=== PATIENT | female | born 1935 | race Caucasian/White ===

== ENCOUNTER → 2020-06-26 11:23 | Outpatient (BNVA) | payer MEDICARE, SELFPAY | PROVIDERS: PCP Family Medicine; Referring Provider Family Medicine; Visit Provider Internal Medicine Cardiovascular Disease | DX: I48.0 Paroxysmal atrial fibrillation (principal); I10 Essential (primary) hypertension; Z79.01 Long term (current) use of anticoagulants; Z79.899 Other long term (current) drug therapy | CPT/HCPCS: 93005; Q3014 ==

== ENCOUNTER 2020-07-13 13:17 | Emergency (ER) | payer MEDICARE, SELFPAY ==
[2020-07-13 13:31] VITALS: BP 161/50; PULSE 56; RESP 16; TEMP 36.8; O2SAT 100; BMI 25.7
--- NOTE | 2020-07-13 13:47 | ECG_ITS ---
Test Reason : DIZZINESS Blood Pressure : / mmHG Vent. Rate : 055 BPM Atrial Rate : 055 BPM P-R Int : 154 ms QRS Dur : 090 ms QT Int : 414 ms P-R-T Axes : 070 043 044 degrees QTc Int : 396 ms Sinus bradycardia Otherwise normal ECG When compared with ECG of 27-FEB-2020 10:32, No significant change was found Referred By: Shavonne Wilkinson Electronically Signed By:DILCIA HENDERSON MD
--- NOTE | 2020-07-13 13:48 | CT_ITS ---
EXAMINATION: CT HEAD WITHOUT CONTRAST CLINICAL INFORMATION: Dizziness and headaches. COMPARISON: None TECHNIQUE: Contiguous axial imaging was performed from the skull base to vertex without intravenous administration of contrast. This CT examination was performed using dose optimization techniques as appropriate, variously including the following: *Automated exposure control *Adjustment of mA and/or kV according to patient size (this includes techniques or standardized protocols for targeted exams where dose is matched to indication/reason for exam; i.e. extremities or head) *Use of iterative reconstruction technique DLP: 642 mGy-cm FINDINGS: There is no evidence of acute intracranial hemorrhage or territorial infarction. No abnormal mass effect or midline shift is seen. Gomez to white matter differentiation is well preserved. No extra-axial fluid collections are identified. The lateral ventricles are symmetrical but enlarged. The cortical sulci are slightly prominent. The osseous structures and soft tissues are normal. The mastoid air cells and visualized portions of the paranasal sinuses are well aerated. CT/CT head/brain wo con IMPRESSION: No acute intracranial process seen Age-related cerebral volume loss.
[2020-07-13 14:00] VITALS: BP 141/61; PULSE 52; RESP 16; TEMP 36.6; O2SAT 97
--- NOTE | 2020-07-13 14:03 | ED_ITS ---
HPI - Dizziness General Chief Complaint: Dizziness <IGOR Enamorado - Last Filed: 07/13/20 17:19> Stated Complaint: DIZZINESS X3DAYS <IGOR Enamorado - Last Filed: 07/13/20 17:19> Time Seen by Provider: 07/13/20 13:28 <IGOR Enamorado - Last Filed: 07/13/20 17:19> Source: patient and EMS <IGOR Enamorado - Last Filed: 07/13/20 17:19> Mode of arrival: EMS <IGOR Enamorado - Last Filed: 07/13/20 17:19> History of Present Illness HPI Narrative: 85-year-old female with a past medical history of HTN, paroxysmal AFib on Xarelto, vertigo, BIBA for worsening acute on chronic dizziness and headache since Thursday. Admits symptoms started Thursday, improved yesterday, however worsened again last night at 6:00 p.m. Dizziness described as room spinning, and off balance. Admits to similar symptoms in the past, however this is worse than her typical vertigo, and headache is new. Took meclizine at home without relief. Denies head trauma/falls. Reports intermittent blurry vision. Denies nausea/vomiting, CP/SOB, recent illness <IGOR Enamorado - Last Filed: 07/13/20 17:19> MD elicited complaint: dizziness <IGOR Enamorado - Last Filed: 07/13/20 17:19> Related Data Home Medications: Home Medications Medication Instructions Recorded Confirmed amlodipine 5 mg tablet 5 mg PO DAILY tab 06/26/20 06/26/20 ascorbate calcium (vitamin C) 500 500 mg PO DAILY 06/26/20 06/26/20 mg tablet diazepam 2 mg tablet mg PO 06/26/20 06/26/20 diltiazem HCl 120 mg 120 mg PO PRN cap 06/26/20 06/26/20 capsule,extended release 24 hr multivitamin 1 tab PO DAILY 06/26/20 06/26/20 oxybutynin chloride 5 mg tablet 5 mg PO DAILY tab 06/26/20 06/26/20 rivaroxaban 20 mg tablet 20 mg PO DAILY tab 06/26/20 06/26/20 spironolactone 25 mg tablet 25 mg PO DAILY tab 06/26/20 06/26/20 Previous Rx's Medication Instructions Recorded metoprolol tartrate 50 mg tablet 50 mg PO BID 90 Days #180 tab 06/04/20 <IGOR Enamorado - Last Filed: 07/13/20 17:19> Allergies/Adverse Reactions: Allergies Allergy/AdvReac Type Severity Reaction Status Date / Time hydrochlorothiazide Allergy Mild ITCHING Unverified 04/26/20 14:53 [HYDROCHLOROTHIAZIDE] latex [LATEX] Allergy Mild ITCHING Unverified 04/26/20 14:53 levofloxacin [From LEVAQUIN] Allergy Unknown UNK Unverified 04/26/20 14:53 lisinopril [LISINOPRIL] Allergy Unknown UNKNOWN Unverified 04/26/20 14:53 lorazepam [LORAZEPAM] Allergy Unknown UNK Unverified 04/26/20 14:53 Pork/Porcine Containing Allergy Unknown UNKNOWN Unverified 04/26/20 14:53 Products [Pork/Porcine Product Derivatives] prednisone [PREDNISONE] Allergy Unknown UNCLEAR Unverified 04/26/20 14:53 propafenone [PROPAFENONE] Allergy Unknown UNK Unverified 04/26/20 14:53 spironolactone Allergy Unknown UNKNOWN Unverified 04/26/20 14:53 [SPIRONOLACTONE] Sulfa (Sulfonamide Allergy Unknown unknown Verified 06/26/20 11:22 Antibiotics) codeine Allergy Unknown unknown Uncoded 06/26/20 11:22 Crustaceans Allergy Unknown UNKNOWN Uncoded 04/26/20 14:53 augmentin AdvReac Unknown nausea & Uncoded 04/14/18 00:00 diarrhea <IGOR Enamorado - Last Filed: 07/13/20 17:19> Review of Systems Review of Systems: Constitutional: No Weight loss, No Fever, No Chills Eyes: + Vision Changes Cardiovascular: No Chest Pain, No SOB, No Dyspnea on Exertion, No Palpitations Respiratory: No Cough, No Sputuma Gastrointestinal: No Nausea, No Vomiting, No Diarrhea, No Constipation, No Abdominal pain Genitourinary:No Dysuria, No Hematuria Musculoskeletal: No joint pain, No Myalgias, No Joint Swelling Skin: No Skin Lesions, No rash Neuro: No Weakness, No Numbness, No Loss of Consciousness, + Dizziness, + Heada sneha <IGOR Enamorado - Last Filed: 07/13/20 17:19> Yes all other systems are reviewed and are negative <IGOR Enamorado - Last Filed: 07/13/20 17:19> Neurologic: Denies Sensory deficit (Neuro) <IGOR Enamorado - Last Filed: 07/13/20 17:19> [facility] Past Medical History Attestation statement: The following information was validated with the patient. <IGOR Enamorado - Last Filed: 07/13/20 17:19> Medical History: Medical History (Updated 07/14/20 @ 00:00 by Blake Diallo) HTN (hypertension) PAF (paroxysmal atrial fibrillation) <IGOR Enamorado - Last Filed: 07/13/20 17:19> Surgical History: Surgical History (Updated 06/26/20 @ 08:26 by DELON Pablo) Hx of colonoscopy Hx of excision of epidermal inclusion cyst Hx of hemorrhoidectomy Hx of hysterectomy <IGOR Enamorado - Last Filed: 07/13/20 17:19> Family History Family History: Family History (Updated 06/26/20 @ 08:27 by DELON Pablo) Father CVD (cardiovascular disease) Diabetes Mother CVD (cardiovascular disease) Diabetes Brother No problems noted. <IGOR Enamorado - Last Filed: 07/13/20 17:19> Social History Social History: Social History (Updated 06/26/20 @ 11:26 by DELON Pablo) Alcohol intake: never Smoking Status: Never smoker Use of substances other than those prescribed or required for medical reasons: No Advance Directives: No Advance Directives Information Provided: No <IGOR Enamorado - Last Filed: 07/13/20 17:19> Physical Exam Vital Signs: Vital Signs: Last Vital Signs Temp 98 F 07/13/20 20:00 Pulse 65 07/13/20 20:00 Resp 16 07/13/20 22:00 BP 137/66 07/13/20 20:00 Pulse Ox 99 07/13/20 20:00 Body Mass Index 25.7 <IGOR Enamorado - Last Filed: 07/13/20 17:19> Vital Signs: Last Vital Signs Temp 98 F 07/13/20 20:00 Pulse 65 07/13/20 20:00 Resp 16 07/13/20 22:00 BP 137/66 07/13/20 20:00 Pulse Ox 99 07/13/20 20:00 Body Mass Index 25.7 <Dominick Burnette MD - Last Filed: 08/03/20 10:00> Vital Signs: Last Vital Signs Temp 98 F 07/13/20 20:00 Pulse 65 07/13/20 20:00 Resp 16 07/13/20 22:00 BP 137/66 07/13/20 20:00 Pulse Ox 99 07/13/20 20:00 Body Mass Index 25.7 <Ally Ruano NP - Last Filed: 07/13/20 22:08> Const: General: cooperative <IGOR Enamorado - Last Filed: 07/13/20 17:19> Orientation/consciousness: patient oriented x3 <IGOR Enamorado - Last Filed: 07/13/20 17:19> Limitations: no limitations <IGOR Enamorado - Last Filed: 07/13/20 17:19> HENMT: Other: Eyes closed throughout evaluation <Shavonne Wilkinson PA - Last Filed: 07/13/20 17:19> Head: Yes normal to inspection <IGOR Enamorado - Last Filed: 07/13/20 17:19> Ears: hearing grossly normal bilaterally <Shavonne Wilkinson PA - Last Filed: 07/13/20 17:19> General nose exam: Normal external nose present <Shavonne Wilkinson PA - Last Filed: 07/13/20 17:19> Face and sinus: Yes normal facial exam <Shavonne Wilkinson PA - Last Filed: 07/13/20 17:19> Eyes: General: appearance normal, both eyes and all related structures <Shavonne Wilkinson PA - Last Filed: 07/13/20 17:19> Pupils: Equal, round and reactive pupils present <Shavonne Wilkinson PA - Last Filed: 07/13/20 17:19> EOM: EOMs intact bilaterally <Shavonne Wilkinson PA - Last Filed: 07/13/20 17:19> Neck: Neck: Yes normal visual inspection and Yes no meningeal signs <Shavonne Wilkinson PA - Last Filed: 07/13/20 17:19> Resp: Effort & Inspection: normal respiratory effort <Shavonne Engeloste, PA - Last Filed: 07/13/20 17:19> Auscultation: clear to auscultation bilaterally, no rales, no rhonchi and no wheezes <Shavonne Engeloste, PA - Last Filed: 07/13/20 17:19> Cardio: Rate: regular rate <Shavonne Jaja, PA - Last Filed: 07/13/20 17:19> Heart sounds: S1 normal heart sound present and S2 normal heart sound present <Shavonne [facility], PA - Last Filed: 07/13/20 17:19> GI: Inspection: Yes normal to inspection <Shavonne [facility], PA - Last Filed: 07/13/20 17:19> Palpation (GI): Soft to palpation, nontender, no guarding and not rigid <Shavonne Jaja, PA - Last Filed: 07/13/20 17:19> Skin: Rashes: no rashes <Shavonne [facility], PA - Last Filed: 07/13/20 17:19> Wounds: no wounds <Shavonne [facility], PA - Last Filed: 07/13/20 17:19> Neuro: Other: +L-sided nystagmus <Shavonne [facility], PA - Last Filed: 07/13/20 17:19> General: patient oriented x3, tone normal, moves all extremities, no meningeal signs, no focal motor deficits and CN's II-XI intact bilaterally <Shavonne Jaja, PA - Last Filed: 07/13/20 17:19> Cranial nerves: Yes Equal, round and reactive pupils present <Shavonne Jaja, PA - Last Filed: 07/13/20 17:19> Cognition (Neuro): normal cognition <Shavonne [facility], PA - Last Filed: 07/13/20 17:19> Gait exam (Neuro): Normal gait present <Shavonne [facility], PA - Last Filed: 07/13/20 17:19> Motor exam (neuro): 5/5 motor strength present throughout <Shavonne Jaaj, PA - Last Filed: 07/13/20 17:19> Sensory Exam: No Sensory deficit (Neuro) <Shavonne Jaja, PA - Last Filed: 07/13/20 17:19> Coordination: [id number] test normal <IGOR Enamorado - Last Filed: 07/13/20 17:19> Extrem: General: Yes normal to inspection <IGOR Enamorado - Last Filed: 07/13/20 17:19> Course Course Course Narrative: -initial troponin 5.3 > will obtain 3 hour repeat -UA neg -Head CT negative -1625-- patient initally refused meclizine, Benadryl, and Zofran > now agreeable to receive Benadryl as still feels dizzy (pt allergic to Ativan) -1700--ED care transfer to [facility] pending repeat troponin, Chem 7, and re- evaluation. If patient's symptoms not improving, plan for admission for MRI/intractable vertigo <IGOR Enamorado - Last Filed: 07/13/20 17:19> I have discussed the case and management with the SORAIDA <Dominick Burnette MD - Last Filed: 08/03/20 10:00> MDM - Dizziness MDM Narrative Medical decision making narrative: 85-year-old female with a past medical history of HTN, paroxysmal AFib on Xarelto, vertigo, BIBA for worsening acute on chronic dizziness and headache since Thursday. On exam VSS, NAD, no focal deficits, appears dizzy, nystagmus noted. Concern for acute on chronic vertigo vs ICH/mass vs cerebellar CVA vs ?SAH although lower on differential. Lower concern for CVT or ACS. Plan: EKG, labs, UA, head CT, meclizine/Zofran/Benadryl, reassess <IGOR Enamorado - Last Filed: 07/13/20 17:19> Lab Data Result diagrams: : 07/13/20 14:33 07/13/20 18:52 <IGOR Enamorado - Last Filed: 07/13/20 17:19> Labs: Lab Results 07/13/20 07/13/20 07/13/20 Range/Units 14:33 14:33 14:33 WBC 7.5 (4.8-10.8) X10*3/uL RBC 3.85 L (4.20-5.50) X10*6/uL Hgb 11.8 L (12.0-16.0) g/dl Hct 36.0 L (37-47) % MCV 93.5 (80-98) fL MCH 30.6 (27.0-33.0) pg MCHC 32.8 (31.0-35.0) g/dl RDW 12.3 (11.0-16.0) % Plt Count 241 (160-400) X10*3/uL MPV 10.1 (9.4-12.3) fL Immature Gran % (Auto) 0.4 (0.0-0.4) % Neut % (Auto) 59.3 (45-73) % Lymph % (Auto) 31.3 (20-40) % [place] % (Auto) 7.7 (2-11) % Eos % (Auto) 0.9 (0-4) % Baso % (Auto) 0.4 (0-2) % Lymph # (Auto) 2.3 (1.2-4.9) X10*3/uL [place] # (Auto) 0.6 (0.1-1.2) X10*3/uL Eos # (Auto) 0.1 (0.0-0.4) X10*3/uL Baso # (Auto) 0.0 (0.0-0.2) X10*3/uL Abs Immat Gran (auto) 0.03 (0.00-0.03) X10*3/uL Absolute Neuts (auto) 4.4 (2.0-8.3) X10*3/uL Absolute Nucleated RBC 0.000 (0.0-0.012) X10*3/uL Nucleated RBC % (auto) 0.0 (0.0-0.2) /100WBC PT Cancelled INR Cancelled APTT Cancelled Sodium Cancelled Potassium Cancelled Chloride Cancelled Carbon Dioxide Cancelled Anion Gap Cancelled BUN Cancelled Creatinine Cancelled Estim Creat Clear Calc Cancelled Estimated GFR Cancelled Random Glucose Cancelled Calcium Cancelled Magnesium Cancelled Total Bilirubin Cancelled Direct Bilirubin Cancelled AST Cancelled ALT Cancelled Alkaline Phosphatase Cancelled Troponin I High Sens (<3.5-17.0) ng/L Total Protein Cancelled Albumin Cancelled Urine Color Urine Appearance Urine pH (5.0-8.0) Ur Specific [place] (1.005-1.025) Urine Protein (NEG-TRACE) MG/DL Urine Glucose (UA) (NEG) MG/DL Urine Ketones (NEG) MG/DL Urine Blood (NEG) Urine Nitrite (NEG) Ur Leukocyte Esterase (NEG) 07/13/20 07/13/20 07/13/20 Range/Units 14:33 15:29 18:52 WBC (4.8-10.8) X10*3/uL RBC (4.20-5.50) X10*6/uL Hgb (12.0-16.0) g/dl Hct (37-47) % MCV (80-98) fL MCH (27.0-33.0) pg MCHC (31.0-35.0) g/dl RDW (11.0-16.0) % Plt Count (160-400) X10*3/uL MPV (9.4-12.3) fL Immature Gran % (Auto) (0.0-0.4) % Neut % (Auto) (45-73) % Lymph % (Auto) (20-40) % [place] % (Auto) (2-11) % Eos % (Auto) (0-4) % Baso % (Auto) (0-2) % Lymph # (Auto) (1.2-4.9) X10*3/uL [place] # (Auto) (0.1-1.2) X10*3/uL Eos # (Auto) (0.0-0.4) X10*3/uL Baso # (Auto) (0.0-0.2) X10*3/uL Abs Immat Gran (auto) (0.00-0.03) X10*3/uL Absolute Neuts (auto) (2.0-8.3) X10*3/uL Absolute Nucleated RBC (0.0-0.012) X10*3/uL Nucleated RBC % (auto) (0.0-0.2) /100WBC PT INR APTT Sodium 139 Potassium 3.9 Chloride 102 Carbon Dioxide 29 Anion Gap 12 BUN 18 H Creatinine 0.89 Estim Creat Clear Calc 44.5 Estimated GFR > 60 Random Glucose 98 Calcium 9.4 Magnesium 2.0 Total Bilirubin 0.7 Direct Bilirubin 0.3 AST 16 ALT 14 Alkaline Phosphatase 67 Troponin I High Sens 5.3 (<3.5-17.0) ng/L Total Protein 6.7 Albumin 3.9 Urine Color YELLOW Urine Appearance CLEAR Urine pH 6.0 (5.0-8.0) Ur Specific [place] <= 1.005 (1.005-1.025) Urine Protein NEG (NEG-TRACE) MG/DL Urine Glucose (UA) NEG (NEG) MG/DL Urine Ketones NEG (NEG) MG/DL Urine Blood NEG (NEG) Urine Nitrite NEG (NEG) Ur Leukocyte Esterase NEG (NEG) 07/13/20 07/13/20 Range/Units 18:52 18:52 WBC (4.8-10.8) X10*3/uL RBC (4.20-5.50) X10*6/uL Hgb (12.0-16.0) g/dl Hct (37-47) % MCV (80-98) fL MCH (27.0-33.0) pg MCHC (31.0-35.0) g/dl RDW (11.0-16.0) % Plt Count (160-400) X10*3/uL MPV (9.4-12.3) fL Immature Gran % (Auto) (0.0-0.4) % Neut % (Auto) (45-73) % Lymph % (Auto) (20-40) % [place] % (Auto) (2-11) % Eos % (Auto) (0-4) % Baso % (Auto) (0-2) % Lymph # (Auto) (1.2-4.9) X10*3/uL [place] # (Auto) (0.1-1.2) X10*3/uL Eos # (Auto) (0.0-0.4) X10*3/uL Baso # (Auto) (0.0-0.2) X10*3/uL Abs Immat Gran (auto) (0.00-0.03) X10*3/uL Absolute Neuts (auto) (2.0-8.3) X10*3/uL Absolute Nucleated RBC (0.0-0.012) X10*3/uL Nucleated RBC % (auto) (0.0-0.2) /100WBC PT 13.1 H INR 1.1 APTT 31.5 Sodium Potassium Chloride Carbon Dioxide Anion Gap BUN Creatinine Estim Creat Clear Calc Estimated GFR Random Glucose Calcium Magnesium Total Bilirubin Direct Bilirubin AST ALT Alkaline Phosphatase Troponin I High Sens 6.3 (<3.5-17.0) ng/L Total Protein Albumin Urine Color Urine Appearance Urine pH (5.0-8.0) Ur Specific [place] (1.005-1.025) Urine Protein (NEG-TRACE) MG/DL Urine Glucose (UA) (NEG) MG/DL Urine Ketones (NEG) MG/DL Urine Blood (NEG) Urine Nitrite (NEG) Ur Leukocyte Esterase (NEG) <IGOR Enamorado - Last Filed: 07/13/20 17:19> Lab Results 07/13/20 07/13/20 07/13/20 Range/Units 14:33 14:33 14:33 WBC 7.5 (4.8-10.8) X10*3/uL RBC 3.85 L (4.20-5.50) X10*6/uL Hgb 11.8 L (12.0-16.0) g/dl Hct 36.0 L (37-47) % MCV 93.5 (80-98) fL MCH 30.6 (27.0-33.0) pg MCHC 32.8 (31.0-35.0) g/dl RDW 12.3 (11.0-16.0) % Plt Count 241 (160-400) X10*3/uL MPV 10.1 (9.4-12.3) fL Immature Gran % (Auto) 0.4 (0.0-0.4) % Neut % (Auto) 59.3 (45-73) % Lymph % (Auto) 31.3 (20-40) % [place] % (Auto) 7.7 (2-11) % Eos % (Auto) 0.9 (0-4) % Baso % (Auto) 0.4 (0-2) % Lymph # (Auto) 2.3 (1.2-4.9) X10*3/uL [place] # (Auto) 0.6 (0.1-1.2) X10*3/uL Eos # (Auto) 0.1 (0.0-0.4) X10*3/uL Baso # (Auto) 0.0 (0.0-0.2) X10*3/uL Abs Immat Gran (auto) 0.03 (0.00-0.03) X10*3/uL Absolute Neuts (auto) 4.4 (2.0-8.3) X10*3/uL Absolute Nucleated RBC 0.000 (0.0-0.012) X10*3/uL Nucleated RBC % (auto) 0.0 (0.0-0.2) /100WBC PT Cancelled INR Cancelled APTT Cancelled Sodium Cancelled Potassium Cancelled Chloride Cancelled Carbon Dioxide Cancelled Anion Gap Cancelled BUN Cancelled Creatinine Cancelled Estim Creat Clear Calc Cancelled Estimated GFR Cancelled Random Glucose Cancelled Calcium Cancelled Magnesium Cancelled Total Bilirubin Cancelled Direct Bilirubin Cancelled AST Cancelled ALT Cancelled Alkaline Phosphatase Cancelled Troponin I High Sens (<3.5-17.0) ng/L Total Protein Cancelled Albumin Cancelled Urine Color Urine Appearance Urine pH (5.0-8.0) Ur Specific [place] (1.005-1.025) Urine Protein (NEG-TRACE) MG/DL Urine Glucose (UA) (NEG) MG/DL Urine Ketones (NEG) MG/DL Urine Blood (NEG) Urine Nitrite (NEG) Ur Leukocyte Esterase (NEG) 07/13/20 07/13/20 07/13/20 Range/Units 14:33 15:29 18:52 WBC (4.8-10.8) X10*3/uL RBC (4.20-5.50) X10*6/uL Hgb (12.0-16.0) g/dl Hct (37-47) % MCV (80-98) fL MCH (27.0-33.0) pg MCHC (31.0-35.0) g/dl RDW (11.0-16.0) % Plt Count (160-400) X10*3/uL MPV (9.4-12.3) fL Immature Gran % (Auto) (0.0-0.4) % Neut % (Auto) (45-73) % Lymph % (Auto) (20-40) % [place] % (Auto) (2-11) % Eos % (Auto) (0-4) % Baso % (Auto) (0-2) % Lymph # (Auto) (1.2-4.9) X10*3/uL [place] # (Auto) (0.1-1.2) X10*3/uL Eos # (Auto) (0.0-0.4) X10*3/uL Baso # (Auto) (0.0-0.2) X10*3/uL Abs Immat Gran (auto) (0.00-0.03) X10*3/uL Absolute Neuts (auto) (2.0-8.3) X10*3/uL Absolute Nucleated RBC (0.0-0.012) X10*3/uL Nucleated RBC % (auto) (0.0-0.2) /100WBC PT INR APTT Sodium 139 Potassium 3.9 Chloride 102 Carbon Dioxide 29 Anion Gap 12 BUN 18 H Creatinine 0.89 Estim Creat Clear Calc 44.5 Estimated GFR > 60 Random Glucose 98 Calcium 9.4 Magnesium 2.0 Total Bilirubin 0.7 Direct Bilirubin 0.3 AST 16 ALT 14 Alkaline Phosphatase 67 Troponin I High Sens 5.3 (<3.5-17.0) ng/L Total Protein 6.7 Albumin 3.9 Urine Color YELLOW Urine Appearance CLEAR Urine pH 6.0 (5.0-8.0) Ur Specific [place] <= 1.005 (1.005-1.025) Urine Protein NEG (NEG-TRACE) MG/DL Urine Glucose (UA) NEG (NEG) MG/DL Urine Ketones NEG (NEG) MG/DL Urine Blood NEG (NEG) Urine Nitrite NEG (NEG) Ur Leukocyte Esterase NEG (NEG) 07/13/20 07/13/20 Range/Units 18:52 18:52 WBC (4.8-10.8) X10*3/uL RBC (4.20-5.50) X10*6/uL Hgb (12.0-16.0) g/dl Hct (37-47) % MCV (80-98) fL MCH (27.0-33.0) pg MCHC (31.0-35.0) g/dl RDW (11.0-16.0) % Plt Count (160-400) X10*3/uL MPV (9.4-12.3) fL Immature Gran % (Auto) (0.0-0.4) % Neut % (Auto) (45-73) % Lymph % (Auto) (20-40) % [place] % (Auto) (2-11) % Eos % (Auto) (0-4) % Baso % (Auto) (0-2) % Lymph # (Auto) (1.2-4.9) X10*3/uL [place] # (Auto) (0.1-1.2) X10*3/uL Eos # (Auto) (0.0-0.4) X10*3/uL Baso # (Auto) (0.0-0.2) X10*3/uL Abs Immat Gran (auto) (0.00-0.03) X10*3/uL Absolute Neuts (auto) (2.0-8.3) X10*3/uL Absolute Nucleated RBC (0.0-0.012) X10*3/uL Nucleated RBC % (auto) (0.0-0.2) /100WBC PT 13.1 H INR 1.1 APTT 31.5 Sodium Potassium Chloride Carbon Dioxide Anion Gap BUN Creatinine Estim Creat Clear Calc Estimated GFR Random Glucose Calcium Magnesium Total Bilirubin Direct Bilirubin AST ALT Alkaline Phosphatase Troponin I High Sens 6.3 (<3.5-17.0) ng/L Total Protein Albumin Urine Color Urine Appearance Urine pH (5.0-8.0) Ur Specific [place] (1.005-1.025) Urine Protein (NEG-TRACE) MG/DL Urine Glucose (UA) (NEG) MG/DL Urine Ketones (NEG) MG/DL Urine Blood (NEG) Urine Nitrite (NEG) Ur Leukocyte Esterase (NEG) <Dominick Burnette MD - Last Filed: 08/03/20 10:00> Lab Results 07/13/20 07/13/20 07/13/20 Range/Units 14:33 14:33 14:33 WBC 7.5 (4.8-10.8) X10*3/uL RBC 3.85 L (4.20-5.50) X10*6/uL Hgb 11.8 L (12.0-16.0) g/dl Hct 36.0 L (37-47) % MCV 93.5 (80-98) fL MCH 30.6 (27.0-33.0) pg MCHC 32.8 (31.0-35.0) g/dl RDW 12.3 (11.0-16.0) % Plt Count 241 (160-400) X10*3/uL MPV 10.1 (9.4-12.3) fL Immature Gran % (Auto) 0.4 (0.0-0.4) % Neut % (Auto) 59.3 (45-73) % Lymph % (Auto) 31.3 (20-40) % [place] % (Auto) 7.7 (2-11) % Eos % (Auto) 0.9 (0-4) % Baso % (Auto) 0.4 (0-2) % Lymph # (Auto) 2.3 (1.2-4.9) X10*3/uL [place] # (Auto) 0.6 (0.1-1.2) X10*3/uL Eos # (Auto) 0.1 (0.0-0.4) X10*3/uL Baso # (Auto) 0.0 (0.0-0.2) X10*3/uL Abs Immat Gran (auto) 0.03 (0.00-0.03) X10*3/uL Absolute Neuts (auto) 4.4 (2.0-8.3) X10*3/uL Absolute Nucleated RBC 0.000 (0.0-0.012) X10*3/uL Nucleated RBC % (auto) 0.0 (0.0-0.2) /100WBC PT Cancelled INR Cancelled APTT Cancelled Sodium Cancelled Potassium Cancelled Chloride Cancelled Carbon Dioxide Cancelled Anion Gap Cancelled BUN Cancelled Creatinine Cancelled Estim Creat Clear Calc Cancelled Estimated GFR Cancelled Random Glucose Cancelled Calcium Cancelled Magnesium Cancelled Total Bilirubin Cancelled Direct Bilirubin Cancelled AST Cancelled ALT Cancelled Alkaline Phosphatase Cancelled Troponin I High Sens (<3.5-17.0) ng/L Total Protein Cancelled Albumin Cancelled Urine Color Urine Appearance Urine pH (5.0-8.0) Ur Specific [place] (1.005-1.025) Urine Protein (NEG-TRACE) MG/DL Urine Glucose (UA) (NEG) MG/DL Urine Ketones (NEG) MG/DL Urine Blood (NEG) Urine Nitrite (NEG) Ur Leukocyte Esterase (NEG) 12/04/20 12/04/20 12/04/20 Range/Units 14:33 15:29 18:52 WBC (4.8-10.8) X10*3/uL RBC (4.20-5.50) X10*6/uL Hgb (12.0-16.0) g/dl Hct (37-47) % MCV (80-98) fL MCH (27.0-33.0) pg MCHC (31.0-35.0) g/dl RDW (11.0-16.0) % Plt Count (160-400) X10*3/uL MPV (9.4-12.3) fL Immature Gran % (Auto) (0.0-0.4) % Neut % (Auto) (45-73) % Lymph % (Auto) (20-40) % [place] % (Auto) (2-11) % Eos % (Auto) (0-4) % Baso % (Auto) (0-2) % Lymph # (Auto) (1.2-4.9) X10*3/uL [place] # (Auto) (0.1-1.2) X10*3/uL Eos # (Auto) (0.0-0.4) X10*3/uL Baso # (Auto) (0.0-0.2) X10*3/uL Abs Immat Gran (auto) (0.00-0.03) X10*3/uL Absolute Neuts (auto) (2.0-8.3) X10*3/uL Absolute Nucleated RBC (0.0-0.012) X10*3/uL Nucleated RBC % (auto) (0.0-0.2) /100WBC PT INR APTT Sodium 139 Potassium 3.9 Chloride 102 Carbon Dioxide 29 Anion Gap 12 BUN 18 H Creatinine 0.89 Estim Creat Clear Calc 44.5 Estimated GFR > 60 Random Glucose 98 Calcium 9.4 Magnesium 2.0 Total Bilirubin 0.7 Direct Bilirubin 0.3 AST 16 ALT 14 Alkaline Phosphatase 67 Troponin I High Sens 5.3 (<3.5-17.0) ng/L Total Protein 6.7 Albumin 3.9 Urine Color YELLOW Urine Appearance CLEAR Urine pH 6.0 (5.0-8.0) Ur Specific [place] <= 1.005 (1.005-1.025) Urine Protein NEG (NEG-TRACE) MG/DL Urine Glucose (UA) NEG (NEG) MG/DL Urine Ketones NEG (NEG) MG/DL Urine Blood NEG (NEG) Urine Nitrite NEG (NEG) Ur Leukocyte Esterase NEG (NEG) 07/13/20 07/13/20 Range/Units 18:52 18:52 WBC (4.8-10.8) X10*3/uL RBC (4.20-5.50) X10*6/uL Hgb (12.0-16.0) g/dl Hct (37-47) % MCV (80-98) fL MCH (27.0-33.0) pg MCHC (31.0-35.0) g/dl RDW (11.0-16.0) % Plt Count (160-400) X10*3/uL MPV (9.4-12.3) fL Immature Gran % (Auto) (0.0-0.4) % Neut % (Auto) (45-73) % Lymph % (Auto) (20-40) % [place] % (Auto) (2-11) % Eos % (Auto) (0-4) % Baso % (Auto) (0-2) % Lymph # (Auto) (1.2-4.9) X10*3/uL [place] # (Auto) (0.1-1.2) X10*3/uL Eos # (Auto) (0.0-0.4) X10*3/uL Baso # (Auto) (0.0-0.2) X10*3/uL Abs Immat Gran (auto) (0.00-0.03) X10*3/uL Absolute Neuts (auto) (2.0-8.3) X10*3/uL Absolute Nucleated RBC (0.0-0.012) X10*3/uL Nucleated RBC % (auto) (0.0-0.2) /100WBC PT 13.1 H INR 1.1 APTT 31.5 Sodium Potassium Chloride Carbon Dioxide Anion Gap BUN Creatinine Estim Creat Clear Calc Estimated GFR Random Glucose Calcium Magnesium Total Bilirubin Direct Bilirubin AST ALT Alkaline Phosphatase Troponin I High Sens 6.3 (<3.5-17.0) ng/L Total Protein Albumin Urine Color Urine Appearance Urine pH (5.0-8.0) Ur Specific [place] (1.005-1.025) Urine Protein (NEG-TRACE) MG/DL Urine Glucose (UA) (NEG) MG/DL Urine Ketones (NEG) MG/DL Urine Blood (NEG) Urine Nitrite (NEG) Ur Leukocyte Esterase (NEG) <Ally Ruano NP - Last Filed: 07/13/20 22:08> Discharge Plan Discharge Clinical Impression: Dizziness <IGOR Enamorado - Last Filed: 07/13/20 17:19> Patient Disposition: Home, Self-Care <IGOR Enamorado - Last Filed: 07/13/20 17:19> Instructions: Dizziness (ED) <IGOR Enamorado - Last Filed: 07/13/20 17:19> Additional Instructions: you were evaluated for dizziness. Her lab values are within normal limits. <IGOR Enamorado - Last Filed: 07/13/20 17:19> Prescriptions: No Action metoprolol tartrate 50 mg tablet 50 mg PO BID 90 Days Qty: 180 RF: 1 diazepam 2 mg tablet PO RF: 0 ascorbate calcium (vitamin C) 500 mg tablet 500 mg PO DAILY RF: 0 multivitamin Tablet 1 tab PO DAILY RF: 0 diltiazem HCl 120 mg capsule,extended release 24hr 120 mg PO PRN (Reason: afib) RF: 0 spironolactone 25 mg tablet 25 mg PO DAILY RF: 0 rivaroxaban 20 mg tablet 20 mg PO DAILY RF: 0 oxybutynin chloride 5 mg tablet 5 mg PO DAILY RF: 0 amlodipine 5 mg tablet 5 mg PO DAILY RF: 0 <IGOR Enamorado - Last Filed: 07/13/20 17:19> Interventions: ED Discharge Assessment Last Done: 07/13/20 22:52 <IGOR Enamorado - Last Filed: 07/13/20 17:19> Discharge Date/Time: 07/13/20 22:53 <IGOR Enamorado - Last Filed: 07/13/20 17:19>
[2020-07-13] MEDS: diphenhydrAMINE HCL 50 MG/ML VIAL 25 MG IVPUSH ×2 (14:35→17:47)
[2020-07-13] MEDS: ondansetron HCL 4 MG/2 ML VIAL IVPUSH (14:35)
[2020-07-13] MEDS: Acetaminophen 325 MG TABLET 650 MG PO (14:35)
[2020-07-13 14:43] LABS: Basophils Percent Auto 0.4 % (0-2); Eosinophils Absolute Auto 0.1 X10*3/uL (0.0-0.4); Eosinophils Percent Auto 0.9 % (0-4); Hemoglobin 11.8 g/dl (12.0-16.0); Imm Gran Abs Auto 0.03 X10*3/uL (0.00-0.03); Imm Gran Pct Auto 0.4 % (0.0-0.4); Lymphocytes Absolute Auto 2.3 X10*3/uL (1.2-4.9); Lymphocytes Percent Auto 31.3 % (20-40); MANUAL DIFF FLAG NO; Mean Corpuscular HGB Conc 32.8 g/dl (31.0-35.0); Mean Corpuscular Hemoglobin 30.6 pg (27.0-33.0); Mean Corpuscular Volume 93.5 fL (80-98); Mean Platelet Volume 10.1 fL (9.4-12.3); Monocytes Absolute Auto 0.6 X10*3/uL (0.1-1.2); Monocytes Percent Auto 7.7 % (2-11); Neutrophils Absolute Auto 4.4 X10*3/uL (2.0-8.3); Neutrophils Percent Auto 59.3 % (45-73); Platelet Count 241 X10*3/uL (160-400); Red Blood Count 3.85 X10*6/uL (4.20-5.50); Red Cell Distribution Width 12.3 % (11.0-16.0); White Blood Count 7.5 X10*3/uL (4.8-10.8)
[2020-07-13 15:10] LABS: Troponin-I High Sensitivity 5.3 ng/L (<3.5-17.0)
[2020-07-13 15:36] LABS: Glucose Urine UA NEG (NEG); Leukocyte Esterase Urine NEG (NEG); Nitrite Urine NEG (NEG); Specific Gravity - Urine <= 1.005 (1.005-1.025); Urine Blood NEG (NEG); Urine Ketones NEG (NEG); Urine Protein NEG (NEG-TRACE)
[2020-07-13 15:38] LABS: Appearance Urine CLEAR; Color Urine YELLOW
[2020-07-13 16:00] VITALS: BP 150/75; PULSE 61; RESP 16; TEMP 36.5; O2SAT 99
[2020-07-13 18:00] VITALS: BP 137/50; PULSE 58; RESP 18; TEMP 36.9; O2SAT 96
[2020-07-13 19:10] LABS: INTERNATIONAL NORM RATIO 1.1 (0.9-1.1); Prothrombin Time 13.1 SEC (10.8-13.0)
[2020-07-13 19:13] LABS: Partial Thromboplastin Time 31.5 SEC (24.1-38.0)
[2020-07-13 19:25] LABS: Alanine Aminotransferase 14 U/L (0-31); Albumin Level 3.9 g/dL (3.5-5.0); Alkaline Phosphatase 67 U/L (39-117); Anion Gap 12 (12-20); Aspartate Amino Transferase 16 U/L (5-31); Bilirubin Direct 0.3 mg/dL (0.0-0.5); Bilirubin Total 0.7 mg/dL (0.0-1.0); Blood Urea Nitrogen 18 mg/dL (9-16); Calcium 9.4 mg/dL (8.4-10.2); Carbon Dioxide 29 mmol/L (22-29); Chloride 102 mmol/L (96-108); Creatinine Clr Calc Pharmacy 44.5; Estimated Glomerular Filt Rate > 60; Glucose Random 98 mg/dL (60-115); Potassium 3.9 mmol/l (3.3-5.1); Sodium 139 mmol/L (135-145); Total Protein 6.7 g/dL (6.5-8.0)
[2020-07-13 19:30] LABS: Troponin-I High Sensitivity 6.3 ng/L (<3.5-17.0)
[2020-07-13 20:00] VITALS: BP 137/66; PULSE 65; RESP 18; TEMP 36.6; O2SAT 99
--- NOTE | 2020-07-13 21:09 | PC.NURSE ---
PT AMBULATED AROUND ED USING WALKER WITH EVEN STEADY GAIT. PT AWARE/AGREEABLE TO PENDING D/C.
[2020-07-13 22:00] VITALS: RESP 16
--- NOTE | 2020-07-13 22:36 | PC.NURSE ---
PT REPEATEDLY LEAVING ROOM AND INDEPENDDENTLY AMBULATING AROUND ED WITH EVEN STEADY GAIT INQUIRING WITH ANY STAFF WHEN HER CHAIR VAN WILL ARRIVE TO TAKE HER HOME, PT REPEATEDLY REDIRECTED TO ROOM TO AWAIT TRANSPORTATION.
[2020-09-01 15:01] VITALS: BP 137/66; PULSE 65; O2SAT 99
== END 2020-07-13 22:53 | disposition home or self-care (01) ==
PROVIDERS: Nurse Practitioner Family; Physician Assistant; Emergency Provider Emergency Medicine; PCP Family Medicine
DX: R42 Dizziness and giddiness (principal); I10 Essential (primary) hypertension; I48.91 Unspecified atrial fibrillation; Z79.01 Long term (current) use of anticoagulants; Z79.899 Other long term (current) drug therapy
CPT/HCPCS: 36415; 70450; 80048; 80076; 81003; 83735; 84484; 85025; 85610; 85730; 93005; 96361; 96375; 96376; 99284; J1200; J2405

== ENCOUNTER 2020-08-27 09:46 | Outpatient (REF) | payer MEDICARE, SELFPAY ==
[2020-08-27 10:16] LABS: Hematocrit 35.3 % (37-47); Hemoglobin 11.5 g/dl (12.0-16.0); Mean Corpuscular HGB Conc 32.6 g/dl (31.0-35.0); Mean Corpuscular Hemoglobin 30.7 pg (27.0-33.0); Mean Corpuscular Volume 94.4 fL (80-98); Mean Platelet Volume 10.2 fL (9.4-12.3); Platelet Count 240 X10*3/uL (160-400); Red Blood Count 3.74 X10*6/uL (4.20-5.50); Red Cell Distribution Width 12.3 % (11.0-16.0); White Blood Count 6.9 X10*3/uL (4.8-10.8)
[2020-08-27 11:04] LABS: Anion Gap 11 (12-20); Blood Urea Nitrogen 16 mg/dL (9-16); Calcium 9.1 mg/dL (8.4-10.2); Carbon Dioxide 30 mmol/L (22-29); Chloride 100 mmol/L (96-108); Erythrocyte Sedimentation Rate 12 MM/HR (0-20); Estimated Glomerular Filt Rate 60; Glucose Random 92 mg/dL (60-115); Potassium 4.7 mmol/l (3.3-5.1); Sodium 136 mmol/L (135-145)
== END 2020-08-27 09:47 | disposition home or self-care (01) ==
LOC: HO.LAB 09:46
PROVIDERS: Absent Provider Psychiatry & Neurology Neurology; PCP Family Medicine; Visit Provider Internal Medicine Cardiovascular Disease
DX: M79.10 Myalgia, unspecified site (principal); I48.0 Paroxysmal atrial fibrillation
CPT/HCPCS: 36415; 80048; 85027; 85652

== ENCOUNTER 2020-08-31 16:08 | Observation (INO) | payer MEDICARE, SELFPAY ==
--- NOTE | 2020-08-31 16:50 | XR_ITS ---
EXAMINATION: XR CHEST CLINICAL INFORMATION: Dizziness COMPARISON: 08/04/2019 TECHNIQUE: Frontal view of the chest was obtained. FINDINGS: Mild bilateral basilar opacities may represent small areas of infiltrate or atelectasis. No failure. No effusion. The mediastinal contours are within normal limits. XR/XR chest 1V IMPRESSION: Mild bilateral basilar atelectasis
--- NOTE | 2020-08-31 16:50 | ECG_ITS ---
Test Reason : DIZZYNESS Blood Pressure : / mmHG Vent. Rate : 060 BPM Atrial Rate : 060 BPM P-R Int : 158 ms QRS Dur : 090 ms QT Int : 416 ms P-R-T Axes : 073 063 059 degrees QTc Int : 416 ms Normal sinus rhythm Normal ECG When compared with ECG of 13-JUL-2020 18:38, No significant change was found Referred By: Jann Corrales Electronically Signed By:JERMAIN HORAN
--- NOTE | 2020-08-31 16:56 | CT_ITS ---
EXAMINATION: CT HEAD WITHOUT CONTRAST CLINICAL INFORMATION: Dizziness and headache COMPARISON: 07/13/2020 TECHNIQUE: Contiguous axial imaging was performed from the skull base to vertex without intravenous contrast. This CT examination was performed using dose optimization techniques as appropriate, variously including the following: * Automated exposure control * Adjustment of mA and/or kV according to patient size (this includes techniques or standardized protocols for targeted exams where dose is matched to indication/reason for exam; i.e. extremities or head) Use of iterative reconstruction technique DLP: 638 mGy-cm. FINDINGS: There is no evidence of acute intracranial hemorrhage or territorial infarction. No abnormal mass effect or midline shift is seen. Gomez to white matter differentiation is well preserved. No extra-axial fluid collections are identified. No hydrocephalus. Proportional prominence of the ventricles and sulcal spaces is consistent with mild volume loss. Patchy periventricular and deep white matter hypoattenuation is consistent with mild small vessel ischemic changes. The osseous structures and soft tissues are normal. The mastoid air cells and visualized portions of the paranasal sinuses are well aerated. CT/CT head/brain wo con IMPRESSION: No acute intracranial pathology. Mild volume loss with small vessel ischemic changes.
[2020-08-31 16:57] VITALS: BP 160/70; BP 169/53; PULSE 56; PULSE 70; RESP 17; TEMP 36.5; O2SAT 100; BMI 24.4
--- NOTE | 2020-08-31 16:57 | ED.DIZZY ---
HPI - Dizziness General Chief Complaint: Nausea/Vomiting/Diarrhea Stated Complaint: vomiting Time Seen by Provider: 08/31/20 16:50 Source: patient and EMS Mode of arrival: EMS Limitations: no limitations History of Present Illness HPI Narrative: This is a 85-year-old female with past medical history significant for hypertension, paroxysmal AFib on Xarelto, vertigo. Patient brought in by ambulance for worsening of chronic dizziness for the past 3 days, patient describes the episode as an intermittent episodes, last for hours then improved, today symptoms is prolonged, patient also reported headache, nausea, and vomiting and nonbloody watery diarrhea (typical symptoms for the patient). is associated with her dizziness, patient describes dizziness as unsteadiness and feeling everything is moving around her, patient describes symptoms worsening by movement and changing position, and not relieved by sitting still and patient tried meclizine with no improvement. Related Data Home Medications Medication Instructions Recorded Confirmed ascorbate calcium (vitamin C) 500 500 mg PO DAILY 06/26/20 06/26/20 mg tablet diazepam 2 mg tablet mg PO 06/26/20 06/26/20 diltiazem HCl 120 mg 120 mg PO PRN cap 06/26/20 06/26/20 capsule,extended release 24 hr multivitamin 1 tab PO DAILY 06/26/20 06/26/20 oxybutynin chloride 5 mg tablet 5 mg PO DAILY tab 06/26/20 06/26/20 Previous Rx's Medication Instructions Recorded amlodipine 5 mg tablet 5 mg PO DAILY #90 tab 08/08/20 rivaroxaban 20 mg tablet 20 mg PO DAILY #90 tab 08/08/20 spironolactone 25 mg tablet 25 mg PO DAILY #90 tab 08/08/20 metoprolol tartrate 50 mg tablet 50 mg PO BID 90 Days #180 tab 08/21/20 oxybutynin chloride 5 mg tablet 5 mg PO DAILY 90 Days #90 tab 08/23/20 Allergies Allergy/AdvReac Type Severity Reaction Status Date / Time hydrochlorothiazide Allergy Mild ITCHING Unverified 04/26/20 14:53 [HYDROCHLOROTHIAZIDE] latex [LATEX] Allergy Mild ITCHING Unverified 04/26/20 14:53 levofloxacin [From LEVAQUIN] Allergy Unknown UNK Unverified 04/26/20 14:53 lisinopril [LISINOPRIL] Allergy Unknown UNKNOWN Unverified 04/26/20 14:53 lorazepam [LORAZEPAM] Allergy Unknown UNK Unverified 04/26/20 14:53 Pork/Porcine Containing Allergy Unknown UNKNOWN Unverified 04/26/20 14:53 Products [Pork/Porcine Product Derivatives] prednisone [PREDNISONE] Allergy Unknown UNCLEAR Unverified 04/26/20 14:53 propafenone [PROPAFENONE] Allergy Unknown UNK Unverified 04/26/20 14:53 spironolactone Allergy Unknown UNKNOWN Unverified 04/26/20 14:53 [SPIRONOLACTONE] Sulfa (Sulfonamide Allergy Unknown unknown Verified 06/26/20 11:22 Antibiotics) codeine Allergy Unknown unknown Uncoded 06/26/20 11:22 Crustaceans Allergy Unknown UNKNOWN Uncoded 04/26/20 14:53 augmentin AdvReac Unknown nausea & Uncoded 04/14/18 00:00 diarrhea Review of Systems Review of Systems: All other systems are reviewed and are negative Constitutional: Reports as per HPI and Reports no additional constitutional complaints Eyes: Reports as per HPI and Reports no additional eye complaints, mild dry mucous membrane. Reports system reviewed and no additional complaints, except as documented Cardiovascular: Reports as per HPI and Reports no additional cardiovascular complaints Respiratory: Reports as per HPI and Reports no additional respiratory complaints Gastrointestinal: Reports as per HPI and Reports no additional gastrointestinal complaints Genitourinary: Reports no additional female genitourinary complaints Musculoskeletal: Reports no additional musculoskeletal complaints Skin/Breast: Reports system reviewed and no additional complaints, except as docu Psychiatric: Reports no additional psychiatric complaints Endocrine: Reports no additional endocrine complaints Hematologic/Lymphatic: Reports no additional hematologic/lymphatic complaints Allergic/Immunologic: Reports no additional allergic/immunologic complaints Reports system reviewed and no additional complaints, except as documented and Reports Abnormal speech present [facility] Past Medical History Medical History HTN (hypertension) PAF (paroxysmal atrial fibrillation) Surgical History Hx of colonoscopy Hx of excision of epidermal inclusion cyst Hx of hemorrhoidectomy Hx of hysterectomy Family History Family History Father CVD (cardiovascular disease) Diabetes Mother CVD (cardiovascular disease) Diabetes Brother No problems noted. Social History Social History Alcohol intake: never Smoking Status: Never smoker Advance Directives: No Advance Directives Information Provided: Yes Physical Exam Vital Signs: Vital Signs: Last Vital Signs Temp 97.7 F 08/31/20 16:57 Pulse 56 08/31/20 16:57 Resp 17 08/31/20 16:57 BP 169/53 H 08/31/20 16:57 Pulse Ox 100 08/31/20 16:57 Body Mass Index 24.4 Vital signs have been reviewed as normal and appeared to be correct. Blood pressure normal. Heart rate normal. Respiration rate normal. Temperature normal. Oxygen saturation normal. Appearance: Alert. Oriented X3. No acute distress. Head: Normal external exam. Normocephalic. Atraumatic. No Dietz signs noted. No raccoon eyes noted Eyes: PERRLA. EOMI. Conjunctiva and sclera normal. Eyelids normal. ENT: EAC normal. TM's Normal. Pharynx normal. Uvula midline. Moist mucous membranes. No trismus noted. No drooling noted. No muffled voice noted. Neck: Normal inspection. Neck supple. FROM. No adenopathy. Thyroid Normal. No meningeal signs. No neck mass noted. CVS: Normal heart rate and rhythm. Heart sound normal. No murmurs noted. Pulses normal throughout. Respiratory: No respiratory distress. Painless inspiration. Breath sounds normal. No wheezes/rales/rhonchi noted. Chest nontender. No accessory muscle usage noted or decreased air movement noted. Abdomen: Soft and nontender. Bowel sounds normal in all 4 quadrants. No distention noted. No organomegaly noted. No visible injury noted. Back: No CVA tenderness. Full range of motion noted. Skin: Skin warm and dry. Normal skin color. Normal skin turgor. No rashes/lesions/lacerations noted. Extremities: No lower extremity edema. Extremities exhibit normal range of motion. Extremities nontender. Neuro: Oriented X 3. No motor deficit. No sensory deficit. Reflexes normal. Course Course Course Narrative: 13:00 patient received multiple doses of Ativan/meclizine/Zofran/IV fluid there is partial improvement when patient got out of bed to ambulate still feeling dizzy unstable gait, patient lives home alone with risk of falling. We will admit for anti vert medication and discharged when patient more stable and safe to be discharged. MDM - Dizziness MDM Narrative Medical decision making narrative: Assessment and plan. 85-year-old female with chronic vertigo presented with 3 days of intermittent vertigo, nausea and vomiting. Patient initially appeared mildly dehydrated, patient received IV fluids/meclizine/Zofran/Ativan patient felt better after, patient was hungry and asking for food able to tolerate p.o. intake without nausea and vomiting, patient was walking in the emergency department with steady gait. Lab Data Attestation: I reviewed the patient's lab results. Result diagrams: 08/31/20 17:36 08/31/20 17:36 Labs: Lab Results 08/31/20 08/31/20 08/31/20 Range/Units 17:36 17:36 17:36 WBC 8.0 (4.8-10.8) X10*3/uL RBC 3.97 L (4.20-5.50) X10*6/uL Hgb 12.3 (12.0-16.0) g/dl Hct 36.8 L (37-47) % MCV 92.7 (80-98) fL MCH 31.0 (27.0-33.0) pg MCHC 33.4 (31.0-35.0) g/dl RDW 12.1 (11.0-16.0) % Plt Count 236 (160-400) X10*3/uL MPV 9.9 (9.4-12.3) fL Immature Gran % (Auto) 0.3 (0.0-0.4) % Neut % (Auto) 63.4 (45-73) % Lymph % (Auto) 28.9 (20-40) % Morton % (Auto) 6.6 (2-11) % Eos % (Auto) 0.5 (0-4) % Baso % (Auto) 0.3 (0-2) % Lymph # (Auto) 2.3 (1.2-4.9) X10*3/uL Morton # (Auto) 0.5 (0.1-1.2) X10*3/uL Eos # (Auto) 0.0 (0.0-0.4) X10*3/uL Baso # (Auto) 0.0 (0.0-0.2) X10*3/uL Abs Immat Gran (auto) 0.02 (0.00-0.03) X10*3/uL Absolute Neuts (auto) 5.1 (2.0-8.3) X10*3/uL Absolute Nucleated RBC 0.000 (0.0-0.012) X10*3/uL Nucleated RBC % (auto) 0.0 (0.0-0.2) /100WBC Sodium 133 L (135-145) mmol/L Potassium 4.3 (3.3-5.1) mmol/l Chloride 97 (96-108) mmol/L Carbon Dioxide 28 (22-29) mmol/L Anion Gap 12 (12-20) BUN 19 H (9-16) mg/dL Creatinine 0.85 (0.5-1.4) mg/dL Estim Creat Clear Calc 44.3 Estimated GFR > 60 Random Glucose 96 (60-115) mg/dL Calcium 9.8 D (8.4-10.2) mg/dL Troponin I High Sens 6.4 (<3.5-17.0) ng/L Lipase 9 (8-78) U/L COVID-19 (YENNY) (Negative) COVID-19 Clin Com 08/31/20 Range/Units 17:36 WBC (4.8-10.8) X10*3/uL RBC (4.20-5.50) X10*6/uL Hgb (12.0-16.0) g/dl Hct (37-47) % MCV (80-98) fL MCH (27.0-33.0) pg MCHC (31.0-35.0) g/dl RDW (11.0-16.0) % Plt Count (160-400) X10*3/uL MPV (9.4-12.3) fL Immature Gran % (Auto) (0.0-0.4) % Neut % (Auto) (45-73) % Lymph % (Auto) (20-40) % Morton % (Auto) (2-11) % Eos % (Auto) (0-4) % Baso % (Auto) (0-2) % Lymph # (Auto) (1.2-4.9) X10*3/uL Morton # (Auto) (0.1-1.2) X10*3/uL Eos # (Auto) (0.0-0.4) X10*3/uL Baso # (Auto) (0.0-0.2) X10*3/uL Abs Immat Gran (auto) (0.00-0.03) X10*3/uL Absolute Neuts (auto) (2.0-8.3) X10*3/uL Absolute Nucleated RBC (0.0-0.012) X10*3/uL Nucleated RBC % (auto) (0.0-0.2) /100WBC Sodium (135-145) mmol/L Potassium (3.3-5.1) mmol/l Chloride (96-108) mmol/L Carbon Dioxide (22-29) mmol/L Anion Gap (12-20) BUN (9-16) mg/dL Creatinine (0.5-1.4) mg/dL Estim Creat Clear Calc Estimated GFR Random Glucose (60-115) mg/dL Calcium (8.4-10.2) mg/dL Troponin I High Sens (<3.5-17.0) ng/L Lipase (8-78) U/L COVID-19 (YENNY) Negative (Negative) COVID-19 Clin Com See Note Imaging Data Chest x-ray: Radiologist's impression: Bilateral basal atelectasis. CT scan - head: Radiologist's impression: No acute intracranial pathology. ECG Data Interpretation: Normal sinus rhythm at 60 beats per minute, normal axis deviation, normal intervals, no ST-T changes. Discharge Plan Discharge Clinical Impression: Vertigo Patient Disposition: Admitted As Inpatient
[2020-08-31] MEDS: LORazepam 2 MG/ML VIAL 0.5 MG IVPUSH (17:43)
[2020-08-31 17:44] LABS: MANUAL DIFF FLAG NO
[2020-08-31] MEDS: ondansetron HCL 4 MG/2 ML VIAL IVPUSH (17:44)
[2020-08-31] MEDS: 0.9 % Sodium Chloride 1,000 ML 999 ML IVCONT (17:45)
[2020-08-31 17:48] LABS: Basophils Percent Auto 0.3 % (0-2); Eosinophils Percent Auto 0.5 % (0-4); Hematocrit 36.8 % (37-47); Hemoglobin 12.3 g/dl (12.0-16.0); Imm Gran Abs Auto 0.02 X10*3/uL (0.00-0.03); Imm Gran Pct Auto 0.3 % (0.0-0.4); Lymphocytes Absolute Auto 2.3 X10*3/uL (1.2-4.9); Lymphocytes Percent Auto 28.9 % (20-40); Mean Corpuscular HGB Conc 33.4 g/dl (31.0-35.0); Mean Corpuscular Volume 92.7 fL (80-98); Mean Platelet Volume 9.9 fL (9.4-12.3); Monocytes Absolute Auto 0.5 X10*3/uL (0.1-1.2); Monocytes Percent Auto 6.6 % (2-11); Neutrophils Absolute Auto 5.1 X10*3/uL (2.0-8.3); Neutrophils Percent Auto 63.4 % (45-73); Platelet Count 236 X10*3/uL (160-400); Red Blood Count 3.97 X10*6/uL (4.20-5.50); Red Cell Distribution Width 12.1 % (11.0-16.0)
[2020-08-31 18:10] LABS: Anion Gap 12 (12-20); Blood Urea Nitrogen 19 mg/dL (9-16); Calcium 9.8 mg/dL (8.4-10.2); Carbon Dioxide 28 mmol/L (22-29); Chloride 97 mmol/L (96-108); Creatinine Clr Calc Pharmacy 44.3; Estimated Glomerular Filt Rate > 60; Glucose Random 96 mg/dL (60-115); Lipase 9 U/L (8-78); Potassium 4.3 mmol/l (3.3-5.1); Sodium 133 mmol/L (135-145)
[2020-08-31 18:13] LABS: COVID-19 Test Negative (Negative)
[2020-08-31 18:16] LABS: Troponin-I High Sensitivity 6.4 ng/L (<3.5-17.0)
[2020-08-31] MEDS: LORazepam 0.5 MG TABLET PO (21:00)
[2020-08-31] MEDS: Meclizine HCl 25 MG TABLET PO (21:01)
[2020-08-31] MEDS: 0.9 % Sodium Chloride 1,000 ML 500 ML IVCONT (21:02)
[2020-09-01] VITALS (7 sets, daily range): BP systolic 128–170; BP diastolic 53–80; PULSE 60–91; RESP 16–18; TEMP 35.7–36.5; O2SAT 97–100
[2020-09-01] MEDS: SUMAtriptan succinate 50 MG TABLET PO (01:38)
[2020-09-01] MEDS: 0.9 % Sodium Chloride Flush 3 ML SYRINGE IVFLUSH ×2 (01:39→10:00)
[2020-09-01 05:46] LABS: MANUAL DIFF FLAG NO
[2020-09-01 05:50] LABS: Basophils Percent Auto 0.5 % (0-2); Eosinophils Absolute Auto 0.1 X10*3/uL (0.0-0.4); Eosinophils Percent Auto 1.3 % (0-4); Hematocrit 35.3 % (37-47); Hemoglobin 11.5 g/dl (12.0-16.0); Imm Gran Abs Auto 0.02 X10*3/uL (0.00-0.03); Imm Gran Pct Auto 0.3 % (0.0-0.4); Lymphocytes Absolute Auto 2.7 X10*3/uL (1.2-4.9); Lymphocytes Percent Auto 42.2 % (20-40); Mean Corpuscular HGB Conc 32.6 g/dl (31.0-35.0); Mean Corpuscular Hemoglobin 30.4 pg (27.0-33.0); Mean Corpuscular Volume 93.4 fL (80-98); Mean Platelet Volume 10.5 fL (9.4-12.3); Monocytes Absolute Auto 0.6 X10*3/uL (0.1-1.2); Monocytes Percent Auto 9.5 % (2-11); Neutrophils Absolute Auto 2.9 X10*3/uL (2.0-8.3); Neutrophils Percent Auto 46.2 % (45-73); Platelet Count 219 X10*3/uL (160-400); Red Blood Count 3.78 X10*6/uL (4.20-5.50); Red Cell Distribution Width 12.2 % (11.0-16.0); White Blood Count 6.3 X10*3/uL (4.8-10.8)
--- NOTE | 2020-09-01 06:13 | P.HPHOSP_ITS ---
History of Present Illness Date of Service: 08/31/20 Chief Complaint: vertigo 85-year-old female with past medical history of hypertension, and paroxysmal AFib on Xarelto, neurogenic bladder, who presents the hospital with severe vertigo. 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 She went a year without any symptoms but about a year ago her symptoms returned with recurrent severe vertigo, associated with severe right-sided headache, nausea vomiting and diarrhea. Patient reports that these episodes are usually intermittent and gets them once every few months, but this week got 3 episodes back to back. She was seen by Neurology few days ago and has some test done although she does not know the tests. She reports that this morning she woke up around 11 30 with a headache followed by the vertigo nausea vomiting and diarrhea that has not resolved. She is very ataxic, and very unstable on her feet. Feels like if she gets up she will fall. She feels unsafe to go home. She reports that generally, most episodes resolve with her taking tylenol and metoprolol as prescribed by her doctors and last about few hours but today her symptoms are unrelenting and causing her severe ataxia She reports that these vertigo episodes are always associated with this headache right-sided. She is also sensitive to light when these headaches occur. She otherwise denies any other symptoms including no chest pain, no shortness of breath, no palpitations, urinary symptoms and no lower extremity edema. On arrival to the ED hemodynamically stable with no significant abnormal vitals Labs generally unremarkable Head CT shows mild volume loss with small-vessel ischemic changes with no acute findings. Past medical history: Hypertension, paroxysmal AFib on Xarelto, neurogenic b ladder, Past surgical history: Epidermal inclusion cyst removal, hemorrhoidectomy, hysterectomy Family history: CVD, diabetes Social history: Comes from home, lives alone, walks independently, denies any tobacco alcohol or illicit drugs Review of Systems Review of Systems: Yes all other systems are reviewed and are negative [facility] Medical History HTN (hypertension) PAF (paroxysmal atrial fibrillation) Family History Father CVD (cardiovascular disease) Diabetes Mother CVD (cardiovascular disease) Diabetes Brother No problems noted. Surgical History Hx of colonoscopy Hx of excision of epidermal inclusion cyst Hx of hemorrhoidectomy Hx of hysterectomy Social History Household Members: None Housing: Apartment Do you presently have visiting nurse or other home services: No Alcohol intake: never Smoking Status: Never smoker Second Hand Smoke Exposure: No Use of substances other than those prescribed or required for medical reasons: No Have you been hit, kicked, punched, or otherwise hurt by someone within the past year? If so, by whom?: No Do you feel safe in your current relationship?: No Current Relationship Is there a partner from a previous relationship who is making you feel unsafe now?: No Are you made to feel afraid or neglected: No Advance Directives: No Advance Directives Information Provided: Yes Do you have thoughts of harming others: None Do you have a plan to hurt others: No Plan Recently lost weight without trying: No Meds Allergies Allergy/AdvReac Type Severity Reaction Status Date / Time hydrochlorothiazide Allergy Mild ITCHING Unverified 04/26/20 14:53 [HYDROCHLOROTHIAZIDE] latex [LATEX] Allergy Mild ITCHING Unverified 04/26/20 14:53 levofloxacin [From LEVAQUIN] Allergy Unknown UNK Unverified 04/26/20 14:53 lisinopril [LISINOPRIL] Allergy Unknown UNKNOWN Unverified 04/26/20 14:53 lorazepam [LORAZEPAM] Allergy Unknown UNK Unverified 04/26/20 14:53 Pork/Porcine Containing Allergy Unknown UNKNOWN Unverified 04/26/20 14:53 Products [Pork/Porcine Product Derivatives] prednisone [PREDNISONE] Allergy Unknown UNCLEAR Unverified 04/26/20 14:53 propafenone [PROPAFENONE] Allergy Unknown UNK Unverified 04/26/20 14:53 spironolactone Allergy Unknown UNKNOWN Unverified 04/26/20 14:53 [SPIRONOLACTONE] Sulfa (Sulfonamide Allergy Unknown unknown Verified 06/26/20 11:22 Antibiotics) codeine Allergy Unknown unknown Uncoded 06/26/20 11:22 Crustaceans Allergy Unknown UNKNOWN Uncoded 04/26/20 14:53 augmentin AdvReac Unknown nausea & Uncoded 04/14/18 00:00 diarrhea Home Medications Medication Instructions Recorded Confirmed Type ascorbate calcium (vitamin C) 500 500 mg PO DAILY 06/26/20 06/26/20 History mg tablet diazepam 2 mg tablet mg PO 06/26/20 06/26/20 History diltiazem HCl 120 mg 120 mg PO PRN cap 06/26/20 06/26/20 History capsule,extended release 24 hr multivitamin 1 tab PO DAILY 06/26/20 06/26/20 History oxybutynin chloride 5 mg tablet 5 mg PO DAILY tab 06/26/20 06/26/20 History Physical Exam Vital Signs and Narrative: Vital Signs: Last Vital Signs Temp 96.5 F L 09/01/20 04:00 Pulse 60 09/01/20 04:00 Resp 16 09/01/20 04:00 BP 158/75 H 09/01/20 04:00 Pulse Ox 98 09/01/20 04:00 Body Mass Index 24.4 Const: General: cooperative and no acute distress Orientation/consciousness: patient oriented x3 Eyes: General: appearance normal, both eyes and all related structures Resp: Effort & Inspection: normal respiratory effort and able to speak in complete sentences Cardio: Rate: regular rate Rhythm: regular rhythm GI: Palpation (GI): Soft to palpation Auscultation: normal bowel sounds Skin: General skin exam: no rashes or lesions noted Neuro: General: patient oriented x3 Cognition (Neuro): normal cognition Extrem: General: Yes normal to inspection and Yes no pedal edema Results Labs CBC and Chem 7: 09/01/20 04:16 08/31/20 17:36 Labs: Laboratory Results - last 24 hr 08/31/20 08/31/20 08/31/20 17:36 17:36 17:36 MCV 92.7 MCH 31.0 MCHC 33.4 RDW 12.1 Plt Count 236 MPV 9.9 Immature Gran % (Auto) 0.3 Neut % (Auto) 63.4 Lymph % (Auto) 28.9 Howell % (Auto) 6.6 Eos % (Auto) 0.5 Baso % (Auto) 0.3 Lymph # (Auto) 2.3 Howell # (Auto) 0.5 Eos # (Auto) 0.0 Baso # (Auto) 0.0 Abs Immat Gran (auto) 0.02 Absolute Neuts (auto) 5.1 Absolute Nucleated RBC 0.000 Nucleated RBC % (auto) 0.0 Anion Gap 12 Estim Creat Clear Calc 44.3 Estimated GFR > 60 Random Glucose 96 Calcium 9.8 D Troponin I High Sens 6.4 Lipase 9 COVID-19 (YENNY) COVID-19 Clin Com 08/31/20 09/01/20 17:36 04:16 MCV 93.4 MCH 30.4 MCHC 32.6 RDW 12.2 Plt Count 219 MPV 10.5 Immature Gran % (Auto) 0.3 Neut % (Auto) 46.2 Lymph % (Auto) 42.2 H Howell % (Auto) 9.5 Eos % (Auto) 1.3 Baso % (Auto) 0.5 Lymph # (Auto) 2.7 Howell # (Auto) 0.6 Eos # (Auto) 0.1 Baso # (Auto) 0.0 Abs Immat Gran (auto) 0.02 Absolute Neuts (auto) 2.9 Absolute Nucleated RBC 0.000 Nucleated RBC % (auto) 0.0 Anion Gap Estim Creat Clear Calc Estimated GFR Random Glucose Calcium Troponin I High Sens Lipase COVID-19 (YENNY) Negative COVID-19 Clin Com See Note Imaging Radiologist's Impressions: Impressions Chest X-Ray 08/31/20 16:50 IMPRESSION: Mild bilateral basilar atelectasis Head CT 08/31/20 16:56 IMPRESSION: No acute intracranial pathology. Mild volume loss with small vessel ischemic changes. Assessment and Plan (1) Vertigo: Status: Acute (2) PAF (paroxysmal atrial fibrillation): Status: Acute (3) HTN (hypertension): Status: Acute This is a an 85-year-old female with history of chronic vertigo presents to the hospital with severe episode # vertigo - possibly secondary to migraine headaches - associated with severe headache, nausea vomiting, sensitivity to light - patient has been following with Neurology and reports that she has some test done 2 days ago although she is not sure with test - she has severe episode today and does not feel safe going home as her vertigo causes her ataxia Plan: - will admit under observation - consult physical therapy for Cory maneuver - will give her 1 dose of sumatriptan - will need follow-up with Neurology outpatient for further evaluation and treatment # paroxysmal AFib - continue Xarelto and diltiazem/metoprolol # hypertension - continue amlodipine as well as spironolactone # neurogenic bladder - continue oxybutynin DVT prophylaxis: Xarelto
[2020-09-01 06:21] LABS: Anion Gap 14 (12-20); Blood Urea Nitrogen 22 mg/dL (9-16); Calcium 8.7 mg/dL (8.4-10.2); Carbon Dioxide 25 mmol/L (22-29); Chloride 105 mmol/L (96-108); Creatinine Clr Calc Pharmacy 39.2; Estimated Glomerular Filt Rate 55; Glucose Random 85 mg/dL (60-115); Potassium 4.1 mmol/l (3.3-5.1); Sodium 140 mmol/L (135-145)
[2020-09-01 06:33] LABS: Glucose Urine UA NEG (NEG); Leukocyte Esterase Urine NEG (NEG); Nitrite Urine NEG (NEG); Specific Gravity - Urine 1.025 (1.005-1.025); Urine Blood NEG (NEG); Urine Ketones NEG (NEG); Urine Protein NEG (NEG-TRACE)
[2020-09-01 06:39] LABS: Appearance Urine CLEAR; Color Urine YELLOW; UACC Culture Trigger NO
[2020-09-01] MEDS: Metoprolol Tartrate 50 MG TABLET PO (11:26)
--- NOTE | 2020-09-01 12:37 | PM.DS ---
DS: Providers Provider Date of Service: 09/01/20 Date of admission: 08/31/20 23:41 Primary care physician: Unknown Physician DS: Diagnosis Discharge Diagnosis (1) Vertigo: Status: Acute (2) PAF (paroxysmal atrial fibrillation): Status: Acute (3) HTN (hypertension): Status: Acute DS: Medications Discharge Medications Home Medications: Home Medications Medication Instructions Recorded Confirmed ascorbate calcium (vitamin C) 500 500 mg PO DAILY 06/26/20 09/01/20 mg tablet diazepam 2 mg tablet mg PO 06/26/20 06/26/20 diltiazem HCl 120 mg 120 mg PO PRN cap 06/26/20 06/26/20 capsule,extended release 24 hr multivitamin 1 tab PO DAILY 06/26/20 06/26/20 oxybutynin chloride 5 mg tablet 5 mg PO DAILY tab 06/26/20 09/01/20 Previous Rx's Medication Instructions Recorded amlodipine 5 mg tablet 5 mg PO DAILY #90 tab 08/08/20 rivaroxaban 20 mg tablet 20 mg PO DAILY #90 tab 08/08/20 spironolactone 25 mg tablet 25 mg PO DAILY #90 tab 08/08/20 metoprolol tartrate 50 mg tablet 50 mg PO BID 90 Days #180 tab 08/21/20 oxybutynin chloride 5 mg tablet 5 mg PO DAILY 90 Days #90 tab 08/23/20 DS: Summary Hospital Course Hospital Course: 85-year-old female with past medical history of hypertension, and paroxysmal AFib on Xarelto, neurogenic bladder, who presents the hospital with severe vertigo. 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 She went a year without any symptoms but about a year ago her symptoms returned with recurrent severe vertigo, associated with severe right-sided headache, nausea vomiting and diarrhea. Patient reports that these episodes are usually intermittent and gets them once every few months, but this week got 3 episodes back to back. She was seen by Neurology few days ago and has some test done although she does not know the tests. She reports that this morning she woke up around 11 30 with a headache followed by the vertigo nausea vomiting and diarrhea that has not resolved. She is very ataxic, and very unstable on her feet. Feels like if she gets up she will fall. She feels unsafe to go home. She reports that generally, most episodes resolve with her taking tylenol and metoprolol as prescribed by her doctors and last about few hours but today her symptoms are unrelenting and causing her severe ataxia She reports that these vertigo episodes are always associated with this headache right-sided. She is also sensitive to light when these headaches occur. She otherwise denies any other symptoms including no chest pain, no shortness of breath, no palpitations, urinary symptoms and no lower extremity edema. On arrival to the ED hemodynamically stable with no significant abnormal vitals Labs generally unremarkable Head CT shows mild volume loss with small-vessel ischemic changes with no acute findings. Past medical history: Hypertension, paroxysmal AFib on Xarelto, neurogenic bladder, Past surgical history: Epidermal inclusion cyst removal, hemorrhoidectomy, hysterectomy Hospital course Vertigo Patient dizziness and headache resolved currently ambulating in room with walker feels she is at her baseline, noted to have positive orthostatics studies but patient asymptomatic at the present time therefore will continue home medication patient is being followed closely by Cardiology, neurology and primary care physician therefore recommend to follow her blood pressures closely as outpatient In regard to her chronic medical problems she has been recommended to continue home medications. Time Spent with Patient Time attestation: Total time spent providing and/or coordinating discharge services: Discharge coordination time: Greater than 30 minutes Physical Exam Vital Signs: Vital Signs: Last Vital Signs Temp 97.1 F 09/01/20 12:00 Pulse 74 09/01/20 12:00 Resp 16 09/01/20 12:00 BP 160/71 H 09/01/20 12:00 Pulse Ox 98 09/01/20 12:00 Body Mass Index 24.4 General no acute distress. Eye examination pupils equal round reactive to light and accommodation no nystagmus Neck is supple no JVD. CVS regular rate rhythm, Respiratory lungs clear to auscultation, no respiratory distress. Gastrointestinal abdomen soft, nontender, bowel sounds audible. Extremities no clubbing cyanosis or edema. Neuro nonfocal, speech clear. Skin no rash DS: Data Data Completed and Pending Labs on day of discharge: Laboratory Tests 08/31/20 08/31/20 08/31/20 17:36 17:36 17:36 WBC 8.0 RBC 3.97 L Hgb 12.3 Hct 36.8 L MCV 92.7 MCH 31.0 MCHC 33.4 RDW 12.1 Plt Count 236 MPV 9.9 Immature Gran % (Auto) 0.3 Neut % (Auto) 63.4 Lymph % (Auto) 28.9 [place] % (Auto) 6.6 Eos % (Auto) 0.5 Baso % (Auto) 0.3 Lymph # (Auto) 2.3 [place] # (Auto) 0.5 Eos # (Auto) 0.0 Baso # (Auto) 0.0 Abs Immat Gran (auto) 0.02 Absolute Neuts (auto) 5.1 Absolute Nucleated RBC 0.000 Nucleated RBC % (auto) 0.0 Sodium 133 L Potassium 4.3 Chloride 97 Carbon Dioxide 28 Anion Gap 12 BUN 19 H Creatinine 0.85 Estim Creat Clear Calc 44.3 Estimated GFR > 60 Random Glucose 96 Calcium 9.8 D Troponin I High Sens 6.4 Lipase 9 Urine Color Urine Appearance Urine pH Ur Specific [place] Urine Protein Urine Glucose (UA) Urine Ketones Urine Blood Urine Nitrite Ur Leukocyte Esterase COVID-19 ([facility]NY) COVID-19 Clin Com 08/31/20 09/01/20 09/01/20 17:36 04:16 04:16 WBC 6.3 RBC 3.78 L Hgb 11.5 L Hct 35.3 L MCV 93.4 MCH 30.4 MCHC 32.6 RDW 12.2 Plt Count 219 MPV 10.5 Immature Gran % (Auto) 0.3 Neut % (Auto) 46.2 Lymph % (Auto) 42.2 H [place] % (Auto) 9.5 Eos % (Auto) 1.3 Baso % (Auto) 0.5 Lymph # (Auto) 2.7 [place] # (Auto) 0.6 Eos # (Auto) 0.1 Baso # (Auto) 0.0 Abs Immat Gran (auto) 0.02 Absolute Neuts (auto) 2.9 Absolute Nucleated RBC 0.000 Nucleated RBC % (auto) 0.0 Sodium 140 Potassium 4.1 Chloride 105 Carbon Dioxide 25 Anion Gap 14 BUN 22 H Creatinine 0.96 Estim Creat Clear Calc 39.2 Estimated GFR 55 Random Glucose 85 Calcium 8.7 D Troponin I High Sens Lipase Urine Color Urine Appearance Urine pH Ur Specific [place] Urine Protein Urine Glucose (UA) Urine Ketones Urine Blood Urine Nitrite Ur Leukocyte Esterase COVID-19 (YENNY) Negative COVID-19 Clin Com See Note 09/01/20 06:21 WBC RBC Hgb Hct MCV MCH MCHC RDW Plt Count MPV Immature Gran % (Auto) Neut % (Auto) Lymph % (Auto) [place] % (Auto) Eos % (Auto) Baso % (Auto) Lymph # (Auto) [place] # (Auto) Eos # (Auto) Baso # (Auto) Abs Immat Gran (auto) Absolute Neuts (auto) Absolute Nucleated RBC Nucleated RBC % (auto) Sodium Potassium Chloride Carbon Dioxide Anion Gap BUN Creatinine Estim Creat Clear Calc Estimated GFR Random Glucose Calcium Troponin I High Sens Lipase Urine Color YELLOW Urine Appearance CLEAR Urine pH 6.0 Ur Specific [place] 1.025 Urine Protein NEG Urine Glucose (UA) NEG Urine Ketones NEG Urine Blood NEG Urine Nitrite NEG Ur Leukocyte Esterase NEG COVID-19 ([facility]ENNY) COVID-19 E[facility]TH[facility] Com Discharge Plan Discharge Patient Disposition: Home, Self-Care Referrals: Physician,Unknown [Primary Care Provider] - 2 days Discharge Medications: Continued amlodipine 5 mg tablet 5 mg PO DAILY Qty: 90 RF: 1 rivaroxaban 20 mg tablet 20 mg PO DAILY Qty: 90 RF: 1 spironolactone 25 mg tablet 25 mg PO DAILY Qty: 90 RF: 1 metoprolol tartrate 50 mg tablet 50 mg PO BID 90 Days Qty: 180 RF: 1 oxybutynin chloride 5 mg tablet 5 mg PO DAILY 90 Days Qty: 90 RF: 2 diazepam 2 mg tablet PO RF: 0 ascorbate calcium (vitamin C) 500 mg tablet 500 mg PO DAILY RF: 0 multivitamin Tablet 1 tab PO DAILY RF: 0 diltiazem HCl 120 mg capsule,extended release 24hr 120 mg PO PRN (Reason: afib) RF: 0 oxybutynin chloride 5 mg tablet 5 mg PO DAILY RF: 0 Discharge Orders: Discharge Order (Routine); Ordered 09/01/20 Ordered By: Barrera Bianchi Diet: advance to usual diet Activity on Discharge: Use cane or walker Patient Instructions: Benign Paroxysmal Positional Vertigo (ED) Stand Alone Forms: Patient Portal Discharge page Visit Report Forms: Patient Portal Discharge page Care Plan Goals: Continue all home medication Health Concerns: dizziness Plan of Treatment: Follow-up with PCP and Neurology
[2020-09-01] MEDS: Spironolactone 25 MG TABLET PO (12:44)
[2020-09-06 13:44] VITALS: BP 137/66; PULSE 65; O2SAT 99
== END 2020-09-01 14:09 | disposition home or self-care (01) ==
LOC: HO.ED 23:02 → HO.S3 09-01 07:26 → HO.EDOVER 09-01 13:12 → HO.S3 09-01 13:12
PROVIDERS: Admitting Provider Internal Medicine; Emergency Provider Emergency Medicine; Visit Provider Hospitalist
DX: R42 Dizziness and giddiness (principal); I48.0 Paroxysmal atrial fibrillation; I10 Essential (primary) hypertension; R51.9 Headache, unspecified; N31.9 Neuromuscular dysfunction of bladder, unspecified; R11.2 Nausea with vomiting, unspecified; R19.7 Diarrhea, unspecified; J98.11 Atelectasis; Z20.822 Contact with and (suspected) exposure to COVID-19; Z91.040 Latex allergy status; Z91.013 Allergy to seafood; Z88.2 Allergy status to sulfonamides; Z88.8 Allergy status to other drugs, medicaments and biological substances; Z91.018 Allergy to other foods; Z90.710 Acquired absence of both cervix and uterus; Z79.01 Long term (current) use of anticoagulants; Z79.899 Other long term (current) drug therapy
CPT/HCPCS: 36415; 70450; 71045; 80048; 81003; 83690; 84484; 85025; 87635; 93005; 96361; 96374; 96375; 96376; 97161; 97162; 99218; 99285; J2060; J2405

== ENCOUNTER → 2020-11-06 10:29 | Outpatient (BNVA) | payer MEDICARE, SELFPAY | PROVIDERS: PCP Family Medicine; Visit Provider Urology | DX: Z13.89 Encounter for screening for other disorder (principal) | CPT/HCPCS: Q3014 ==

== ENCOUNTER → 2021-01-31 13:03 | Outpatient (BNVA) | payer MEDICARE, SELFPAY | PROVIDERS: PCP Family Medicine; Referring Provider Family Medicine; Visit Provider Internal Medicine Cardiovascular Disease | DX: I48.0 Paroxysmal atrial fibrillation (principal); I10 Essential (primary) hypertension | CPT/HCPCS: 99212 ==

== ENCOUNTER 2021-06-12 11:52 | Outpatient (REF) | payer MEDICARE, SELFPAY ==
--- NOTE | ~2021-06-12 | MM_ITS ---
EXAMINATION: MM SCREENING DIGITAL BREAST TOMOSYNTHESIS, BILATERAL CLINICAL INFORMATION: Screening. Asymptomatic. The lifetime risk of breast cancer based on the Tyrer-Cuzick Model is 1%. COMPARISON: Mammography: 04/12/2020, 11/11/2018, 10/29/2017 TECHNIQUE: Digital breast tomosynthesis is performed in both the craniocaudal and mediolateral oblique views along with computer-aided detection (CAD). Synthesized 2D images are generated from the tomosynthesis. FINDINGS: There are scattered areas of fibroglandular density (ACR BI-RADS breast composition Category b). There are no significant masses, abnormal calcifications, or other abnormalities. Parenchymal pattern is similar to prior studies. The axilla and skin contours are unremarkable. No significant changes. MM/MM tomosynthesis screening BI IMPRESSION: No mammographic evidence of malignancy. ASSESSMENT: BI-RADS 1: Negative RECOMMENDATION: Routine annual mammography screening. This patient's information was entered into a reminder system with a target due date for their next mammogram.
== END 2021-06-12 11:53 | disposition home or self-care (01) ==
LOC: HO.MAMMO 11:52
PROVIDERS: Visit Provider Family Medicine
DX: Z12.31 Encounter for screening mammogram for malignant neoplasm of breast (principal)
CPT/HCPCS: 77063; 77067

== ENCOUNTER 2021-07-18 22:58 | Emergency (ER) | payer MEDICARE, SELFPAY ==
--- NOTE | ~2021-07-18 | XR_ITS ---
EXAMINATION: XR CHEST CLINICAL INFORMATION: Cough COMPARISON: 08/31/2020 TECHNIQUE: Frontal view of the chest was obtained. FINDINGS: Lung volumes are symmetric. No focal consolidation is seen. No evidence of pneumothorax, pleural effusion, or pulmonary edema. The cardiomediastinal contour is unremarkable. No acute osseous findings are seen. XR/XR chest 1V IMPRESSION: No acute cardiopulmonary findings.
--- NOTE | 2021-07-18 23:03 | ECG_ITS ---
Test Reason : PALPITATIONS Blood Pressure : / mmHG Vent. Rate : 116 BPM Atrial Rate : 000 BPM P-R Int : 000 ms QRS Dur : 088 ms QT Int : 276 ms P-R-T Axes : 000 029 029 degrees QTc Int : 383 ms Atrial fibrillation with rapid ventricular response Nonspecific ST abnormality Abnormal ECG When compared with ECG of 31-AUG-2020 17:13, Atrial fibrillation has replaced Sinus rhythm Vent. rate has increased BY 56 BPM Non-specific change in ST segment in Inferior leads Referred By: Lucy Elizalde Electronically Signed By:[place]
[2021-07-18 23:11] VITALS: BP 126/72; BP 133/88; PULSE 115; PULSE 118; RESP 20; TEMP 36.8; O2SAT 98; BMI 24.1
[2021-07-18 23:55] LABS: Basophils Percent Auto 0.4 % (0-2); Eosinophils Absolute Auto 0.1 X10*3/uL (0.0-0.4); Eosinophils Percent Auto 1.2 % (0-4); Hematocrit 37.6 % (37.0-47.0); Hemoglobin 12.3 g/dl (12.0-16.0); Imm Gran Abs Auto 0.02 X10*3/uL (0.00-0.03); Imm Gran Pct Auto 0.3 % (0.0-0.4); Lymphocytes Absolute Auto 2.2 X10*3/uL (1.2-4.9); Lymphocytes Percent Auto 31.5 % (20-40); MANUAL DIFF FLAG NO; Mean Corpuscular HGB Conc 32.7 g/dl (31.0-35.0); Mean Corpuscular Hemoglobin 30.4 pg (27.0-33.0); Mean Corpuscular Volume 93.1 fL (80.0-98.0); Mean Platelet Volume 9.5 fL (9.4-12.3); Monocytes Absolute Auto 0.7 X10*3/uL (0.1-1.2); Monocytes Percent Auto 10.7 % (2-11); Neutrophils Absolute Auto 3.8 x10*3/uL (2.0-8.3); Neutrophils Percent Auto 55.9 % (45-73); Platelet Count 238 X10*3/uL (160-400); Red Blood Count 4.04 X10*6/uL (4.20-5.50); Red Cell Distribution Width 12.3 % (11.0-16.0); White Blood Count 6.8 X10*3/uL (4.8-10.8)
[2021-07-19] VITALS (7 sets, daily range): BP systolic 92–123; BP diastolic 41–71; PULSE 46–115; RESP 12–20; O2SAT 96–99
[2021-07-19] LABS: Appearance Urine CLEAR; Color Urine STRAW; Glucose Urine UA NEG (NEG); Leukocyte Esterase Urine 1+ (NEG); Nitrite Urine NEG (NEG); PH 6.5 (5.0-8.0); Specific Gravity - Urine <= 1.005 (1.005-1.025); UACC Culture Trigger YES; Urine Blood TRACE (NEG); Urine Ketones NEG (NEG); Urine Protein NEG (NEG-TRACE)
[2021-07-19 00:02] LABS: INTERNATIONAL NORM RATIO 1.9 (0.9-1.1); Prothrombin Time 21.8 SEC (9.9-13.0)
--- NOTE | 2021-07-19 00:04 | ED_ITS ---
HPI - Arrhythmia/Palpitations General Chief Complaint: Arrhythmia/Palpitations Stated Complaint: afib Time Seen by Provider: 07/18/21 23:03 Source: patient Mode of arrival: EMS History of Present Illness HPI narrative: this is an 86-year-old female with history atrial fibrillation on anticoagulation ( Xarelto ) and states that approximately 7:00 p.m. this evening she noted that her heart began to race but denies any associated dizziness, diaphoresis, shortness of breath, chest pain. She states that she took 2 of her as needed pills but that there was no affect and she then decided to come in for further evaluation. Patient states that she takes her medications as prescribed. Related Data Home Medications Medication Instructions Recorded Confirmed ascorbate calcium (vitamin C) 500 500 mg PO DAILY 06/26/20 01/31/21 mg tablet diazepam 2 mg tablet mg PO 06/26/20 01/31/21 diltiazem HCl 120 mg 120 mg PO PRN cap 06/26/20 01/31/21 capsule,extended release 24 hr multivitamin 1 tab PO DAILY 06/26/20 01/31/21 ciclopirox 8 % topical solution TOPICAL 11/06/20 01/31/21 Previous Rx's Medication Instructions Recorded oxybutynin chloride 5 mg tablet 5 mg PO DAILY 90 Days #90 tab 11/06/20 metoprolol tartrate 50 mg tablet 50 mg PO BID #180 tab 01/25/21 doxycycline hyclate 100 mg tablet 100 mg PO BID #14 tab 04/25/21 cephalexin 500 mg capsule 250 mg PO TID 7 Days #21 cap 04/26/21 hydralazine 10 mg tablet 10 mg PO ONCE PRN 30 Days #30 tab 05/21/21 amlodipine 5 mg tablet 5 mg PO DAILY #90 tab 06/24/21 rivaroxaban 20 mg tablet 20 mg PO DAILY #90 tab 07/17/21 spironolactone 25 mg tablet 25 mg PO DAILY #90 tab 07/17/21 cefdinir 300 mg capsule 300 mg PO BID 3 Days #6 cap 07/19/21 Allergies Allergy/AdvReac Type Severity Reaction Status Date / Time hydrochlorothiazide Allergy Mild ITCHING Verified 04/25/21 15:55 [HYDROCHLOROTHIAZIDE] latex [LATEX] Allergy Mild ITCHING Verified 04/25/21 15:55 levofloxacin [From LEVAQUIN] Allergy Unknown UNK Verified 04/25/21 15:55 lisinopril [LISINOPRIL] Allergy Unknown UNKNOWN Verified 04/25/21 15:55 lorazepam [LORAZEPAM] Allergy Unknown UNK Verified 04/25/21 15:55 Pork/Porcine Containing Allergy Unknown UNKNOWN Verified 04/25/21 15:55 Products [Pork/Porcine Product Derivatives] prednisone [PREDNISONE] Allergy Unknown UNCLEAR Verified 04/25/21 15:55 propafenone [PROPAFENONE] Allergy Unknown UNK Verified 04/25/21 15:55 spironolactone Allergy Unknown UNKNOWN Verified 04/25/21 15:55 [SPIRONOLACTONE] Sulfa (Sulfonamide Allergy Unknown unknown Verified 04/25/21 15:55 Antibiotics) codeine Allergy Unknown unknown Uncoded 06/26/20 11:22 Crustaceans Allergy Unknown UNKNOWN Uncoded 04/26/20 14:53 augmentin AdvReac Unknown nausea & Uncoded 04/14/18 00:00 diarrhea Review of Systems Review of Systems: Pertinent positives and negatives as stated in HPI 10 point review of systems is otherwise negative. [facility] Past Medical History Source: nursing notes reviewed Medical History Atrial fibrillation H/O urinary frequency HTN (hypertension) Nocturia PAF (paroxysmal atrial fibrillation) Urinary urgency Surgical History Hx of colonoscopy Hx of excision of epidermal inclusion cyst Hx of hemorrhoidectomy Hx of hysterectomy Family History Family History Father CVD (cardiovascular disease) Diabetes Mother CVD (cardiovascular disease) Diabetes Brother No problems noted. Social History Social History Household Members: None Housing: Apartment Do you presently have visiting nurse or other home services: No Alcohol intake: never Second Hand Smoke Exposure: No Advance Directives: No Advance Directives Information Provided: Yes Physical Exam Vital Signs: Vital Signs: Last Vital Signs Temp 98.3 F 07/18/21 23:11 Pulse 83 07/19/21 01:23 Resp 15 07/19/21 01:23 BP 97/60 07/19/21 01:23 Pulse Ox 97 12/10/21 01:23 BMI result Body Mass Index 24.1 VITAL SIGNS: Reviewed. GENERAL: Well developed, well nourished, in no acute distress. HEAD: Normocephalic/atraumatic EYES: PERRLA, EOMI OROPHARYNX: no oral lesions noted, posterior pharynx clear LUNGS: Normal breath sounds. No adventitious sounds or accessory muscle use. SpO2<98> CARDIOVASCULAR: Irregular rate and rhythm without noted murmurs, no JVD or lower extremity edema. ABDOMEN: Soft, non-tender, non-distended with bowel sounds. MUSCULOSKELETAL: No tenderness, deformities, or effusions noted on gross inspection. EXTREMITIES: No cyanosis, clubbing or edema. SKIN: Inspection of the skin reveals no rashes NEUROLOGIC: Alert and oriented x 4. Strength and sensation to light touch were grossly intact x 4. Course Course Course Narrative: 86-year-old female with history and clinical presentation c onsistent with atrial fibrillation with RVR and suspect that this may have been associated with poor medication compliance but will evaluate for electrolyte/infectious etiologies. On review of all investigations there are no acute findings other than UTI for which patient received initial antibiotics here in the emergency room and then will be discharged with remaining course. All results and findings were discussed with her at bedside and heart rate responded well to 2.5 mg of Lopressor and although patient remains in atrial fibrillation she is rate controlled. MDM - Arrhythmia/Palpitations Lab Data Result diagrams: 07/18/21 23:45 07/18/21 23:45 Labs: Lab Results 07/18/21 07/18/21 07/18/21 Range/Units 23:45 23:45 23:45 WBC 6.8 (4.8-10.8) X10*3/uL RBC 4.04 L (4.20-5.50) X10*6/uL Hgb 12.3 (12.0-16.0) g/dl Hct 37.6 (37.0-47.0) % MCV 93.1 (80.0-98.0) fL MCH 30.4 (27.0-33.0) pg MCHC 32.7 (31.0-35.0) g/dl RDW 12.3 (11.0-16.0) % Plt Count 238 (160-400) X10*3/uL MPV 9.5 (9.4-12.3) fL Immature Gran % (Auto) 0.3 (0.0-0.4) % Neut % (Auto) 55.9 (45-73) % Lymph % (Auto) 31.5 (20-40) % [place] % (Auto) 10.7 (2-11) % Eos % (Auto) 1.2 (0-4) % Baso % (Auto) 0.4 (0-2) % Lymph # (Auto) 2.2 (1.2-4.9) X10*3/uL [place] # (Auto) 0.7 (0.1-1.2) X10*3/uL Eos # (Auto) 0.1 (0.0-0.4) X10*3/uL Baso # (Auto) 0.0 (0.0-0.2) X10*3/uL Abs Immat Gran (auto) 0.02 (0.00-0.03) X10*3/uL Absolute Neuts (auto) 3.8 (2.0-8.3) x10*3/uL Absolute Nucleated RBC 0.000 (0.0-0.012) X10*3/uL Nucleated RBC % (auto) 0.0 (0.0-0.2) /100WBC PT 21.8 H (9.9-13.0) SEC INR 1.9 H (0.9-1.1) Sodium 138 (135-145) mmol/L Potassium 4.9 (3.3-5.1) mmol/L Chloride 102 (96-108) mmol/L Carbon Dioxide 30 H (22-29) mmol/L Anion Gap 11 L (12-20) BUN 17 H (9-16) mg/dL Creatinine 0.96 (0.5-1.4) mg/dL Estim Creat Clear Calc 38.5 Estimated GFR 55 Random Glucose 94 (60-115) mg/dL Calcium 9.7 D (8.4-10.2) mg/dL Total Bilirubin < 0.2 (0.0-1.0) mg/dL AST 21 (5-31) U/L ALT 16 (0-31) U/L Alkaline Phosphatase 92 D (39-117) U/L Troponin I High Sens (<3.5-17.0) ng/L B-Natriuretic Peptide (<100) pg/mL Total Protein 7.1 (6.5-8.0) g/dL Albumin 3.9 (3.5-5.0) g/dL Urine Color Urine Appearance Urine pH (5.0-8.0) Ur Specific [place] (1.005-1.025) Urine Protein (NEG-TRACE) MG/DL Urine Glucose (UA) (NEG) MG/DL Urine Ketones (NEG) MG/DL Urine Blood (NEG) Urine Nitrite (NEG) Ur Leukocyte Esterase (NEG) Urine RBC (0) /HPF Urine WBC (0-4) /HPF Ur Squamous Epith Cells /LPF Urine Bacteria /LPF COVID-19 (YENNY) (Negative) COVID-19 Clin Com 07/18/21 07/18/21 07/18/21 Range/Units 23:45 23:45 23:49 WBC (4.8-10.8) X10*3/uL RBC (4.20-5.50) X10*6/uL Hgb (12.0-16.0) g/dl Hct (37.0-47.0) % MCV (80.0-98.0) fL MCH (27.0-33.0) pg MCHC (31.0-35.0) g/dl RDW (11.0-16.0) % Plt Count (160-400) X10*3/uL MPV (9.4-12.3) fL Immature Gran % (Auto) (0.0-0.4) % Neut % (Auto) (45-73) % Lymph % (Auto) (20-40) % [place] % (Auto) (2-11) % Eos % (Auto) (0-4) % Baso % (Auto) (0-2) % Lymph # (Auto) (1.2-4.9) X10*3/uL [place] # (Auto) (0.1-1.2) X10*3/uL Eos # (Auto) (0.0-0.4) X10*3/uL Baso # (Auto) (0.0-0.2) X10*3/uL Abs Immat Gran (auto) (0.00-0.03) X10*3/uL Absolute Neuts (auto) (2.0-8.3) x10*3/uL Absolute Nucleated RBC (0.0-0.012) X10*3/uL Nucleated RBC % (auto) (0.0-0.2) /100WBC PT (9.9-13.0) SEC INR (0.9-1.1) Sodium (135-145) mmol/L Potassium (3.3-5.1) mmol/L Chloride (96-108) mmol/L Carbon Dioxide (22-29) mmol/L Anion Gap (12-20) BUN (9-16) mg/dL Creatinine (0.5-1.4) mg/dL Estim Creat Clear Calc Estimated GFR Random Glucose (60-115) mg/dL Calcium (8.4-10.2) mg/dL Total Bilirubin (0.0-1.0) mg/dL AST (5-31) U/L ALT (0-31) U/L Alkaline Phosphatase (39-117) U/L Troponin I High Sens 4.0 (<3.5-17.0) ng/L B-Natriuretic Peptide 79 (<100) pg/mL Total Protein (6.5-8.0) g/dL Albumin (3.5-5.0) g/dL Urine Color STRAW Urine Appearance CLEAR Urine pH 6.5 (5.0-8.0) Ur Specific [place] <= 1.005 (1.005-1.025) Urine Protein NEG (NEG-TRACE) MG/DL Urine Glucose (UA) NEG (NEG) MG/DL Urine Ketones NEG (NEG) MG/DL Urine Blood TRACE (NEG) Urine Nitrite NEG (NEG) Ur Leukocyte Esterase 1+ H (NEG) Urine RBC 0 (0) /HPF Urine WBC 1-4 (0-4) /HPF Ur Squamous Epith Cells 1+ /LPF Urine Bacteria TRACE /LPF COVID-19 (YENNY) Negative (Negative) COVID-19 Clin Com See Note ECG Data Attestation: I personally reviewed and interpreted this ECG as follows: Prior ECG tracings: available for review ( 08/31/2020 patient is now in atrial fibrillation and was noted to be in sinus rhythm) Interpretation: atrial fibrillation with RVR, HR- 116, no STEMI, QRS/QTC are within normal limits. Discharge Plan Discharge Clinical Impression: Atrial fibrillation with RVR, Acute UTI Patient Disposition: Home, Self-Care Instructions: A-fib (Atrial Fibrillation) (ED), Urinary Tract Infection in Women (ED) Additional Instructions: 1. Resume all home medications as prescribed. 2. Complete the entire course of antibiotics. 3. Follow-up with your electrical prospecting observer as scheduled for Thursday. Return to the ER for any worsening symptoms. Prescriptions: New cefdinir 300 mg capsule 300 mg PO BID 3 Days Qty: 6 RF: 0 No Action metoprolol tartrate 50 mg tablet 50 mg PO BID Qty: 180 RF: 3 hydralazine 10 mg tablet 10 mg PO ONCE PRN (Reason: hypertension) 30 Days Qty: 30 RF: 0 amlodipine 5 mg tablet 5 mg PO DAILY Qty: 90 RF: 1 spironolactone 25 mg tablet 25 mg PO DAILY Qty: 90 RF: 1 rivaroxaban 20 mg tablet 20 mg PO DAILY Qty: 90 RF: 1 doxycycline hyclate 100 mg tablet 100 mg PO BID Qty: 14 RF: 0 cephalexin 500 mg capsule 250 mg PO TID 7 Days Qty: 21 RF: 0 ciclopirox 8 % solution topical RF: 0 oxybutynin chloride 5 mg tablet 5 mg PO DAILY 90 Days Qty: 90 RF: 3 diazepam 2 mg tablet PO RF: 0 ascorbate calcium (vitamin C) 500 mg tablet 500 mg PO DAILY RF: 0 multivitamin Tablet 1 tab PO DAILY RF: 0 diltiazem HCl 120 mg capsule,extended release 24hr 120 mg PO PRN (Reason: afib) RF: 0 Referrals: Phong Henry MD [Primary Care Provider] - 2 days
[2021-07-19 00:15] LABS: Bacteria Urine TRACE /LPF; RBC Urine 0 /HPF (0); Squamous Epithelial Cell Urine 1+ /LPF
[2021-07-19] MEDS: Metoprolol Tartrate 5 MG/5 ML VIAL 2.5 MG IVPUSH (00:15)
[2021-07-19 00:17] LABS: COVID-19 Test Negative (Negative); IDNOW Serial# 9DD0AD1C
[2021-07-19 00:19] LABS: Alanine Aminotransferase 16 U/L (0-31); Albumin Level 3.9 g/dL (3.5-5.0); Alkaline Phosphatase 92 U/L (39-117); Anion Gap 11 (12-20); Aspartate Amino Transferase 21 U/L (5-31); B Type Natriuretic Peptide 79 pg/mL (<100); Bilirubin Total < 0.2 mg/dL (0.0-1.0); Blood Urea Nitrogen 17 mg/dL (9-16); Calcium 9.7 mg/dL (8.4-10.2); Carbon Dioxide 30 mmol/L (22-29); Chloride 102 mmol/L (96-108); Creatinine Clr Calc Pharmacy 38.5; Estimated Glomerular Filt Rate 55; Glucose Random 94 mg/dL (60-115); Potassium 4.9 mmol/L (3.3-5.1); Sodium 138 mmol/L (135-145); Total Protein 7.1 g/dL (6.5-8.0)
--- NOTE | 2021-07-19 01:03 | PC.NURSE ---
Pt resting on strecher in NAD, breathing with ease on RA, VSS. Pt remains in afib on bedside monitoring engineer, HR 80s-110s but remaining <100. Pt stretcher in lowest locked position, rails raised, call clark within reach.
[2021-07-19] MEDS: cefTRIAXone sodium 1 GM in 0.9 % Sodium Chloride 50 ML IV (03:06)
--- NOTE | 2021-07-19 03:27 | PC.NURSE ---
Pt provided DC instructions and expresses understanding. Pt provided [facility] shuttle pass. Pt to remain in ED until AM for safe DC on shuttle. Pt remains on monitor tech, afib, rate controlled in 70s. Pt medicated per OCT with IV abx.
--- NOTE | 2021-07-19 05:44 | PC.NURSE ---
Addendum entered by Tracie Maurer 07/19/21 05:53: pt with discernable p waves, regular rhythm during this episode Original Note: Pt resting with eyes closed on stretcher in between nursing care, awaiting transport home. Pt monitor alarming, this RN to bedsides, notes pt HR as low as 37, though sustained for ~3 minutes in mid to high 40s, SB. Pt asx, remains aaox4, denies dizziness, weakness, CP, shortness of breath. Dr Elizalde made aware. Pt instructed to take home meds as prescribed in future should she experience need for PRN rate control meds, and to call 911 if ineffective rather than taking double dose of rate control meds at home. Pt verbalizes understanding. Pt remains on bedside equipment monitor phototypesetting, HR 51 SB at this time, VSS on RA.
--- NOTE | 2021-07-19 06:28 | PC.NURSE ---
this rn contacted shuttle service who is aware to pick pt up from ED WR at 0745 this AM for transport home. this RN confirmed that transportation home is free for pt. Pt notified, agreeable.
== END 2021-07-19 07:39 | disposition home or self-care (01) ==
PROVIDERS: Emergency Provider Student in an Organized Health Care Education/Training Program; PCP Family Medicine
DX: I48.20 Chronic atrial fibrillation, unspecified (principal); N39.0 Urinary tract infection, site not specified; I49.9 Cardiac arrhythmia, unspecified; R00.2 Palpitations; Z20.822 Contact with and (suspected) exposure to COVID-19; Z79.899 Other long term (current) drug therapy; Z79.01 Long term (current) use of anticoagulants
CPT/HCPCS: 36415; 71045; 80053; 81001; 81003; 83880; 84484; 85025; 85610; 87086; 87635; 93005; 96360; 96361; 96372; 99284; J0696

== ENCOUNTER → 2021-07-22 10:31 | Outpatient (REF) | payer MEDICARE, SELFPAY ==
--- NOTE | 2021-07-22 10:33 | CA_ITS ---
Transthoracic Echocardiogram Patient (Last, First, Middle): Tiny Balbuena, Gender: Female Date of : 1935 Age: 86 Procedure Date: 07/22/2021 Procedure Type: Transthoracic Echocardiogram Location: OP Height: 165.1 cm Weight: 66.23 kg BSA: 1.73 m2 Heart Rate: bpm BP: 118 / 60 mmHg Retail Coordinator: Referring MD: Ministerio Monroy MD Conference Services Manager: Ministerio Monroy MD Symptoms: I48.0 - Paroxysmal atrial fibrillation Study Quality: Good ECG Rhythm: Sinus Conclusions: - 1. Normal LV systolic function with LVEF of 60 65% with impaired relaxation filling pattern 2. Mildly dilated left atrium 3. Mild mitral regurgitation 4. Normal RV systolic pressure 5. No gross pericardial effusion Findings Left Ventricle Normal left ventricular size, thickness, and systolic function. The visually estimated ejection fraction is between 60-65%. Spectral Doppler is indicative of an impaired relaxation filling pattern. Elevated left ventricular end diastolic pressure. E/E prime ratio is between 8 and 15 consistent with indeterminate filling pressures. Right Ventricle Normal right ventricular cavity size and systolic function. Atria The left atrium is mildly dilated. There is lipomatous hypertrophy of the interatrial septum. There is no evidence of interatrial shunt. The right atrium is normal in size. Aortic Valve The aortic valve structure and function is likely normal. There is no aortic valve stenosis. There is trace (trivial) aortic valve regurgitation. Mitral Valve There is mild anterior mitral leaflet thickening. There is mild mitral valve regurgitation. There is no mitral valve stenosis. Pulmonic Valve The pulmonic valve was not well visualized. Tricuspid Valve Normal tricuspid valve structure. The right ventricular systolic pressure is 22 mmHg. Normal right atrial pressure. There is no evidence of pulmonary hypertension. Great Vessels All visible segments of the aorta are normal in size. The pulmonary artery was not well visualized. Venous The inferior vena cava is normal in size and collapses greater than 50% with inspiration. Pericardium/Pleural There is no evidence of pericardial effusion. Prior Study Comparison Changes noted compared to prior study dated: 01/07/2017. Mild mitral regurgitation is noted Measurements 2D Linear Measurements IVSd: 1.11 0.6-0.9/0.6-1.0 cm LVIDd: 3.82 3.9-5.3/4.2-5.9 cm LVIDd Index: 2.21 2.4-3.2/2.2-3.1 cm/m2 LVIDs: 2.51 2.0-3.6 cm LVPWd: 1.17 0.7-1.1 cm Ao Root: 3.00 2.1-3.5 cm LA Diam: 3.50 2.7-3.8/3.0-4.0 cm LAIDs Index: 2.02 1.5-2.3 cm/m2 LV Mass: 178.09 67-162/88-224 g LV Mass Index: 102.94 43-95/49-115 g/m2 LVOT Diam: 2.00 3.0+(-)1.3 cm 2D Systolic Function EF 4C: 60.40 >55% EF 2C: 52.30 >55% EF BiP: 57.60 >55% Mitral Valve MV Pk E: 0.78 MV PK A: 1.08 MV Decel Time: 204.00 E/A: 0.70 E'Lateral: 4.79 E'Medial: 5.77 E/E' Med: 13.50 E/E' Lat: 16.30 PHT: 60.00 MVA PHT: 3.67 Decel [place]: 3.82 Aortic Valve AoV Pk Michael: 1.30 AoV Mn Michael: 0.83 AoV VTI: 0.35 AoV Pk Grad: 7.00 Aov Mn Grad: 3.00 REJI Cont.VTI: 1.96 LVOT LVOT Pk Michael: 0.81 LVOT Mn Michael: 0.54 LVOT VTI: 0.22 LVOT Pk Grad: 3.00 LVOT Mn Grad: 1.00 LVOT Diam: 2.00 LVOT Area: 3.14 Diastolic Function MV Pk E: 0.78 MV Pk A: 1.08 E/A: 0.70 E'Medial: 5.77 E/E' Med: 13.50 E' Laterial: 4.79 E/E' Lat: 16.30 Tricuspid Valve TR Pk Michael: 2.20 TR Pk Grad: 19.00 RA Press: 3.00 RVSP: 22.00 Great Vessels Aorta Ao Root-2D: 3.00 2.0-3.7 cm Pulmonary Valve PV Pk Michael: 0.86 Peak PV Grad: 3.00 Updated in Other Vendor System with Status of Final Ministerio Monroy MD electronically signed on 07/22/2021 7:08:16 PM with status of Final
== END ==
LOC: HO.CARD 10:31
PROVIDERS: PCP Family Medicine; Visit Provider Internal Medicine Cardiovascular Disease
DX: I48.0 Paroxysmal atrial fibrillation (principal)
CPT/HCPCS: 93306

== ENCOUNTER 2021-08-07 08:27 | Emergency (ER) | payer MEDICARE, SELFPAY ==
[2021-08-07 09:14] VITALS: BP 153/48; PULSE 75; RESP 18; TEMP 36.4; O2SAT 98; BMI 24.6
--- NOTE | 2021-08-07 09:59 | ED.GENADULT ---
HPI - General Adult General Chief complaint: Skin/Abscess/Foreign Body Stated complaint: red itchy spots all over Time Seen by Provider: 08/07/21 09:42 History of Present Illness HPI narrative: Patient complains of red itchy blotchy rash all over her body which started 24 hours ago after starting doxycycline for cellulitis Her helper animal laboratory prescribed the doxycycline for cellulitis of the left big toe She had similar redness on the same toe about 3 weeks ago and took a course of Keflex which led to resolution, now it is just starting to get red again she has no fever no chills no other complaints Related Data Home Medications Medication Instructions Recorded Confirmed ascorbate calcium (vitamin C) 500 500 mg PO DAILY 06/26/20 01/31/21 mg tablet diazepam 2 mg tablet mg PO 06/26/20 01/31/21 diltiazem HCl 120 mg 120 mg PO PRN cap 06/26/20 01/31/21 capsule,extended release 24 hr multivitamin 1 tab PO DAILY 06/26/20 01/31/21 ciclopirox 8 % topical solution TOPICAL 11/06/20 01/31/21 Previous Rx's Medication Instructions Recorded oxybutynin chloride 5 mg tablet 5 mg PO DAILY 90 Days #90 tab 11/06/20 metoprolol tartrate 50 mg tablet 50 mg PO BID #180 tab 01/25/21 doxycycline hyclate 100 mg tablet 100 mg PO BID #14 tab 04/25/21 cephalexin 500 mg capsule 250 mg PO TID 7 Days #21 cap 04/26/21 hydralazine 10 mg tablet 10 mg PO ONCE PRN 30 Days #30 tab 05/21/21 amlodipine 5 mg tablet 5 mg PO DAILY #90 tab 06/24/21 rivaroxaban 20 mg tablet 20 mg PO DAILY #90 tab 07/17/21 spironolactone 25 mg tablet 25 mg PO DAILY #90 tab 07/17/21 cefdinir 300 mg capsule 300 mg PO BID 3 Days #6 cap 07/19/21 cephalexin 500 mg tablet 500 mg PO TID 7 Days #21 tab 08/07/21 loratadine 10 mg tablet (Claritin) 10 mg PO DAILY PRN #10 tab 08/07/21 Allergies Allergy/AdvReac Type Severity Reaction Status Date / Time hydrochlorothiazide Allergy Mild ITCHING Verified 04/25/21 15:55 [HYDROCHLOROTHIAZIDE] latex [LATEX] Allergy Mild ITCHING Verified 04/25/21 15:55 levofloxacin [From LEVAQUIN] Allergy Unknown UNK Verified 04/25/21 15:55 lisinopril [LISINOPRIL] Allergy Unknown UNKNOWN Verified 04/25/21 15:55 lorazepam [LORAZEPAM] Allergy Unknown UNK Verified 04/25/21 15:55 Pork/Porcine Containing Allergy Unknown UNKNOWN Verified 04/25/21 15:55 Products [Pork/Porcine Product Derivatives] prednisone [PREDNISONE] Allergy Unknown UNCLEAR Verified 04/25/21 15:55 propafenone [PROPAFENONE] Allergy Unknown UNK Verified 04/25/21 15:55 spironolactone Allergy Unknown UNKNOWN Verified 04/25/21 15:55 [SPIRONOLACTONE] Sulfa (Sulfonamide Allergy Unknown unknown Verified 04/25/21 15:55 Antibiotics) codeine Allergy Unknown unknown Uncoded 06/26/20 11:22 Crustaceans Allergy Unknown UNKNOWN Uncoded 04/26/20 14:53 augmentin AdvReac Unknown nausea & Uncoded 04/14/18 00:00 diarrhea Review of Systems Review of Systems: Positive for itchy rash Negatives are no fever no chills no weakness no stiff neck no chest pain no shortness of breath no abdominal pain no nausea or vomiting no unusual bleeding no numbness or weakness Yes all other systems are reviewed and are negative PMFSH Past Medical History Source: nursing notes reviewed Medical History Atrial fibrillation H/O urinary frequency HTN (hypertension) Nocturia PAF (paroxysmal atrial fibrillation) Urinary urgency Surgical History Hx of colonoscopy Hx of excision of epidermal inclusion cyst Hx of hemorrhoidectomy Hx of hysterectomy Family History Family History Father CVD (cardiovascular disease) Diabetes Mother CVD (cardiovascular disease) Diabetes Brother No problems noted. Social History Social History Household Members: None Housing: Apartment Do you presently have visiting nurse or other home services: No Alcohol intake: never Second Hand Smoke Exposure: No Advance Directives: Yes Advance Directives Information Provided: Yes Advance Directives on File: No Physical Exam Vital Signs: Vital Signs: Last Vital Signs Temp 97.5 F 08/07/21 09:14 Pulse 75 08/07/21 09:14 Resp 18 08/07/21 09:14 BP 153/48 H 08/07/21 09:14 Pulse Ox 98 08/07/21 09:14 BMI result Body Mass Index 24.6 General appearance no acute distress The head is normocephalic atraumatic The eyes are clear no redness or exudate The pharynx is clear no swelling no redness no exudate well hydrated Neck is supple Chest clear to auscultation bilateral Extremities full range of motion x4 Skin exam there is diffuse urticarial rash Left big toe is mildly red and tender there is no swelling no discharge no wound no break in the skin and there is full range of motion in the toe no necrosis Course Course Course Narrative: Well-appearing patient with of mild cellulitis of the left toe was started on doxycycline and developed hives I told her to stop the doxycycline she has had 6 Keflex before so we started Keflex and she is placed on Keflex and treatment for her itchy rash Discharge Plan Discharge Clinical Impression: Rash, Medication reaction Cellulitis Qualifiers: Site of cellulitis: extremity Site of cellulitis of extremity: toe Laterality: left Qualified Code(s): L03.032 - Cellulitis of left toe Patient Disposition: Home, Self-Care Additional Instructions: Do not take the doxycycline as it seems to have caused a itchy rash on her body As Keflex worked well last time we are using Keflex again Take odkq-[id number] probiotics vitamins with antibiotic to prevent diarrhea Follow with your doctor or helper animal laboratory for re-evaluation Return to ER any time for spreading redness, pain and swelling, fever, any sign of worsening infection or any concerns Prescriptions: New cephalexin 500 mg tablet 500 mg PO TID 7 Days Qty: 21 RF: 0 loratadine [Claritin] 10 mg tablet 10 mg PO DAILY PRN (Reason: Itch and rash) Qty: 10 RF: 0 No Action metoprolol tartrate 50 mg tablet 50 mg PO BID Qty: 180 RF: 3 hydralazine 10 mg tablet 10 mg PO ONCE PRN (Reason: hypertension) 30 Days Qty: 30 RF: 0 amlodipine 5 mg tablet 5 mg PO DAILY Qty: 90 RF: 1 spironolactone 25 mg tablet 25 mg PO DAILY Qty: 90 RF: 1 rivaroxaban 20 mg tablet 20 mg PO DAILY Qty: 90 RF: 1 cefdinir 300 mg capsule 300 mg PO BID 3 Days Qty: 6 RF: 0 doxycycline hyclate 100 mg tablet 100 mg PO BID Qty: 14 RF: 0 cephalexin 500 mg capsule 250 mg PO TID 7 Days Qty: 21 RF: 0 ciclopirox 8 % solution topical RF: 0 oxybutynin chloride 5 mg tablet 5 mg PO DAILY 90 Days Qty: 90 RF: 3 diazepam 2 mg tablet PO RF: 0 ascorbate calcium (vitamin C) 500 mg tablet 500 mg PO DAILY RF: 0 multivitamin Tablet 1 tab PO DAILY RF: 0 diltiazem HCl 120 mg capsule,extended release 24hr 120 mg PO PRN (Reason: afib) RF: 0 Interventions: ED Discharge Assessment Last Done: 08/07/21 10:28 Discharge Date/Time: 08/07/21 10:28
[2021-08-07] MEDS: Loratadine 10 MG TABLET PO (10:19)
== END 2021-08-07 10:28 | disposition home or self-care (01) ==
PROVIDERS: Emergency Provider Emergency Medicine; PCP Family Medicine
DX: R21 Rash and other nonspecific skin eruption (principal); T36.4X5A Adverse effect of tetracyclines, initial encounter; Y92.9 Unspecified place or not applicable; L03.032 Cellulitis of left toe; I48.0 Paroxysmal atrial fibrillation; I10 Essential (primary) hypertension
CPT/HCPCS: 99283

== ENCOUNTER → 2021-08-21 14:24 | Outpatient (BNVA) | payer MEDICARE, SELFPAY | PROVIDERS: PCP Family Medicine; Referring Provider Family Medicine; Visit Provider Internal Medicine Cardiovascular Disease | DX: I48.0 Paroxysmal atrial fibrillation (principal); I10 Essential (primary) hypertension; Z79.82 Long term (current) use of aspirin | CPT/HCPCS: 99212 ==

== ENCOUNTER 2021-08-21 15:12 | Outpatient (REF) | payer MEDICARE, SELFPAY ==
--- NOTE | ~2021-08-21 | US_ITS ---
EXAMINATION: ULTRASOUND ARTERIAL DUPLEX LOWER EXTREMITY RIGHT CLINICAL INFORMATION: Right groin pain and swelling. Post right leg angiogram 08/13/2021. Rule out pseudoaneurysm. COMPARISON: None TECHNIQUE: Grayscale color and Doppler evaluation of the right common femoral artery and right common femoral vein waveform spectral analysis FINDINGS: The right common femoral artery and right common femoral vein are patent and demonstrate normal waveforms. No evidence of pseudoaneurysm or AV fistula is seen. There is a small hypoechoic area in the right groin measuring 1.9 x 0.7 cm questionable for a hematoma. US/US arterial duplex LE RT IMPRESSION: No pseudoaneurysm or AV fistula seen. Question small right groin hematoma measuring 1.9 x 0.7 cm.
== END 2021-08-21 15:13 | disposition home or self-care (01) ==
LOC: HO.US 15:12
PROVIDERS: Visit Provider Internal Medicine Cardiovascular Disease
DX: R10.31 Right lower quadrant pain (principal); I48.0 Paroxysmal atrial fibrillation; I10 Essential (primary) hypertension; Z79.01 Long term (current) use of anticoagulants; Z79.02 Long term (current) use of antithrombotics/antiplatelets; Z79.899 Other long term (current) drug therapy
CPT/HCPCS: 93926; 99212

== ENCOUNTER → 2021-10-01 13:52 | Outpatient (BNVA) | payer MEDICARE, SELFPAY | PROVIDERS: PCP Family Medicine; Referring Provider Family Medicine; Visit Provider Internal Medicine Cardiovascular Disease | DX: I48.0 Paroxysmal atrial fibrillation (principal); I10 Essential (primary) hypertension | CPT/HCPCS: 99212 ==

== ENCOUNTER 2021-10-23 08:21 | Outpatient (REF) | payer MEDICARE, SELFPAY ==
--- NOTE | ~2021-10-23 | US_ITS ---
EXAMINATION: US RETROPERITONEAL LIMITED (RENAL ONLY) CLINICAL INFORMATION: Hypertension. Rule out renal artery stenosis. COMPARISON: None TECHNIQUE: Routine retroperitoneal imaging and Doppler imaging was performed. FINDINGS: RIGHT KIDNEY: 10.8 x 3.7 x 4.9 cm (SAG x AP x TRV). The kidney is normal in size, contour, and echogenicity. Renal cortical thickness is normal. No calculi or focal parenchymal lesions. No hydronephrosis. LEFT KIDNEY: 11.3 x 3.7 x 4.9 cm (SAG x AP x TRV). The kidney is normal in size, contour, and echogenicity. Renal cortical thickness is normal. No calculi or focal parenchymal lesions. No hydronephrosis. DOPPLER IMAGING: RIGHT KIDNEY: The proximal right renal artery velocity measures 1.13 cm/second, mid segment measures 2.25 cm/second and the distal segment measures 1.20 cm/second. Average resistive index is increased measuring 0.82. Renal/aortic ratio(RAR) measures 2.8. Findings are suspicious for mild renal artery stenosis. The renal vein is patent. LEFT KIDNEY: The proximal left renal artery velocity measures 1.89 cm/second, midsegment measures 1.39 cm/second and distal segment measures 16.4 cm/second. Average resistive index is 0.84. Renal/aortic ratio(RAR) is 2.4. Findings are suspicious for mild renal artery stenosis. Peak systolic velocity mid abdominal aorta is 1.11 cm/second and slightly above the normal to calculate renal/aortic ratio (RAR). US/US renal BI IMPRESSION: Unremarkable ultrasound of the kidneys. On Doppler imaging there is suspicion for bilateral renal artery stenosis.
--- NOTE | ~2021-10-23 | US_ITS ---
EXAMINATION: US RETROPERITONEAL LIMITED (RENAL ONLY) CLINICAL INFORMATION: Hypertension. Rule out renal artery stenosis. COMPARISON: None TECHNIQUE: Routine retroperitoneal imaging and Doppler imaging was performed. FINDINGS: RIGHT KIDNEY: 10.8 x 3.7 x 4.9 cm (SAG x AP x TRV). The kidney is normal in size, contour, and echogenicity. Renal cortical thickness is normal. No calculi or focal parenchymal lesions. No hydronephrosis. LEFT KIDNEY: 11.3 x 3.7 x 4.9 cm (SAG x AP x TRV). The kidney is normal in size, contour, and echogenicity. Renal cortical thickness is normal. No calculi or focal parenchymal lesions. No hydronephrosis. DOPPLER IMAGING: RIGHT KIDNEY: The proximal right renal artery velocity measures 1.13 cm/second, mid segment measures 2.25 cm/second and the distal segment measures 1.20 cm/second. Average resistive index is increased measuring 0.82. Renal/aortic ratio(RAR) measures 2.8. Findings are suspicious for mild renal artery stenosis. The renal vein is patent. LEFT KIDNEY: The proximal left renal artery velocity measures 1.89 cm/second, midsegment measures 1.39 cm/second and distal segment measures 16.4 cm/second. Average resistive index is 0.84. Renal/aortic ratio(RAR) is 2.4. Findings are suspicious for mild renal artery stenosis. Peak systolic velocity mid abdominal aorta is 1.11 cm/second and slightly above the normal to calculate renal/aortic ratio (RAR). US/US renal doppler IMPRESSION: Unremarkable ultrasound of the kidneys. On Doppler imaging there is suspicion for bilateral renal artery stenosis.
== END 2021-10-23 08:22 | disposition home or self-care (01) ==
LOC: HO.HMGCX 08:21
PROVIDERS: PCP Family Medicine; Visit Provider Internal Medicine Cardiovascular Disease
DX: I10 Essential (primary) hypertension (principal)
CPT/HCPCS: 76775; 93975

== ENCOUNTER 2021-10-30 10:11 | Outpatient (REF) | payer MEDICARE, SELFPAY ==
[2021-10-30 12:50] LABS: Anion Gap 11 (12-20); Blood Urea Nitrogen 18 mg/dL (9-16); Calcium 9.7 mg/dL (8.4-10.2); Carbon Dioxide 29 mmol/L (22-29); Chloride 101 mmol/L (96-108); Estimated Glomerular Filt Rate 57; Glucose Random 99 mg/dL (60-115); Potassium 4.9 mmol/L (3.3-5.1); Sodium 136 mmol/L (135-145)
== END 2021-10-30 10:12 | disposition home or self-care (01) ==
LOC: HO.LAB 10:11
PROVIDERS: PCP Family Medicine; Referring Provider Family Medicine; Visit Provider Internal Medicine Cardiovascular Disease
DX: I10 Essential (primary) hypertension (principal); I48.0 Paroxysmal atrial fibrillation; I73.9 Peripheral vascular disease, unspecified
CPT/HCPCS: 36415; 80048; 99212

== ENCOUNTER 2022-03-26 09:48 | Outpatient (REF) | payer MEDICARE, SELFPAY ==
[2022-03-26 11:03] LABS: Hematocrit 37.3 % (37.0-47.0); Mean Corpuscular HGB Conc 32.2 g/dl (31.0-35.0); Mean Corpuscular Hemoglobin 29.7 pg (27.0-33.0); Mean Corpuscular Volume 92.3 fL (80.0-98.0); Mean Platelet Volume 10.2 fL (9.4-12.3); Platelet Count 237 X10*3/uL (160-400); Red Blood Count 4.04 X10*6/uL (4.20-5.50); White Blood Count 6.1 X10*3/uL (4.8-10.8)
[2022-03-26 11:31] LABS: Anion Gap 14 (12-20); Blood Urea Nitrogen 27 mg/dL (9-16); Carbon Dioxide 28 mmol/L (22-29); Chloride 102 mmol/L (96-108); Estimated Glomerular Filt Rate 51; Glucose Random 121 mg/dL (60-115); Potassium 4.6 mmol/L (3.3-5.1); Sodium 139 mmol/L (135-145)
[2022-03-27 16:41] LABS: NT-proBNP 558 pg/mL
== END 2022-03-26 09:49 | disposition home or self-care (01) ==
LOC: HO.LAB 09:48
PROVIDERS: PCP Family Medicine; Visit Provider Internal Medicine Cardiovascular Disease
DX: D64.9 Anemia, unspecified (principal); I48.0 Paroxysmal atrial fibrillation; I10 Essential (primary) hypertension
CPT/HCPCS: 36415; 80048; 83880; 85027

== ENCOUNTER → 2022-04-09 14:54 | Outpatient (BNVA) | payer MEDICARE, SELFPAY | PROVIDERS: PCP Family Medicine; Visit Provider Urology | DX: R35.1 Nocturia (principal) | CPT/HCPCS: 51798; 99212 ==

== ENCOUNTER 2022-04-10 15:23 | Outpatient (REF) | payer MEDICARE, SELFPAY ==
[2022-04-15 12:56] LABS: NT-proBNP 444 pg/mL
== END 2022-04-10 15:24 | disposition home or self-care (01) ==
LOC: HO.LAB 15:23
PROVIDERS: PCP Family Medicine; Visit Provider Internal Medicine Cardiovascular Disease
DX: I48.0 Paroxysmal atrial fibrillation (principal)
CPT/HCPCS: 36415; 83880

== ENCOUNTER → 2022-04-15 14:35 | Outpatient (BNVA) | payer MEDICARE, SELFPAY | PROVIDERS: PCP Family Medicine; Referring Provider Family Medicine; Visit Provider Internal Medicine Cardiovascular Disease | DX: I48.0 Paroxysmal atrial fibrillation (principal); I10 Essential (primary) hypertension; R79.89 Other specified abnormal findings of blood chemistry; Z79.01 Long term (current) use of anticoagulants; Z79.899 Other long term (current) drug therapy | CPT/HCPCS: 99212 ==

== ENCOUNTER 2022-06-13 13:03 | Outpatient (AMB) | payer MEDICARE, SELFPAY ==
--- NOTE | 2022-06-13 13:04 | MHC.OFFVIS ---
Intake Intake Visit Reasons: Nocturia- 2m follow up Intake Note: fu on medication [employer] Worker Required: No Allergies hydrochlorothiazide [HYDROCHLOROTHIAZIDE] Allergy (Mild, Verified 07/29/23 13:14) ITCHING latex [LATEX] Allergy (Mild, Verified 07/29/23 13:14) ITCHING levofloxacin [From LEVAQUIN] Allergy (Unknown, Verified 07/29/23 13:14) UNK lisinopril [LISINOPRIL] Allergy (Unknown, Verified 07/29/23 13:14) UNKNOWN lorazepam [LORAZEPAM] Allergy (Unknown, Verified 07/29/23 13:14) UNK Pork/Porcine Containing Products [Pork/Porcine Product Derivatives] Allergy (Unknown, Verified 07/29/23 13:14) UNKNOWN prednisone [PREDNISONE] Allergy (Unknown, Verified 07/29/23 13:14) UNCLEAR propafenone [PROPAFENONE] Allergy (Unknown, Verified 07/29/23 13:14) UNK spironolactone [SPIRONOLACTONE] Allergy (Unknown, Verified 07/29/23 13:14) UNKNOWN Sulfa (Sulfonamide Antibiotics) Allergy (Unknown, Verified 07/29/23 13:14) unknown cephalexin Allergy (Verified 07/29/23 13:14) Itching doxycycline Allergy (Verified 07/29/23 13:14) Itching linezolid Allergy (Verified 07/29/23 13:14) Itching codeine Allergy (Unknown, Uncoded 07/29/23 13:14) unknown Crustaceans Allergy (Unknown, Uncoded 07/29/23 13:14) UNKNOWN augmentin Adverse Reaction (Unknown, Uncoded 07/29/23 13:14) nausea & diarrhea HPI HPI Comments History of Present Illness Details Tiny HOLDER is a very pleasant [place] female. They are a patient of Dr Henry. She is seen for the following urologic conditions - overactive bladder Medication had been working Recent admission to [facility] for right peripheral vascular disease Subsequently Has noticed getting up at night at 03:00 o'clock Has been on diuretic with increased urinary volume but controlled frequency during the day Baseline has been using immediate release oxybutynin at night We had previously discussed impact oxybutynin on memory Has been unable to try other medications Will try imipramine 25 mg q.h.s. Urinary Urge/Frequency: Symptoms have been present since several years since 2009. Current therapy includes - oxybuytinin - have discussed issues with memory related to this medication. Also discussed offer Botox. At this point in time she has symptoms well controlled with dose of 5 mg and she will continue with this.. Prior treatment(s) included Myrbetriq - swollen legs Toviaz - dry mouth. Current symptoms include frequency Yes nocturia Yes urgency Yes urine loss none dysuria No chills No hematuria No constipation No extremity weakness No The frequency of the symptom(s) occur several times a day. Severity of the symptoms that is moderate Recent labs included a urinalysis, with no evidence of an infection. Associated medical conditions Alzheimer's disease No CVA No cystocele No dementia No diabetes No interstital cystitis No recurrent UTI's No spinal cord injury No Therapeutic plan - trial imipramine [facility] Medical History Bleeding hemorrhoids Uncontrolled hypertension PVD (peripheral vascular disease) Atrial fibrillation H/O urinary frequency Nocturia Urinary urgency HTN (hypertension) PAF (paroxysmal atrial fibrillation) Surgical History Hx of hysterectomy Hx of colonoscopy Hx of excision of epidermal inclusion cyst Hx of hemorrhoidectomy Family History Father CVD (cardiovascular disease) Diabetes Mother CVD (cardiovascular disease) Diabetes Brother No problems noted. Social History Household Members: None Housing: Apartment Do you presently have visiting nurse or other home services: No Alcohol intake: never Patient Tobacco Use Status: Never used Tobacco Second Hand Smoke Exposure: No Review of Systems Const Denies chills and Denies fever(s) Card Reports no additional complaints and Denies syncope Resp Denies cough GI Denies abdominal pain and Denies heartburn Reports as per HPI and Denies change in libido Neuro Denies syncope Psych Denies change in libido Endo Denies change in libido Physical Exam Const General: cooperative, healthy appearing, comfortable and no acute distress Orientation/consciousness: patient oriented x3 HEENT Face and sinus: Yes normal facial exam Mouth: moist mucous membranes Neck Neck: Yes normal visual inspection, Yes full ROM and Yes trachea midline Chest Chest palpation & inspection: normal inspection of the chest Resp Effort & Inspection: normal respiratory effort, able to speak in complete sentences and no respiratory distress GI Inspection: Yes normal to inspection Back/Spine/Pelvis Cervical Spine: normal cervical lordosis Thoracic/Lumbar Spine: thoracic and lumbar spine normal to inspection Skin General skin exam: no rashes or lesions noted Neuro General: patient oriented x3, gait normal, tone normal and moves all extremities Extrem General: Yes normal to inspection and Yes capillary refill normal Assessment & Plan Assessment & Plan (1) Nocturia more than twice per night: Code(s): R35.1 - Nocturia (2) PVD (peripheral vascular disease): Code(s): I73.9 - Peripheral vascular disease, unspecified (3) Overactive bladder: Code(s): N32.81 - Overactive bladder (4) Urinary urgency: Code(s): R39.15 - Urgency of urination Plan Six-month follow-up Medications: Refilled imipramine HCl 25 mg PO BEDTIME 90 tabs 1RF 90 days R35.1 - Nocturia Patient Instructions: Imaging studies, laboratory and physical exam results were discussed and reviewed in detail. No major barriers to patient understanding were identified. An opportunity to ask questions regarding the treatment plan was provided. All questions were answered. The patient expressed understanding and agreement with the above treatment plan. The patient is aware they should contact our office by phone for worsening of their current condition or the appearance of new urologic symptoms. Compliance is encouraged with any medications and followup testing that is ordered. It is a privilege to participate in the urologic care of your patient. If you have any questions or concerns regarding treatment for the above conditions, or other urologic issues, please do not hesitate to contact me. The office telephone contact is [phone]. This note is constructed using voice recognition software. While every effort has been made to ensure accuracy instructional technology facilitator errors may have been included. Yours sincerely, Dr Chong Up MD, [facility] - Urology Providers of Expert, Compassionate Care for the Genitourinary System Telehealth Telehealth Location of provider rendering services: practice address Location of patient: address on file Patient Identification confirmed using: Name, : Yes Telehealth method: voice only Patient verbally consented to treatment: Yes Patient verbally consented to billing insurance company: Yes Patient informed of any privacy concerns related to visit: Yes Coding Level of Care Code Est Pt Level 3 (18930) Diagnoses Nocturia more than twice per night R35.1 PVD (peripheral vascular disease) I73.9 Overactive bladder N32.81 Urinary urgency R39.15
== END 2022-06-13 15:09 | disposition home or self-care (01) ==
PROVIDERS: PCP Family Medicine; Visit Provider Urology
DX: R35.1 Nocturia (principal); I73.9 Peripheral vascular disease, unspecified; N32.81 Overactive bladder; R39.15 Urgency of urination
CPT/HCPCS: 99213; 99499

== ENCOUNTER → 2022-06-13 13:03 | Outpatient (BNVA) | payer MEDICARE, SELFPAY | PROVIDERS: PCP Family Medicine; Visit Provider Urology | DX: R35.1 Nocturia (principal); I73.9 Peripheral vascular disease, unspecified; N32.81 Overactive bladder; R39.15 Urgency of urination | CPT/HCPCS: 99212 ==

== ENCOUNTER 2022-06-19 12:54 | Outpatient (REF) | payer MEDICARE, SELFPAY ==
--- NOTE | ~2022-06-19 | MM_ITS ---
EXAMINATION: MM SCREENING DIGITAL BREAST TOMOSYNTHESIS, BILATERAL CLINICAL INFORMATION: Screening. Asymptomatic. COMPARISON: Mammography: June 12, 2021 and studies dating back to August 23, 2015 TECHNIQUE: Digital breast tomosynthesis is performed in both the craniocaudal and mediolateral oblique views along with computer-aided detection (CAD). Synthesized 2D images are generated from the tomosynthesis. FINDINGS: There are scattered areas of fibroglandular density (ACR BI-RADS breast composition Category b). There are no significant masses, abnormal calcifications, or other abnormalities. MM/MM tomosynthesis screening BI IMPRESSION: No significant changes from prior exam. ASSESSMENT: BI-RADS 1: Negative RECOMMENDATION: Routine annual mammography screening. This patient's information was entered into a reminder system with a target due date for their next mammogram.
== END 2022-06-19 12:55 | disposition home or self-care (01) ==
LOC: HO.MAMMO 12:54
PROVIDERS: PCP Family Medicine; Visit Provider Family Medicine
DX: Z12.31 Encounter for screening mammogram for malignant neoplasm of breast (principal)
CPT/HCPCS: 77063; 77067

== ENCOUNTER → 2022-07-21 09:36 | Outpatient (BNVA) | payer MEDICARE, SELFPAY | PROVIDERS: PCP Family Medicine; Referring Provider Family Medicine; Visit Provider Internal Medicine Cardiovascular Disease | DX: I48.0 Paroxysmal atrial fibrillation (principal); R79.89 Other specified abnormal findings of blood chemistry | CPT/HCPCS: 99212 ==

== ENCOUNTER 2022-10-08 08:11 | Emergency (ER) | payer MEDICARE, SELFPAY ==
[2022-10-08 08:18] VITALS: BP 154/57; PULSE 70; RESP 16; TEMP 36.4; O2SAT 99; BMI 26.4
[2022-10-08 09:08] LABS: Influenza A PCR NEGATIVE (Negative); Influenza B PCR NEGATIVE (Negative); Resp Syncy Virus RNA Qual PCR NEGATIVE (Negative); SARS COV2 PCR INHOUSE NEGATIVE (Negative)
--- NOTE | 2022-10-08 09:48 | ED_ITS ---
HPI - General Adult General Chief complaint: General Medical Stated complaint: Sore throat Time Seen by Provider: 10/08/22 09:04 Source: patient Mode of arrival: ambulatory Limitations: no limitations History of Present Illness HPI narrative: This is an 87-year-old female with a history of hypertension who presents to the emergency room with complaints of sore throat and left ear pain for the last 3 days with no known injury or trauma. Patient reports the sore throat was left- sided. Ear hurts when she swallows. She reports some pressure in the left ear. No fever, cough, nasal congestion, rhinorrhea, neck pain or neck stiffness. No weight loss or night sweats. No difficulty swallowing or breathing. Patient denies any smoking history. Related Data Home Medications Medication Instructions Recorded Confirmed ascorbate calcium (vitamin C) 500 500 mg PO DAILY 06/26/20 07/21/22 mg tablet multivitamin 1 tab PO DAILY 06/26/20 07/21/22 ciclopirox 8 % topical solution topical 11/06/20 07/21/22 gabapentin 100 mg capsule 100 mg PO TID 04/09/22 07/21/22 clopidogrel 75 mg tablet 75 mg PO DAILY 07/21/22 07/21/22 furosemide 20 mg tablet 20 mg PO DAILY 07/21/22 07/21/22 Previous Rx's Medication Instructions Recorded hydralazine 10 mg tablet 10 mg PO ONCE PRN hypertension 30 10/01/21 days #20 tabs diltiazem HCl 120 mg 120 mg PO .prn afib #14 caps 12/02/21 capsule,extended release 24 hr rivaroxaban 20 mg tablet 20 mg PO DAILY #90 tabs 01/13/22 metoprolol tartrate 50 mg tablet 50 mg PO BID #180 tabs 01/20/22 imipramine HCl 25 mg tablet 25 mg PO BEDTIME 90 days #90 tabs 06/13/22 amlodipine 5 mg tablet 5 mg PO BID 90 days #180 tabs 08/20/22 Allergies Allergy/AdvReac Type Severity Reaction Status Date / Time hydrochlorothiazide Allergy Mild ITCHING Verified 10/08/22 08:22 [HYDROCHLOROTHIAZIDE] latex [LATEX] Allergy Mild ITCHING Verified 10/08/22 08:22 levofloxacin [From LEVAQUIN] Allergy Unknown UNK Verified 10/08/22 08:22 lisinopril [LISINOPRIL] Allergy Unknown UNKNOWN Verified 10/08/22 08:22 lorazepam [LORAZEPAM] Allergy Unknown UNK Verified 10/08/22 08:22 Pork/Porcine Containing Allergy Unknown UNKNOWN Verified 10/08/22 08:22 Products [Pork/Porcine Product Derivatives] prednisone [PREDNISONE] Allergy Unknown UNCLEAR Verified 10/08/22 08:22 propafenone [PROPAFENONE] Allergy Unknown UNK Verified 10/08/22 08:22 spironolactone Allergy Unknown UNKNOWN Verified 10/08/22 08:22 [SPIRONOLACTONE] Sulfa (Sulfonamide Allergy Unknown unknown Verified 10/08/22 08:22 Antibiotics) cephalexin Allergy Itching Verified 10/08/22 08:24 doxycycline Allergy Itching Verified 10/08/22 08:24 linezolid Allergy Itching Verified 10/08/22 08:24 codeine Allergy Unknown unknown Uncoded 10/08/22 08:22 Crustaceans Allergy Unknown UNKNOWN Uncoded 10/08/22 08:22 augmentin AdvReac Unknown nausea & Uncoded 10/08/22 08:22 diarrhea Review of Systems Review of Systems: Yes all other systems are reviewed and are negative Constitutional: Constitutional: Reports no additional constitutional complaints, Denies body ache(s), Denies chills, Denies fever(s), Denies headache(s) and Denies weakness Eyes: Eyes: Reports no additional eye complaints and Denies change in vision ENT: Reports system reviewed and no additional complaints, except as documented, Denies dizziness, Reports otalgia, Denies headache(s), Denies nasal congestion, Denies nasal discharge, Denies neck pain and Reports sore throat Cardiovascular: Cardiovascular: Reports no additional cardiovascular complaints, Denies chest pain, Denies leg edema and Denies dyspnea Respiratory: Respiratory: Reports no additional respiratory complaints, Denies cough and Denies dyspnea Gastrointestinal: Gastrointestinal: Reports no additional gastrointestinal complaints, Denies abdominal pain, Denies diarrhea, Denies nausea and Denies vomiting Genitourinary: Genitourinary: Reports no additional female genitourinary complaints and Denies urinary incontinence Musculoskeletal: Musculoskeletal: Reports no additional musculoskeletal complaints, Denies back pain, Denies arthralgias, Denies joint swelling, Denies neck pain, Denies numbness and Denies tingling Integumentary/Breasts: Skin/Breast: Reports system reviewed and no additional complaints, except as docu and Denies rash Neurologic: Reports system reviewed and no additional complaints, except as documented, Denies dizziness, Denies headache(s), Denies numbness, Denies tingling and Denies weakness PMFSH Past Medical History Attestation statement: The following information was validated with the patient. Source: old records reviewed and nursing notes reviewed Medical History Atrial fibrillation H/O urinary frequency HTN (hypertension) Nocturia PAF (paroxysmal atrial fibrillation) PVD (peripheral vascular disease) Urinary urgency Surgical History Hx of colonoscopy Hx of excision of epidermal inclusion cyst Hx of hemorrhoidectomy Hx of hysterectomy Family History Family History Father CVD (cardiovascular disease) Diabetes Mother CVD (cardiovascular disease) Diabetes Brother No problems noted. Social History Social History Household Members: None Housing: Apartment Do you presently have visiting nurse or other home services: No Alcohol intake: never Second Hand Smoke Exposure: No Advance Directives: No Advance Directives Information Provided: Yes Physical Exam ED Vital Signs: Vital Signs - 24 hr 10/08/22 08:18 Temperature 97.5 F Pulse Rate 70 Respiratory Rate 16 Blood Pressure 154/57 H Pulse Oximetry 99 BMI result Body Mass Index 26.4 Const General: cooperative, healthy appearing, comfortable and no acute distress Orientation/consciousness: oriented to person and patient oriented x3 Limitations: no limitations HENMT Head: Yes normal to inspection and No Temporal artery tenderness present Ears: hearing grossly normal bilaterally, TM normal on the right and TM abnormal (Left TM with effusion but no erythema or bulging) General nose exam: Normal external nose present Face and sinus: Yes normal facial exam Mouth: Normal oral and palatal mucosa present Throat: Yes uvula midline, No peritonsillar mass and Yes other (To the left tonsil there is mild erythema with no exudate. Right tonsil no) Eyes General: appearance normal, both eyes and all related structures Pupils: Equal, round and reactive pupils present Neck Neck: Yes normal visual inspection, Yes full ROM and Yes no lymphadenopathy Chest Chest palpation & inspection: normal inspection of the chest Resp Effort & Inspection: normal respiratory effort Auscultation: clear to auscultation bilaterally Cardio Rate: regular rate Rhythm: regular rhythm Peripheral pulses: Peripheral pulses 2+ throughout GI Inspection: Yes normal to inspection Palpation (GI): Soft to palpation and nontender General: Yes no CVA tenderness Back/Spine/Pelvis Back: no CVA tenderness Thoracic/Lumbar Spine: thoracic and lumbar spine normal to inspection Skin General skin exam: no rashes or lesions noted Neuro General: oriented to person, patient oriented x3 and moves all extremities Cranial nerves: Yes Equal, round and reactive pupils present Cognition (Neuro): normal cognition Gait exam (Neuro): Normal gait present Extrem General: Yes normal to inspection, Yes no pedal edema and Yes no calf tenderness Course Course Course Narrative: Testing for flu, COVID, RSV and strep are negative. Likely viral syndrome. Reviewed worrisome signs and symptoms with the patient when to return to the emergency room. Comfortable plan for discharge home. Medical Decision Making Medical Decision Making [facility] Narrative: 87-year-old female here with sore throat left-sided and left-sided ear pain for the last 3 days with no systemic symptoms of fever or cough or weight loss or night sweats. On exam patient has an effusion to the left TM with no signs of AOM. Her left tonsil has mild erythema with no exudate. She is tolerating secretions normally. No evidence of peritonsillar abscess or Clark's angina. No signs or symptoms of trigeminal neuralgia. Exam not consistent with strep pharyngitis. Left TM with mild effusion which is likely secondary to viral infection and not from bacterial infection. Will send testing for flu, COVID, RSV, strep Differential Diagnosis Differential Diagnoses: The differential diagnosis associated with the presentation includes No evidence of peritonsillar abscess, Clark's angina, parotitis, temporal arteritis, strep pharyngitis, otitis media, malignancy Likely viral syndrome Lab Data [facility] Lab Attestation statement: I reviewed the patient's lab results. Labs: Lab Results 10/08/22 10/08/22 Range/Units 08:27 09:54 Influenza Type A (PCR) NEGATIVE (Negative) Influenza Type B (PCR) NEGATIVE (Negative) RSV RNA Qual (PCR) NEGATIVE (Negative) SARS-CoV-2 RNA (RT-PCR) NEGATIVE (Negative) S. pyogenes GrpA WENDY Negative (Negative) Prescription Management I considered prescription management with: Antibiotic center score 1-antibiotics not indicated Discharge Plan Discharge Clinical Impression: Acute pharyngitis Patient Disposition: Home, Self-Care Instructions: Pharyngitis (ED) Additional Instructions: Testing for flu, covid, rsv Testing for strep is negative You do have some fluid in your inner ear which will go away on its own. Your throat is a little bit irritated appearing this is likely through virus. Please follow-up with primary care doctor for any worsening symptoms. Prescriptions: No Action diltiazem HCl 120 mg capsule,extended release 24hr 120 mg PO .prn Qty: 14 1RF rivaroxaban 20 mg tablet 20 mg PO DAILY Qty: 90 2RF metoprolol tartrate 50 mg tablet 50 mg PO BID Qty: 180 3RF amlodipine 5 mg tablet 5 mg PO BID 90 Days Qty: 180 2RF ciclopirox 8 % solution topical ascorbate calcium (vitamin C) 500 mg tablet 500 mg PO DAILY multivitamin Tablet 1 tab PO DAILY gabapentin 100 mg capsule 100 mg PO TID furosemide 20 mg tablet 20 mg PO DAILY clopidogrel 75 mg tablet 75 mg PO DAILY hydralazine 10 mg tablet 10 mg PO ONCE PRN (Reason: hypertension) 30 Days Qty: 20 3RF Rx Instructions: Take one tablet as needed for a systolic blood pressure over 180 imipramine HCl 25 mg tablet 25 mg PO BEDTIME 90 Days Qty: 90 1RF Referrals: Phong Henry MD [Primary Care Provider] - 1 week Interventions: ED Discharge Assessment Last Done: 10/08/22 10:27 Discharge Date/Time: 10/08/22 10:27
[2022-10-08 10:11] LABS: IDNOW Serial# 6674DD1D; Strep A Nucleic Acid Negative (Negative)
== END 2022-10-08 10:27 | disposition home or self-care (01) ==
PROVIDERS: Nurse Practitioner Family; Emergency Provider Emergency Medicine; PCP Family Medicine
DX: J02.9 Acute pharyngitis, unspecified (principal); H92.02 Otalgia, left ear; Z20.822 Contact with and (suspected) exposure to COVID-19; Z20.828 Contact with and (suspected) exposure to other viral communicable diseases; I10 Essential (primary) hypertension; I48.0 Paroxysmal atrial fibrillation; Z79.899 Other long term (current) drug therapy
CPT/HCPCS: 0241U; 36415; 87651; 99282; 99283

== ENCOUNTER → 2022-10-29 10:17 | Outpatient (BNVA) | payer MEDICARE, SELFPAY | PROVIDERS: PCP Family Medicine; Referring Provider Family Medicine; Visit Provider Surgery | DX: K64.9 Unspecified hemorrhoids (principal) | CPT/HCPCS: 46600; 99202 ==

== ENCOUNTER → 2022-12-17 15:13 | Outpatient (BNVA) | payer MEDICARE, SELFPAY | PROVIDERS: PCP Family Medicine; Visit Provider Surgery | DX: K64.9 Unspecified hemorrhoids (principal) | CPT/HCPCS: 46600; 99212 ==

== ENCOUNTER → 2022-12-24 11:05 | Outpatient (BNVA) | payer MEDICARE, SELFPAY | PROVIDERS: PCP Family Medicine; Visit Provider Urology | DX: N32.81 Overactive bladder (principal); R35.1 Nocturia | CPT/HCPCS: Q3014 ==

== ENCOUNTER → 2023-01-14 08:51 | Outpatient (REF) | payer MEDICARE, SELFPAY ==
--- NOTE | 2023-01-14 08:54 | CA_ITS ---
Transthoracic Echocardiogram Patient (Last, First, Middle): Tiny Balbuena, Gender: Female Date of : 1935 Age: 87 Procedure Date: 01/14/2023 Procedure Type: Transthoracic Echocardiogram Location: OP Height: 165.1 cm Weight: 68.95 kg BSA: 1.76 m2 Heart Rate: bpm BP: 118 / 68 mmHg Equipment Application Specialist: Referring MD: Ministerio Monroy MD Food Processor: Ministerio Monroy MD Symptoms: R79.89 - Other specified abnormal findings of blood chemistry Study Quality: Good ECG Rhythm: Sinus Conclusions: - 1. Normal systolic function with measured LVEF of 60 65% with impaired relaxation filling pattern 2. Mild aortic and mitral regurgitation 3. Normal RV systolic pressure 4. No pericardial effusion Findings Left Ventricle Normal left ventricular size, thickness, and systolic function. The visually estimated ejection fraction is between 60-65%. Spectral Doppler is indicative of an impaired relaxation filling pattern. E/E prime ratio is between 8 and 15 consistent with indeterminate filling pressures. Peak GLS is -17.2%, which is borderline low. Right Ventricle Normal right ventricular cavity size and systolic function. Atria The left atrium is likely dilated. There is no evidence of interatrial shunt. The right atrium is normal in size. Aortic Valve Normal aortic valve structure and function. There is no aortic valve stenosis. There is mild aortic valve regurgitation. Mitral Valve There is mild anterior and posterior mitral leaflet thickening. There is mild mitral valve regurgitation. There is no mitral valve stenosis. Pulmonic Valve The pulmonic valve is likely normal. Tricuspid Valve Normal tricuspid valve structure. There is trace tricuspid valve regurgitation. The right ventricular systolic pressure is normal. The right ventricular systolic pressure is 24 mmHg. Normal right atrial pressure. There is no evidence of pulmonary hypertension. Great Vessels All visible segments of the aorta are normal in size. The pulmonary artery was not well visualized. Venous The inferior vena cava is normal in size and collapses greater than 50% with inspiration. Pericardium/Pleural There is no evidence of pericardial effusion. Measurements 2D Linear Measurements IVSd: 1.25 0.6-0.9/0.6-1.0 cm LVIDd: 3.91 3.9-5.3/4.2-5.9 cm LVIDd Index: 2.22 2.4-3.2/2.2-3.1 cm/m2 LVIDs: 2.34 2.0-3.6 cm LVPWd: 1.21 0.7-1.1 cm Ao Root: 2.90 2.1-3.5 cm LA Diam: 3.60 2.7-3.8/3.0-4.0 cm LAIDs Index: 2.05 1.5-2.3 cm/m2 LV Mass: 206.65 67-162/88-224 g LV Mass Index: 117.41 43-95/49-115 g/m2 LVOT Diam: 2.00 3.0+(-)1.3 cm Mitral Valve MV Pk E: 0.74 MV PK A: 1.10 MV Decel Time: 199.00 E/A: 0.70 E'Lateral: 5.22 E'Medial: 5.77 E/E' Med: 12.80 E/E' Lat: 14.20 PHT: 58.00 MVA PHT: 3.79 Decel Uinta: 3.72 Aortic Valve AoV Pk Michael: 1.57 AoV Mn Michael: 1.04 AoV VTI: 0.40 AoV Pk Grad: 10.00 Aov Mn Grad: 5.00 REJI Cont.VTI: 1.82 LVOT LVOT Pk Michael: 0.92 LVOT Mn Michael: 0.57 LVOT VTI: 0.23 LVOT Pk Grad: 3.00 LVOT Mn Grad: 2.00 LVOT Diam: 2.00 LVOT Area: 3.14 Diastolic Function MV Pk E: 0.74 MV Pk A: 1.10 E/A: 0.70 E'Medial: 5.77 E/E' Med: 12.80 E' Laterial: 5.22 E/E' Lat: 14.20 Right Ventricle TAPSE (mm): 26.00 TVS' Michael: 9.00 Tricuspid Valve TR Pk Michael: 2.29 TR Pk Grad: 21.00 RA Press: 3.00 RVSP: 24.00 Great Vessels Aorta Ao Root-2D: 2.90 2.0-3.7 cm Ao Asc: 3.10 2.1-3.4 cm Pulmonary Valve PV Pk Michael: 1.03 Peak PV Grad: 4.00 Updated in Other Vendor System with Status of Final Ministerio Monroy MD electronically signed on 01/14/2023 2:18:29 PM with status of Final
== END ==
LOC: HO.CARD 08:51
PROVIDERS: PCP Family Medicine; Visit Provider Internal Medicine Cardiovascular Disease
DX: R07.89 Other chest pain (principal)
CPT/HCPCS: 93306; 93356

== ENCOUNTER → 2023-01-26 10:57 | Outpatient (BNVA) | payer MEDICARE, SELFPAY | PROVIDERS: PCP Family Medicine; Referring Provider Family Medicine; Visit Provider Internal Medicine Cardiovascular Disease | DX: I48.0 Paroxysmal atrial fibrillation (principal); I10 Essential (primary) hypertension; I73.9 Peripheral vascular disease, unspecified; R79.89 Other specified abnormal findings of blood chemistry | CPT/HCPCS: 93005; 99212 ==

== ENCOUNTER 2023-05-07 09:11 | Emergency (ER) | payer MEDICARE, SELFPAY ==
--- NOTE | ~2023-05-07 | CT_ITS ---
EXAMINATION: CT ABDOMEN AND PELVIS WITHOUT CONTRAST CLINICAL INFORMATION: Right-sided low back and flank pain COMPARISON: Renal ultrasound 10/23/2021, CT abdomen pelvis 07/15/2018 TECHNIQUE: Multidetector volumetric imaging was performed from the superior aspect of the liver through the pubic symphysis. Sagittal and coronal reformatted images were obtained on the technologist's workstation. This CT examination was performed using dose optimization techniques as appropriate, variously including the following: *Automated exposure control *Adjustment of mA and/or kV according to patient size (this includes techniques or standardized protocols for targeted exams where dose is matched to indication/reason for exam; i.e. extremities or head) *Use of iterative reconstruction technique DLP: 563 mGy-cm FINDINGS: LUNG BASES: Atelectasis and tree-in-bud densities with some mucoid bronchial impaction present in both the right middle lobe and lingula, similar to prior. LIVER, GALLBLADDER, AND BILIARY TREE: The liver is mildly enlarged at 17.3 cm in greatest cephalocaudad dimension. Normal attenuation. No focal hepatic lesion or biliary ductal dilatation is present. The gallbladder is unremarkable with no evidence of radiopaque gallstones, gallbladder wall thickening, or obvious pericholecystic inflammatory changes. PANCREAS: Unremarkable. SPLEEN: Unremarkable. ADRENAL GLANDS: Unremarkable. KIDNEYS AND URETERS: The kidneys are normal in size, shape, and attenuation. No hydronephrosis, hydroureter, or calculi seen. No perinephric stranding. BLADDER: Suboptimally distended but unremarkable. Some details obscured by left hip prosthesis. GASTROINTESTINAL TRACT: The small and large bowel are unremarkable. The appendix is unremarkable. ABDOMINAL WALL: No significant hernia is appreciated. Surgical clips are present in the right inguinal region. LYMPH NODES: No retroperitoneal lymphadenopathy VASCULAR: Calcific atherosclerotic change seen in the aorta and iliofemoral vessels PELVIC VISCERA: Uterus is not seen. An abnormal adnexal mass is not present. No free intraperitoneal fluid. OSSEOUS STRUCTURES: A left hip prosthesis is present. Marked degenerative changes are present in the right hip. Degenerative changes at L4-S1 with grade 1 anterolisthesis L4 upon L5. No bony destructive lesions. CT/CT abdomen pelvis wo IV con IMPRESSION: 1. A cause for the patient's right-sided low back and flank pain has not been found. 2. Incidental findings as described above. Fleischner guidelines were followed.
[2023-05-07 09:18] VITALS: BP 140/62; BP 179/48; PULSE 63; PULSE 64; RESP 18; O2SAT 98; O2SAT 99; BMI 25.5
[2023-05-07 09:30] VITALS: TEMP 36.7
--- NOTE | 2023-05-07 09:32 | PC.NURSE ---
pt a&ox3. respirations even and unlabored. pt reports waking up thursday with lower back pain. pt reports this morning the back pain resides in the lower right back and radiates down the right leg. pt denies any issues with bowel movements and urinating. pt has full range of motion, CSM in tact. 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 pt right leg has small lump pt reports is from a previous surgery at [facility]. Dr. Aldana at bedside discussing pt care.
--- NOTE | 2023-05-07 09:33 | ED_ITS ---
HPI - Back Pain/Injury General Chief Complaint: Back Pain/Injury Stated Complaint: LOW BACK PAIN RAD TO LEG X3 DAYS PER EMS Time Seen by Provider: 05/07/23 09:13 Source: patient and old records reviewed Mode of arrival: EMS Limitations: no limitations History of Present Illness HPI Narrative: 87 yo female with PMH of PAF on xarelto, HTN, prior back pain and hip pain here with c/o atraumatic low back pain starting Thursday that has now moved to the right low back and radiates down the R leg and buttocks. No b/b incontinence no saddle anesthesia. Possibly started after chair yoga. She notes it now hurts to move and walk. She states she cannot take it now and she cannot get comfortable at night. She denies any urinary symptoms or falls. MD elicited complaint: back pain Pertinent past history: prior back pain Onset (ago): day(s) (Thursday - 4 days ago) Timing: progressively worsening Severity: severe Similar Symptoms Previously: Yes Quality: sharp and throbbing Location: lumbar spine Radiation: buttocks and right upper leg Exacerbating factors: movement Relieving factors: immobilization Context: unknown Associated symptoms: denies other symptoms Treatments prior to arrival: acetaminophen Work related injury: No Related Data Home Medications Medication Instructions Recorded Confirmed ascorbate calcium (vitamin C) 500 500 mg PO DAILY 06/26/20 01/26/23 mg tablet multivitamin 1 tab PO DAILY 06/26/20 01/26/23 ciclopirox 8 % topical solution topical 11/06/20 01/26/23 gabapentin 100 mg capsule 100 mg PO TID 04/09/22 01/26/23 furosemide 20 mg tablet 20 mg PO DAILY 07/21/22 01/26/23 Previous Rx's Medication Instructions Recorded amlodipine 5 mg tablet 5 mg PO BID 90 days #180 tabs 08/20/22 rivaroxaban 20 mg tablet 20 mg PO DAILY #90 tabs 01/07/23 metoprolol tartrate 50 mg tablet 50 mg PO BID #180 tabs 01/15/23 diltiazem HCl 120 mg 120 mg PO .prn afib #14 caps 02/20/23 capsule,extended release 24 hr hydralazine 10 mg tablet 10 mg PO ONCE PRN hypertension 30 02/20/23 days #20 tabs imipramine HCl 25 mg tablet 25 mg PO BEDTIME 90 days #90 tabs 04/30/23 hydromorphone 2 mg tablet 2 mg PO Q6H PRN pain #12 tabs 05/07/23 (Dilaudid) Allergies Allergy/AdvReac Type Severity Reaction Status Date / Time hydrochlorothiazide Allergy Mild ITCHING Verified 05/07/23 09:26 [HYDROCHLOROTHIAZIDE] latex [LATEX] Allergy Mild ITCHING Verified 05/07/23 09:26 levofloxacin [From LEVAQUIN] Allergy Unknown UNK Verified 05/07/23 09:26 lisinopril [LISINOPRIL] Allergy Unknown UNKNOWN Verified 05/07/23 09:26 lorazepam [LORAZEPAM] Allergy Unknown UNK Verified 05/07/23 09:26 Pork/Porcine Containing Allergy Unknown UNKNOWN Verified 05/07/23 09:26 Products [Pork/Porcine Product Derivatives] prednisone [PREDNISONE] Allergy Unknown UNCLEAR Verified 05/07/23 09:26 propafenone [PROPAFENONE] Allergy Unknown UNK Verified 05/07/23 09:26 spironolactone Allergy Unknown UNKNOWN Verified 05/07/23 09:26 [SPIRONOLACTONE] Sulfa (Sulfonamide Allergy Unknown unknown Verified 05/07/23 09:26 Antibiotics) cephalexin Allergy Itching Verified 05/07/23 09:26 doxycycline Allergy Itching Verified 05/07/23 09:26 linezolid Allergy Itching Verified 05/07/23 09:26 codeine Allergy Unknown unknown Uncoded 01/26/23 11:19 Crustaceans Allergy Unknown UNKNOWN Uncoded 01/26/23 11:19 augmentin AdvReac Unknown nausea & Uncoded 01/26/23 11:19 diarrhea Review of Systems 2 Review of Systems: Constitutional : No Weight loss, No Fever, No Chills, ENT/Mouth : No Hearing loss, No Ear Pain, No Nasal Congestion, No Sinus Pain, No Hoarseness, No sore throat, No Rhinorrhea, No Swallowing Difficulty Cardiovascular : No Chest Pain, No SOB Respiratory : No Cough, No Dyspnea Gastrointestinal : No Nausea, No Vomiting, No Diarrhea, No abdominal Pain, No Hematochezia, No Melena Genitourinary : No Dysuria, No Urinary Frequency, No Hematuria, No Urinary Incontinence, Musculoskeletal : positive back pain Skin : No Skin Lesions, No rash Neuro : No Weakness, No Numbness, No Paresthesias, no loss of bowel or bladder incontinence, no saddle anesthesia All other systems reviewed and are negative [facility] Past Medical History Attestation statement: The following information was validated with the patient. Medical History Bleeding hemorrhoids Uncontrolled hypertension PVD (peripheral vascular disease) Atrial fibrillation H/O urinary frequency Nocturia Urinary urgency HTN (hypertension) PAF (paroxysmal atrial fibrillation) Surgical History Hx of hysterectomy Hx of colonoscopy Hx of excision of epidermal inclusion cyst Hx of hemorrhoidectomy Family History Family History Father CVD (cardiovascular disease) Diabetes Mother CVD (cardiovascular disease) Diabetes Brother No problems noted. Social History Social History Household Members: None Housing: Apartment Do you presently have visiting nurse or other home services: No Alcohol intake: never Patient Tobacco Use Status: Never used Tobacco Smoked in Last 30 Days: No Second Hand Smoke Exposure: No Use of substances other than those prescribed or required for medical reasons: No Advance Directives: Yes Advance Directives Information Provided: Yes Advance Directives on File: No Physical Exam 2 Vital Signs: Vital Signs: Last Vital Signs Temp 98.1 F 05/07/23 09:30 Pulse 61 05/07/23 10:10 Resp 18 05/07/23 10:10 BP 169/53 H 05/07/23 10:10 Pulse Ox 100 05/07/23 10:10 O2 Del Method Room Air 05/07/23 10:10 BMI result Body Mass Index 25.5 Appearance: Alert. Oriented X3. No acute distress. Eyes: Pupils equal, round and reactive to light. ENT: Pharynx normal. Neck: Normal inspection. Neck supple. CVS: Normal heart rate and rhythm. Pulses normal. Respiratory: No respiratory distress. Breath sounds normal. Abdomen: Soft and nontender. Back: ttp along R low back reproduces pain no mass felt has small red resolved pimple but no abscess or cellulitis Skin: Skin warm and dry. Normal skin color. Normal skin turgor. Extremities: No lower extremity edema. R leg has varicose veins Neuro: Oriented X 3. No motor deficit. No sensory deficit. SILT inner thigh, able to fully bring R leg up on her own L5 5/5 bilaterally Course Course Course Narrative: able to get up and walk to and from bathroom without issue Medications Administered Discontinued Medications Generic Name Dose Route Start Last Admin Trade Name Kaitlynn PRN Reason Stop Dose Admin Hydromorphone HCl 2 mg 05/07/23 09:33 05/07/23 09:40 Hydromorphone Hcl 2 Mg Tablet PO 05/07/23 09:34 2 mg ONCE ONE Administration Medical Decision Making Medical Decision Making [facility] Narrative: 87 yo female with PMH of PAF on xarelto, HTN, prior back pain and hip pain here with c/o atraumatic low back pain starting Thursday but no b/b incontinence or saddle anesthesia she has no signs of infection at this time will need basic labs, UA, CT scan to rule out retroperitonal hematoma. At this time I am suspecting sciatica and MSK pain in nature. Differential Diagnosis Differential Diagnoses: The differential diagnosis associated with the presentation includes lumbar strain, retroperitoneal hematoma, sciatica Admission/Observation Consideration of admission/observation: Escalation of care including admission/observation considered able to walk and ambulate without issue does not require IV pain medications Lab Data [facility] Lab Attestation statement: I reviewed the patient's lab results. 05/07/23 09:39 05/07/23 09:39 Labs: Lab Results 05/07/23 05/07/23 Range/Units 09:39 10:25 WBC 5.4 (4.8-10.8) X10*3/uL RBC 3.43 L (4.20-5.50) X10*6/uL Hgb 10.6 L (12.0-16.0) g/dl Hct 32.1 L (37.0-47.0) % MCV 93.6 (80.0-98.0) fL MCH 30.9 (27.0-33.0) pg MCHC 33.0 (31.0-35.0) g/dl RDW 12.9 (11.0-16.0) % Plt Count 223 (160-400) X10*3/uL MPV 9.3 L (9.4-12.3) fL Immature Gran % (Auto) 0.2 (0.0-0.4) % Neut % (Auto) 58.6 (45-73) % Lymph % (Auto) 27.4 (20-40) % [place] % (Auto) 11.9 H (2-11) % Eos % (Auto) 1.3 (0-4) % Baso % (Auto) 0.6 (0-2) % Lymph # (Auto) 1.5 (1.2-4.9) X10*3/uL [place] # (Auto) 0.6 (0.1-1.2) X10*3/uL Eos # (Auto) 0.1 (0.0-0.4) X10*3/uL Baso # (Auto) 0.0 (0.0-0.2) X10*3/uL Abs Immat Gran (auto) 0.01 (0.00-0.03) X10*3/uL Absolute Neuts (auto) 3.2 (2.0-8.3) x10*3/uL Absolute Nucleated RBC 0.000 (0.0-0.012) X10*3/uL Nucleated RBC % (auto) 0.0 (0.0-0.2) /100WBC Sodium 140 (135-145) mmol/L Potassium 4.0 (3.3-5.1) mmol/L Chloride 107 (96-108) mmol/L Carbon Dioxide 29 (22-29) mmol/L Anion Gap 8 L (12-20) BUN 20 H (9-16) mg/dL Creatinine 0.83 (0.5-1.4) mg/dL Estim Creat Clear Calc 47.6 Estimated GFR > 60 Random Glucose 105 (60-115) mg/dL Calcium 9.1 (8.4-10.2) mg/dL Magnesium 2.1 (1.6-2.6) mg/dL Urine Color Yellow Urine Appearance Clear Urine pH 7.0 (5.0-9.0) Ur Specific [place] 1.010 (1.005-1.025) Urine Protein 30 (1+) H (Neg-Trace) mg/dL Urine Glucose (UA) Negative (Negative) mg/dL Urine Ketones Negative (Negative) mg/dL Urine Blood Negative (Negative) Urine Nitrite Negative (Negative) Ur Leukocyte Esterase Negative (Negative) Urine RBC 0-2 (0-2) /HPF Urine WBC 0-5 (0-5) /HPF Ur Squamous Epith Cells 0-2 (0-2) /HPF Urine Bacteria None Seen (None Seen) Hyaline Casts 0-2 (0-2) /LPF Independent Interpretation I performed an independent interpretation of an: CT Scan (no hematoma or fracture) Radiology Impression Discussion of test interpretation with radiology: I have reviewed the radiologist's reading. Independent Historian Clinical information obtained from an independent historian. History obtained from or confirmed by: EMS External Record Review External record reviewed: Inpatient record Prescription Management I considered prescription management with: Pain Medication and Other Discharge Plan Discharge Clinical Impression: Lumbar radiculopathy Sciatica Qualifiers: Laterality: right Qualified Code(s): M54.31 - Sciatica, right side Patient Disposition: Home, Self-Care Instructions: Lumbar Radiculopathy (ED), Back Pain (ED), Lower Back Exercises (ED) Additional Instructions: return for worsening pain, numbness, weakness, loss of control of bowel or bladder or any other concerns. call your doctor about physical therapy referral gentle movements and stretching may take a couple of weeks to get better. Prescriptions: New hydromorphone [Dilaudid] 2 mg tablet 2 mg PO Q6H PRN (Reason: pain) Qty: 12 0RF Rx Instructions: Partial Fill upon patient request. No Action amlodipine 5 mg tablet 5 mg PO BID 90 Days Qty: 180 2RF rivaroxaban 20 mg tablet 20 mg PO DAILY Qty: 90 3RF metoprolol tartrate 50 mg tablet 50 mg PO BID Qty: 180 3RF diltiazem HCl 120 mg capsule,extended release 24hr 120 mg PO .prn Qty: 14 1RF hydralazine 10 mg tablet 10 mg PO ONCE PRN (Reason: hypertension) 30 Days Qty: 20 3RF Rx Instructions: Take one tablet as needed for a systolic blood pressure over 180 imipramine HCl 25 mg tablet 25 mg PO BEDTIME 90 Days Qty: 90 1RF ciclopirox 8 % solution topical ascorbate calcium (vitamin C) 500 mg tablet 500 mg PO DAILY multivitamin Tablet 1 tab PO DAILY gabapentin 100 mg capsule 100 mg PO TID furosemide 20 mg tablet 20 mg PO DAILY
[2023-05-07] MEDS: HYDROmorphone HCl 2 MG TABLET PO (09:40)
[2023-05-07 09:47] LABS: MANUAL DIFF FLAG NO
[2023-05-07 09:50] LABS: Basophils Percent Auto 0.6 % (0-2); Eosinophils Absolute Auto 0.1 X10*3/uL (0.0-0.4); Eosinophils Percent Auto 1.3 % (0-4); Hematocrit 32.1 % (37.0-47.0); Hemoglobin 10.6 g/dl (12.0-16.0); Imm Gran Abs Auto 0.01 X10*3/uL (0.00-0.03); Imm Gran Pct Auto 0.2 % (0.0-0.4); Lymphocytes Absolute Auto 1.5 X10*3/uL (1.2-4.9); Lymphocytes Percent Auto 27.4 % (20-40); Mean Corpuscular Hemoglobin 30.9 pg (27.0-33.0); Mean Corpuscular Volume 93.6 fL (80.0-98.0); Mean Platelet Volume 9.3 fL (9.4-12.3); Monocytes Absolute Auto 0.6 X10*3/uL (0.1-1.2); Monocytes Percent Auto 11.9 % (2-11); Neutrophils Absolute Auto 3.2 x10*3/uL (2.0-8.3); Neutrophils Percent Auto 58.6 % (45-73); Platelet Count 223 X10*3/uL (160-400); Red Blood Count 3.43 X10*6/uL (4.20-5.50); Red Cell Distribution Width 12.9 % (11.0-16.0); White Blood Count 5.4 X10*3/uL (4.8-10.8)
[2023-05-07 10:09] LABS: Anion Gap 8 (12-20); Blood Urea Nitrogen 20 mg/dL (9-16); Calcium 9.1 mg/dL (8.4-10.2); Carbon Dioxide 29 mmol/L (22-29); Chloride 107 mmol/L (96-108); Creatinine Clr Calc Pharmacy 47.6; Estimated Glomerular Filt Rate > 60; Glucose Random 105 mg/dL (60-115); Magnesium 2.1 mg/dL (1.6-2.6); Sodium 140 mmol/L (135-145)
[2023-05-07 10:10] VITALS: BP 169/53; PULSE 61; RESP 18; O2SAT 100
--- NOTE | 2023-05-07 10:30 | MHC.EDTECH ---
Ambulated pt to the bathroom with a walker. Okay per RN. Urine collected and sent to lab
[2023-05-07 10:32] LABS: Appearance Urine Clear; Color Urine Yellow; Glucose Urine UA Negative (Negative); Leukocyte Esterase Urine Negative (Negative); Nitrite Urine Negative (Negative); UMIC TRIGGER UACC YES; Urine Blood Negative (Negative); Urine Ketones Negative (Negative); Urine Protein 30 (1+) mg/dL (Neg-Trace)
[2023-05-07 10:34] LABS: Bacteria Urine None Seen (None Seen); Hyaline Casts Urine 0-2 /LPF (0-2); RBC Urine 0-2 /HPF (0-2); Squamous Epithelial Cell Urine 0-2 /HPF (0-2); WBC Urine 0-5 /HPF (0-5)
== END 2023-05-07 11:35 | disposition home or self-care (01) ==
PROVIDERS: Emergency Provider Emergency Medicine; PCP Family Medicine
DX: M54.16 Radiculopathy, lumbar region (principal); M54.41 Lumbago with sciatica, right side; I10 Essential (primary) hypertension; I48.0 Paroxysmal atrial fibrillation; Z79.01 Long term (current) use of anticoagulants; Z79.899 Other long term (current) drug therapy
CPT/HCPCS: 36415; 74176; 80048; 81001; 83735; 85025; 99284

== ENCOUNTER 2023-06-25 11:46 | Outpatient (REF) | payer MEDICARE, SELFPAY | END 2023-06-25 11:47 | disposition home or self-care (01) | LOC: HO.MAMMO 11:46 | PROVIDERS: Visit Provider Family Medicine | DX: Z12.31 Encounter for screening mammogram for malignant neoplasm of breast (principal) | CPT/HCPCS: 77063; 77067 ==

== ENCOUNTER → 2023-06-25 12:00 | Outpatient (BNV) | payer MEDICARE, SELFPAY | PROVIDERS: Visit Provider Radiology Diagnostic Radiology | DX: Z12.31 Encounter for screening mammogram for malignant neoplasm of breast (principal) | CPT/HCPCS: 77063; 77067 ==

== ENCOUNTER 2023-07-20 13:04 | Outpatient (AMB) | payer MEDICARE, SELFPAY ==
[2023-07-20 13:10] VITALS: BP 128/64; PULSE 60; BMI 25.3
--- NOTE | 2023-07-20 13:10 | MHC.OFFVIS ---
Intake Vital Signs 07/20/23 13:10 Height 5 ft 5 in Weight 152 lb BMI 25.3 BP 128/64 Blood Pressure Location Lt brachial Position Sitting Pulse 60 Intake Visit Reasons: 6 month follow up Intake Note: 6 month follow-up hearts doing good Facility Planner Required: No Allergies hydrochlorothiazide [HYDROCHLOROTHIAZIDE] Allergy (Mild, Verified 05/07/23 09:26) ITCHING latex [LATEX] Allergy (Mild, Verified 05/07/23 09:26) ITCHING levofloxacin [From LEVAQUIN] Allergy (Unknown, Verified 05/07/23 09:26) UNK lisinopril [LISINOPRIL] Allergy (Unknown, Verified 05/07/23 09:26) UNKNOWN lorazepam [LORAZEPAM] Allergy (Unknown, Verified 05/07/23 09:26) UNK Pork/Porcine Containing Products [Pork/Porcine Product Derivatives] Allergy (Unknown, Verified 05/07/23 09:26) UNKNOWN prednisone [PREDNISONE] Allergy (Unknown, Verified 05/07/23 09:26) UNCLEAR propafenone [PROPAFENONE] Allergy (Unknown, Verified 05/07/23 09:26) UNK spironolactone [SPIRONOLACTONE] Allergy (Unknown, Verified 05/07/23 09:26) UNKNOWN Sulfa (Sulfonamide Antibiotics) Allergy (Unknown, Verified 05/07/23 09:26) unknown cephalexin Allergy (Verified 05/07/23 09:26) Itching doxycycline Allergy (Verified 05/07/23 09:26) Itching linezolid Allergy (Verified 05/07/23 09:26) Itching codeine Allergy (Unknown, Uncoded 01/26/23 11:19) unknown Crustaceans Allergy (Unknown, Uncoded 01/26/23 11:19) UNKNOWN augmentin Adverse Reaction (Unknown, Uncoded 01/26/23 11:19) nausea & diarrhea Medication List - Last Reconciled 07/20/23 by Ministerio Monroy MD amlodipine 5 mg PO BID ascorbate calcium (vitamin C) 500 mg PO DAILY ciclopirox 8% topical diltiazem HCl 120 mg PO .prn furosemide 20 mg PO DAILY hydralazine 10 mg PO ONCE PRN 30 days imipramine HCl 25 mg PO BEDTIME 90 days metoprolol tartrate 50 mg PO BID multivitamin 1 tab PO DAILY nortriptyline 10 mg PO BEDTIME rivaroxaban 20 mg PO DAILY HPI HPI Comments History of Present Illness Details Tiny comes for follow-up. She has not had any major cardiac symptoms. She denies any worsening symptoms of shortness of breath, orthopnea, PND. Denies any recurrent episodes of atrial fibrillation. Blood pressure is better controlled. Takes all her medications. No bleeding issues or neurologic events PFSH Medical History Bleeding hemorrhoids Uncontrolled hypertension PVD (peripheral vascular disease) Atrial fibrillation H/O urinary frequency Nocturia Urinary urgency HTN (hypertension) PAF (paroxysmal atrial fibrillation) Surgical History Hx of hysterectomy Hx of colonoscopy Hx of excision of epidermal inclusion cyst Hx of hemorrhoidectomy Family History Father CVD (cardiovascular disease) Diabetes Mother CVD (cardiovascular disease) Diabetes Brother No problems noted. Social History Household Members: None Housing: Apartment Do you presently have visiting nurse or other home services: No Alcohol intake: never Patient Tobacco Use Status: Never used Tobacco Second Hand Smoke Exposure: No Review of Systems Const Denies chills, Denies fatigue, Denies fever(s), Denies frequent falls, Denies weakness, Denies weight gain and Denies weight loss ENT Denies dizziness Card Denies chest pain, Denies leg edema, Denies lightheadedness, Denies palpitations, Denies dyspnea, Denies dyspnea on exertion, Denies orthopnea and Denies other (loss of consciousness) Resp Denies cough, Denies dyspnea and Denies dyspnea on exertion GI Denies hematochezia and Denies change in stool character Musc Denies abnormal gait, Denies muscle weakness, Denies numbness, Denies radiating pain into limb and Denies tingling Neuro Denies abnormal gait, Denies dizziness, Denies frequent falls, Denies numbness, Denies tingling and Denies weakness Endo Denies fatigue and Denies palpitations Physical Exam Vital Signs: Last Vital Signs Pulse 60 07/20/23 13:10 BP 128/64 07/20/23 13:10 BMI result Body Mass Index 25.3 Const General: cooperative, healthy appearing, comfortable and no acute distress Orientation/consciousness: patient oriented x3 HEENT Face and sinus: Yes normal facial exam Mouth: moist mucous membranes Neck Neck: Yes normal visual inspection, Yes full ROM and Yes trachea midline Chest Chest palpation & inspection: normal inspection of the chest Resp Effort & Inspection: normal respiratory effort, able to speak in complete sentences and no respiratory distress GI Inspection: Yes normal to inspection Back/Spine/Pelvis Cervical Spine: normal cervical lordosis Thoracic/Lumbar Spine: thoracic and lumbar spine normal to inspection Skin General skin exam: no rashes or lesions noted Neuro General: patient oriented x3, gait normal, tone normal and moves all extremities Extrem General: No clubbing, No cyanosis and Yes edema ( right lower extremity edema, currently in compression dressing) Assessment & Plan Assessment & Plan (1) PAF (paroxysmal atrial fibrillation): Code(s): I48.0 - Paroxysmal atrial fibrillation Plan: Highly symptomatic paroxysmal atrial fibrillation which is currently suppressed on current therapy. She base benefits from p.r.n. Cardizem therapy. Continue pill in the pocket approach. Continue metoprolol therapy. Continue full oral anticoagulation, currently on Xarelto 20 mg daily. Quarterly renal function test should be pursued. (2) Elevated brain natriuretic peptide (BNP) level: Code(s): R79.89 - Other specified abnormal findings of blood chemistry Plan: Prior history of elevated BNP without any overt signs of heart failure. Signs and symptoms of heart failure were discussed continue aggressive risk factor modification aggressive control blood pressure as well as management of rhythm with rhythm control approach which she is currently on Lasix 20 mg daily. Continue the same. Daily weight monitoring avoidance of salt loading was discussed. (3) HTN (hypertension): Code(s): I10 - Essential (primary) hypertension Plan: Hypertension which is very labile related to most likely diffuse atherosclerotic disease. Blood pressure is currently well optimized. Importance of good blood pressure control was discussed. P.r.n. hydralazine for significant elevated blood pressure. Will follow up in the clinic in 6 months time, sooner p.r.n.. Thank you for allowing me to partake in her care Coding Level of Care Code Est Pt Level 4 (61263) Diagnoses PAF (paroxysmal atrial fibrillation) I48.0 Elevated brain natriuretic peptide (BNP) level R79.89 HTN (hypertension) I10
== END 2023-07-20 13:44 | disposition home or self-care (01) ==
PROVIDERS: PCP Family Medicine; Visit Provider Internal Medicine Cardiovascular Disease
DX: I48.0 Paroxysmal atrial fibrillation (principal); R79.89 Other specified abnormal findings of blood chemistry; I10 Essential (primary) hypertension
CPT/HCPCS: 99214

== ENCOUNTER → 2023-07-20 13:04 | Outpatient (BNVA) | payer MEDICARE, SELFPAY | PROVIDERS: PCP Family Medicine; Visit Provider Internal Medicine Cardiovascular Disease | DX: I48.0 Paroxysmal atrial fibrillation (principal); I10 Essential (primary) hypertension; R79.89 Other specified abnormal findings of blood chemistry | CPT/HCPCS: 99212 ==

== ENCOUNTER 2023-07-29 13:01 | Outpatient (AMB) | payer MEDICARE, SELFPAY ==
--- NOTE | 2023-07-29 13:13 | MHC.OFFVIS ---
Intake Intake Visit Reasons: 6M PVR Intake Note: Patient is Present for Follow Up Urology Medication: None Antibiotic Allergies:Doxycycline, Cephalexcin, Sulfa, Levofloxacin Blood Thinners: None PVR: 0 Allergies hydrochlorothiazide [HYDROCHLOROTHIAZIDE] Allergy (Mild, Verified 07/29/23 13:14) ITCHING latex [LATEX] Allergy (Mild, Verified 07/29/23 13:14) ITCHING levofloxacin [From LEVAQUIN] Allergy (Unknown, Verified 07/29/23 13:14) UNK lisinopril [LISINOPRIL] Allergy (Unknown, Verified 07/29/23 13:14) UNKNOWN lorazepam [LORAZEPAM] Allergy (Unknown, Verified 07/29/23 13:14) UNK Pork/Porcine Containing Products [Pork/Porcine Product Derivatives] Allergy (Unknown, Verified 07/29/23 13:14) UNKNOWN prednisone [PREDNISONE] Allergy (Unknown, Verified 07/29/23 13:14) UNCLEAR propafenone [PROPAFENONE] Allergy (Unknown, Verified 07/29/23 13:14) UNK spironolactone [SPIRONOLACTONE] Allergy (Unknown, Verified 07/29/23 13:14) UNKNOWN Sulfa (Sulfonamide Antibiotics) Allergy (Unknown, Verified 07/29/23 13:14) unknown cephalexin Allergy (Verified 07/29/23 13:14) Itching doxycycline Allergy (Verified 07/29/23 13:14) Itching linezolid Allergy (Verified 07/29/23 13:14) Itching codeine Allergy (Unknown, Uncoded 07/29/23 13:14) unknown Crustaceans Allergy (Unknown, Uncoded 07/29/23 13:14) UNKNOWN augmentin Adverse Reaction (Unknown, Uncoded 07/29/23 13:14) nausea & diarrhea HPI HPI Comments History of Present Illness Details Tiny HOLDER is a very pleasant [place] female. She is a patient of Dr Henry. She is seen for the following urologic conditions - overactive bladder PVR 0 cc Very happy with current nocturia control Does feel incomplete emptying during the day and double voiding Discussed potential trial of trazodone 1 mg At this point will hold off Continue 6 month follow-up Urinary Urge/Frequency: Symptoms have been present since several years since 2009 Current therapy includes - oxybuytinin - have discussed issues with memory related to this medication. Also discussed offer Botox. At this point in time she has symptoms well controlled with dose of 5 mg and she will continue with this Prior treatment(s) included Myrbetriq - swollen legs Toviaz - dry mouth Current symptoms include frequency Yes nocturia Yes urgency Yes The frequency of the symptom(s) occur several times a day. Severity of the symptoms that is moderate Recent labs included a urinalysis, with no evidence of an infection. Associated medical conditions Alzheimer's disease No CVA No cystocele No dementia No Therapeutic plan - low-dose imipramine PFSH Medical History Bleeding hemorrhoids Uncontrolled hypertension PVD (peripheral vascular disease) Atrial fibrillation H/O urinary frequency Nocturia Urinary urgency HTN (hypertension) PAF (paroxysmal atrial fibrillation) Surgical History Hx of hysterectomy Hx of colonoscopy Hx of excision of epidermal inclusion cyst Hx of hemorrhoidectomy Family History Father CVD (cardiovascular disease) Diabetes Mother CVD (cardiovascular disease) Diabetes Brother No problems noted. Social History Household Members: None Housing: Apartment Do you presently have visiting nurse or other home services: No Alcohol intake: never Patient Tobacco Use Status: Never used Tobacco Second Hand Smoke Exposure: No Review of Systems Const Denies chills and Denies fever(s) Card Reports no additional complaints and Denies syncope Resp Denies cough GI Denies abdominal pain and Denies heartburn Reports as per HPI and Denies change in libido Neuro Denies syncope Psych Denies change in libido Endo Denies change in libido Physical Exam Const General: cooperative, healthy appearing, comfortable and no acute distress Orientation/consciousness: patient oriented x3 HEENT Face and sinus: Yes normal facial exam Mouth: moist mucous membranes Neck Neck: Yes normal visual inspection, Yes full ROM and Yes trachea midline Chest Chest palpation & inspection: normal inspection of the chest Resp Effort & Inspection: normal respiratory effort, able to speak in complete sentences and no respiratory distress GI Inspection: Yes normal to inspection Back/Spine/Pelvis Cervical Spine: normal cervical lordosis Thoracic/Lumbar Spine: thoracic and lumbar spine normal to inspection Skin General skin exam: no rashes or lesions noted Neuro General: patient oriented x3, gait normal, tone normal and moves all extremities Extrem General: Yes normal to inspection and Yes capillary refill normal Office Procedures Post Void Residual Post Residual Void Post Void Residual (PVR): 0 29712-Oalm Void Residual by ultrasound Assessment & Plan Assessment & Plan (1) Nocturia more than twice per night: Code(s): R35.1 - Nocturia (2) Overactive bladder: Code(s): N32.81 - Overactive bladder Plan Six month follow-up Orders: Orders AMB Post Void Residual by ultrasound Today N32.81 - Overactive bladder Medications: Refilled imipramine HCl 25 mg PO BEDTIME 90 days 90 tabs 1RF R35.1 - Nocturia Patient Instructions: Imaging studies, laboratory and physical exam results were discussed and reviewed in detail. No major barriers to patient understanding were identified. An opportunity to ask questions regarding the treatment plan was provided. All questions were answered. The patient expressed understanding and agreement with the above treatment plan. The patient is aware they should contact our office by phone for worsening of their current condition or the appearance of new urologic symptoms. Compliance is encouraged with any medications and followup testing that is ordered. It is a privilege to participate in the urologic care of your patient. If you have any questions or concerns regarding treatment for the above conditions, or other urologic issues, please do not hesitate to contact me. The office telephone contact is [phone]. This note is constructed using voice recognition software. While every effort has been made to ensure accuracy air purifier servicer errors may have been included. Yours sincerely, Dr Chong Up MD, [facility] - Urology Providers of Expert, Compassionate Care for the Genitourinary System Coding Level of Care Code Est Pt Level 3 (62895) Diagnoses Nocturia more than twice per night R35.1 Overactive bladder N32.81 CPT Codes Post Residual Void - PVR CPT Code: 09743-Dauu Void Residual by ultrasound ([id number])
== END 2023-07-29 13:38 | disposition home or self-care (01) ==
PROVIDERS: Visit Provider Urology
DX: R35.1 Nocturia (principal); N32.81 Overactive bladder
CPT/HCPCS: 99213

== ENCOUNTER → 2023-07-29 13:01 | Outpatient (BNVA) | payer MEDICARE, SELFPAY | PROVIDERS: Visit Provider Urology | DX: R35.1 Nocturia (principal); N32.81 Overactive bladder | CPT/HCPCS: 51798; 99212 ==

== ENCOUNTER 2023-08-24 03:48 | Emergency (ER) | payer MEDICARE, SELFPAY ==
[2023-08-24 03:58] VITALS: BP 191/63; BP 232/72; PULSE 75; PULSE 81; RESP 16; TEMP 36.4; O2SAT 100; O2SAT 98; BMI 25.6
--- NOTE | 2023-08-24 04:12 | ECG_ITS ---
Test Reason : HTN Blood Pressure : / mmHG Vent. Rate : 072 BPM Atrial Rate : 072 BPM P-R Int : 164 ms QRS Dur : 100 ms QT Int : 370 ms P-R-T Axes : 065 026 039 degrees QTc Int : 405 ms Artifact in tracing Normal sinus rhythm Likely normal EKG When compared to the previous EKG of 18 jul 2021, rhythm change Referred By: Toñito Maynard Electronically Signed By:JERMAIN HORAN
--- NOTE | 2023-08-24 04:25 | ED.RECABL ---
HPI - Recheck/Abnormal Lab/Rx General Chief Complaint: General Medical Stated Complaint: high blood pressure Time Seen by Provider: 08/24/23 04:02 Source: patient Mode of arrival: EMS Limitations: no limitations History of Present Illness HPI narrative: 88-year-old female with a history of paroxysmal atrial fibrillation, hypertension, peripheral vascular disease who presents emergency department for evaluation of elevated blood pressures. Patient states that her blood pressure is managed by our suppository molding machine operator, Dr. Monroy. She states that she checks her blood pressure frequency and her systolic blood pressure can range from 100-220. She states that her blood pressure was elevated at 232/72 at around 23:00 hours and she contacted her suppository molding machine operator who advised to take her p.r.n. hydralazine. She took this medication in 1 hour later she continued to have an elevated blood pressure and took a 2nd dose of hydralazine. She was advised to go to the emergency department but she did not want to go to the emergency department at midnight. She states she got up this morning to go to the bathroom and she looked in the mirror and noted that her face was very flushed. She took her blood pressure and again it was elevated therefore she called an ambulance and came to the emergency department for evaluation. The patient states that she often checks her blood pressure frequently. She states that over the past week her blood pressure has been significantly higher than usual. The patient is a 3rd generation is [employer] and she states that she has been watching a lot of News on several different channels including [employer] sites. She states the situation in [employer] has caused her to have significant stress and anxiety. The patient states she has been compliant with her medications. She also states she has been anxious since she got her COVID-19 vaccinate 1 week prior and got her RSV vaccination 3 days prior pain. The patient denied fever, chills, rhinorrhea, sore throat, cough. She denied chest pain, shortness of breath or dyspnea on exertion. She denied nausea, vomiting, diarrhea or change in her bowel movements. She denied frequency, urgency or dysuria. Related Data Home Medications Medication Instructions Recorded Confirmed ascorbate calcium (vitamin C) 500 500 mg PO DAILY 06/26/20 07/20/23 mg tablet multivitamin 1 tab PO DAILY 06/26/20 07/20/23 ciclopirox 8 % topical solution topical 11/06/20 07/20/23 furosemide 20 mg tablet 20 mg PO DAILY 07/21/22 07/20/23 nortriptyline 10 mg capsule 10 mg PO BEDTIME 07/20/23 07/20/23 Previous Rx's Medication Instructions Recorded rivaroxaban 20 mg tablet 20 mg PO DAILY #90 tabs 01/07/23 metoprolol tartrate 50 mg tablet 50 mg PO BID #180 tabs 01/15/23 diltiazem HCl 120 mg 120 mg PO .prn afib #14 caps 02/20/23 capsule,extended release 24 hr amlodipine 5 mg tablet 5 mg PO BID #180 tabs 05/19/23 hydralazine 10 mg tablet 10 mg PO ONCE PRN hypertension 30 06/19/23 days #20 tabs imipramine HCl 25 mg tablet 25 mg PO BEDTIME 90 days #90 tabs 07/29/23 Allergies Allergy/AdvReac Type Severity Reaction Status Date / Time hydrochlorothiazide Allergy Mild ITCHING Verified 07/29/23 13:14 [HYDROCHLOROTHIAZIDE] latex [LATEX] Allergy Mild ITCHING Verified 07/29/23 13:14 levofloxacin [From LEVAQUIN] Allergy Unknown UNK Verified 07/29/23 13:14 lisinopril [LISINOPRIL] Allergy Unknown UNKNOWN Verified 07/29/23 13:14 lorazepam [LORAZEPAM] Allergy Unknown UNK Verified 07/29/23 13:14 Pork/Porcine Containing Allergy Unknown UNKNOWN Verified 07/29/23 13:14 Products [Pork/Porcine Product Derivatives] prednisone [PREDNISONE] Allergy Unknown UNCLEAR Verified 07/29/23 13:14 propafenone [PROPAFENONE] Allergy Unknown UNK Verified 07/29/23 13:14 spironolactone Allergy Unknown UNKNOWN Verified 07/29/23 13:14 [SPIRONOLACTONE] Sulfa (Sulfonamide Allergy Unknown unknown Verified 07/29/23 13:14 Antibiotics) cephalexin Allergy Itching Verified 07/29/23 13:14 doxycycline Allergy Itching Verified 07/29/23 13:14 linezolid Allergy Itching Verified 07/29/23 13:14 codeine Allergy Unknown unknown Uncoded 07/29/23 13:14 Crustaceans Allergy Unknown UNKNOWN Uncoded 07/29/23 13:14 augmentin AdvReac Unknown nausea & Uncoded 07/29/23 13:14 diarrhea Review of Systems Review of Systems: Yes all other systems are reviewed and are negative [facility] Past Medical History Onset Date is defined in the Problem List Problems that require an onset date and time if occurred within 24 hrs of arrival to the ED Aortic Dissection and Rupture; Neurologic impairment; Cardiopulmonary Arrest; Endotracheal Intubation; Insertion or Replacement of Mechanical Circulatory Assist Device Medical History Bleeding hemorrhoids Uncontrolled hypertension PVD (peripheral vascular disease) Atrial fibrillation H/O urinary frequency Nocturia Urinary urgency HTN (hypertension) PAF (paroxysmal atrial fibrillation) Surgical History Hx of hysterectomy Hx of colonoscopy Hx of excision of epidermal inclusion cyst Hx of hemorrhoidectomy Family History Family History Father CVD (cardiovascular disease) Diabetes Mother CVD (cardiovascular disease) Diabetes Brother No problems noted. Social History Social History Household Members: None Housing: Apartment Do you presently have visiting nurse or other home services: No Alcohol intake: never Patient Tobacco Use Status: Never used Tobacco Second Hand Smoke Exposure: No Advance Directives: No Advance Directives Information Provided: No Physical Exam Vital Signs: Vital Signs: Last Vital Signs Temp 97.6 F 08/24/23 03:58 Pulse 75 08/24/23 03:58 Resp 16 08/24/23 03:58 BP 191/63 H 08/24/23 03:58 Pulse Ox 100 08/24/23 03:58 O2 Del Method Room Air 08/24/23 03:58 BMI result Body Mass Index 25.6 Vital signs did reveal an elevated blood pressure of 191/60 Exam: General: Awake, alert in no distress Head: Normocephalic, atraumatic EENT: PERRL, Lids normal, sclera normal, conjunctiva normal, nose normal , ears normal, throat without erythema or exudates Neck: Supple, no adenopathy, no trachea midline or C-spine tenderness Lung: breath sounds symmetric, no wheezing, rales or rhonchi Chest: symmetric movement, nontender Heart: regular rate and rhythm, normal S1, S2 no murmurs or rubs Abdomen: soft, non-tender, nondistended, normal bowel sounds Back: no vertebral tenderness, no CVAT Extremities: no deformities, moves all extremities symmetrically Neuro: Awake, alert, oriented, normal speech, cranial nerves intact, moves all extremities symmetrically Psych: Pleasant, cooperative Medical Decision Making Medical Decision Making MDM Narrative: 88-year-old female with a history of paroxysmal atrial fibrillation, hypertension, peripheral vascular disease who presents emergency department for evaluation of elevated blood pressures with no other concerning symptoms. Patient states that her blood pressures been elevated over the past week and the patient has been having significant anxiety and stress secondary to [place] conflict. She has been compliant with her medications. Patient's vital signs did reveal an elevated blood pressure 191/63. Exam was otherwise unremarkable. I ordered the following evaluation: CBC, CMP, troponin, urinalysis, EKG 06:24 My interpretation patient's laboratory evaluation is as follows: Normocytic anemia with an H&H of 10.9 and 32.5-chronic. BUN elevated 19-chronic, normal creatinine 0.85. LFTs were normal. Patient has 1+ protein in her urine. Twelve EKG was unremarkable. Differential Diagnosis Differential Diagnoses: The differential diagnosis associated with the presentation includes Differential diagnosis includes was not limited to myocardial ischemia, myocardial infarction, stroke, renal failure, liver failure, essential hypertension Admission/Observation Consideration of admission/observation: Escalation of care including admission/observation considered Lab Data [facility] Lab Attestation statement: I reviewed the patient's lab results. 08/24/23 04:50 08/24/23 04:50 Labs: Lab Results 08/24/23 08/24/23 Range/Units 04:50 05:13 WBC 6.0 (4.8-10.8) X10*3/uL RBC 3.46 L (4.20-5.50) X10*6/uL Hgb 10.9 L (12.0-16.0) g/dl Hct 32.5 L (37.0-47.0) % MCV 93.9 (80.0-98.0) fL MCH 31.5 (27.0-33.0) pg MCHC 33.5 (31.0-35.0) g/dl RDW 13.1 (11.0-16.0) % Plt Count 206 (160-400) X10*3/uL MPV 9.3 L (9.4-12.3) fL Immature Gran % (Auto) 0.3 (0.0-0.4) % Neut % (Auto) 55.5 (45-73) % Lymph % (Auto) 29.2 (20-40) % [place] % (Auto) 13.5 H (2-11) % Eos % (Auto) 1.2 (0-4) % Baso % (Auto) 0.3 (0-2) % Lymph # (Auto) 1.8 (1.2-4.9) X10*3/uL [place] # (Auto) 0.8 (0.1-1.2) X10*3/uL Eos # (Auto) 0.1 (0.0-0.4) X10*3/uL Baso # (Auto) 0.0 (0.0-0.2) X10*3/uL Abs Immat Gran (auto) 0.02 (0.00-0.03) X10*3/uL Absolute Neuts (auto) 3.3 (2.0-8.3) x10*3/uL Absolute Nucleated RBC 0.000 (0.0-0.012) X10*3/uL Nucleated RBC % (auto) 0.0 (0.0-0.2) /100WBC Sodium 138 (135-145) mmol/L Potassium 3.9 (3.3-5.1) mmol/L Chloride 103 (96-108) mmol/L Carbon Dioxide 28 (22-29) mmol/L Anion Gap 11 L (12-20) BUN 19 H (9-16) mg/dL Creatinine 0.84 (0.5-1.4) mg/dL Estim Creat Clear Calc 46.2 Estimated GFR > 60 Random Glucose 103 (60-115) mg/dL Calcium 9.1 (8.4-10.2) mg/dL Total Bilirubin 0.2 (0.0-1.0) mg/dL AST 18 (5-31) U/L ALT 13 (0-31) U/L Alkaline Phosphatase 78 (39-117) U/L Troponin I High Sens 4.8 (<3.5-17.0) ng/L Total Protein 6.9 (6.5-8.0) g/dL Albumin 3.5 (3.5-5.0) g/dL Urine Color Yellow Urine Appearance Clear Urine pH 6.5 (5.0-9.0) Ur Specific [place] 1.010 (1.005-1.025) Urine Protein 30 (1+) H (Neg-Trace) mg/dL Urine Glucose (UA) Negative (Negative) mg/dL Urine Ketones Negative (Negative) mg/dL Urine Blood Negative (Negative) Urine Nitrite Negative (Negative) Ur Leukocyte Esterase Moderate (2+) H (Negative) Urine RBC 0-2 (0-2) /HPF Urine WBC 6-10 H (0-5) /HPF Ur Squamous Epith Cells 0-2 (0-2) /HPF Urine Bacteria None Seen (None Seen) Hyaline Casts 0-2 (0-2) /LPF Independent Interpretation I performed an independent interpretation of an: EKG Interpretation: My interpretation patient's 12 EKG done at 04:30 hours is as follows: Normal sinus rhythm rate of 72, normal CA interval, QRS duration QTC interval, no ST segment elevation, no ST segment depression, no PACs, no PVCs, wandering baseline-this is a normal EKG. External Record Review External record reviewed: Office record (Cardiology office note) Chronic Conditions Patient?s care impacted by: Hypertension Discharge Plan Discharge Clinical Impression: Hypertension Patient Disposition: Home, Self-Care Additional Instructions: Your blood work was normal pain Your EKG was normal. High blood pressure instructions: The reason to check your blood pressure at home is to give your doctor an idea of what your blood pressure does when you are not in the doctor's office. Take your blood pressure in the mornings, Mondays , Wednesdays and Fridays and then write down. Discuss these blood pressure readings with your doctor at your next visit. If your doctor thinks that your blood pressures are too high then they will either increase your high blood pressure medication or add another high blood pressure medication. If your doctor changes your blood pressure medications it will take anywhere from 2-6 week before these medications work to reduce your blood pressure. Follow-up with your doctor to discuss your blood pressure readings in 2 weeks Please return to the emergency department if your symptoms get worse or if you develop any new symptoms that are concerning to you. Prescriptions: No Action rivaroxaban 20 mg tablet 20 mg PO DAILY Qty: 90 3RF metoprolol tartrate 50 mg tablet 50 mg PO BID Qty: 180 3RF diltiazem HCl 120 mg capsule,extended release 24hr 120 mg PO .prn Qty: 14 1RF amlodipine 5 mg tablet 5 mg PO BID Qty: 180 3RF hydralazine 10 mg tablet 10 mg PO ONCE PRN (Reason: hypertension) 30 Days Qty: 20 3RF Rx Instructions: Take one tablet as needed for a systolic blood pressure over 180 ciclopirox 8 % solution topical ascorbate calcium (vitamin C) 500 mg tablet 500 mg PO DAILY multivitamin Tablet 1 tab PO DAILY furosemide 20 mg tablet 20 mg PO DAILY imipramine HCl 25 mg tablet 25 mg PO BEDTIME 90 Days Qty: 90 1RF nortriptyline 10 mg capsule 10 mg PO BEDTIME
[2023-08-24 04:54] LABS: Basophils Percent Auto 0.3 % (0-2); Eosinophils Absolute Auto 0.1 X10*3/uL (0.0-0.4); Eosinophils Percent Auto 1.2 % (0-4); Hematocrit 32.5 % (37.0-47.0); Hemoglobin 10.9 g/dl (12.0-16.0); Imm Gran Abs Auto 0.02 X10*3/uL (0.00-0.03); Imm Gran Pct Auto 0.3 % (0.0-0.4); Lymphocytes Absolute Auto 1.8 X10*3/uL (1.2-4.9); Lymphocytes Percent Auto 29.2 % (20-40); MANUAL DIFF FLAG NO; Mean Corpuscular HGB Conc 33.5 g/dl (31.0-35.0); Mean Corpuscular Hemoglobin 31.5 pg (27.0-33.0); Mean Corpuscular Volume 93.9 fL (80.0-98.0); Mean Platelet Volume 9.3 fL (9.4-12.3); Monocytes Absolute Auto 0.8 X10*3/uL (0.1-1.2); Monocytes Percent Auto 13.5 % (2-11); Neutrophils Absolute Auto 3.3 x10*3/uL (2.0-8.3); Neutrophils Percent Auto 55.5 % (45-73); Platelet Count 206 X10*3/uL (160-400); Red Blood Count 3.46 X10*6/uL (4.20-5.50); Red Cell Distribution Width 13.1 % (11.0-16.0)
[2023-08-24 05:00] VITALS: BP 189/64
[2023-08-24 05:08] LABS: Alanine Aminotransferase 13 U/L (0-31); Albumin Level 3.5 g/dL (3.5-5.0); Alkaline Phosphatase 78 U/L (39-117); Anion Gap 11 (12-20); Aspartate Amino Transferase 18 U/L (5-31); Bilirubin Total 0.2 mg/dL (0.0-1.0); Blood Urea Nitrogen 19 mg/dL (9-16); Calcium 9.1 mg/dL (8.4-10.2); Carbon Dioxide 28 mmol/L (22-29); Chloride 103 mmol/L (96-108); Creatinine Clr Calc Pharmacy 46.2; Estimated Glomerular Filt Rate > 60; Glucose Random 103 mg/dL (60-115); Potassium 3.9 mmol/L (3.3-5.1); Sodium 138 mmol/L (135-145); Total Protein 6.9 g/dL (6.5-8.0)
[2023-08-24 05:14] LABS: Troponin-I High Sensitivity 4.8 ng/L (<3.5-17.0)
[2023-08-24 05:23] LABS: Appearance Urine Clear; Color Urine Yellow; Glucose Urine UA Negative (Negative); Leukocyte Esterase Urine Moderate (2+) (Negative); Nitrite Urine Negative (Negative); PH 6.5 (5.0-9.0); UMIC TRIGGER UACC YES; Urine Blood Negative (Negative); Urine Ketones Negative (Negative); Urine Protein 30 (1+) mg/dL (Neg-Trace)
[2023-08-24 05:28] LABS: Bacteria Urine None Seen (None Seen); Hyaline Casts Urine 0-2 /LPF (0-2); RBC Urine 0-2 /HPF (0-2); Squamous Epithelial Cell Urine 0-2 /HPF (0-2); UACC Culture Trigger YES
[2023-08-24 07:27] VITALS: BP 179/58; PULSE 75; RESP 18; O2SAT 97
--- NOTE | 2023-08-24 07:41 | PC.NURSE ---
PT PROVIDED WITH DISCHARGE PACKET PT VERBALIZED UNDERSTANDING OF DISCHARGE PLAN. VOUCHER FROM [employer] [facility] PROVIDED FOR RIDE HOME
== END 2023-08-24 07:50 | disposition home or self-care (01) ==
PROVIDERS: Emergency Provider Emergency Medicine Emergency Medical Services; PCP Family Medicine
DX: R79.89 Other specified abnormal findings of blood chemistry (principal); I48.0 Paroxysmal atrial fibrillation; R94.31 Abnormal electrocardiogram [ECG] [EKG]; F43.9 Reaction to severe stress, unspecified; I10 Essential (primary) hypertension; F41.9 Anxiety disorder, unspecified; Z79.899 Other long term (current) drug therapy
CPT/HCPCS: 36415; 80053; 81001; 84484; 85025; 87086; 93005; 99284

== ENCOUNTER → 2023-08-24 04:12 | Outpatient (BNV) | payer MEDICARE, SELFPAY | PROVIDERS: Emergency Provider Emergency Medicine Emergency Medical Services; PCP Family Medicine; Visit Provider Internal Medicine | DX: I10 Essential (primary) hypertension (principal) | CPT/HCPCS: 93010 ==

== ENCOUNTER 2023-10-19 14:00 | Outpatient (RCR) | payer MEDICARE, SELFPAY ==
[2023-07-31 08:52] VITALS: BP 179/84; PULSE 76
== END 2023-11-06 14:03 | disposition home or self-care (01) ==
LOC: HO.PT 14:00
PROVIDERS: PCP Family Medicine; Visit Provider Family Medicine
DX: M54.40 Lumbago with sciatica, unspecified side (principal)
CPT/HCPCS: 97110; 97161; 97530

== ENCOUNTER 2024-01-21 12:32 | Outpatient (REF) | payer MEDICARE, SELFPAY ==
[2024-01-21 14:27] LABS: Anion Gap 9 (12-20); Blood Urea Nitrogen 20 mg/dL (9-16); Calcium 9.5 mg/dL (8.4-10.2); Carbon Dioxide 32 mmol/L (22-29); Chloride 101 mmol/L (96-108); Estimated Glomerular Filt Rate > 60; Glucose Random 92 mg/dL (60-115); Potassium 3.7 mmol/L (3.3-5.1); Sodium 138 mmol/L (135-145)
[2024-01-21 14:36] LABS: B Type Natriuretic Peptide 108 pg/mL (<100)
== END 2024-01-21 12:33 | disposition home or self-care (01) ==
LOC: HO.LAB 12:32
PROVIDERS: PCP Family Medicine; Visit Provider Internal Medicine Cardiovascular Disease
DX: I48.0 Paroxysmal atrial fibrillation (principal)
CPT/HCPCS: 36415; 80048; 83735; 83880; 99212

== ENCOUNTER 2024-01-21 12:32 | Outpatient (AMB) | payer MEDICARE, SELFPAY ==
--- NOTE | 2024-01-21 12:39 | MHC.OFFVIS ---
Vital Signs 01/21/24 12:40 Height 5 ft 5 in Weight 155 lb BMI 25.8 BP 120/78 Blood Pressure Location Lt brachial Position Sitting Pulse 61 Intake Visit Reasons: 6 mth f/up Intake Note: 6 month follow-up hearts doing good Automobile Seat Cover Installer Required: No Allergies hydrochlorothiazide [HYDROCHLOROTHIAZIDE] Allergy (Mild, Verified 07/29/23 13:14) ITCHING latex [LATEX] Allergy (Mild, Verified 07/29/23 13:14) ITCHING levofloxacin [From LEVAQUIN] Allergy (Unknown, Verified 07/29/23 13:14) UNK lisinopril [LISINOPRIL] Allergy (Unknown, Verified 07/29/23 13:14) UNKNOWN lorazepam [LORAZEPAM] Allergy (Unknown, Verified 07/29/23 13:14) UNK Pork/Porcine Containing Products [Pork/Porcine Product Derivatives] Allergy (Unknown, Verified 07/29/23 13:14) UNKNOWN prednisone [PREDNISONE] Allergy (Unknown, Verified 07/29/23 13:14) UNCLEAR propafenone [PROPAFENONE] Allergy (Unknown, Verified 07/29/23 13:14) UNK spironolactone [SPIRONOLACTONE] Allergy (Unknown, Verified 07/29/23 13:14) UNKNOWN Sulfa (Sulfonamide Antibiotics) Allergy (Unknown, Verified 07/29/23 13:14) unknown cephalexin Allergy (Verified 07/29/23 13:14) Itching doxycycline Allergy (Verified 07/29/23 13:14) Itching linezolid Allergy (Verified 07/29/23 13:14) Itching codeine Allergy (Unknown, Uncoded 07/29/23 13:14) unknown Crustaceans Allergy (Unknown, Uncoded 07/29/23 13:14) UNKNOWN augmentin Adverse Reaction (Unknown, Uncoded 07/29/23 13:14) nausea & diarrhea Medication List - Last Reconciled 01/21/24 by Ministerio Monroy MD amlodipine 5 mg PO BID ascorbate calcium (vitamin C) 500 mg PO DAILY ciclopirox 8% topical diltiazem HCl CD 120 mg PO .prn furosemide 20 mg PO DAILY hydralazine 10 mg PO ONCE PRN 30 days imipramine HCl 25 mg PO BEDTIME 90 days metoprolol tartrate 50 mg PO BID multivitamin 1 tab PO DAILY nortriptyline 10 mg PO BEDTIME rivaroxaban 20 mg PO DAILY HPI Comments Details: Tiny comes for follow-up. She says she has been doing very well from cardiac perspective. She denies any episodes of atrial fibrillation. No prolonged palpitation irregular heartbeat. Blood pressures been well controlled. Denies any significant bleeding issues or neurologic events. Complains of discomfort in her right lower extremity, seeing vascular surgery in the near future. Also complains of ecchymosis. Also leg edema at the end of the day. No orthopnea, PND, chest pressure. No lightheadedness, syncope. [facility], [facility] Medical History Bleeding hemorrhoids Uncontrolled hypertension PVD (peripheral vascular disease) Atrial fibrillation H/O urinary frequency Nocturia Urinary urgency HTN (hypertension) PAF (paroxysmal atrial fibrillation) Surgical History Hx of hysterectomy Hx of colonoscopy Hx of excision of epidermal inclusion cyst Hx of hemorrhoidectomy Family History Father CVD (cardiovascular disease) Diabetes Mother CVD (cardiovascular disease) Diabetes Brother No problems noted. Social History Household Members: None Housing: Apartment Do you presently have visiting nurse or other home services: No Alcohol intake: never Patient Tobacco Use Status: Never used Tobacco Second Hand Smoke Exposure: No Review of Systems Const Denies chills, Denies fatigue, Denies fever(s), Denies frequent falls, Denies weakness, Denies weight gain and Denies weight loss ENT Denies dizziness Card Denies chest pain, Denies leg edema, Denies lightheadedness, Denies palpitations, Denies dyspnea, Denies dyspnea on exertion, Denies orthopnea and Denies other (loss of consciousness) Resp Denies cough, Denies dyspnea and Denies dyspnea on exertion GI Denies hematochezia and Denies change in stool character Musc Denies abnormal gait, Denies muscle weakness, Denies numbness, Denies radiating pain into limb and Denies tingling Neuro Denies abnormal gait, Denies dizziness, Denies frequent falls, Denies numbness, Denies tingling and Denies weakness Endo Denies fatigue and Denies palpitations Physical Exam Vital Signs: Last Vital Signs Pulse 61 01/21/24 12:40 BP 120/78 01/21/24 12:40 BMI result Body Mass Index 25.8 Const General: cooperative, healthy appearing, comfortable and no acute distress Orientation/consciousness: patient oriented x3 HEENT Face and sinus: Yes normal facial exam Mouth: moist mucous membranes Neck Neck: Yes normal visual inspection, Yes full ROM and Yes trachea midline Chest Chest palpation & inspection: normal inspection of the chest Resp Effort & Inspection: normal respiratory effort, able to speak in complete sentences and no respiratory distress GI Inspection: Yes normal to inspection Back/Spine/Pelvis Cervical Spine: normal cervical lordosis Thoracic/Lumbar Spine: thoracic and lumbar spine normal to inspection Skin General skin exam: no rashes or lesions noted Neuro General: patient oriented x3, gait normal, tone normal and moves all extremities Extrem General: No clubbing, No cyanosis and Yes edema ( right lower extremity edema, currently in compression dressing) Assessment & Plan Assessment & Plan (1) PAF (paroxysmal atrial fibrillation): Code(s): I48.0 - Paroxysmal atrial fibrillation Category: Medical Plan: Highly symptomatic paroxysmal atrial fibrillation which has remained suppressed. Has not tolerated many antiarrhythmic drug therapy and past but has done well with current therapy with metoprolol and p.r.n. Cardizem as required. Continue full oral anticoagulation, currently on Xarelto 20 mg daily. Quarterly renal function test should be pursued. CHADSVASC score of 6. (2) Elevated brain natriuretic peptide (BNP) level: Code(s): R79.89 - Other specified abnormal findings of blood chemistry Category: Medical Plan: Patient with elevated BNP level. Follow-up BNP level today on low-dose Lasix therapy. No overt signs of congestive heart failure at this point time. Leg edema at the end of the day most likely due to venous insufficiency. Advise compression venous stocking. Signs and symptoms of heart failure were discussed in details. She understands agrees. Continue aggressive blood pressure control. (3) HTN (hypertension): Code(s): I10 - Essential (primary) hypertension Category: Medical Plan: Difficult control blood pressure which is currently well optimized on current therapy. Continue amlodipine as well as metoprolol therapy as well as hydralazine as needed for systolic blood pressure greater than 160. Continue low-salt diet. Advised to monitor blood pressure at home maintain a log. Importance of good blood pressure control was discussed. Will follow up in the clinic in 6 months time, sooner p.r.n.. Thank you for allowing me to partake in her care Orders: Orders B Type Natriuretic Peptide Today I48.0 - Paroxysmal atrial fibrillation Basic Metabolic Panel Today I48.0 - Paroxysmal atrial fibrillation Magnesium Today I48.0 - Paroxysmal atrial fibrillation Coding Level of Care Code Est Pt Level 4 (81658) Diagnoses PAF (paroxysmal atrial fibrillation) I48.0 Elevated brain natriuretic peptide (BNP) level R79.89 HTN (hypertension) I10
[2024-01-21 12:40] VITALS: BP 120/78; PULSE 61; BMI 25.8
== END 2024-01-21 13:06 | disposition home or self-care (01) ==
PROVIDERS: PCP Family Medicine; Visit Provider Internal Medicine Cardiovascular Disease
DX: I48.0 Paroxysmal atrial fibrillation (principal); R79.89 Other specified abnormal findings of blood chemistry; I10 Essential (primary) hypertension
CPT/HCPCS: 99214

== ENCOUNTER 2024-02-03 15:38 | Outpatient (AMB) | payer MEDICARE, SELFPAY ==
--- NOTE | 2024-02-03 15:39 | MHC.OFFVIS ---
Intake Visit Reasons: PVR/6m follow up Intake Note: Patient presents to the office today for a PVR/ 6 month follow up. Urology Medication: None Antibiotic Allergies:Doxycycline, Cephalexcin, Sulfa, Levofloxacin Blood Thinners: None PVR: 67ml Allergies hydrochlorothiazide [HYDROCHLOROTHIAZIDE] Allergy (Mild, Verified 02/03/24 15:40) ITCHING latex [LATEX] Allergy (Mild, Verified 02/03/24 15:40) ITCHING levofloxacin [From LEVAQUIN] Allergy (Unknown, Verified 02/03/24 15:40) UNK lisinopril [LISINOPRIL] Allergy (Unknown, Verified 02/03/24 15:40) UNKNOWN lorazepam [LORAZEPAM] Allergy (Unknown, Verified 02/03/24 15:40) UNK Pork/Porcine Containing Products [Pork/Porcine Product Derivatives] Allergy (Unknown, Verified 02/03/24 15:40) UNKNOWN prednisone [PREDNISONE] Allergy (Unknown, Verified 02/03/24 15:40) UNCLEAR propafenone [PROPAFENONE] Allergy (Unknown, Verified 02/03/24 15:40) UNK spironolactone [SPIRONOLACTONE] Allergy (Unknown, Verified 02/03/24 15:40) UNKNOWN Sulfa (Sulfonamide Antibiotics) Allergy (Unknown, Verified 02/03/24 15:40) unknown cephalexin Allergy (Verified 02/03/24 15:40) Itching doxycycline Allergy (Verified 02/03/24 15:40) Itching linezolid Allergy (Verified 02/03/24 15:40) Itching codeine Allergy (Unknown, Uncoded 02/03/24 15:40) unknown Crustaceans Allergy (Unknown, Uncoded 02/03/24 15:40) UNKNOWN augmentin Adverse Reaction (Unknown, Uncoded 02/03/24 15:40) nausea & diarrhea Medication List - Last Reconciled 02/03/24 by Chong Up MD amlodipine 5 mg PO BID ascorbate calcium (vitamin C) 500 mg PO DAILY ciclopirox 8% topical diltiazem HCl CD 120 mg PO .prn furosemide 20 mg PO DAILY hydralazine 10 mg PO ONCE PRN 30 days imipramine HCl 25 mg PO BEDTIME 90 days metoprolol tartrate 50 mg PO BID multivitamin 1 tab PO DAILY nortriptyline 10 mg PO BEDTIME rivaroxaban 20 mg PO DAILY terazosin 1 mg PO BEDTIME 30 days HPI Comments Details: Tiny HOLDER is a very pleasant [place] female. She is a patient of Dr Henry. She is seen for the following urologic conditions - overactive bladder PVR 0 cc Nocturia stable with imipramine Notices weakness of stream Would like to try terazosin Thirty day prescription provided Urinary Urge/Frequency: Symptoms have been present since several years since 2009 Current therapy includes - oxybuytinin - have discussed issues with memory related to this medication. Also discussed offer Botox. At this point in time she has symptoms well controlled with dose of 5 mg and she will continue with this Prior treatment(s) included Myrbetriq - swollen legs Toviaz - dry mouth Current symptoms include frequency Yes nocturia Yes urgency Yes The frequency of the symptom(s) occur several times a day. Severity of the symptoms that is moderate Recent labs included a urinalysis, with no evidence of an infection. Associated medical conditions Alzheimer's disease No CVA No cystocele No dementia No Therapeutic plan - low-dose imipramine PFSH Medical History Bleeding hemorrhoids Uncontrolled hypertension PVD (peripheral vascular disease) Atrial fibrillation H/O urinary frequency Nocturia Urinary urgency HTN (hypertension) PAF (paroxysmal atrial fibrillation) Surgical History Hx of hysterectomy Hx of colonoscopy Hx of excision of epidermal inclusion cyst Hx of hemorrhoidectomy Family History Father CVD (cardiovascular disease) Diabetes Mother CVD (cardiovascular disease) Diabetes Brother No problems noted. Social History Household Members: None Housing: Apartment Do you presently have visiting nurse or other home services: No Alcohol intake: never Patient Tobacco Use Status: Never used Tobacco Second Hand Smoke Exposure: No Review of Systems Const Denies chills and Denies fever(s) Card Reports no additional complaints and Denies syncope Resp Denies cough GI Denies abdominal pain and Denies heartburn Reports as per HPI and Denies change in libido Neuro Denies syncope Psych Denies change in libido Endo Denies change in libido Physical Exam Const General: cooperative, healthy appearing, comfortable and no acute distress Orientation/consciousness: patient oriented x3 HEENT Face and sinus: Yes normal facial exam Mouth: moist mucous membranes Neck Neck: Yes normal visual inspection, Yes full ROM and Yes trachea midline Chest Chest palpation & inspection: normal inspection of the chest Resp Effort & Inspection: normal respiratory effort, able to speak in complete sentences and no respiratory distress GI Inspection: Yes normal to inspection Back/Spine/Pelvis Cervical Spine: normal cervical lordosis Thoracic/Lumbar Spine: thoracic and lumbar spine normal to inspection Skin General skin exam: no rashes or lesions noted Neuro General: patient oriented x3, gait normal, tone normal and moves all extremities Extrem General: Yes normal to inspection and Yes capillary refill normal Office Procedures Post Void Residual Post Residual Void Post Void Residual (PVR): 67 [id number] Void Residual by ultrasound Assessment & Plan Assessment & Plan (1) Overactive bladder: Code(s): N32.81 - Overactive bladder Category: Medical (2) Nocturia more than twice per night: Code(s): R35.1 - Nocturia Category: Medical Plan Trial terazosin Orders: Orders AMB Post Void Residual by ultrasound Today N32.81 - Overactive bladder Medications: New terazosin 1 mg PO BEDTIME 30 caps 0RF 30 days R35.1 - Nocturia, R39.12 - Poor urinary stream Refilled imipramine HCl 25 mg PO BEDTIME 90 tabs 1RF 90 days R35.1 - Nocturia Patient Instructions: Imaging studies, laboratory and physical exam results were discussed and reviewed in detail. No major barriers to patient understanding were identified. An opportunity to ask questions regarding the treatment plan was provided. All questions were answered. The patient expressed understanding and agreement with the above treatment plan. The patient is aware they should contact our office by phone for worsening of their current condition or the appearance of new urologic symptoms. Compliance is encouraged with any medications and followup testing that is ordered. It is a privilege to participate in the urologic care of your patient. If you have any questions or concerns regarding treatment for the above conditions, or other urologic issues, please do not hesitate to contact me. The office telephone contact is [phone]. This note is constructed using voice recognition software. While every effort has been made to ensure accuracy carpenter helper errors may have been included. Yours sincerely, Dr Chong Up MD, [facility] - Urology Providers of Expert, Compassionate Care for the Genitourinary System Coding Level of Care Code Est Pt Level 4 (06333) Diagnoses Overactive bladder N32.81 Nocturia more than twice per night R35.1 CPT Codes Post Residual Void - PVR CPT Code: [id number] Void Residual by ultrasound ([id number])
== END 2024-02-03 16:14 | disposition home or self-care (01) ==
PROVIDERS: PCP Family Medicine; Visit Provider Urology
DX: N32.81 Overactive bladder (principal); R35.1 Nocturia
CPT/HCPCS: 99214

== ENCOUNTER → 2024-02-03 15:38 | Outpatient (BNVA) | payer MEDICARE, SELFPAY | PROVIDERS: PCP Family Medicine; Visit Provider Urology | DX: N32.81 Overactive bladder (principal); R35.1 Nocturia; R39.12 Poor urinary stream; Z79.2 Long term (current) use of antibiotics; Z79.899 Other long term (current) drug therapy | CPT/HCPCS: 51798; 99212 ==

== ENCOUNTER 2024-03-02 11:26 | Outpatient (AMB) | payer MEDICARE, SELFPAY ==
--- NOTE | 2024-03-02 11:22 | A.OFFVIS_ITS ---
Intake Visit Reasons: 4W FOLLOW UP Intake Note: Patient presents to the office today for a 4 month follow up. Urology Medication: None Antibiotic Allergies:Doxycycline, Cephalexcin, Sulfa, Levofloxacin Blood Thinners: None Labor Relations Manager Required: No Allergies hydrochlorothiazide [HYDROCHLOROTHIAZIDE] Allergy (Mild, Verified 03/02/24 11:23) ITCHING latex [LATEX] Allergy (Mild, Verified 03/02/24 11:23) ITCHING levofloxacin [From LEVAQUIN] Allergy (Unknown, Verified 03/02/24 11:23) UNK lisinopril [LISINOPRIL] Allergy (Unknown, Verified 03/02/24 11:23) UNKNOWN lorazepam [LORAZEPAM] Allergy (Unknown, Verified 03/02/24 11:23) UNK Pork/Porcine Containing Products [Pork/Porcine Product Derivatives] Allergy (Unknown, Verified 03/02/24 11:23) UNKNOWN prednisone [PREDNISONE] Allergy (Unknown, Verified 03/02/24 11:23) UNCLEAR propafenone [PROPAFENONE] Allergy (Unknown, Verified 03/02/24 11:23) UNK spironolactone [SPIRONOLACTONE] Allergy (Unknown, Verified 03/02/24 11:23) UNKNOWN Sulfa (Sulfonamide Antibiotics) Allergy (Unknown, Verified 03/02/24 11:23) unknown cephalexin Allergy (Verified 03/02/24 11:23) Itching doxycycline Allergy (Verified 03/02/24 11:23) Itching linezolid Allergy (Verified 03/02/24 11:23) Itching codeine Allergy (Unknown, Uncoded 03/02/24 11:23) unknown Crustaceans Allergy (Unknown, Uncoded 03/02/24 11:23) UNKNOWN augmentin Adverse Reaction (Unknown, Uncoded 03/02/24 11:23) nausea & diarrhea Medication List - Last Reconciled 03/02/24 by Chong Up MD amlodipine 5 mg PO BID ascorbate calcium (vitamin C) 500 mg PO DAILY ciclopirox 8% topical diltiazem HCl CD 120 mg PO .prn furosemide 20 mg PO DAILY hydralazine 10 mg PO ONCE PRN 30 days imipramine HCl 25 mg PO BEDTIME 90 days metoprolol tartrate 50 mg PO BID multivitamin 1 tab PO DAILY nortriptyline 10 mg PO BEDTIME rivaroxaban 20 mg PO DAILY terazosin 1 mg PO BEDTIME 30 days HPI Comments Details: Tiny HOLDER is a very pleasant [place] female. She is a patient of Dr Henry. She is seen for the following urologic conditions - overactive bladder Telemedicine Evaluation 15 min Consultation DoximInvolvio Adrian Video PVR 0 cc Nocturia stable with imipramine Follow-up from 30 day trial terazosin 1 mg She had hesitancy using terazosin due to side effects Will continue just with imipramine Urinary Urge/Frequency: Symptoms have been present since several years since 2009 Current therapy includes - oxybuytinin - have discussed issues with memory related to this medication. Also discussed offer Botox. At this point in time she has symptoms well controlled with dose of 5 mg and she will continue with this Prior treatment(s) included Myrbetriq - swollen legs Toviaz - dry mouth Current symptoms include frequency Yes nocturia Yes urgency Yes The frequency of the symptom(s) occur several times a day. Severity of the symptoms that is moderate Recent labs included a urinalysis, with no evidence of an infection. Associated medical conditions Alzheimer's disease No CVA No cystocele No dementia No Therapeutic plan - low-dose imipramine PFSH Medical History Bleeding hemorrhoids Uncontrolled hypertension PVD (peripheral vascular disease) Atrial fibrillation H/O urinary frequency Nocturia Urinary urgency HTN (hypertension) PAF (paroxysmal atrial fibrillation) Surgical History Hx of hysterectomy Hx of colonoscopy Hx of excision of epidermal inclusion cyst Hx of hemorrhoidectomy Family History Father CVD (cardiovascular disease) Diabetes Mother CVD (cardiovascular disease) Diabetes Brother No problems noted. Social History Household Members: None Housing: Apartment Do you presently have visiting nurse or other home services: No Alcohol intake: never Patient Tobacco Use Status: Never used Tobacco Second Hand Smoke Exposure: No Review of Systems Const All systems reviewed & are unremarkable except as noted in HPI and below Reports no additional complaints Resp Reports no additional complaints GI Reports no additional complaints Reports as per HPI Musc Reports no additional complaints Physical Exam Telemedicine evaluation Appropriate responses Regular breathing rate and rhythm HEENT Head: Yes normal to inspection Ears: hearing grossly normal bilaterally Eyes General: appearance normal, both eyes and all related structures Neck Neck: Yes normal visual inspection Chest Chest palpation & inspection: normal inspection of the chest Resp Effort & Inspection: normal respiratory effort and able to speak in complete sentences Telehealth Telehealth Telehealth Platform: [employer] Location of provider rendering services: practice address Location of patient: address on file Patient Identification confirmed using: Name, : Yes Telehealth method: video Patient verbally consented to treatment: Yes Patient verbally consented to billing insurance company: Yes Patient informed of any privacy concerns related to visit: Yes Minutes spent on Phone/Video with Pt.: 15 Assessment & Plan Assessment & Plan (1) Nocturia more than twice per night: Code(s): R35.1 - Nocturia Category: Medical (2) Overactive bladder: Code(s): N32.81 - Overactive bladder Category: Medical (3) Urinary urgency: Code(s): R39.15 - Urgency of urination Category: Medical Plan Six-month follow-up Patient Instructions: Imaging studies, laboratory and physical exam results were discussed and reviewed in detail. No major barriers to patient understanding were identified. An opportunity to ask questions regarding the treatment plan was provided. All questions were answered. The patient expressed understanding and agreement with the above treatment plan. The patient is aware they should contact our office by phone for worsening of their current condition or the appearance of new urologic symptoms. Compliance is encouraged with any medications and followup testing that is ordered. It is a privilege to participate in the urologic care of your patient. If you have any questions or concerns regarding treatment for the above conditions, or other urologic issues, please do not hesitate to contact me. The office telephone contact is [phone]. This note is constructed using voice recognition software. While every effort has been made to ensure accuracy wrapping checker errors may have been included. Yours sincerely, Dr Chong Up MD, [facility] - Urology Providers of Expert, Compassionate Care for the Genitourinary System Coding Level of Care Code Tele Est Pt Level 3 (24611) Diagnoses Nocturia more than twice per night R35.1 Overactive bladder N32.81 Urinary urgency R39.15
== END 2024-03-02 12:06 | disposition home or self-care (01) ==
LOC: HO.HUSH 11:26
PROVIDERS: PCP Family Medicine; Visit Provider Urology
DX: R35.1 Nocturia (principal); N32.81 Overactive bladder; R39.15 Urgency of urination
CPT/HCPCS: 99213

== ENCOUNTER → 2024-03-02 11:26 | Outpatient (BNVA) | payer MEDICARE, SELFPAY | PROVIDERS: PCP Family Medicine; Visit Provider Urology ==

== ENCOUNTER 2024-07-19 12:21 | Outpatient (AMB) | payer MEDICARE, SELFPAY ==
[2024-07-19 12:34] VITALS: BP 120/74; PULSE 61; BMI 25.7
--- NOTE | 2024-07-19 12:34 | MHC.OFFVIS ---
Vital Signs 07/19/24 12:34 Height 5 ft 5 in Weight 154 lb 5.177 oz BMI 25.7 BP 120/74 Blood Pressure Location Lt brachial Position Sitting Pulse 61 Intake Visit Reasons: 6m follow up Intake Note: 6 month follow-up with ekg feelng good Bacteriology Research Assistant Required: No Allergies hydrochlorothiazide [HYDROCHLOROTHIAZIDE] Allergy (Mild, Verified 03/02/24 11:23) ITCHING latex [LATEX] Allergy (Mild, Verified 03/02/24 11:23) ITCHING levofloxacin [From LEVAQUIN] Allergy (Unknown, Verified 03/02/24 11:23) UNK lisinopril [LISINOPRIL] Allergy (Unknown, Verified 03/02/24 11:23) UNKNOWN lorazepam [LORAZEPAM] Allergy (Unknown, Verified 03/02/24 11:23) UNK Pork/Porcine Containing Products [Pork/Porcine Product Derivatives] Allergy (Unknown, Verified 03/02/24 11:23) UNKNOWN prednisone [PREDNISONE] Allergy (Unknown, Verified 03/02/24 11:23) UNCLEAR propafenone [PROPAFENONE] Allergy (Unknown, Verified 03/02/24 11:23) UNK spironolactone [SPIRONOLACTONE] Allergy (Unknown, Verified 03/02/24 11:23) UNKNOWN Sulfa (Sulfonamide Antibiotics) Allergy (Unknown, Verified 03/02/24 11:23) unknown cephalexin Allergy (Verified 03/02/24 11:23) Itching doxycycline Allergy (Verified 03/02/24 11:23) Itching linezolid Allergy (Verified 03/02/24 11:23) Itching codeine Allergy (Unknown, Uncoded 03/02/24 11:23) unknown Crustaceans Allergy (Unknown, Uncoded 03/02/24 11:23) UNKNOWN augmentin Adverse Reaction (Unknown, Uncoded 03/02/24 11:23) nausea & diarrhea Medication List - Last Reconciled 07/19/24 by Ministerio Monroy MD ascorbate calcium (vitamin C) 500 mg PO DAILY ciclopirox 8% topical diltiazem HCl CD 120 mg PO .prn furosemide 20 mg PO DAILY hydralazine 10 mg PO ONCE PRN 30 days imipramine HCl 25 mg PO BEDTIME 90 days metoprolol tartrate 50 mg PO BID multivitamin 1 tab PO DAILY nortriptyline 10 mg PO BEDTIME rivaroxaban 20 mg PO DAILY terazosin 1 mg PO BEDTIME 30 days HPI Comments Details: Tiny comes for follow-up. She had a recent peripheral vascular procedure which did not lead to any improvement in his symptoms as per her. She said she had a very significant side effect to anesthesia and had lot of nausea and did not feel well in the blood pressure is quite elevated. Since then her blood pressure is not better controlled. She denies any symptoms of heart failure. Leg edema has remained stable. Denies any orthopnea, PND, lightheadedness, syncope. Blood pressure is not better controlled. She has not had any recurrent episodes of atrial fibrillation or prolonged palpitations. No chest pain. No bleeding issues or neurologic events PFSH Medical History Bleeding hemorrhoids Uncontrolled hypertension PVD (peripheral vascular disease) Atrial fibrillation H/O urinary frequency Nocturia Urinary urgency HTN (hypertension) PAF (paroxysmal atrial fibrillation) Surgical History Hx of hysterectomy Hx of colonoscopy Hx of excision of epidermal inclusion cyst Hx of hemorrhoidectomy Family History Father CVD (cardiovascular disease) Diabetes Mother CVD (cardiovascular disease) Diabetes Brother No problems noted. Social History Household Members: None Housing: Apartment Do you presently have visiting nurse or other home services: No Alcohol intake: never Patient Tobacco Use Status: Never used Tobacco Second Hand Smoke Exposure: No Review of Systems Const Denies chills, Denies fatigue, Denies fever(s), Denies frequent falls, Denies weakness, Denies weight gain and Denies weight loss ENT Denies dizziness Card Denies chest pain, Denies leg edema, Denies lightheadedness, Denies palpitations, Denies dyspnea, Denies dyspnea on exertion, Denies orthopnea and Denies other (loss of consciousness) Resp Denies cough, Denies dyspnea and Denies dyspnea on exertion GI Denies hematochezia and Denies change in stool character Musc Denies abnormal gait, Denies muscle weakness, Denies numbness, Denies radiating pain into limb and Denies tingling Neuro Denies abnormal gait, Denies dizziness, Denies frequent falls, Denies numbness, Denies tingling and Denies weakness Endo Denies fatigue and Denies palpitations Physical Exam Vital Signs: Last Vital Signs Pulse 61 07/19/24 12:34 BP 120/74 07/19/24 12:34 BMI result Body Mass Index 25.7 Const General: cooperative, healthy appearing, comfortable and no acute distress Orientation/consciousness: patient oriented x3 HEENT Face and sinus: Yes normal facial exam Mouth: moist mucous membranes Neck Neck: Yes normal visual inspection, Yes full ROM and Yes trachea midline Chest Chest palpation & inspection: normal inspection of the chest Resp Effort & Inspection: normal respiratory effort, able to speak in complete sentences and no respiratory distress GI Inspection: Yes normal to inspection Back/Spine/Pelvis Cervical Spine: normal cervical lordosis Thoracic/Lumbar Spine: thoracic and lumbar spine normal to inspection Skin General skin exam: no rashes or lesions noted Neuro General: patient oriented x3, gait normal, tone normal and moves all extremities Extrem General: No clubbing, No cyanosis and Yes edema ( right lower extremity edema, currently in compression dressing) Office Procedures EKG Details: EKG shows normal sinus rhythm with normal EKG 50852-[id number], Complete Assessment & Plan Assessment & Plan (1) Elevated brain natriuretic peptide (BNP) level: Code(s): R79.89 - Other specified abnormal findings of blood chemistry Category: Medical Plan: Patient was elevated BNP but now no signs of overt fluid overload on low-dose diuretic therapy. Patient does not have official diagnose of heart failure preserved ejection fraction but probably early stages. Clinically he is doing well continue aggressive blood pressure control. Avoidance of salt loading was discussed. Advised to call me with worsening symptoms of shortness of breath or leg edema or fluid overload. Continue rhythm control approach. (2) PAF (paroxysmal atrial fibrillation): Code(s): I48.0 - Paroxysmal atrial fibrillation Category: Medical Plan: Paroxysmal atrial fibrillation has remained suppressed without antiarrhythmic drug therapy. Has done very well with rhythm control approach in his highly symptomatic with atrial fibrillation. Continue p.r.n. diltiazem use. Continue current metoprolol therapy. Continue full oral anticoagulation, currently on Xarelto 20 mg daily. Semi annual renal function test should be pursued. (3) HTN (hypertension): Code(s): I10 - Essential (primary) hypertension Category: Medical Plan: Hypertension which is very much related to stress. Have advised stress mitigation strategies. Continue current therapy. Importance of good blood pressure control was discussed. Low-salt diet was discussed. Continue to use hydralazine as need be. Will follow up in the clinic in 6 months time, sooner p.r.n.. Thank you for allowing me to partake in his care Coding Level of Care Code Est Pt Level 4 (63329) Complex EM visit Add On G2211 Diagnoses Elevated brain natriuretic peptide (BNP) level R79.89 PAF (paroxysmal atrial fibrillation) I48.0 HTN (hypertension) I10 CPT Codes EKG - CPT: 94389-[id number], Complete ([id number])
--- OUTSIDE RECORDS SUMMARY | 2024-07-20 21:07 | XMS_ITS ---
Author Organization [facility] Address [address] [place] [address] Care Team Providers Care Refrigeration Mechanic Helper Name Role Phone Phong Henry Primary Care Provider Jori Cummings Unavailable [phone] ALLERGIES Allergen (clinical drug ingredient) Drug/Non Drug Allergy documented on EMR Reaction Allergy Type Onset Date Status doxycycline Doxycycline Unknown Drug Allergy Act chuy linezolid Linezolid Unknown Drug Allergy Active cephalexin Cephalexin Unknown Drug Allergy Activ e REASON FOR VISIT Patient presents today for rectal bleeding MEDICATIONS Medication SIG (Take, Route, Frequency, Duration) Notes Start Date End Date Status Bentyl 10 MG 1-2 capsules Orally Four times a day prn abdominal discomfort/gas/bloatin g for 30 day(s) 10/10/2015 Not-Taking Dicyclomine HCl 10 MG 1-2 capsules Orall y Four times a day prn abdominal discomfort/bloating/cr amps for 30 day(s) 08/01/2014 Not-Taking dilTIAZem HCl ER Coated Beads 120 MG Oral for 14 Active Benicar 20 MG Orally Not-Ta avila Nortriptyline HCl 10 MG Oral for 90 Active hydrALAZINE HCl 10 MG Oral for 20 Active Aspir-81 81 MG 1 tablet Orally Once a day Not-Taking Furosemide 20 MG Oral for 90 A ctive Imipramine HCl 25 MG Oral for 90 Active Multi Vitamin/Minerals Orally Active Xarelto 20 MG Oral for 90 Acti ve Calcium + D 600 mg 1 tablet Orally Twic e a day Active Metoprolol Tartrate 50 MG as directed Or ally Twice a day Active Vitamin C-Vitamin D-Zinc Active amLODIPine Besylate 10 MG 1 tablet Orall y twice a day Active PROBLEMS Problem Type ICD Code Onset Dates Problem Status W/U Status Risk SNOMED Code Notes Problem Rectal bleeding (K62.5) Active confirmed 25635808 VITAL SIGNS BMI 25.52 kg/m2 07/16/2023 Blood pressure systolic 00 mm Hg 07/16/20 23 Blood pressure diastolic 00 mm Hg 023 Height 64.5 in 07/16/2023 Temperature 97.3 degrees Fahrenheit 07/16/20 23 Weight 151 lbs 07/16/2023 Encounters Encounter Location Date Provider Diagnosis [facility] [address] [place] [address] 07/16/2023 Jori Lange Rectal bleeding K62.5 ASSESSMENTS Encounter Date Diagnosis Assessment Notes Treatment Notes Treatment Clinical Notes 07/16/2023 Rectal bleeding (ICD-10 - K62.5) Adjust your stool softeners and fiber powder so you don't go to the bathroom too often. Keep eating the dates and healthy diet so you don't get constipated. PLAN OF TREATMENT Treatment Notes Assessment Notes Rectal bleeding Adjust your stool so fteners and fiber powder so you don't go to the bathroom too often. Keep eating the dates and healthy diet so you don't get constipated. Next Appt Details Follow Up: prn, Reason: Progress Notes * Examination Category Sub-Category Detail Notes General Examination GENERAL APPEARANCE: pleasant , well nourished, well developed, in no acute distress HEAD: EYES: sclera non-icteric EARS: NOSE: THROAT: NECK/THYROID: no cervical lymphade nopathy, neck supple HEART: S1, S2 normal CHEST: LUNGS: clear to auscultatio n bilaterally ABDOMEN: normal bowel sounds, no guarding or rigidity, no guarding or rigidity, no masses palpable, soft, nontender, nondistended NEUROLOGIC: alert and oriented SKIN: nonjaundiced, no spi liberty angiomata EXTREMITIES: no edema PERIPHERAL PULSES: BACK: BREASTS: MUSCULOSKELETAL: MALE GENITOURINARY: LYMPH NODES: RECTAL EXAM: FEMALE GENITOURINARY: ORAL CAVITY: mucosa moist
--- OUTSIDE RECORDS SUMMARY | 2024-07-20 21:07 | XMS_ITS | Patient Health Record ---
Author Organization [facility] Address [address] [place] [address] Care Team Providers Care Enterprise Resource Planner Name Role Phone Phong Henry Primary Care Provider Jori Cummings Unavailable [phone] ALLERGIES Allergen (clinical drug ingredient) Drug/Non Drug Allergy documented on EMR Reaction Allergy Type Onset Date Status doxycycline Doxycycline Unknown Drug Allergy Act chuy linezolid Linezolid Unknown Drug Allergy Active cephalexin Cephalexin Unknown Drug Allergy Activ e REASON FOR REFERRAL No Information MEDICATIONS Medication SIG (Take, Route, Frequency, Duration) Notes Start Date End Date Status Metoprolol Tartrate 50 MG as directed Or ally Twice a day Active dilTIAZem HCl ER Coated Beads 120 MG Oral for 14 Active Vitamin C-Vitamin D-Zinc Active Benicar 20 MG Orally Not-Ta avila Nortriptyline HCl 10 MG Oral for 90 Active hydrALAZINE HCl 10 MG Oral for 20 Active Furosemide 20 MG Oral for 90 A ctive Imipramine HCl 25 MG Oral for 90 Active Multi Vitamin/Minerals Orally Active Xarelto 20 MG Oral for 90 Acti ve amLODIPine Besylate 10 MG 1 tablet Orall y twice a day Active Bentyl 10 MG 1-2 capsules Orally Four times a day prn abdominal discomfort/gas/bloatin g for 30 day(s) 10/10/2015 Not-Taking Calcium + D 600 mg 1 tablet Orally Twic e a day Active Dicyclomine HCl 10 MG 1-2 capsules Orall y Four times a day prn abdominal discomfort/bloating/cr amps for 30 day(s) 08/01/2014 Not-Taking Aspir-81 81 MG 1 tablet Orally Once a day Not-Taking IMMUNIZATIONS Vaccine Route Administration Date Status Comme nts Influenza Unknown 04/10/2015 Administered SOCIAL HISTORY Sex Assigned At : Social History Observation Description Sex Assigned At Unknown PROBLEMS Problem Type ICD Code Onset Dates Problem Status W/U Status Risk SNOMED Code Notes Problem Rectal bleeding (K62.5) Active confirmed 44733064 Problem Irritable bowel syndrome with diarrhea (K58.0) Active confirmed 725690503 Problem Irritable bowel syndrome without diarrhea (K58.9) Active confirmed 08787023 Problem Generalized abdominal pain (R10.84) Active confirmed 192512992 Problem Gas (R14.3) Active confirmed 746008831 Problem Abdominal pain, left lower quadrant (R10.32) Active confirmed 985085401 PLAN OF TREATMENT Pending Test Test Name Order Date CBC w DIFF 07/10/2014 CT ABD & PELVIS WITH CONTRAST 04/26/2013 Future Test Test Name Order Date COLONOSCOPY 08/22/2014 Insurance Providers Payer Name Payer Address Payer Phone Subscriber Number Group Number Insured Name Patient Relationship to Insured Coverage Start Date Coverage End Date MEDICARE OF [place] [address] [facility] [place] [address] [phone] [id number] YONY HOLDER Self - patient is the insured [employer] CLAIMS [address] [place] [address] [id number] YONY HOLDER Self - patient is the insured MEDICAL (GENERAL) HISTORY Medical History History ICD Code GERD-upper endoscopy in 2010 was negative for any significant esophagitis nor Serrano's esophagus Colon polyps--Colonoscopy in 2010-- a small tubular adenoma was removed --she has had numerous previous colonoscopies by myself, Dr. Durán, Dr. Locke, and by physicians down at [place], some of which have been normal and others of which have had polyps removed--she describes the surgical removal of a colon polyp at approximately age 31, but does not know what type of polyp that was. Atrial fibrillation Diverticulitis-s/p surgery w ith Dr. Shine in 1996 with a sigmoid resection as below Denies [place],DM,CVA,Lung disease,renal dise ase HTN Temporal arterititis Colonoscopy 12/2014--negative except for minimal internal hemorrhoids and minimal diverticulosis Negative labs for celiac disease in 2016 Needed transfusions after the below vasc ular surgery in 01/2022 Surgical History Surgery Date(Month/Year) Surgery with Dr Shine in 199 7 for diverticulitis with a sigmoid resection. LEX Surgical resection of a colo n polyp in 1968 at [facility] Left hip replacement 2020 Cataract Laser eye surgery Vascular bypass right leg kumar lena Marshall 12/2021 with transfusions needed in 01/2022
--- OUTSIDE RECORDS SUMMARY | 2024-07-20 21:07 | XMS_ITS ---
Author Organization [facility] Address [address] [place] [address] Care Team Providers Care Photoengraving Supervisor Name Role Phone Phong Henry Primary Care Provider Unavaila Jori Yen Unavailable [phone] REASON FOR VISIT lots of blood on tissue Encounters Encounter Location Date Provider Diagnosis [facility] [address] [place] [address] 02/12/2023 Jori Lange PLAN OF TREATMENT No Information
--- OUTSIDE RECORDS SUMMARY | 2024-07-20 21:07 | XMS_ITS | Patient Health Record ---
[facility] Address [address] [place] [address] Care Team Providers Care Arts Therapist Name Role Phone Phong Henry MD Primary Care Provider Ivon Mora Unavailable [phone] Allergies Allergen (clinical drug ingredient) Drug/Non Drug Allergy documented on EMR Reaction Allergy Type Onset Date Status doxycycline Doxycycline Hyclate hives Drug Allergy Active linezolid Linezolid Unknown Drug Allergy Active Reason For Referral No Information Medications Medication SIG (Take, Route, Frequency, Duration) Notes Start Date End Date Status Nortriptyline HCl 10 MG 1 capsule Orally Once a day Active Spironolactone 25 MG 1 tablet Orally for 30 day(s) Active iron Active Doxycycline Hyclate 100 MG 1 capsule Ora lly Twice a day for 5 days 08/06/2021 Not-Taking Meclizine HCl 25 MG 1 tablet as needed Orally Once a day for 30 day(s) Active Doxycycline Hyclate 100 MG 1 capsule Ora lly Once a day for 10 day(s) Not-Taking Metoprolol Tartrate 50 MG 1 tablet with food Orally Twice a day Active Amoxicillin Not-Taki ng Multivitamin Women A ctive Furosemide Active prednisoLONE Acetate 1 % 1 drop into aff ected eye Ophthalmic Twice a day Not-Taking Gabapentin Active Rosuvastatin Calcium 10 MG 1 tablet Oral ly Once a day for 30 day(s) Not-Taking hydrALAZINE HCl 10 MG 1 tablet with food Orally Four times a day for 30 day(s) PRN Active Cephalexin 250 MG 1 capsule Orally lynne ry 6 hrs for 5 day(s) Not-Taking Imipramine HCl Activ e Cephalexin 500 MG 1 capsule Orally lynne ry 12 hrs for 5 day(s) Not-Taking Nitrofurantoin Not-T aking oxyBUTYnin Chloride 5 MG 1 tablet Orally Twice a day for 30 day(s) Not-Taking Mupirocin 2 % 1 application Externally Twice a day for 14 days 08/06/2021 Not-Taking Clorazepate Dipotassium 3.75 MG 1 tablet Orally Twice a day Not-Taking Clopidogrel Bisulfate 75 MG 1 tablet Orally Once a day for 30 day(s) Not-Taking Fluticasone Propionate 50 MCG/ACT 1 spray in each nostril Nasally Once a day for 30 day(s) Not-Taking Meclizine HCl 12.5 MG 2 tablets as neede d Orally Once a day for 30 day(s) Not-Taking Zinc + Vitamin C Act chuy Cartia XT 120 MG 1 capsule Orally Onc e a day for 30 day(s) Not-Taking Nystatin-Triamcinolone 061777-5.1 UNIT/GM 1 application Externally Twice a day Not-Takin g Ciclopirox 8 % 1 application Externally Once a day Not-Taking amLODIPine Besylate 5 MG 1 tablet Orally Twice a day Active Calcium 600 + D Acti ve dilTIAZem HCl PRN Active Xarelto 20 MG 1 tablet with food Orally Once a day Active Immunizations Vaccine Route Administration Date Status Comme nts COVID-19 Pfizer BioNTech Vaccine Unknown 07/05/2021 Administered 1st Dose: 09/17/2020 2nd Dose: 10/08/2020 Influenza Unknown 05/27/2021 Administered Social History Tobacco Use: Social History Observation Description Date Details (start date - stop date) Former Smoker NA - NA Tobacco Use/Smoking Question Answer Notes Are you a: former smoker Additional Findings: Tobacco Non-User Ex-cigaret te smoker Alcohol Screen Question Answer Notes Did you have a drink containing alcohol in the p ast year? No Points 0 Interpretation Negative Tobacco use other than smoking: Question Answer Notes Are you an other tobacco user? 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) Active confirmed Problem 748650558540988 Osteoarthritis o f right ankle and foot (M19.071) Active confirmed Problem 53274999450858996 Atherosclerosi s of artery of both lower extremities (I70.203) Active confirmed Plan Of Treatment Pending Test Test Name Order Date X ray : Foot, right 3V 07/24/2021 X ray : Foot, right 3V 05/16/2022 Insurance Providers Payer Name Payer Address Payer Phone Subscriber Number Group Number Insured Name Patient Relationship to Insured Coverage Start Date Coverage End Date Medicare National Govt [employer] [address] [place] [address] [id number] Tiny Balbuena Self - patient is the insured [employer] [address] [place] [address] [phone] [id number] EshaHeribertoza Self - patient is the insured Medical (General) History Medical History History ICD Code Hypertension Depression Arthritis hip pain Cataracts Heart disease Surgical History Surgery Date(Month/Year) left hip replacement 12/14/2020 cataract surgery 03/30/2017 laser eye surgery, right 06/03/2021 Mammogram Screening 04/12/2020 laser eye surgery, left 07/01/2021 colonoscopy 12/21/2014 temporal ariteritis 1999 atrial fib 08/06/2020 Angiogram 4x sx 2020,2021 vascular bypass 2x 2021 endoscopy 01/27/22 Hospitalization History Reason Date(Month/Year) Angiogram, Dr. Andrés Erazo (Dr. Marshall) 03/15/2021
--- OUTSIDE RECORDS SUMMARY | 2024-07-20 21:07 | XMS_ITS | Continuity of Care Document ---
Author Organization [facility] Address [address] [place] [address]- Care Team Providers Care Piping Drafter Name Role Phone Phong Henry MD Primary Care Physician Encounter [facility] Date(s): 06/21/24 - 06/28/24 [facility] [address] [place] [address]- Encounter Diagnosis PVD (peripheral vascular disease)(Discharge Diagnosis) - 06/21/24 Attending Physician: Rolando LEE, Alexander Arreguin Admitting Physician: Alexander Marshall MD Referring Physician: Phong Henry MD Encounter Type: Office Visit Allergies, Adverse Reactions, Alerts Substance Criticality Severity Reaction Reaction Severity Status codeine unknown Active doxycycline unknown Active cephalexin Active propafenone unknown Active Zestril cough Active Biaxin unknown Active Augmentin nausea, vomiting Act chuy Lipitor Active Levaquin unknown Active Bactrim unknown Active Zyvox Active Latex unknown Active Lactose unknown Active Immunizations Given and Recorded Vaccine Date Status Refusal Reason influenza virus vaccine, inactivated 05/06/24 Bi rded influenza virus vaccine, inactivated 1 05/11/23 Gi brent influenza virus vaccine, inactivated 05/02/22 Bi rded influenza virus vaccine, inactivated 05/27/21 Bi rded influenza virus vaccine, inactivated 05/14/20 Bi rded influenza virus vaccine, inactivated 06/04/19 Bi rded influenza virus vaccine, inactivated 2 04/18/18 Re corded influenza virus vaccine, inactivated 05/14/17 Bi rded SARS-CoV-2(COVID-19)mRNA-LNP vac([id number]) 04/20/24 Recorded RSV vaccine, preF A-preF B, recombinant 08/21/23 R ecorded SARS-CoV-2(COVID-19)mRNA-LNP vac([id number]) 08/14/23 Recorded [id number] 12y+ bivalent booster vax 05/21/22 Recorded SARS-CoV-2 mRNA (upmfzak-zynx-gkgbz) vax 12/11/21 Recorded SARS-CoV-2 mRNA (jjjmcoj-xzqc-grwnd) vax 12/10/21 Recorded SARS-CoV-2 (COVID-19) mRNA BNT-162b2 vac 07/05/21 Recorded SARS-CoV-2 (COVID-19) mRNA BNT-162b2 vac 10/08/20 Given Influenza Virus Vaccine (oldterm) 06/03/19 Recorde d zoster vaccine, inactivated 3 09/21/17 Recorded tetanus/diphtheria/pertussis, acel(Tdap) 4 03/03/17 Recorded tetanus/diphtheria/pertussis, acel(Tdap) 5 10/03/14 Recorded tetanus-diphtheria toxoids (Td) 6 11/18/16 Recorde d Hepatitis A Adult Vaccine 7 02/27/16 Recorded hepatitis B adult vaccine 8 02/27/16 Recorded Meningococcal Conjugate Vaccine 9 11/08/15 Recorde d pneumococcal 13-valent vaccine 10 06/14/15 Recorde d pneumococcal 23-valent vaccine 11 12/01/14 Recorde d 1Result Comment: [id number] 2[facility] 3[facility] History[facility] 4[facility] History[facility] 5Location History: [facility] 6Location History: [facility] 7Location History: [facility] 8Location History: [facility] 9Location History: [facility] 10Location History: [facility] 11Location History: [facility] Medications amLODIPine 5 mg oral tablet 5 mg, 1, tablet, By Mouth, 2 times a day, # 60 tablet, Refills 0, Tot. Refills 0, Maintenance, 10/03/21 6:29:00 AM EST, Do Not Route, Partial fill upon patient request if the prescription is for a schedule II opioid drug. Start Date: 10/03/21 Status: Ordered Quantity: 60.0 Unit: tablet Repeat number: 1 benzonatate 100 mg oral capsule 1 capsule = 100 mg, By Mouth, 3 times a day, for 10 days, # 30 capsule, 1 Refills, Acute 07/18/24 2:54:00 PM EST, 06/28/24 2:54:00 PM EST, Capsule, [facility], Partial fill upon patient request if the prescription is for a schedule II opioid drug., 165.1, cm, 06/28/24 14:24:00 EST,Height, 69.9, kg, 06/09/24 8:02:00 EDT, Dry Weight Start Date: 06/28/24 Stop Date: 07/18/24 Status: Ordered Quantity: 30.0 Unit: capsule Repeat number: 2 Calcium 600 +D oral tablet 1 tablet, By Mouth, Daily, 0 Refills, Maintenance, 12/14/20 8:24:00 AM EDT, Partial fill upon patientrequest if the prescription is for a schedule II opioid drug. Start Date: 12/14/20 Status: Ordered Repeat number: 1 dilTIAZem 120 mg/24 hours oral tablet, extended release 1 tablet = 120 mg, By Mouth, Daily, PRN AFib, # 30 tablet, 0 Refills, Maintenance, 05/17/24 3:57:00 PM EDT, ER Tablet, Partial fill upon patient request if the prescription is for a schedule II opioiddrug. Start Date: 05/17/24 Status: Ordered Quantity: 30.0 Unit: tablet Repeat number: 1 furosemide 20 mg oral tablet 1, tablet, By Mouth, Daily, DISCONTINUE SPIRONOLACTONE., # 90 tablet, Refills 3, Maintenance, 05/19/23 12:59:00 PM EDT, Route to [facility] Electronically, [facility], 165.1, cm, 05/11/23 15:28:00 EDT, Height, 70, kg, 07/07/22 18:58:00 EST, Dry Weight Start Date: 05/19/23 Status: Ordered Quantity: 90.0 Unit: tablet Repeat number: 1 furosemide 20 mg oral tablet 20 mg, 1, tablet, By Mouth, Daily, # 90 tablet, Refills 3, Tot. Refills 3, Maintenance, 05/19/24 9:55:00 AM EDT, Route to Pharmacy Electronically, [facility], Partial fill upon patient request if the prescription is for a schedule II opioid drug., 165.1, cm, 05/17/24 16:00:00 EDT, Height, 70, kg, 07/07/22 18:58:00 EST, Dry Weight Start Date: 05/19/24 Status: Ordered Quantity: 90.0 Unit: tablet Repeat number: 4 hydrALAZINE 10 mg oral tablet TAKE ONE TABLET BY MOUTH ONCE A DAY NEEDED FOR FOR A SYSTOLIC BLOOD PRESSURE OVER 180 Start Date: 10/23/23 Status: Ordered Repeat number: 1 imipramine 25 mg oral tablet 1 tablet = 25 mg, By Mouth, Daily at bedtime, # 30 tablet, 0 Refills, Maintenance, 10/13/22 1:36:00 PM EST, Tablet, Partial fill upon patient request if the prescription is for a schedule II opioid drug. Start Date: 10/13/22 Status: Ordered Quantity: 30.0 Unit: tablet Repeat number: 1 metoprolol 50 mg oral tablet 50 mg, 1, tablet, By Mouth, 2 times a day, # 60 tablet, Refills 0, Tot. Refills 0, Maintenance, 02/11/18 6:00:51 AM EDT, Do Not Route Start Date: 02/11/18 Status: Ordered Quantity: 60.0 Unit: tablet Repeat number: 1 Walker See Instructions, # 1 each, Maintenance, Use as directed., 06/28/24 2:55:00 PM EST, Supply Start Date: 06/28/24 Status: Ordered Quantity: 1.0 Unit: each Repeat number: 1 Xarelto 20 mg oral tablet 1 tablet = 20 mg, By Mouth, Daily in PM, # 30 tablet, 0 Refills, Maintenance, 10/16/16 1:42:29 PM EST, Tablet Start Date: 10/16/16 Status: Ordered Quantity: 30.0 Unit: tablet Repeat number: 1 Problem List Condition Confirmation Course Effective Dates Status H ealth Status Informant Hip arthritis Confirmed Active Atrial fibrillation Confirmed Active Diverticulitis Confirmed Active Dyslipidemia Confirmed Active Essential hypertension Confirmed Active Osteoarthritis Confirmed Active Overactive bladder Confirmed Active Right leg pain Confirmed Active Right leg pain Confirmed Active PVD (peripheral vascular disease) Confirmed Active Temporal arteritis Confirmed Active Vertigo Confirmed Active Diagnosis Diagnosis Type Effective Dates Health Status [facility] Informant PVD (peripheral vascular disease) Discharge Diagnosis 06/21/24 Vital Signs Most recent to oldest [Reference Range]: 1 Height 165.10 cm (11/12/24 11:09 AM) Weight 69.5 kg (06/21/24 11:09 AM) Oxygen Saturation [94-100 %] 97 % (06/21/24 11:09 AM) Pulse Rate [55-90 bpm] 71 bpm (06/21/24 11:09 AM) Body Mass Index [18.5-24.99 kg/m2] 25.5 kg/m2 *H* (06/21/24 11:09 AM) Blood Pressure [90-138/55-84 mm Hg] 140/ 64mm Hg *H* (06/21/24 11:09 AM) Blood pressure sites Arm, left (06/21/24 11:09 AM) Weight Obtained Via Patient/family state d (06/21/24 11:09 AM) Social History Social History Type Response Smoking Status Never smoker entered on: 12/13/14 Sex Sex Representation Female (finding) Patient Care team information Care Team Personnel Name: Monica Faust RN Position: [facility] RN Member Role: Primary Care Nurse Name: Lourdes Edwards RN Position: [facility] RN Member Role: Primary Care Nurse Name: Jaquelin Rizvi RN Position: [facility] RN Member Role: Primary Care Nurse Name: David Goel RN Position: [facility] RN Member Role: Primary Care Nurse Name: Phong Henry MD Position: [facility] Physician - Primary Care Member Role: PCP Address: [address] [place] [id number] Telecom: Name: Fauzia Price RN Position: [facility] RN Member Role: Primary Care Nurse Name: Judi Canales RN Position: [facility] ED RN W/OE and Tasks Member Role: Primary Care Nurse Name: Ivon Ricarod RN Position: [facility] RN Member Role: Primary Care Nurse Name: Martha Rai RN Position: [facility] RN Member Role: Primary Care Nurse Name: Leann Thomas RN Position: [facility] RN Member Role: Primary Care Nurse Care Team Related Persons Name: ARSENIO HOLDER Insurance Providers Guarantor name: YONY HOLDER Health Plan Information #: 1 Payer: MEDICARE PART B OUTPT Member Number: [id number] Policy Number: NA Group Number: NA Health Plan Information #: 2 Payer: MEDEX Member Number: [id number] Policy Number: NA Group Number: NA
--- OUTSIDE RECORDS SUMMARY | 2024-07-20 21:07 | XMS_ITS | Continuity of Care Document ---
Author Organization [facility] Address [address] [place] [address]- Care Team Providers Care Certified Hearing Instrument Dispenser Name Role Phone Elaine LEE, Phong Arroyo Primary Care Physician [place] [facility] [place] 06/01[place]24 - 07/01/24 [facility] [address] [place] [address]- Encounter Type: Triage Allergies, Adverse Reactions, Alerts Substance Criticality Severity Reaction Reaction Severity Status codeine unknown Active doxycycline unknown Active Levaquin unknown Active cephalexin Active propafenone unknown Active Zestril cough Active Biaxin unknown Active Augmentin nausea, vomiting Act chuy Lipitor Active Bactrim unknown Active Zyvox Active Latex unknown Active Lactose unknown Active Immunizations Given and Recorded Vaccine Date Status Refusal Reason influenza virus vaccine, inactivated 05/06/24 Bi rded influenza virus vaccine, inactivated 1 05/11/23 Gi brent influenza virus vaccine, inactivated 05/02/22 Bi rded influenza virus vaccine, inactivated 05/27/21 Ib rded influenza virus vaccine, inactivated 05/14/20 Bi rded influenza virus vaccine, inactivated 06/04/19 Bi rded influenza virus vaccine, inactivated 2 04/18/18 Re corded influenza virus vaccine, inactivated 05/14/17 Bi rded SARS-CoV-2(COVID-19)mRNA-LNP vac([id number]) 04/20/24 Recorded RSV vaccine, preF A-preF B, recombinant 08/21/23 R ecorded SARS-CoV-2(COVID-19)mRNA-LNP vac([id number]) 08/14/23 Recorded [id number] 12y+ bivalent booster vax 05/21/22 Recorded SARS-CoV-2 mRNA (klnzbvv-ofmv-qkove) vax 12/11/21 Recorded SARS-CoV-2 mRNA (qkzresj-nlqc-ckimh) vax 12/10/21 Recorded SARS-CoV-2 (COVID-19) mRNA BNT-162b2 [...] vaccine 11 12/01/14 Recorde d 1Result Comment: [id number] 2[facility] 3[facility] 5Location History[facility] 6Location History[facility] 7Location History[facility] 8Location History[facility] 9Location History[facility] 10Location History[facility] 11Location History[facility] Medications amLODIPine 5 mg oral [...] PM EDT, Route to [facility]acy Electronically, [facility], 165.1, cm, 05/11/23 15:28:00 EDT, Height, 70, kg, 07/07/22 18:58:00 EST, Dry Weight Start Date: 05/19/23 Status: Ordered Quantity: 90.0 Unit: tablet Repeat number: 1 furosemide 20 mg oral tablet 20 mg, 1, tablet, By Mouth, Daily, # 90 tablet, Refills 3, Tot. Refills 3, Maintenance, 05/19/24 9:55:00 AM EDT, Route to Pharmacy Electronically, [facility], Partial fill upon patient request [...] Temporal arteritis Confirmed Active Vertigo Confirmed Active Social History Social History Type Response Smoking Status Never smoker entered on: 12/13/14 Sex Sex Representation Female (finding) Patient Care team information Care Team Personnel Name: Monica Faust RN Position: [facility] RN Member Role: Primary Care Nurse Name: Lourdes Edwards RN Position: S RN Member Role: Primary Care Nurse Name: Jaquelin Rizvi RN Position: [facility] RN Member Role: Primary Care Nurse Name: David Goel RN Position: [facility] RN Member Role: Primary Care Nurse Name: Phong Henry MD Position: [facility] Physician - Primary Care Member Role: PCP Address: [address] [place] [phone]- Telecom: Name: Fauzia Price RN Position: [facility] RN Member Role: Primary Care Nurse Name: Judi Canales RN Position: [facility] ED RN W/OE and Tasks Member Role: Primary Care Nurse Name: Ivon Ricardo RN Position: [facility] RN Member Role: Primary Care Nurse Name: Martha Rai RN Position: [facility] RN Member Role: Primary Care Nurse Name: Leann Thomas RN Position: [facility] RN Member Role: Primary Care Nurse Care Team Related Persons Name: GALLOARSENIO ANDERSON Insurance Providers Guarantor name: YONY HOLDER Health Plan Information #: 1 Payer: MEDICARE PART B OUTPT Member Number: NA Policy Number: NA Group Number: NA Health Plan Information #: 2 Payer: MEDEX Member Number: NA Policy Number: NA Group Number: NA
--- OUTSIDE RECORDS SUMMARY | 2024-07-20 21:07 | XMS_ITS | Continuity of Care Document ---
Author Organization [facility] Address [address] [place] [address]- Care Team Providers Care Pilot Fuel Engineer Name Role Phone Elaine LEE, Phong Arroyo Primary Care Physician Encounter [facility] Date(s): 06/10/24 - 07/10/24 [facility] [address] [place] [address]- Encounter Type: Triage Allergies, Adverse Reactions, Alerts Substance Criticality Severity Reaction Reaction Severity Status codeine unknown Active Latex unknown Active doxycycline unknown Active Levaquin unknown Active cephalexin Active propafenone unknown Active Zestril cough Active Biaxin unknown Active Augmentin nausea, vomiting Act chuy Lipitor Active Bactrim unknown Active Zyvox Active Lactose unknown Active Immunizations Given and [...] virus vaccine, inactivated 05/14/17 Bi rded SARS-CoV-2(COVID-19)mRNA-LNP vac([id number]) 04/20/24 Recorded RSV vaccine, preF A-preF B, recombinant 08/21/23 R ecorded SARS-CoV-2(COVID-19)mRNA-LNP vac([id number]) 08/14/23 Recorded [id number] 12y+ bivalent booster vax 05/21/22 Recorded SARS-CoV-2 mRNA (gscckqg-stef-totuy) vax 12/11/21 Recorded SARS-CoV-2 mRNA (wbqcyqk-lkak-vkedb) vax 12/10/21 Recorded SARS-CoV-2 (COVID-19) mRNA BNT-162b2 [...] vaccine 11 12/01/14 Recorde d 1Result Comment: [id number] 2Location History[facility] 3Location History: [...] PM EDT, Route to Pharmacy Electronically, [facility], 165.1, cm, 05/11/23 15:28:00 EDT, Height, 70, kg, 07/07/22 18:58:00 EST, Dry Weight Start Date: 05/19/23 Status: Ordered Quantity: 90.0 Unit: tablet Repeat number: 1 furosemide 20 mg oral tablet 20 mg, 1, tablet, By Mouth, Daily, # 90 tablet, Refills 3, Tot. Refills 3, Maintenance, 05/19/24 9:55:00 AM EDT, Route to Pharmacy Electronically, [facility], Partial fill upon patient request [...] Team Personnel Name: Monica Faust RN Position: [facility] RN Member Role: Primary Care Nurse Name: Lourdes Edwards RN Position: S RN Member Role: Primary Care Nurse Name: Jaquelin Rizvi RN Position: [facility] RN Member Role: Primary Care Nurse Name: David Goel RN Position: [facility] RN Member Role: Primary Care Nurse Name: Phong Henry MD Position: [facility] Physician - Primary Care Member Role: PCP Address: [address] [place] [address]- Telecom: Name: Fauzia Price RN Position: [facility] RN Member Role: Primary Care Nurse Name: Judi Canales RN Position: [facility] ED RN W/OE and Tasks Member Role: Primary Care Nurse Name: Ivon Ricardo RN Position: [facility] RN Member Role: Primary Care Nurse Name: Martha Rai RN Position: [facility] RN Member Role: Primary Care Nurse Name: Leann Thomas RN Position: [facility] RN Member Role: Primary Care Nurse Care Team Related Persons Name: GALLOARSENIO ANDERSON Insurance Providers Guarantor name: YONY HOLDER Health Plan Information #: 1 Payer: MEDICARE PART B OUTPT Member Number: NA Policy Number: NA Group Number: NA Health Plan Information #: 2 Payer: MEDEX Member Number: NA Policy Number: NA Group Number: NA
--- OUTSIDE RECORDS SUMMARY | 2024-07-20 21:07 | XMS_ITS | Continuity of Care Document ---
Author Organization [facility] Address [address] [place] [address]- Care Team Providers Care Grinding And Spraying Supervisor Name Role Phone Elaine LEE, Phong Arroyo Primary Care Physician Encounter [facility] [place] Date(s): 06/10/24 - 07/10/24 [facility] [address] [place] [address]- Encounter Type: Triage Allergies, Adverse Reactions, Alerts [...] virus vaccine, inactivated 05/14/17 Bi rded SARS-CoV-2(COVID-19)mRNA-LNP vac([id number]) 04/20/24 Recorded RSV vaccine, preF A-preF B, recombinant 08/21/23 R ecorded SARS-CoV-2(COVID-19)mRNA-LNP vac([id number]) 08/14/23 Recorded [id number] 12y+ bivalent booster vax 05/21/22 Recorded SARS-CoV-2 mRNA (xdzzxvl-nnoj-cdjgv) vax 12/11/21 Recorded SARS-CoV-2 mRNA (odtuter-fhae-ddrbn) vax 12/10/21 Recorded SARS-CoV-2 (COVID-19) mRNA BNT-162b2 [...] vaccine 11 12/01/14 Recorde d 1Result Comment: [id number] 2[facility] 3Location History: [...] PM EDT, Route to Pharmacy Electronically, [facility], 165.1, cm, 05/11/23 15:28:00 EDT, Height, 70, kg, 07/07/22 18:58:00 EST, Dry Weight Start Date: 05/19/23 Status: Ordered Quantity: 90.0 Unit: tablet Repeat number: 1 furosemide 20 mg oral tablet 20 mg, 1, tablet, By Mouth, Daily, # 90 tablet, Refills 3, Tot. Refills 3, Maintenance, 05/19/24 9:55:00 AM EDT, Route to Pharmacy Electronically, [facility], Partial fill upon patient request [...] Team Personnel Name: Monica Faust RN Position: [facility] RN Member Role: Primary Care Nurse Name: Lourdes Edwards RN Position: S RN Member Role: Primary Care Nurse Name: Jaquelin Rizvi RN Position: [facility] RN Member Role: Primary Care Nurse Name: David Goel RN Position: [facility] RN Member Role: Primary Care Nurse Name: Phong Henry MD Position: [facility] Physician - Primary Care Member Role: PCP Address: [address] [place] [phone]- Telecom: Name: Fauzia Price RN Position: [facility] RN Member Role: Primary Care Nurse Name: Judi Canales RN Position: [facility] ED RN W/OE and Tasks Member Role: Primary Care Nurse Name: Ivon Ricardo RN Position: [facility] RN Member Role: Primary Care Nurse Name: Martha Rai RN Position: [facility] RN Member Role: Primary Care Nurse Name: Leann Thomas RN Position: [facility] RN Member Role: Primary Care Nurse Care Team Related Persons Name: GALLOARSENIO ANDERSON Insurance Providers Guarantor name: YONY HOLDER Health Plan Information #: 1 Payer: MEDICARE PART B OUTPT Member Number: NA Policy Number: NA Group Number: NA Health Plan Information #: 2 Payer: MEDEX Member Number: NA Policy Number: NA Group Number: NA
--- OUTSIDE RECORDS SUMMARY | 2024-07-20 21:07 | XMS_ITS | Continuity of Care Document ---
Author Organization [facility] Address [address] [facility] [facility] [place] [address]- Care Team Providers Care Entry Level Administrative Assistant Name Role Phone Elaine LEE, Phong Arroyo Primary Care Physician Encounter 07/11/24 - 07/18/24 [facility] [address] [facility] [address] [facility], [address] [place] [address]- Attending Physician: Phong Henry MD Admitting Physician: Phong Henry MD Referring Physician: Phong Henry MD Encounter Type: OutPatient One Time Allergies, Adverse Reactions, Alerts Substance Criticality Severity [...] virus vaccine, inactivated 05/14/17 Bi rded SARS-CoV-2(COVID-19)mRNA-LNP vac([id number]) 04/20/24 Recorded RSV vaccine, preF A-preF B, recombinant 08/21/23 R ecorded SARS-CoV-2(COVID-19)mRNA-LNP vac([id number]) 08/14/23 Recorded [id number] 12y+ bivalent booster vax 05/21/22 Recorded SARS-CoV-2 mRNA (bkwbxbv-qjtu-olwtj) vax 12/11/21 Recorded SARS-CoV-2 mRNA (fpqvzbf-riob-pojeg) vax 12/10/21 Recorded SARS-CoV-2 (COVID-19) mRNA BNT-162b2 [...] vaccine 11 12/01/14 Recorde d 1Result Comment: [id number] [facility] 5[facility] History[facility] 6[facility] History[facility] 7[facility] History[facility] 8[facility] History[facility] 9[facility] History[facility] 10[facility] History[facility] 11Location History[facility] Medications amLODIPine 5 mg oral tablet 5 mg, 1, tablet, By Mouth, 2 times a day, # 60 tablet, Refills 0, Tot. Refills 0, Maintenance, 10/03/21 6:29:00 AM EST, Do Not Route, Partial fill upon patient request if the prescription is for a schedule II opioid drug. Start Date: 10/03/21 Status: Ordered Quantity: 60.0 Unit: tablet Repeat number: 1 Calcium 600 +D oral tablet 1 tablet, [...] PM EDT, Route to Pharmacy Electronically, [facility], 165.1, cm, 05/11/23 15:28:00 EDT, Height, 70, kg, 07/07/22 18:58:00 EST, Dry Weight Start Date: 05/19/23 Status: Ordered Quantity: 90.0 Unit: tablet Repeat number: 1 furosemide 20 mg oral tablet 20 mg, 1, tablet, By Mouth, Daily, # 90 tablet, Refills 3, Tot. Refills 3, Maintenance, 05/19/24 9:55:00 AM EDT, Route to Pharmacy Electronically, [facility], Partial fill upon patient request [...] Temporal arteritis Confirmed Active Vertigo Confirmed Active Results Radiology Reports * Exam Date Time Procedure Performing Provider Status 07/11/24 11:44 AM Chest 2 Views Frontal and Lat Kareen Becerra; Auth (Verified) Notes: (Chest 2 Views Frontal and Lat) Reason For Exam: Cough RESULT: Chest 2 Views Frontal and Lat PA and lateral chest dated July 11, 2024. Comparison films are from October 13, 2022. HISTORY: Cough. FINDINGS: The cardiac silhouette is within normal limits for size. Hilar and mediastinal structuresare unremarkable. Some apical pleural thickening right greater than left is once again noted. No airspace infiltrate or pleural effusion is seen. Minimal degenerative changes are noted in the spine. IMPRESSION: No evidence of acute pulmonary disease. Examination 65057. Thank you for allowing me to participate in the care of this patient. WSN: [id number] Ordering Physician: Phong Henry Dictated By: Dominick Humphries MD Dictated Date/Time: 07/11/24 5:11 pm Reviewed By: Dominick Humphries MD Signed By: Dominick Humphries MD Signed Date/Time: 07/11/24 5:11 pm Transcribed By: MARQUIS Transcribed Date/Time: 07/11/24 5:11 pm Social History Social History Type Response Smoking Status Never smoker entered on: 12/13/14 Sex Sex Representation Female (finding) Patient Care team information Care Team Personnel Name: Monica Faust RN Position: [facility] RN Member Role: Primary Care Nurse Name: Lourdes Edwards RN Position: S RN Member Role: Primary Care Nurse Name: Jaquelin Rizvi RN Position: S RN Member Role: Primary Care Nurse Name: David Goel RN Position: [facility] RN Member Role: Primary Care Nurse Name: Phong Henry MD Position: [facility] Physician - Primary Care Member Role: PCP Address: [address] [place] [id number] Telecom: Name: Fauzia Price RN Position: [facility] RN Member Role: Primary Care Nurse Name: Judi Canales RN Position: [facility] ED RN W/OE and Tasks Member Role: Primary Care Nurse Name: Ivon Ricardo RN Position: [facility] RN Member Role: Primary Care Nurse Name: Martha Rai RN Position: [facility] RN Member Role: Primary Care Nurse Name: Leann Thomas RN Position: [facility] RN Member Role: Primary Care Nurse Care Team Related Persons Name: GALLO ARSENIO Insurance Providers Guarantor name: YONY HOLDER Health Plan Information #: 2 Payer: MEDEX Member Number: [id number] Policy Number: NA Group Number: NA Health Plan Information #: 1 Payer: MEDICARE PART B OUTPT Member Number: [id number] Policy Number: NA Group Number: NA
--- OUTSIDE RECORDS SUMMARY | 2024-07-20 21:07 | XMS_ITS | Continuity of Care Document ---
Author Organization [facility] Zackary Dwayne lt Address [address] [place] [address]- Care Team Providers Care Information Coder Name Role Phone Phong Henry MD Primary Care Physician Encounter [facility] Date(s): 06/28/24 - 07/05/24 [facility] Joseph Raymundo Adult [address] [place] [address]- Encounter Diagnosis Essential hypertension(Discharge Diagnosis) - 06/28/24 Cough(Discharge Diagnosis) - 06/28/24 Atrial fibrillation(Discharge Diagnosis) - 06/28/24 PVD (peripheral vascular disease)(Discharge Diagnosis) - 06/28/24 Attending Physician: Phong Henry MD Encounter Type: Office [...] virus vaccine, inactivated 05/14/17 Bi rded SARS-CoV-2(COVID-19)mRNA-LNP vac([id number]) 04/20/24 Recorded RSV vaccine, preF A-preF B, recombinant 08/21/23 R ecorded SARS-CoV-2(COVID-19)mRNA-LNP vac([id number]) 08/14/23 Recorded [id number] 12y+ bivalent booster vax 05/21/22 Recorded SARS-CoV-2 mRNA (wwqmsgr-qnff-hqkhp) vax 12/11/21 Recorded SARS-CoV-2 mRNA (jghetxl-edfs-amgxb) vax 12/10/21 Recorded SARS-CoV-2 (COVID-19) mRNA BNT-162b2 [...] vaccine 11 12/01/14 Recorde d 1Result Comment: [id number] [facility] 5Location History: [email or web address] 7[email or web address] 8[email or web address] 9[email or web address] 10[facility] History[facility] 11[email or web address] Medications amLODIPine 5 mg oral tablet [...] PM EDT, Route to Pharmacy Electronically, [facility], 165.1, cm, 05/11/23 15:28:00 EDT, [...] Diagnosis Diagnosis Type Effective Dates Health Status Clinical Service Informant Essential hypertension Discharge Diagnosis 06/28/24 Cough Discharge Diagnosis 06/28/24 Atrial fibrillation Discharge Diagnosis 06/28/24 PVD (peripheral vascular disease) Discharge Diagnosis 06/28/24 Vital Signs Most recent to oldest [Reference Range]: 1 2 Height 165.10 cm (06/28/24 2:24 PM) 165.10 cm (06/28/24 2:16 PM) Weight 69.5 kg (06/28/24 2:16 PM) Oxygen Saturation [94-100 %] 100 % (06/28/24 2:16 PM) Pulse Rate [55-90 bpm] 68 bpm (06/28/24 2:16 PM) Body Mass Index [18.5-24.99 kg/m2] 25.5 kg/m2 *H* (06/28/24 2:16 PM) Blood Pressure [90-138/55-84 mm Hg] 137/ 61mm Hg (06/28/24 2:24 PM) 146/71mm Hg *H* (06/28/24 2:16 PM) Mode of Delivery (Oxygen) Room air (06/28/24 2:16 PM) Blood pressure sites Arm, right (06/28/24 2:24 PM) Arm, right (06/28/24 2:16 PM) Weight Obtained Via Patient/family state d (06/28/24 2:16 PM) Social History Social History Type Response Smoking Status Never smoker entered on: 12/13/14 Sex Sex Representation Female (finding) Note * Bruce Davis: PERFORM Event Display: Patient Education/Instruction Authored Date: [id number] Ambulatory Adult Visit Summary [facility] [address] [place] [id number] Name: YONY HOLDER : 1935?? Visit: 06/28/2024 14:04?? Ambulatory Visit Instructions ?? Your Care Team Primary Care Provider Phong Henry MD? This Visit Provider Phong Henry MD Your Diagnosis Essential hypertension Cough Atrial fibrillation PVD (peripheral vascular disease) Vitals Signs Pulse Rate: 68 bpm Height: 165.1 cm Systolic Blood Pressure: 137 mm Hg Weight: 69.5 kg Diastolic Blood Pressure: 61 mm Hg Body Mass Index:??25.5 kg/m2??High Oxygen Saturation: 100 % Body surface area: 1.79 What to do next Scheduled Follow-Up Appointments 2023 12:50 PM EST ?? With: Phong Henry MD Where: [facility] Charis Raymundo [address] [place] [address]- Status: Pending Follow-Up Appointments Follow Up with??Phong Henry MD Why: 2 months must squeeze in Where: [address] [place] [address] [place] [address]- Future Orders XR Chest 2 Views Frontal and Lat, Routine, Reason for Exam: Cough, Once, *Est. 06/28/24, Order for Today CBC w/ Differential - Routine, Once, 06/28/24 15:03:00 EST, Order for Today, [facility], Blood?? Basic Metabolic Panel - Routine, Once, 06/28/24 15:03:00 EST, Order for Today, [facility], Blood?? Medications The list below reflects the information in our records and provided by you today along with any changes made during this visit. Please continue your medications until treatment is completed or stopped by your provider. If this is different from the information you have or there are other questions,please contact the prescribing provider. What How Much When Instructions New Benzonatate (benzonatate 100 mg oral capsule) 1 capsule Oral 3 times a day Duration: 10 Days Refills: 1 Pickup at [facility] New Durable Medical Equipment (Walker) See instructions Use as directed. ?? Printed Prescription Unchanged Amlodipine (amLODIPine 5 mg oral tablet) 1 tab(s) Oral Twice a day Unchanged Calcium And Vitamin D Combination (Calcium 600 +D oral tablet) 1 tab(s) Oral Daily Unchanged Diltiazem (dilTIAZem 120 mg/ 24 hours oral tablet, extended release) 1 tab(s) Oral Daily as needed for AFib Unchanged Furosemide (furosemide 20 mg oral tablet) 1 tab(s) Oral Daily Unchanged Furosemide (furosemide 20 mg oral tablet) 1 tab(s) Oral Daily DISCONTINUE SPIRONOLACTONE. ?? Unchanged hydrALAZINE (hydrALAZINE 10 mg oral tablet) TAKE ONE TABLET BY MOUTH ONCE A DAY NEEDED FOR FOR A SYSTOLIC BLOOD PRESSURE OVER 180 ?? Unchanged Imipramine (imipramine 25 mg oral tablet) 1 tab(s) Oral Daily at Bedtime Unchanged Metoprolol (metoprolol 50 mg oral tablet) 1 tab(s) Oral Twice a day Unchanged rivaroxaban (Xarelto 20 mg oral tablet) 1 tab(s) Oral Daily in PM Pharmacy Information [facility]: [address] [place], [place] [id number] [phone] Test Performed Below is a partial list of the tests performed during your Visit. You may have had other tests and procedures not included in this list. Please discuss all test results with your provider. Basic Metabolic Panel?-- Results Pending -- CBC w/ Differential?-- Results Pending -- Medications and Immunizations Administered Medications Given During Visit No medications given during this visit.?? Allergies (NKA means No Known Allergies) Augmentin??(nausea, vomiting) Bactrim??(unknown) Biaxin??(unknown) Lactose??(unknown) Latex??(unknown) Levaquin??(unknown) Lipitor Zestril??(cough) Zyvox cephalexin codeine??(unknown) doxycycline??(unknown) propafenone??(unknown) Common Emergency Awareness Tips IS IT A STROKE? Act FAST and Check for these signs: FACE Does the face look uneven? ARM Does one arm drift down? SPEECH Does their speech sound strange? TIME Call at any sign of stroke ?? Heart Attack Signs Chest discomfort: Most heart attacks involve discomfort in the center of the chest and lasts more than a few minutes, or goes away and comes back. It can feel like uncomfortable pressure, squeezing, fullness or pain. Discomfort in upper body: Symptoms can include pain or discomfort in one or both arms, back, neck, jaw or stomach. Shortness of breath: With or without discomfort. Other signs: Breaking out in a cold sweat, nausea, or lightheaded. Remember, MINUTES DO MATTER. If you experience any of these heart attack warning signs, call to get immediate medical attention! ?? Smoking can increase your chances of developing chronic health problems and can cause harmful effects to other family members in your house. If you smoke, you are strongly encouraged to quit. Please call [facility] at [phone] or [phone] ([phone]) or log in to [email or web address] for referrals to smoking cessation programs. ?? The National Suicide Prevention Hotline is available 02/03 if you or someone you know needs to find a reason to keep living. By calling 2-196-457-[employer] (8146) you'll be connected to a skilled, trained counselor at a crisis center in your area. [facility] [employer] You can view and manage your care through the patient portal or by using a health care elida of your choosing. [employer] is a website that allows you to securely view your medical information including your hospital discharge summary, office visit summaries, medications and follow-up visits. You can also request appointments, renew medications, and request access to your medical information using a health care elida of your choosing, or just ask a question. You can enroll at [email or web address] or register during your next office visit. [facility], in keeping with [facility] guidance, no longer requires face masks for staff, patientsor visitors in most situations. Similiar to time spent indoors at other locations, there is the chance that you were exposed to repiratory viruses during your time with us (such as flu or COVID-19). If you develop symptoms concerning for a viral respiratory infection, please seek testing (and treatment if indicated) from your medical provider or home test kit. ?? Disclaimer: The information provided is of a general nature and is intended to be used in conjunction with the recommendations and advice of your health care practitioner. Every effort has been made to ensure that the information provided is accurate and complete at the time it is provided to you however, as your needs change, or, as new information becomes available, different or additional instructions may be required. ?? If you have questions, please consult with your primary care provider or pharmacist, as appropriate. This information is not intended to serve as substitution for assessment and evaluation by a qualified health care provider. If you do not have a primary care provider, you may find a [facility] provider by calling [employer] at [phone]. Patient Care team information Care Team Personnel Name: Monica Faust RN Position: [facility] RN Member Role: Primary Care Nurse Name: Lourdes Edwards RN Position: [facility] RN Member Role: Primary Care Nurse Name: Jaquelin Rizvi RN Position: [facility] RN Member Role: Primary Care Nurse Name: David Goel RN Position: [facility] RN Member Role: Primary Care Nurse Name: Phong Henry MD Position: [facility] Physician - Primary Care Member Role: PCP Address: [address] [place] [address]- Telecom: Name: Fauzia Price RN Position: [facility] RN Member Role: Primary Care Nurse Name: Judi Canales RN Position: [facility] ED RN W/OE and Tasks Member Role: Primary Care Nurse Name: Ivon Ricardo RN Position: [facility] RN Member Role: Primary Care Nurse Name: Matrha Rai RN Position: [facility] RN Member Role: Primary Care Nurse Name: Leann Thomas RN Position: [facility] RN Member Role: Primary Care Nurse Care Team Related Persons Name: ARSENIO HOLDER Insurance Providers Guarantor name: YONY DODDVER Health Plan Information #: 2 Payer: MEDEX Member Number: [id number] Policy Number: NA Group Number: NA Health Plan Information #: 1 Payer: MEDICARE PART B OUTPT Member Number: [id number] Policy Number: NA Group Number: NA
--- OUTSIDE RECORDS SUMMARY | 2024-07-20 21:08 | XMS_ITS | Data Portability ---
Author Organization [place] [facility], [facility] Address [address] [place] [address] Care Team Providers Care Supplier Diversity Director Name Role Phone NATE SANTOS Primary Care Provider Assessment Encounter Date Assessment Date Assessment LastModified by Organization Details LastModified Time 05/05/2021 05/05/2021 DDX: posterior circulation occlusion, posterior circulation stroke, medication reaction. Pt having concerning signs for stroke. At this time these overriding concerns for possible stroke even with last known well at time of bedtime. Pt is still a candidate for neuroendovascular intervention so pt agreeable for transfer to ED for further evaluation for possible CVA. Report given to [facility] staff - Cynthia Villa and report called to [facility]. Not available 05/05/2021 17:11:49 07/22/2021 07/22/2021 Overview/History : Pt states she began haivng swelling reness and tenderness to the right great toe 3 days ago. She denies any recent injury to the toe. Denies any swelling or pain to the right foot. Exam: established pt with but new to this provider. Non-toxic afebrile 86yof in NAD. Resp unlabored. Lungs clear. CV:RRR. pt has swelling redness, and tenderness to the riht great toe on the medial aspect of the distal phalanx. No subungual hematoma, discharge, bleeding, or evidence of paronychia. This appears to be caused by an ingrown toenail. DDx considered, but not limited to: Cellulitis Paronychia toe fracture gout ingrown toenail Work up/Results: HPI and PE suggest an early cellulitis secondary to an ingrown toenail to the right great toe. Plan/Discussion: Warm epsom salt soaks, Cephalexin x 5 days and referral to podiatry to remove the ingrown toenail In order to obtain further information and compare any laboratory results/values, I have accessed old patient records. This information was pertinent in my medical decision making today. [email or web address] Not available 07/22/2021 21:09:22 Plan of Treatment Reminders Order Date Submit Date Provider Last Modified By Organization Details Last Modified Time Details Appointments None recorded. Lab None recorded. Referral hands and dial inspector referral - pt has an ingrown right great toenail and cellulitis of the right great toe without paronychia . Pt will be placed on cephalexin 500mg TID x 5 days 2020 [facility] [employer] Ivon Young DPM, [address] [place], [address], 21:30:16 Procedures None recorded. Surgeries None recorded. Imaging None recorded. Medication Orders cephalexin 500 mg capsule 2020 [id number], [address] [place], [address], 20:45:10 Patient TargetsNo targets recorded. Patient Instructions Encounter Date Encounter Id Patient Instructions Last Modified By Organization Details Last Modified Time 07/22/2021 [id number] ingrown toenail: care instructions [email or web address] Not available 07/22/2021 21:10:14 You should be contacted in a couple days for the referral to a hands and dial inspector. Take the antibiotics and soak your foot in the epsom salts to help with swelling and discomfort. Ingrown Toenail: Care Instructions Your Care Instructions An ingrown toenail often occurs because a nail is not trimmed correctly or because shoes are too tight. An ingrown nail can cause an infection. If your toe is infected, your doctor may prescribe antibiotics. Most ingrown toenails can be treated at home. You should trim toenails straight across, so the ends of the nail grow over the skin and not into it. Good nail care can prevent ingrown toenails. Follow-up care is a merchant part of your treatment and safety. Be sure to make and go to all appointments, and call your doctor if you are having problems. It's also a good idea to know your test results and keep a list of the medicines you take. How can you care for yourself at home? Trim the nails straight across. Leave the corners a little longer so they do not cut into the skin. To do this when you have an ingrown nail: Soak your foot in warm water for about 15 minutes to soften the nail. Wedge a small piece of wet cotton under the corner of the nail to cushion the nail and lift it slightly. This keeps it from cutting the skin. Repeat daily until the nail has grown out and can be trimmed. Do not use manicure scissors to dig under the ingrown nail. You might stab your toe, which could get infected. Do not trim your toenails too short. Check with your doctor before trimming your own toenails if you have been diagnosed with diabetes or peripheral arterial disease. These conditions increase the risk of an infection, because you may have decreased sensation in your toes and cut yourself without knowing it. Wear roomy, comfortable shoes. If your doctor prescribed antibiotics, take them as directed. Do not stop taking them just because you feel better. You need to take the full course of antibiotics. When should you call for help? Call your doctor now or seek immediate medical care if: You have signs of infection, such as: Increased pain, swelling, warmth, or redness. Red streaks leading from the toe. Pus draining from the toe. A fever. Watch closely for changes in your health, and be sure to contact your doctor if: You do not get better as expected. Care instructions adapted under license by [facility]. This care instruction is for use with your licensed healthcare professional. If you have questions about a medical condition or this instruction, always ask your healthcare professional. [employer] disclaims any warranty or liability for your use of this information. 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 Pt will be placed on cephalexin 500mg TID x 5 days Referring Physician: Agustin Proctor, Emergency Medicine, Encounter Date: 07/22/2021 Medical Equipment None Reported. Allergies No known drug allergies Medications Name Sig Start Date Stop Date Status Note LastModified by Organization Details LastModified Time amoxicillin 500 mg capsule TAKE 4 CAPSULES ONE HOUR PRIOR TO PROCEDURE 07/22 completed Not Available Not Available Not Available hydralazine 10 mg tablet active Not Available Not Available Not Available doxycycline hyclate 100 mg capsule TAKE ONE CAPSULE BY MOUTH TWICE A DAY FOR 5 DAYS active Not Available Not Available No t Available clorazepate dipotassium 3.75 mg tablet active Not Available Not Available Not Available cephalexin 250 mg capsule 07/22 completed Not Available Not Available Not Available meclizine 12.5 mg tablet TAKE 1 TABLET BY MOUTH THREE TIMES A DAY NEEDED FOR DIZZINESS active Not Available Not Available No t Available clopidogrel 75 mg tablet active Not Available Not Available Not Available amlodipine 5 mg tablet active Not Available Not Available Not Available spironolact one 25 mg tablet active Not Available Not Available Not Available nystatin-tr iamcinolone 100,000 unit/gram-0 .1 % topical ointment APPLY TO AFFECTED AREA(S) THREE TIMES A DAY FOR 5 DAYS active Not Available Not Available No t Available ciclopirox 8 % topical solution active Not Available Not Available Not Available prednisolon e acetate 1 % eye drops,suspe nsion active Not Available Not Available Not Available meclizine 25 mg tablet active Not Available Not Available Not Available cephalexin 500 mg capsule TAKE ONE TABLET BY MOUTH THREE TIMES A DAY FOR 7 DAYS active Not Available Not Available No t Available nortriptyli ne 10 mg capsule active Not Available Not Available Not Available metoprolol tartrate 50 mg tablet active Not Available Not Available No t Available betamethaso ne dipropionat e 0.05 % topical cream APPLY TOPICALLY TWICE DAILY active Not Available Not Available No t Available mupirocin 2 % topical ointment APPLY TO AFFECTED AREA(S) TWO TIMES A DAY FOR 14 DAYS active Not Available Not Available No t Available oxybutynin chloride 5 mg tablet active Not Available Not Available No t Available cefdinir 300 mg capsule TAKE ONE CAPSULE BY MOUTH TWICE A DAY FOR 3 DAYS 07/22 completed Not Available Not Available Not Available fluticasone propionate 50 mcg/actuati on nasal spray,suspe nsion active Not Available Not Available Not Available doxycycline hyclate 100 mg tablet active Not Available Not Available No t Available loratadine 10 mg tablet TAKE ONE TABLET BY MOUTH EVERY DAY NEEDED ITCHING AND RASH active Not Available Not Available No t Available rosuvastati n 10 mg tablet TAKE 1 TABLET BY MOUTH EVERY DAY AT BEDTIME active Not Available Not Available No t Available nitrofurant oin monohydrate /macrocryst als 100 mg capsule TAKE 1 CAPSULE BY MOUTH TWO TIMES A DAY FOR 5 DAYS active Not Available Not Available No t Available Xarelto 20 mg tablet active Not Available Not Available No t Available Vitals Date Recorded Heart rate Respiratory rate Body temperature Oxygen saturation Oxygen saturation in Arterial blood by Pulse oximetry Systolic blood pressure Diastolic blood pressure Provider Name and Address Organization Details Last Updated DateTime 1 65 /min 18 /min 97.8 [degF] 99 % 99 % 122 mm[Hg] 60 mm[Hg] Not Available [facility] 14:25:48 Date Recorded Oxygen saturation Oxygen saturation in Arterial blood by Pulse oximetry Body temperature Heart rate Respiratory rate Systolic blood pressure Diastolic blood pressure Provider Name and Address Organization Details Last Updated DateTime 1 98 % 98 % 97.5 [degF] 67 /min 18 /min 142 mm[Hg] 50 mm[Hg] Not Available [facility] 20:02:33 Social History None recorded. Functional Status None recorded. Mental Status None recorded. Family History Nothing Reported. Medical History Condition Response Diabetes N Coronary Artery Disease N Cancer N Stroke N Asthma N COPD N Depression Y High Cholesterol N Pulmonary Embolism N Hypertension Y Kidney Disease N Gynecological HistoryNo gynecological history recorded. Obstetrics History GPAL:G 0 P 0 0 0 0 Past Encounters Encounter ID Performer Location Encounter Start Date Encounter Closed Date Diagnosis/Indication Diagnosis SNOMED-CT Code Diagnosis ICD10 Code [id number] CHARISSA SANCHEZ NP [facility] [address] [place] [address] 05/05/2021 14:20:02 05/10/2021 17:38:08 Dizziness 931929428 R42 Nystagmus 157809 H55.00 [id number] Agustin Proctor NP [facility] [address] [place] [address] 07/22/2021 19:56:29 07/26/2021 11:06:42 Cellulitis of toe of right foot [id number] 4550202 L03.031 Ingrowing nail of toe of right foot [id number] 1632873 L60.0 Health Concerns Section Related Observation LastModified by Organization Detai ls LastModified Time None Recorded Concern Status LastModified by Organization Details LastModified Time None Recorded Advance Directives Directive None Recorded Payers Encounter Date Sequence Insurance Name Policy Number Policy Torres Covered Member ID Torres Member ID Guarantor Name 05/05/2021 1 [place] [facility] Tiny Balbuena [id number] Tiny Balbuena 07/22/2021 1 [place] [facility] Tiny Balbuena [id number] [employer] Notes Date Note Type Note Provider Name and Address Organization Details Recorded Time 05/05/2021 text/html 85 year-old female with history of vertigo, afib on xarelto, HTN, cellulitis of right lower leg, who calls to her home for evaluation of dizziness. PPt had injury to right lower leg that became infected about 2 weeks ago. She began antibiotics and felt dizzy with taking the antibiotics. She stopped them and started another antibiotic but she continued to having some dizziness. She noticed that the redness to the right lower leg was more red and not responding to the antibiotics. She went to [facility] on 04/29. She was given IV antibiotics and sent home on keflex. She has been home for 5 days. The keflex is the same medication that made her sick and dizzy and she feels the same thing.Since waking up this morning has been having dizziness all day. She has to walk usin the sethi and when she lies down the room spins. She denies any nausea, vomiting. She has a headache all over and to the back of her neck. She reports that she does not usually have headaches.She describes difficulty in walking where she feels she is being pulled to left and the right while she is walking. She denies any nausea or vomiting. There have been no trauma, CHARISSA SANCHEZ, [address], [place], [address], [place] [facility] 05/05/2021 17:12:04 07/22/2021 text/html Pt states she began haivng swelling reness and tenderness to the right great toe 3 days ago. She denies any recent injury to the toe. Denies any swelling or pain to the right foot. States she has put some triple antibiotic ointment on it and taken ibuprofen but it keeps getting worse. Agustin Proctor, D[address], [place], [address], [place] [facility] 07/22/2021 21:10:24 OBGyn Episode No OBEpisode recorded.
== END 2024-07-19 12:58 | disposition home or self-care (01) ==
PROVIDERS: PCP Family Medicine; Visit Provider Internal Medicine Cardiovascular Disease
DX: R79.89 Other specified abnormal findings of blood chemistry (principal); I48.0 Paroxysmal atrial fibrillation; I10 Essential (primary) hypertension
CPT/HCPCS: 93010; 99214; G2211

== ENCOUNTER → 2024-07-19 12:21 | Outpatient (BNVA) | payer MEDICARE, SELFPAY | PROVIDERS: PCP Family Medicine; Visit Provider Internal Medicine Cardiovascular Disease | DX: I48.0 Paroxysmal atrial fibrillation (principal); I10 Essential (primary) hypertension; R79.89 Other specified abnormal findings of blood chemistry | CPT/HCPCS: 93005; 99212 ==

== ENCOUNTER 2024-08-05 12:04 | Outpatient (REF) | payer MEDICARE, SELFPAY | END 2024-08-05 12:05 | disposition home or self-care (01) | LOC: HO.MAMMO 12:04 | PROVIDERS: PCP Family Medicine; Visit Provider Family Medicine | DX: Z12.31 Encounter for screening mammogram for malignant neoplasm of breast (principal) | CPT/HCPCS: 77063; 77067 ==

== ENCOUNTER → 2024-08-05 12:15 | Outpatient (BNV) | payer MEDICARE, SELFPAY | PROVIDERS: PCP Family Medicine; Visit Provider Internal Medicine | DX: Z12.31 Encounter for screening mammogram for malignant neoplasm of breast (principal) | CPT/HCPCS: 77063; 77067 ==

== ENCOUNTER 2025-01-01 08:32 | Emergency (ER) | payer MEDICARE, SELFPAY ==
--- NOTE | ~2025-01-01 | CT_ITS ---
CLINICAL HISTORY: Healing ecchymosis to left orthodoxy. HTN CT head without contrast Comparison: None Findings: No acute intracranial hemorrhage or midline shift. The marin-white matter differentiation is maintained. Bilateral carotid siphon calcifications. Moderate ventricular prominence which is slightly out of proportion to the degree of cortical sulcal prominence. This may be related to generalized cerebral involutional change or normal pressure hydrocephalus. Mild burden chronic small-vessel white matter ischemic change. The paranasal sinuses and mastoid air cells are clear. Operative change of the globes. The calvarium is intact. IMPRESSION: No acute intracranial findings. This document has been electronically signed by: Gerardo Young DO on 01/01/2025 10:50:00
[2025-01-01 08:42] VITALS: BP 182/48; PULSE 72; RESP 12; O2SAT 100; BMI 25.4
--- NOTE | 2025-01-01 09:08 | ED.GENADULT ---
HPI - General Adult General Chief complaint: Recheck/Abnormal Lab/Rx Stated complaint: HIGH BP Time Seen by Provider: 01/01/25 08:46 Source: patient, EMS, RN notes reviewed and old records reviewed Mode of arrival: EMS History of Present Illness ED Provider: Shavonne Krause PA-C HPI narrative: 89-year-old female with a past medical history proximal AFib on Xarelto, HTN, PVD, presenting to the ED complaining of elevated BP at home with systolic 190-200's noted yesterday. Admits to taking 3 extra doses of PRN Hydralazine yesterday, and 1 dose of PRN Hydralazine today in addition to her normal prescribed daily antihypertensive/home medications which include metoprolol and amlodipine. Reports ecchymotic area noted to left religion without reported head injury, trauma or falls. Denies any symptoms at present including headache, lightheadedness/dizziness, vision change or loss, nausea/vomiting, CP/SOB, pedal edema Related Data Home Medications ?Medication ?Instructions ?Recorded ?Confirmed ascorbate calcium (vitamin C) 500 500 mg PO DAILY 06/26/20 07/19/24 mg tablet multivitamin 1 tab PO DAILY 06/26/20 07/19/24 ciclopirox 8 % topical solution topical 11/06/20 07/19/24 nortriptyline 10 mg capsule 10 mg PO BEDTIME 07/20/23 07/19/24 Previous Rx's ?Medication ?Instructions ?Recorded hydralazine 10 mg tablet 10 mg PO ONCE PRN hypertension 30 06/19/23 days #20 tabs imipramine HCl 25 mg tablet 25 mg PO BEDTIME 90 days #90 tabs 02/03/24 terazosin 1 mg capsule 1 mg PO BEDTIME 30 days #30 caps 02/03/24 diltiazem HCl 120 mg 120 mg PO .prn afib #14 caps 02/17/24 capsule,extended release 24 hr amlodipine 5 mg tablet 5 mg PO BID #90 tabs 08/18/24 furosemide 20 mg tablet 20 mg PO DAILY #90 tabs 08/18/24 metoprolol tartrate 50 mg tablet 50 mg PO BID #180 tabs 08/18/24 rivaroxaban 20 mg tablet 20 mg PO DAILY #90 tabs 08/18/24 Allergies Allergy/AdvReac Type Severity Reaction Status Date / Time hydrochlorothiazide Allergy Mild ITCHING Verified 01/01/25 08:48 [HYDROCHLOROTHIAZIDE] latex [LATEX] Allergy Mild ITCHING Verified 01/01/25 08:48 levofloxacin [From LEVAQUIN] Allergy Unknown UNK Verified 01/01/25 08:48 lisinopril [LISINOPRIL] Allergy Unknown UNKNOWN Verified 01/01/25 08:48 lorazepam [LORAZEPAM] Allergy Unknown UNK Verified 01/01/25 08:48 Pork/Porcine Containing Allergy Unknown UNKNOWN Verified 01/01/25 08:48 Products [Pork/Porcine Product Derivatives] prednisone [PREDNISONE] Allergy Unknown UNCLEAR Verified 01/01/25 08:48 propafenone [PROPAFENONE] Allergy Unknown UNK Verified 01/01/25 08:48 spironolactone Allergy Unknown UNKNOWN Verified 01/01/25 08:48 [SPIRONOLACTONE] Sulfa (Sulfonamide Allergy Unknown unknown Verified 01/01/25 08:48 Antibiotics) cephalexin Allergy Itching Verified 01/01/25 08:48 doxycycline Allergy Itching Verified 01/01/25 08:48 linezolid Allergy Itching Verified 01/01/25 08:48 codeine Allergy Unknown unknown Uncoded 01/01/25 08:48 Crustaceans Allergy Unknown UNKNOWN Uncoded 01/01/25 08:48 augmentin AdvReac Unknown nausea & Uncoded 01/01/25 08:48 diarrhea Review of Systems Review of Systems: Yes all other systems are reviewed and are negative Constitutional: Constitutional: Reports as per HPI Neurologic: Denies Abnormal speech present [facility] Past Medical History Attestation statement: The following information was validated with the patient. Source: old records reviewed Medical History Bleeding hemorrhoids Uncontrolled hypertension PVD (peripheral vascular disease) Atrial fibrillation H/O urinary frequency Nocturia Urinary urgency HTN (hypertension) PAF (paroxysmal atrial fibrillation) Surgical History Hx of hysterectomy Hx of colonoscopy Hx of excision of epidermal inclusion cyst Hx of hemorrhoidectomy Family History Family History Father CVD (cardiovascular disease) Diabetes Mother CVD (cardiovascular disease) Diabetes Brother No problems noted. Social History Social History Household Members: None Housing: Apartment Do you presently have visiting nurse or other home services: No Alcohol intake: never Patient Tobacco Use Status: Never used Tobacco Smoked in Last 30 Days: No Second Hand Smoke Exposure: No Advance Directives: No Advance Directives Information Provided: Yes Physical Exam ED Vital Signs: Vital Signs - 24 hr 01/01/25 08:42 01/01/25 09:24 01/01/25 10:00 Temperature 97.9 F 97.9 F Pulse Rate 72 70 78 Respiratory Rate 12 13 13 Blood Pressure 182/48 H 178/40 H 178/80 H Pulse Oximetry 100 99 99 Oxygen Delivery Method Room Air Room Air Room Air 01/01/25 12:00 Temperature 97.1 F Pulse Rate 70 Respiratory Rate 15 Blood Pressure 172/46 H Pulse Oximetry 99 Oxygen Delivery Method Room Air BMI result Body Mass Index 25.4 Const General: cooperative, healthy appearing and no acute distress Orientation/consciousness: patient oriented x3 Limitations: no limitations HENMT Other: Healing ecchymosis noted to left religion without reproducible tenderness Head: Yes normal to inspection Ears: hearing grossly normal bilaterally General nose exam: Normal external nose present Face and sinus: Yes normal facial exam Mouth: Normal oral and palatal mucosa present and no drooling Throat: Yes posterior oropharynx normal and Yes uvula midline Eyes General: appearance normal, both eyes and all related structures Pupils: Equal, round and reactive pupils present EOM: EOMs intact bilaterally Neck Neck: Yes normal visual inspection and Yes no meningeal signs Resp Effort & Inspection: normal respiratory effort and no respiratory distress Auscultation: clear to auscultation bilaterally, no crackles and no wheezes Cardio Rate: regular rate Heart sounds: S1 normal heart sound present and S2 normal heart sound present GI Inspection: Yes normal to inspection Palpation (GI): Soft to palpation, nontender, no guarding and not rigid General: Yes no CVA tenderness Back/Spine/Pelvis Back: no CVA tenderness Skin Rashes: no rashes Wounds: no wounds Neuro General: patient oriented x3, tone normal, moves all extremities, no meningeal signs, no focal motor deficits and CN's II-XI intact bilaterally Cranial nerves: Yes CN's II-XII intact bilaterally, Yes Equal, round and reactive pupils present and Yes Bilaterally intact EOM present Cognition (Neuro): normal cognition Speech: No Abnormal speech present Gait exam (Neuro): Normal gait present Motor exam (neuro): 5/5 motor strength present throughout and no tremor noted Extrem General: Yes normal to inspection and Yes no pedal edema Course Course Course Narrative: -no leukocytosis. H&H at patient's baseline. -troponin x2 without significant rise, [place] unlikely -COVID-19 positive > patient is asymptomatic in this regard. No hypoxia or tachypnea. CT head/brain wo IV con IMPRESSION: No acute intracranial findings. > BP has remained stable since ED arrival without any additional medications given. Discussed with patient importance of continued close monitoring of blood pressure and close follow-up with PCP/cardiology Results discussed with patient including worrisome signs and symptoms and strict return precautions, and when to return to the emergency department. They verbalized understanding and feel safe for discharge at this time. Medical Decision Making Medical Decision Making [facility] Narrative: 89-year-old female with a past medical history proximal AFib on Xarelto, HTN, PVD, presenting to the ED complaining of elevated BP at home with systolic 190-200's noted yesterday. On exam hypertensive 182/48, NAD, nontoxic appearing, no focal neuro deficits, asymptomatic at present. Concern for who presents with urgency. Rule out hypertensive emergency/organ dysfunction. Lower suspicion for ICH or ACS/PE/dissection at this time. Patient took multiple antihypertensives prior to EMS arrival, will observe and re-evaluate blood pressure Plan: EKG, labs, head CT, viral testing Please refer to course for remaining clinical decision making, interpretation of labs/imaging results, and discussions with consultants and/or family members. Differential Diagnosis Differential Diagnoses: The differential diagnosis associated with the presentation includes As above Admission/Observation Consideration of admission/observation: Escalation of care including admission/observation considered Lab Data [facility] Lab Attestation statement: I reviewed the patient's lab results. 01/01/25 09:12 01/01/25 09:12 Labs: Lab Results 01/01/25 01/01/25 01/01/25 Range/Units 09:12 09:35 09:42 WBC 4.9 (4.8-10.8) X10*3/uL RBC 3.46 L (4.20-5.50) X10*6/uL Hgb 10.9 L (12.0-16.0) g/dl Hct 32.3 L (37.0-47.0) % MCV 93.4 (80.0-98.0) fL MCH 31.5 (27.0-33.0) pg MCHC 33.7 (31.0-35.0) g/dl RDW 13.1 (11.0-16.0) % Plt Count 214 (160-400) X10*3/uL MPV 10.0 (9.4-12.3) fL Immature Gran % (Auto) 0.2 (0.0-0.4) % Neut % (Auto) 54.7 (45-73) % Lymph % (Auto) 32.9 (20-40) % [place] % (Auto) 10.4 (2-11) % Eos % (Auto) 1.4 (0-4) % Baso % (Auto) 0.4 (0-2) % Lymph # (Auto) 1.6 (1.2-4.9) X10*3/uL [place] # (Auto) 0.5 (0.1-1.2) X10*3/uL Eos # (Auto) 0.1 (0.0-0.4) X10*3/uL Baso # (Auto) 0.0 (0.0-0.2) X10*3/uL Abs Immat Gran (auto) 0.01 (0.00-0.03) X10*3/uL Absolute Neuts (auto) 2.7 (2.0-8.3) x10*3/uL Absolute Nucleated RBC 0.000 (0.0-0.012) X10*3/uL Nucleated RBC % (auto) 0.0 (0.0-0.2) /100WBC PT 12.8 H (10.9-12.4) SEC INR 1.1 (0.9-1.1) Sodium 138 (135-145) mmol/L Potassium 4.0 (3.3-5.1) mmol/L Chloride 103 (96-108) mmol/L Carbon Dioxide 26 (22-29) mmol/L Anion Gap 13 (12-20) BUN 24 H (9-16) mg/dL Creatinine 0.79 (0.5-1.4) mg/dL Estim Creat Clear Calc 48.1 Estimated GFR > 60 Random Glucose 112 (60-115) mg/dL Calcium 8.8 D (8.4-10.2) mg/dL Magnesium 2.0 (1.6-2.6) mg/dL Total Bilirubin 0.2 (0.0-1.0) mg/dL Direct Bilirubin < 0.2 (0.0-0.5) mg/dL AST 26 (5-31) U/L ALT 16 (0-31) U/L Alkaline Phosphatase 82 (39-117) U/L Troponin I High Sens < 2.7 (<3.5-17.0) ng/L B-Natriuretic Peptide 75 (<100) pg/mL Total Protein 7.2 (6.5-8.0) g/dL Albumin 3.8 (3.5-5.0) g/dL Influenza Type A (PCR) NEGATIVE (Negative) Influenza Type B (PCR) NEGATIVE (Negative) RSV RNA Qual (PCR) NEGATIVE (Negative) SARS-CoV-2 RNA (RT-PCR) POSITIVE A (Negative) 01/01/25 Range/Units 11:23 WBC (4.8-10.8) X10*3/uL RBC (4.20-5.50) X10*6/uL Hgb (12.0-16.0) g/dl Hct (37.0-47.0) % MCV (80.0-98.0) fL MCH (27.0-33.0) pg MCHC (31.0-35.0) g/dl RDW (11.0-16.0) % Plt Count (160-400) X10*3/uL MPV (9.4-12.3) fL Immature Gran % (Auto) (0.0-0.4) % Neut % (Auto) (45-73) % Lymph % (Auto) (20-40) % [place] % (Auto) (2-11) % Eos % (Auto) (0-4) % Baso % (Auto) (0-2) % Lymph # (Auto) (1.2-4.9) X10*3/uL [place] # (Auto) (0.1-1.2) X10*3/uL Eos # (Auto) (0.0-0.4) X10*3/uL Baso # (Auto) (0.0-0.2) X10*3/uL Abs Immat Gran (auto) (0.00-0.03) X10*3/uL Absolute Neuts (auto) (2.0-8.3) x10*3/uL Absolute Nucleated RBC (0.0-0.012) X10*3/uL Nucleated RBC % (auto) (0.0-0.2) /100WBC PT (10.9-12.4) SEC INR (0.9-1.1) Sodium (135-145) mmol/L Potassium (3.3-5.1) mmol/L Chloride (96-108) mmol/L Carbon Dioxide (22-29) mmol/L Anion Gap (12-20) BUN (9-16) mg/dL Creatinine (0.5-1.4) mg/dL Estim Creat Clear Calc Estimated GFR Random Glucose (60-115) mg/dL Calcium (8.4-10.2) mg/dL Magnesium (1.6-2.6) mg/dL Total Bilirubin (0.0-1.0) mg/dL Direct Bilirubin (0.0-0.5) mg/dL AST (5-31) U/L ALT (0-31) U/L Alkaline Phosphatase (39-117) U/L Troponin I High Sens 3.3 (<3.5-17.0) ng/L B-Natriuretic Peptide (<100) pg/mL Total Protein (6.5-8.0) g/dL Albumin (3.5-5.0) g/dL Influenza Type A (PCR) (Negative) Influenza Type B (PCR) (Negative) RSV RNA Qual (PCR) (Negative) SARS-CoV-2 RNA (RT-PCR) (Negative) Independent Interpretation I performed an independent interpretation of an: EKG and CT Scan Radiology Impression Discussion of test interpretation with radiology: I have reviewed the radiologist's reading. Independent Historian Clinical information obtained from an independent historian. History obtained from or confirmed by: EMS External Record Review External record reviewed: Inpatient record, Office record, Outpatient record, Prior outpatient labs, Prior outpatient radiology, Primary care record and Outside ED record Tests considered The following testing was considered but not selected: As above Prescription Management I considered prescription management with: Other Chronic Conditions Patient?s care impacted by: Hypertension and Other Social Determinants Patient?s care significantly limited by Social Determinants of Health including: Problems related to primary support group and Other Social Determinant of Health Discharge Plan Discharge Clinical Impression: HTN (hypertension), COVID-19 Patient Disposition: Home, Self-Care Instructions: Hypertension (ED), COVID-19 (Coronavirus Disease 2019) (ED) Additional Instructions: YOU HAVE COVID-19 Your blood pressure has been elevated, continue to take your home prescribed medications and monitor closely If her blood pressure remains elevated greater than 180 systolic or 100 diastolic return to the ED Please call Cardiology and your primary care doctor for very close follow-up If you have/develop headache, fevers, shortness of breath, chest pain or weakness return to the ED immediately At this time you will be okay for discharge. Please self isolate for 5 days. Do not expose yourself to others. You may not go to work or school. Please continue to follow cold instructions and wash your hands frequently. You may take Tylenol / Motrin as directed on the bottle for pain or fever. If you have constant or persistent shortness of breath, fever unresolved with medications, chest pain, or your unable to eat or drink please return to the ED CDC Guidelines for home isolation: - Stay away from others - WEAR A MASK if you are sick AND STAY HOME - Cover your mouth and nose with a tissue when you cough or sneeze. Dispose of tissues in a lined trash can and wash your hands immediately with soap and water for at least 20 seconds. If soap and water are not available, clean hands with alcohol-based hand writer editor that contains at least 60% alcohol. - Clean your hands often with soap and water for at least 20 seconds - Avoid touching your eyes, nose and mouth with unwashed hands - Do not share dishes, drinking glasses, cups, eating utensils, towels, or bedding with other people in your home. After using these items, wash them thoroughly with soap and water or put in the chinchilla machine operator. - Clean high-touch surfaces in your isolation area ( sick room and bathroom) every day; let a caregiver clean and disinfect high-touch surfaces in other areas of the home. Clean the area or item with soap and water or another detergent if it is dirty. Then, use a household disinfectant. - Limit contact with pets and animals: If you must care for a pet, wash your hands before and after interacting with them) Prescriptions: No Action hydralazine 10 mg tablet 10 mg PO ONCE PRN (Reason: hypertension) 30 Days Qty: 20 3RF Rx Instructions: Take one tablet as needed for a systolic blood pressure over 180 diltiazem HCl 120 mg capsule,extended release 24hr 120 mg PO .prn Qty: 14 1RF furosemide 20 mg tablet 20 mg PO DAILY Qty: 90 3RF rivaroxaban 20 mg tablet 20 mg PO DAILY Qty: 90 3RF metoprolol tartrate 50 mg tablet 50 mg PO BID Qty: 180 3RF amlodipine 5 mg tablet 5 mg PO BID Qty: 90 3RF ciclopirox 8 % solution topical ascorbate calcium (vitamin C) 500 mg tablet 500 mg PO DAILY multivitamin Tablet 1 tab PO DAILY nortriptyline 10 mg capsule 10 mg PO BEDTIME imipramine HCl 25 mg tablet 25 mg PO BEDTIME 90 Days Qty: 90 1RF terazosin 1 mg capsule 1 mg PO BEDTIME 30 Days Qty: 30 0RF Referrals: [facility] [Provider Group] - 5 days Phong Henry MD [Primary Care Provider] - 3 days Interventions: ED Discharge Assessment Last Done: 01/01/25 12:45 Discharge Date/Time: 01/01/25 13:22 Print Language: Italian
--- NOTE | 2025-01-01 09:08 | ECG_ITS ---
Test Reason : HTN Blood Pressure : */* mmHG Vent. Rate : 70 BPM Atrial Rate : 70 BPM P-R Int : 146 ms QRS Dur : 86 ms QT Int : 398 ms P-R-T Axes : 47 13 33 degrees QTcB Int : 429 ms Normal sinus rhythm Normal ECG When compared with ECG of 24-Aug-2023 04:30, ST no longer depressed in Anterior leads Referred By: Shavonne Krause Electronically Signed By: [place]
[2025-01-01 09:19] LABS: MANUAL DIFF FLAG NO
[2025-01-01 09:21] LABS: Basophils Percent Auto 0.4 % (0-2); Eosinophils Absolute Auto 0.1 X10*3/uL (0.0-0.4); Eosinophils Percent Auto 1.4 % (0-4); Hematocrit 32.3 % (37.0-47.0); Hemoglobin 10.9 g/dl (12.0-16.0); Imm Gran Abs Auto 0.01 X10*3/uL (0.00-0.03); Imm Gran Pct Auto 0.2 % (0.0-0.4); Lymphocytes Absolute Auto 1.6 X10*3/uL (1.2-4.9); Lymphocytes Percent Auto 32.9 % (20-40); Mean Corpuscular HGB Conc 33.7 g/dl (31.0-35.0); Mean Corpuscular Hemoglobin 31.5 pg (27.0-33.0); Mean Corpuscular Volume 93.4 fL (80.0-98.0); Monocytes Absolute Auto 0.5 X10*3/uL (0.1-1.2); Monocytes Percent Auto 10.4 % (2-11); Neutrophils Absolute Auto 2.7 x10*3/uL (2.0-8.3); Neutrophils Percent Auto 54.7 % (45-73); Platelet Count 214 X10*3/uL (160-400); Red Blood Count 3.46 X10*6/uL (4.20-5.50); Red Cell Distribution Width 13.1 % (11.0-16.0); White Blood Count 4.9 X10*3/uL (4.8-10.8)
[2025-01-01 09:24] VITALS: BP 178/40; PULSE 70; RESP 13; TEMP 36.6; O2SAT 99
[2025-01-01 09:35] LABS: Alanine Aminotransferase 16 U/L (0-31); Albumin Level 3.8 g/dL (3.5-5.0); Alkaline Phosphatase 82 U/L (39-117); Anion Gap 13 (12-20); Aspartate Amino Transferase 26 U/L (5-31); Bilirubin Direct < 0.2 mg/dL (0.0-0.5); Bilirubin Total 0.2 mg/dL (0.0-1.0); Blood Urea Nitrogen 24 mg/dL (9-16); Calcium 8.8 mg/dL (8.4-10.2); Carbon Dioxide 26 mmol/L (22-29); Chloride 103 mmol/L (96-108); Creatinine Clr Calc Pharmacy 48.1; Estimated Glomerular Filt Rate > 60; Glucose Random 112 mg/dL (60-115); Sodium 138 mmol/L (135-145); Total Protein 7.2 g/dL (6.5-8.0)
[2025-01-01 09:39] LABS: INTERNATIONAL NORM RATIO 1.1 (0.9-1.1); Prothrombin Time 12.8 SEC (10.9-12.4)
[2025-01-01 09:46] LABS: Troponin-I High Sensitivity < 2.7 ng/L (<3.5-17.0)
[2025-01-01 10:00] VITALS: BP 178/80; PULSE 78; RESP 13; TEMP 36.6; O2SAT 99
[2025-01-01 10:08] LABS: B Type Natriuretic Peptide 75 pg/mL (<100)
[2025-01-01 10:47] LABS: Influenza A PCR NEGATIVE (Negative); Influenza B PCR NEGATIVE (Negative); Resp Syncy Virus RNA Qual PCR NEGATIVE (Negative); SARS COV2 PCR INHOUSE POSITIVE (Negative)
[2025-01-01 11:54] LABS: Troponin-I High Sensitivity 3.3 ng/L (<3.5-17.0)
[2025-01-01 12:00] VITALS: BP 172/46; PULSE 70; RESP 15; TEMP 36.2; O2SAT 99
[2025-01-01 12:37] VITALS: BP 165/53; PULSE 72; RESP 18; O2SAT 100
[2025-01-01 12:45] VITALS: BP 165/53; PULSE 72; RESP 18; TEMP 36.7; O2SAT 100
== END 2025-01-01 13:22 | disposition home or self-care (01) ==
PROVIDERS: Physician Assistant; Emergency Provider Emergency Medicine; PCP Family Medicine
DX: U07.1 COVID-19 (principal); I10 Essential (primary) hypertension; R79.89 Other specified abnormal findings of blood chemistry; I48.91 Unspecified atrial fibrillation; R06.02 Shortness of breath; R51.9 Headache, unspecified; Z79.01 Long term (current) use of anticoagulants; Z79.899 Other long term (current) drug therapy
CPT/HCPCS: 0241U; 36415; 70450; 80048; 80076; 83735; 83880; 84484; 85025; 85610; 93005; 99284

== ENCOUNTER → 2025-01-01 09:08 | Outpatient (BNV) | payer MEDICARE, SELFPAY | PROVIDERS: Emergency Provider Emergency Medicine; PCP Family Medicine; Visit Provider Radiology Diagnostic Radiology | DX: I10 Essential (primary) hypertension (principal) | CPT/HCPCS: 70450 ==

== ENCOUNTER → 2025-01-01 09:08 | Outpatient (BNV) | payer MEDICARE, SELFPAY | PROVIDERS: Emergency Provider Emergency Medicine; PCP Family Medicine; Visit Provider Internal Medicine Cardiovascular Disease | DX: I10 Essential (primary) hypertension (principal) | CPT/HCPCS: 93010 ==

== ENCOUNTER 2025-01-19 13:48 | Outpatient (AMB) | payer MEDICARE, SELFPAY ==
[2025-01-19 14:22] VITALS: BP 144/62; PULSE 57; BMI 25.5
--- NOTE | 2025-01-19 14:22 | MHC.OFFVIS ---
Vital Signs 01/19/25 14:22 Height 5 ft 5 in Weight 153 lb BMI 25.5 BP 144/62 H Blood Pressure Location Lt brachial Position Sitting Pulse 57 Intake Visit Reasons: 6 mth f/up Intake Note: 6 month follow-up c/o high bp was in the ED a few weeks ago Multimedia Educational Specialist Required: No Allergies hydrochlorothiazide [HYDROCHLOROTHIAZIDE] Allergy (Mild, Verified 01/01/25 08:48) ITCHING latex [LATEX] Allergy (Mild, Verified 01/01/25 08:48) ITCHING levofloxacin [From LEVAQUIN] Allergy (Unknown, Verified 01/01/25 08:48) UNK lisinopril [LISINOPRIL] Allergy (Unknown, Verified 01/01/25 08:48) UNKNOWN lorazepam [LORAZEPAM] Allergy (Unknown, Verified 01/01/25 08:48) UNK Pork/Porcine Containing Products [Pork/Porcine Product Derivatives] Allergy (Unknown, Verified 01/01/25 08:48) UNKNOWN prednisone [PREDNISONE] Allergy (Unknown, Verified 01/01/25 08:48) UNCLEAR propafenone [PROPAFENONE] Allergy (Unknown, Verified 01/01/25 08:48) UNK spironolactone [SPIRONOLACTONE] Allergy (Unknown, Verified 01/01/25 08:48) UNKNOWN Sulfa (Sulfonamide Antibiotics) Allergy (Unknown, Verified 01/01/25 08:48) unknown cephalexin Allergy (Verified 01/01/25 08:48) Itching doxycycline Allergy (Verified 01/01/25 08:48) Itching linezolid Allergy (Verified 01/01/25 08:48) Itching codeine Allergy (Unknown, Uncoded 01/01/25 08:48) unknown Crustaceans Allergy (Unknown, Uncoded 01/01/25 08:48) UNKNOWN augmentin Adverse Reaction (Unknown, Uncoded 01/01/25 08:48) nausea & diarrhea Medication List - Last Reconciled 01/19/25 by Ministerio Monroy MD amlodipine 5 mg PO BID ascorbate calcium (vitamin C) 500 mg PO DAILY ciclopirox 8% topical diltiazem HCl CD 120 mg PO .prn furosemide 20 mg PO DAILY hydralazine 10 mg PO ONCE PRN 30 days imipramine HCl 25 mg PO BEDTIME 90 days metoprolol tartrate 50 mg PO BID multivitamin 1 tab PO DAILY nortriptyline 10 mg PO BEDTIME rivaroxaban 20 mg PO DAILY HPI Comments Details: Tiny comes for urgent follow-up as recently her blood pressures been significantly elevated. She recently went to the emergency room on because of systolic blood pressure went up to 220. She does not said there was any change in her general health. She denies any significant salt intake. Denies any increased stress. She has been taking her usual medications. She is very upset that she was not given any additional therapy in the emergency room and was discharged. She was told that she had COVID. She has not had any heart failure symptoms. She has not had any recurrent atrial fibrillation episodes. No bleeding issues or neurologic events. [facility] Medical History (Updated 01/19/25 @ 14:49 by Ministerio Monroy MD) Uncontrolled hypertension Bleeding hemorrhoids PVD (peripheral vascular disease) Atrial fibrillation H/O urinary frequency Nocturia Urinary urgency HTN (hypertension) PAF (paroxysmal atrial fibrillation) Surgical History Hx of hysterectomy Hx of colonoscopy Hx of excision of epidermal inclusion cyst Hx of hemorrhoidectomy Family History Father CVD (cardiovascular disease) Diabetes Mother CVD (cardiovascular disease) Diabetes Brother No problems noted. Social History Household Members: None Housing: Apartment Do you presently have visiting nurse or other home services: No Alcohol intake: never Patient Tobacco Use Status: Never used Tobacco Second Hand Smoke Exposure: No Review of Systems Const Denies chills, Denies fatigue, Denies fever(s), Denies frequent falls, Denies weakness, Denies weight gain and Denies weight loss ENT Denies dizziness Card Denies chest pain, Denies leg edema, Denies lightheadedness, Denies palpitations, Denies dyspnea, Denies dyspnea on exertion, Denies orthopnea and Denies other (loss of consciousness) Resp Denies cough, Denies dyspnea and Denies dyspnea on exertion GI Denies hematochezia and Denies change in stool character Musc Denies abnormal gait, Denies muscle weakness, Denies numbness, Denies radiating pain into limb and Denies tingling Neuro Denies abnormal gait, Denies dizziness, Denies frequent falls, Denies numbness, Denies tingling and Denies weakness Endo Denies fatigue and Denies palpitations Physical Exam Vital Signs: Last Vital Signs Pulse 57 01/19/25 14:22 BP 144/62 H 01/19/25 14:22 BMI result Body Mass Index 25.5 Const General: cooperative, healthy appearing, comfortable and no acute distress Orientation/consciousness: patient oriented x3 HEENT Face and sinus: Yes normal facial exam Mouth: moist mucous membranes Neck Neck: Yes normal visual inspection, Yes full ROM and Yes trachea midline Chest Chest palpation & inspection: normal inspection of the chest Resp Effort & Inspection: normal respiratory effort, able to speak in complete sentences and no respiratory distress GI Inspection: Yes normal to inspection Back/Spine/Pelvis Cervical Spine: normal cervical lordosis Thoracic/Lumbar Spine: thoracic and lumbar spine normal to inspection Skin General skin exam: no rashes or lesions noted Neuro General: patient oriented x3, gait normal, tone normal and moves all extremities Extrem General: No clubbing, No cyanosis and Yes edema ( right lower extremity edema, currently in compression dressing) Assessment & Plan Assessment & Plan (1) Uncontrolled hypertension: Code(s): I10 - Essential (primary) hypertension Category: Medical Plan: Uncontrolled hypertension in this elderly woman with prior history of peripheral vascular disease. Recent onset increased blood pressure. Need to rule out renovascular hypertension. Would suggest a renal duplex to assess for the same. Meanwhile I have advised her to continue her usual medication add hydralazine 10 mg b.i.d. to her regimen. Stress mitigation strategies strongly advised. Advised to maintain adequate hydration. Low-salt diet was discussed. I have advised to monitor blood pressure at home and call me if he remains persistently elevated and will require further uptitration of hydralazine therapy. Also take p.r.n. hydralazine for systolic blood pressure about 180. She has been given enough tablets to help fully cover that. Will follow up in 2 weeks' time for blood pressure check. (2) PAF (paroxysmal atrial fibrillation): Code(s): I48.0 - Paroxysmal atrial fibrillation Category: Medical Plan: Paroxysmal atrial fibrillation has remained suppressed on current metoprolol therapy. She has not had to take additional diltiazem therapy. No indication for antiarrhythmic drug therapy. At this point time continue full oral anticoagulation, currently on Xarelto 20 mg daily. Quarterly renal function test should be pursued. Will follow up in the clinic in 3 months time, sooner p.r.n.. Thank you for allowing me to partake in her care Medications: Changed From hydralazine Take one tablet as needed for a systolic blood pressure over 180 10 mg PO ONCE 30 days PRN 20 tabs 3RF hypertension To hydralazine T take additional 1 tablet if blood pressure is about systolic 180 10 mg PO BID 30 days 90 tabs 3RF hypertension Refilled diltiazem HCl CD 120 mg PO .prn 14 caps 1RF afib Coding Level of Care Code Est Pt Level 4 (63667) Complex EM visit Add On G2211 Diagnoses Uncontrolled hypertension I10 PAF (paroxysmal atrial fibrillation) I48.0
--- OUTSIDE RECORDS SUMMARY | 2025-01-19 16:14 | XMS_ITS | Data Portability ---
Author Organization [place] - [facility], Allergy Address [address] [facility] [address] [place] [id number] Assessment Encounter Date Assessment Date Assessment LastModified by Organization Details LastModified Time 05/30/2024 05/30/2024 88-year-old female with bilateral SNHL with left amplification presents for evaluation of the ears. Cerumen impaction removed from left ear, which patient tolerated well. Otologic exam demonstrated EACs without erythema, discharge, or obvious dermatitis. TMs are intact with well-aerated middle ear spaces. Recommend continued amplification and following up with [facility] for hearing aid adjustment. Recommend vinegar 3-5 drops weekly as needed and Q-tip avoidance for occasional right ear pruritus. She will return in 6-months for cerumen removal, sooner with issues. [email or web address] Not available 05/30/2024 14:02:45 Plan of Treatment Reminders Order Date Submit Date Provider Last Modified By Organization Details Last Modified Time Details Appointments None record ed. Lab None record ed. Referral None record ed. Procedures None record ed. Surgeries None record ed. Imaging None record ed. Medication Orders None record ed. Patient TargetsNo targets recorded. Patient InstructionsNo instructions recorded. Reason for Referral None Reported. Problems Name Problem SNOMED Code Status Onset Date Resolution Date Notes Provider Name and Address Organization Details Recorded Time Impacted cerumen in right ear [id number] 17145 Active 2017 Impacted cerumen, right ear; Note: Date Diagnose d: 07/19/20 18 1:25 PM (H61.21) Not Available [facility] 4 02:40:49 M? ? ?ni? ? ?re's disease 89022613 Active 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, right ear; Note: Date Diagnose d: 0 5:03 PM (H81.01) Not Available [facility] 4 02:40:47 Bleeding from nose 844063495 Active 2019 Epistaxi s; Note: Date Diagnose d: 0 5:55 PM (R04.0) Not Available [facility] 4 02:40:54 Impacted cerumen in left ear [id number] 13885 Active 2017 Impacted cerumen, left ear; Note: Date Diagnose d: 03/15/2018 11:11 AM (H61.22) Not Available [facility] 4 02:40:56 Sensorin eural hearing loss of bilatera l ears 029865227 Active 2017 Sensorin eural hearing loss, bilatera l; Note: Date Diagnose d: 03/15/2018 11:39 AM (H90.3) Not Available [facility] 4 02:40:49 Migraine 92605062 Active 2019 Other migraine , not intracta ble, without status migraino zuleyma; Note: Date Diagnose d: 0 11:40 AM (G43.809 ) Not Available [facility] 4 02:40:49 Allergic disposit ion 159334686 Active 2022 Other allergy, initial encounte r; Note: Date Diagnose d: 3 12:43 PM (T78.49X A) Not Available [facility] 4 02:40:51 Vertigo of central origin 36192849 Active 2019 Vertigo of central origin; Note: Date Diagnose d: 0 12:54 PM (H81.4) Not Available [facility] 4 02:40:53 Dizzines s and giddines s 022976873 Active 2017 Dizzines s and giddines s; Note: Date Diagnose d: 03/15/2018 11:09 AM (R42) Not Available [facility] 4 02:40:53 Posterio r rhinorrh ea 17151876 Active 2020 Postnasa l drip; Note: Date Diagnose d: 04/10/2021 1:37 PM (R09.82) Not Available [facility] 4 02:40:50 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 654102318 Active 2019 Coagulat ion defects: Other hemorrha gic disorder due to intrinsi c circulat ing anticoag ulants, antibodi es, or inhibito rs; Note: Date Diagnose d: 5 8:41 AM () Not Available [facility] 4 02:40:54 Abnormal auditory percepti on 66580449 Active 2018 Other abnormal auditory percepti ons, right ear; Note: Date Diagnose d: 9 9:00 AM (H93.291 ) Not Available [facility] 4 02:40:49 Benign paroxysm al position al vertigo 374661722 Completed 201703/11/2024 Benign paroxysm al vertigo, left ear; Note: Date Diagnose d: 03/15/2018 11:14 AM (H81.12) Not [facility] 4 02:40:50 Long-ter m current use of anticoag ulant 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; Note: Date Diagnose d: 5 8:40 AM (Z79.01) Not Available [facility] 4 02:40:54 Impacted cerumen of bilatera l ears 95050557920 39321 Active 2022 Impacted cerumen, bilatera l; Note: Date Diagnose d: 12/08/2022 12:35 PM (H61.23) [facility] 4 02:40:45 Epistaxi s Active 2019 Epistaxi s; Note: Date Diagnose d: 5 8:41 AM () [facility] 4 02:40:56 Otalgia of right ear 2616954682 Active 2023 Otalgia, right ear; Note: Date Diagnose d: 4 4:38 PM (H92.01) Not Available [facility] 4 02:40:45 Seborrhe ic dermatit is 78668267 Active 2023 Seborrhe ic dermatit is, unspecif ied; Note: Date Diagnose d: 4 4:37 PM (L21.9) Not Available [facility] 4 02:40:46 Itching of skin 536995907 Active 2023 Other pruritus ; Note: Date Diagnose d: 4 4:38 PM (L29.8) Not Available [facility] 4 02:40:52 Itching of ear 329335287 Active 2023 JACINDA BERMEO PA-C [address] [place] [address],[place] [address], [place], [address] , [facility] 13:47:18 Problem Notes None recorded. Procedures Surgical History Date Name Laterality Status Provider Name and Address Organization Details Recorded Time 4 Cerumen removal without microscope left completed JACINDA BERMEO PA-C [address] [place] [address],[place] [address], [place], [address], [facility] 05/30/2024 13:46:48 Imaging Results None recorded. Procedure Notes None recorded. Medical Equipment None Reported. Allergies Allergen ID Allergen Name Allergen Category Reaction Reaction Severity Criticality Documentation Date Start Date Code Code System Note Provider Name and Address Organization Details Recorded Time 816745 latex environme nt,medica tion Not available Not available Not available 05/30/2024 35875 91 RxNorm Tamara villalobos [facility] 13:05:10 56562 hydrochlo rothiazid e medicatio n other Not available Not available 12/22/2023 5487 RxNorm React ion: unkno wn, unspe cifie d;; Not Available [facility] 4 00:59:06 01509 lorazepam medicatio n other Not available Not available 12/22/2023 6470 RxNorm React ion: unkno wn, unspe cifie d;; Not Available [facility] 4 00:59:07 30983 spironola ctone medicatio n other Not available Not available 12/22/2023 9997 RxNorm React ion: unkno wn, unspe cifie d;; Not Available [facility] 4 00:59:11 08129 lisinopri l medicatio n other Not available Not available 12/22/2023 22816 RxNorm React ion: unkno wn, unspe cifie d;; Not Available [facility] 4 00:59:12 86367 propaceta mol Not available other Not available Not available 12/22/2023 55056 UNK React ion: unkno wn, unspe cifie d;; Not Available [facility] 4 00:59:13 38089 levofloxa umair medicatio n other Not available Not available 12/22/2023 60791 RxNorm React ion: unkno wn, unspe cifie d;; Not Available [facility] 4 00:59:15 Medications Name Sig Start Date Stop Date Status Note LastModified by Organization Details LastModified Time Prescript ion - New 05/30 completed Rx^Rx_20 [id number] Not Available Not Available Not Available Prescript ion - Prior Authoriza tion Request active Script Copy/Kristin or Auth^Scr ipt Copy/Kristin or Auth_ Not Available Not Available Not Available amoxicill in 500 mg capsule TAKE 4 CAPSULES BY MOUTH 1 HOUR BEFORE DENTAL APPOINTM ENT active Not Available Not Available No t Available hydralazi ne 10 mg tablet TAKE ONE TABLET BY MOUTH ONCE A DAY NEEDED FOR SYSTOLIC BLOOD PRESSURE OVER 180 active Not Available Not Available No t Available prednison e 10 mg tablet 05/30 completed Medicati on ID: [id number] D uration Value: 14 Brand Name: predniso ne Send Method: E-Prescr ibed Sub s Allowed: subs OK Medic ationGen ericName : predniso ne Not Available Not Available Not Available doxycycli ne hyclate 100 mg capsule 02/04 completed Medicati on ID: [id number] D uration Value: 30 Reason: () Brand Name: doxycycl ine hyclate Send Method: E-Prescr ibed Sub s Allowed: subs OK Medic ationGen ericName : doxycycl ine hyclate Not Available Not Available Not Available ketoconaz ole 2 % shampoo APPLY TO DAMP HAIR LEAVE IN FOR 5 MINUTES THEN RINSE OUT. USE WHEN SHAMPOOI NG DAILY OR EVERY OTHER DAY active Not Available Not Available No t Available clorazepa te dipotassi um 3.75 mg tablet 02/04 completed Medicati on ID: [id number] D uration Value: 30 Reason: () Brand Name: clorazep ate dipotass ium Send Method: E-Prescr ibed Sub s Allowed: subs OK Medic ationGen ericName : clorazep ate dipotass ium Not Available Not Available Not Available Nystop 100,000 unit/gram topical powder APPLY TO AFFECTED AREA S) TWO TIMES A DAY active Not Available Not Available No t Available ondansetr on HCl 4 mg tablet TAKE ONE TABLET BY MOUTH EVERY 8 HOURS NEEDED FOR NAUSEA AND VOMITING active Not Available Not Available No t Available prednison e 20 mg tablet TAKE 3 TABLETS BY MOUTH ONCE A DAY X 3 DAYS, 2 TABLETS ONCE A DAY X 2 DAYS, THEN 1 TABLET ONCE A DAY FOR 2 DAYS. 05/30 completed Not Available Not Available Not Available simvastat in 10 mg tablet 2017 active Medicati on ID: [id number] D uration Value: 90 Brand Name: simvasta tin Send Method: E-Prescr ibed Sub s Allowed: subs OK Medic ationGen ericName : simvasta tin Not Available Not Available Not Available meclizine 12.5 mg tablet 1 tablet by mouth 03/14 completed Medicati on ID: [id number] D uration Value: 30 Prescri bed By Name: Saida lizama MD Brand Name: meclizin e Send Method: E-Prescr ibed Sub s Allowed: subs OK Medic ationGen ericName : meclizin e Not Available Not Available Not Available terazosin 1 mg capsule TAKE 1 CAPSULE BY MOUTH AT BEDTIME active Not Available Not Available No t Available amlodipin e 5 mg tablet TAKE 1 TABLET TWICE A DAY active Not Available Not Available No t Available triamcino lone acetonide 0.1 % topical cream 2018 active Medicati on ID: [id number] D uration Value: 10 Brand Name: triamcin olone acetonid e Send Method: E-Prescr ibed Sub s Allowed: subs OK Medic ationGen ericName : triamcin olone acetonid e Not Available Not Available Not Available spironola ctone 25 mg tablet 2018 active Medicati on ID: [id number] D uration Value: 30 Brand Name: spironol actone S end Method: E-Prescr ibed Sub s Allowed: subs OK Medic ationGen ericName : spironol actone Not Available Not Available Not Available amoxicill in 500 mg tablet TAKE 4 TABLETS BY MOUTH 1 HOUR PRIOR TO PROCEDUR E 05/30 completed Not Available Not Available Not Available nortripty line 25 mg capsule 2 capsule by mouth 05/30 completed Medicati on ID: [id number] D uration Value: 30 Prescri bed By Name: Steven James nd Name: nortript yline Se nd Method: E-Prescr ibed Sub s Allowed: subs OK Medic ationGen ericName : nortript yline Not Available Not Available Not Available prednisol one acetate 1 % eye drops,zuleyma pension INSTILL ONE DROP TO THE RIGHT EYE FOUR TIMES A DAY FOR 7 DAYS active Not Available Not Available No t Available lorazepam 0.5 mg tablet 02/04 completed Medicati on ID: [id number] D uration Value: 10 Reason: () Brand Name: lorazepa m Send Method: E-Prescr ibed Sub s Allowed: subs OK Medic ationGen ericName : lorazepa m Not Available Not Available Not Available Valium 2 mg tablet 1 tablet by mouth 2019 active Medicati on ID: [id number] D uration Value: 1 Prescri bed By Name: JOHANA Cutler nd Name: Valium S end Method: E-Prescr ibed Sub s Allowed: subs OK Medic ationGen ericName : Valium Not Available Not Available Not Available meclizine 25 mg tablet TAKE ONE TABLET BY MOUTH THREE TIMES A DAY NEEDED FOR DIZZINES S active Not Available Not Available No t Available amlodipin e 10 mg tablet 05/30 completed Medicati on ID: [id number] D uration Value: 30 Brand Name: xuan ne Send Method: E-Prescr ibed Sub s Allowed: subs OK Medic ationGen ericName : amlcarlie ne Not Available Not Available Not Available benzonata te 100 mg capsule TAKE 1 CAPSULE BY MOUTH 3 TIMES A DAY FOR 10 DAYS active Not Available Not Available No t Available nortripty line 10 mg capsule Take one tab qhs active Not Available Not Available No t Available clotrimaz ole-betam ethasone 1 %-0.05 % topical cream Apply 1 a small amount twice a day 05/30 completed Not Available Not Available Not Available metoprolo l tartrate 50 mg tablet TAKE 1 TABLET TWICE A DAY active Not Available Not Available No t Available nystatin- triamcino lone 100,000 unit/g-0. 1 % topical cream 02/04 completed Medicati on ID: [id number] D uration Value: 20 Reason: () Brand Name: nystatin -triamci nolone S end Method: E-Prescr ibed Sub s Allowed: subs OK Medic ationGen ericName : nystatin -triamci nolone Not Available Not Available Not Available betametha sone dipropion ate 0.05 % topical cream 05/30 completed Medicati on ID: [id number] D uration Value: 10 Brand Name: betameth asone dipropio adina Sen d Method: E-Prescr ibed Sub s Allowed: subs OK Medic ationGen ericName : betameth asone dipropio adina Not Available Not Available Not Available diltiazem CD 120 mg capsule,e xtended release 24 hr TAKE ONE CAPSULE BY MOUTH ONCE A DAY NEEDED FOR AFIB active Not Available Not Available No t Available hydrochlo rothiazid e 25 mg tablet 02/04 completed Medicati on ID: [id number] D uration Value: 90 Reason: () Brand Name: hydrochl orothiaz tai Send Method: E-Prescr ibed Sub s Allowed: subs OK Medic ationGen ericName : hydrochl orothiaz tai Not Available Not Available Not Available furosemid e 20 mg tablet TAKE 1 TABLET DAILY active Not Available Not Available No t Available fluocinon tai 0.05 % topical solution APPLY A THIN LAYER TO SCALP TWO TIMES A DAY NEEDED FOR ITCH active Not Available Not Available No t Available oxybutyni n chloride 5 mg tablet 2018 active Medicati on ID: [id number] D uration Value: 30 Brand Name: oxybutyn in chloride Send Method: E-Prescr ibed Sub s Allowed: subs OK Medic ationGen ericName : oxybutyn in chloride Not Available Not Available Not Available clobetaso l 0.05 % scalp solution MASSAGE IN 5 TO 10 DROPS ONTO SCALP ITCH ONE OR TWO TIMES A DAY NEEDED active Not Available Not Available No t Available imipramin e 25 mg tablet TAKE 1 TABLET AT BEDTIME *PAR/STR IDES MFR active Not Available Not Available No t Available tobramyci n 0.3 %-dexamet hasone 0.1 % eye drops,zuleyma pension 02/04 completed Medicati on ID: [id number] D uration Value: 25 Reason: () Brand Name: tobramyc in-dexam ethasone Send Method: E-Prescr ibed Sub s Allowed: subs OK Medic ationGen ericName : tobramyc in-dexam ethasone Not Available Not Available Not Available hydroxyzi ne pamoate 25 mg capsule TAKE ONE CAPSULE BY MOUTH EVERY DAY NEEDED FOR ITCHING 05/30 completed Not Available Not Available Not Available moxifloxa umair 0.5 % eye drops 02/04 completed Medicati on ID: [id number] D uration Value: 15 Reason: () Brand Name: moxiflox acin Sen d Method: E-Prescr ibed Sub s Allowed: subs OK [facility]in Not Available Not Available Not Available DILT-XR 120 mg capsule, extended release 25 capsule by mouth 05/30 completed Medicati on ID: [id number] D uration Value: 30 Brand Name: DILT-XR Send Method: E-Prescr ibed Sub s Allowed: subs OK Speci al Instruct ion: take if you experien ce severe vertigo Medicati onGeneri cName: DILT-XR Not Available Not Available Not Available levocetir izine 5 mg tablet TAKE ONE TABLET BY MOUTH EVERY DAY active Not Available Not Available No t Available Xarelto 20 mg tablet active Not Available Not Available Not Available Eliquis 5 mg tablet 02/04 completed Medicati on ID: [id number] D uration Value: 90 Reason: () Brand Name: Eliquis Send Method: E-Prescr ibed Sub s Allowed: subs OK Medic ationGen ericName : Eliquis Not Available Not Available Not Available Flonase Allergy Relief 50 mcg/actua tion nasal spray,zuleyma pension 2 puff 2020 active Medicati on ID: [id number] D uration Value: 30 Brand Name: Flonase Allergy Relief S end Method: E-Prescr ibed Sub s Allowed: subs OK Medic ationGen ericName : Flonase Allergy Relief Not Available Not Available Not Available Vitals None Recorded Social History None recorded. Functional Status None recorded. Mental Status None recorded. Family History Nothing Reported. Medical History Condition Response Hypertension Y High Cholesterol Y Gynecological HistoryNo gynecological history recorded. Obstetrics History GPAL:G 0 P 0 0 0 0 Past Encounters Encounter ID Performer Location Encounter Start Date Encounter Closed Date Diagnosis/Indication Diagnosis SNOMED-CT Code Diagnosis ICD10 Code Diagnosis Note [id number] JACINDA BERMEO PA-C [facility] [address] [address] 05/30/2024 12:59:06 05/30/2024 13:38:36 Impacted cerumen in left ear [id number] 035904 H61.22 Itching of ear 431299894 L29.89 right ear Health Concerns Section Related Observation LastModified by Organization Detai ls LastModified Time None Recorded Concern Status LastModified by Organization Details LastModified Time None Recorded Advance Directives Directive None Recorded Payers Insurance Date Sequence Insurance Name Policy Number Policy Torres Covered Member ID Torres Member ID Guarantor Name 01/17/2025 2 [employer] ([place]) [id number] Tiny Balbuena [id number] Tiny Balbuena 01/17/2025 1 MEDICARE B-HI: [facility] [employer] Tiny Balbuena [id number] Tiny Balbuena Notes Date Note Type Note Provider Name and Address Organization Details Recorded Time 05/30/2024 text/html 88-year-old fema le with bilateral SNHL presents for evaluation of the ears. She wears left amplification from [employer] that is about 4 years old. She reports she is due for a hearing aid adjustment. She endorses occasional right ear pruritus. She was prescribed Lotrisone 6 months ago for this, but only used it a couple times. Denies hearing changes, otalgia, otorrhea, or change in tinnitus. Occasional Qtip use. SAIDA EUBANKS MD [address] [place] [address], [phone], [facility] - [facility] 05/30/2024 17:00:05 OBGyn Episode No OBEpisode recorded.
== END 2025-01-19 14:49 | disposition home or self-care (01) ==
LOC: HO.HCS 13:49
PROVIDERS: PCP Family Medicine; Visit Provider Internal Medicine Cardiovascular Disease
DX: I10 Essential (primary) hypertension (principal); I48.0 Paroxysmal atrial fibrillation
CPT/HCPCS: 99214; G2211

== ENCOUNTER → 2025-01-19 13:48 | Outpatient (BNVA) | payer MEDICARE, SELFPAY | PROVIDERS: PCP Family Medicine; Visit Provider Internal Medicine Cardiovascular Disease | DX: I10 Essential (primary) hypertension (principal); I48.0 Paroxysmal atrial fibrillation | CPT/HCPCS: 99212 ==

== ENCOUNTER → 2025-02-01 13:31 | Outpatient (BNVA) | payer MEDICARE, SELFPAY | PROVIDERS: PCP Family Medicine; Visit Provider Internal Medicine Cardiovascular Disease | DX: Z13.89 Encounter for screening for other disorder (principal) ==

== ENCOUNTER 2025-04-25 14:45 | Outpatient (AMB) | payer MEDICARE, SELFPAY ==
--- NOTE | 2025-04-25 14:58 | A.OFFVIS_ITS ---
Vital Signs 04/25/25 15:01 Height 5 ft 5 in BMI Reason not done Patient refused/unable BP 120/70 Blood Pressure Location Lt brachial Position Sitting Pulse 66 Intake Visit Reasons: 3m follow up Intake Note: 3 month follow-up dx HTN Combination Machine Tender Required: No Allergies hydrochlorothiazide (HYDROCHLOROTHIAZIDE) Allergy (Mild, Verified 01/01/25 08:48) ITCHING latex (LATEX) Allergy (Mild, Verified 01/01/25 08:48) ITCHING levofloxacin (From LEVAQUIN) Allergy (Unknown, Verified 01/01/25 08:48) UNK lisinopril (LISINOPRIL) Allergy (Unknown, Verified 01/01/25 08:48) UNKNOWN lorazepam (LORAZEPAM) Allergy (Unknown, Verified 01/01/25 08:48) UNK Pork/Porcine Containing Products (Pork/Porcine Product Derivatives) Allergy (Unknown, Verified 01/01/25 08:48) UNKNOWN prednisone (PREDNISONE) Allergy (Unknown, Verified 01/01/25 08:48) UNCLEAR propafenone (PROPAFENONE) Allergy (Unknown, Verified 01/01/25 08:48) UNK spironolactone (SPIRONOLACTONE) Allergy (Unknown, Verified 01/01/25 08:48) UNKNOWN Sulfa (Sulfonamide Antibiotics) Allergy (Unknown, Verified 01/01/25 08:48) unknown cephalexin Allergy (Verified 01/01/25 08:48) Itching doxycycline Allergy (Verified 01/01/25 08:48) Itching linezolid Allergy (Verified 01/01/25 08:48) Itching codeine Allergy (Unknown, Uncoded 01/01/25 08:48) unknown Crustaceans Allergy (Unknown, Uncoded 01/01/25 08:48) UNKNOWN augmentin Adverse Reaction (Unknown, Uncoded 01/01/25 08:48) nausea & diarrhea Medication List - Last Reconciled 04/25/25 by Ministerio Monroy MD amlodipine 10 mg PO ONCE ascorbate calcium (vitamin C) 500 mg PO DAILY ciclopirox 8% topical diltiazem HCl CD 120 mg PO .prn furosemide 20 mg PO DAILY hydralazine 10 mg PO BID 30 days imipramine HCl 25 mg PO BEDTIME 90 days metoprolol tartrate 50 mg PO BID multivitamin 1 tab PO DAILY nortriptyline 10 mg PO BEDTIME rivaroxaban 20 mg PO DAILY HPI Comments Details: Tiny comes for cardiology follow-up. She is very upset about a lot of noncardiac issues. She complains of bilateral hand numbness. She just underwent a right hip surgery from which she is recuperating about 2 months ago. She is still using a walker device to help her with walking undergoing physical therapy. She has not got her stride back as yet. She said during and after surgery and for few weeks a blood pressure remained very labile and that adjusted her medications differently than she is used to taking at home which might have cost issue. Over the last 2 days her blood pressures been more controlled on current drug regimen. She has not had any episodes of atrial fibrillation. She denies any heart failure symptoms. Denies any lightheadedness, syncope. No prolonged palpitation irregular heartbeat. Denies any exertional chest pain. [facility] Medical History Uncontrolled hypertension Bleeding hemorrhoids PVD (peripheral vascular disease) Atrial fibrillation H/O urinary frequency Nocturia Urinary urgency HTN (hypertension) PAF (paroxysmal atrial fibrillation) Surgical History Hx of hysterectomy Hx of colonoscopy Hx of excision of epidermal inclusion cyst Hx of hemorrhoidectomy Family History Father CVD (cardiovascular disease) Diabetes Mother CVD (cardiovascular disease) Diabetes Brother No problems noted. Social History Household Members: None Housing: Apartment Do you presently have visiting nurse or other home services: No Alcohol intake: never Patient Tobacco Use Status: Never used Tobacco Second Hand Smoke Exposure: No Review of Systems Const Denies chills, Denies fatigue, Denies fever(s), Denies frequent falls, Denies weakness, Denies weight gain and Denies weight loss ENT Denies dizziness Card Denies chest pain, Denies leg edema, Denies lightheadedness, Denies palpitations, Denies dyspnea, Denies dyspnea on exertion, Denies orthopnea and Denies other (loss of consciousness) Resp Denies cough, Denies dyspnea and Denies dyspnea on exertion GI Denies hematochezia and Denies change in stool character Musc Denies abnormal gait, Denies muscle weakness, Denies numbness, Denies radiating pain into limb and Denies tingling Neuro Denies abnormal gait, Denies dizziness, Denies frequent falls, Denies numbness, Denies tingling and Denies weakness Endo Denies fatigue and Denies palpitations Physical Exam Vital Signs: Last Vital Signs Pulse 66 04/25/25 15:01 BP 120/70 04/25/25 15:01 Const General: cooperative, healthy appearing, comfortable and no acute distress Orientation/consciousness: patient oriented x3 HEENT Face and sinus: Yes normal facial exam Mouth: moist mucous membranes Neck Neck: Yes normal visual inspection, Yes full ROM and Yes trachea midline Chest Chest palpation & inspection: normal inspection of the chest Resp Effort & Inspection: normal respiratory effort, able to speak in complete sentences and no respiratory distress GI Inspection: Yes normal to inspection Back/Spine/Pelvis Cervical Spine: normal cervical lordosis Thoracic/Lumbar Spine: thoracic and lumbar spine normal to inspection Skin General skin exam: no rashes or lesions noted Neuro General: patient oriented x3, gait normal, tone normal and moves all extremities Extrem General: No clubbing, No cyanosis and Yes edema ( right lower extremity edema, currently in compression dressing) Assessment & Plan Assessment & Plan (1) Uncontrolled hypertension: Code(s): I10 - Essential (primary) hypertension Category: Medical Plan: Labile blood pressure which has remained now controlled on current regimen with stagger medication dosing. She is doing well with it. We discussed about management of blood pressure. Adequate hydration was discussed. Stress mitigation strategies were discussed. Avoidance of salt loading was discussed. Orthostatic precautions were discussed. Continue current therapy. Advised renal duplex to rule out any significant renal artery stenosis given her risk factors. (2) PAF (paroxysmal atrial fibrillation): Code(s): I48.0 - Paroxysmal atrial fibrillation Category: Medical Plan: Paroxysmal atrial fibrillation doing well with rhythm control approach. Continue rhythm control approach. In the past has failed multiple different antiarrhythmic drug therapy or has had side effects. At this point time using PRN Cardizem when she is in atrial fibrillation which has worked very well for her. She has not had any hospitalization related to it in the last few years. Continue full oral anticoagulation, currently on Xarelto 20 mg daily. Quarterly renal function test should be pursued. (3) Elevated brain natriuretic peptide (BNP) level: Code(s): R79.89 - Other specified abnormal findings of blood chemistry Category: Medical Plan: Elevated BNP in the past without overt heart failure syndrome. Most likely related to diastolic dysfunction. Signs and symptoms of heart failure were discussed. Continue aggressive blood pressure control. Avoidance of salt loading was discussed. Will follow up in the clinic in 6 months time, sooner PRN. Thank you for allowing me to partake in her care Orders: Orders CA echo transthoracic complete 04/25/25 Ministerio Monroy MD I48.0 - Paroxysmal atrial fibrillation US renal doppler 04/25/25 Ministerio Monroy MD I10 - Essential (primary) hypertension Medications: Changed From amlodipine 5 mg PO BID 90 tabs 3RF To amlodipine 10 mg PO ONCE Tom Johnson NP Coding Level of Care Code Est Pt Level 4 (75120) Complex EM visit Add On G2211 Diagnoses Uncontrolled hypertension I10 PAF (paroxysmal atrial fibrillation) I48.0 Elevated brain natriuretic peptide (BNP) level R79.89
[2025-04-25 15:01] VITALS: BP 120/70; PULSE 66
--- OUTSIDE RECORDS SUMMARY | 2025-04-25 18:24 | XMS_ITS | Clinical Summary ---
Author Organization [facility] Address [address] [place] [id number] Phone Care Team Providers Care Pit Shoveler Name Role Phone Phong Henry MD Primary Care Provider + Social History Tobacco Use Types Packs/Day Years Used Date Smoking Tobacco: Never Assessed Education Answer Date Recorded Are you interested in more education? Not on vimal e 12/06/2022 Are you concerned about learning? Not on file 12/06/2022 No 12/06/2022 No 12/06/2022 Digital Access Answer Date Recorded No 01/06/2023 No 01/06/2023 Reliable internet access at home? Not on file 01/06/2023 Device with a working camera? Not on file Comments Unknown Sex and Gender Information Value Date Recorded Sex Assigned at Not on file Legal Sex Female 2:19 PM EDT Gender Identity Not on file Sexual Orientation Not on file Plan of Treatment Health Maintenance Due Date Last Done Comments DEPRESSION SCREENING 1948 PNEUMOCOCCAL VACCINES (50+ years) (1 of 1 - PCV) 1986 ZOSTER VACCINES (1 of 2) 1986 OSTEOPOROSIS SCREENING INITIAL (ONE-TIME) 2001 RSV VACCINE (1 - 1-dose 75+ series) 2011 INFLUENZA VACCINE (#1) 2025 , 06/04/2019, 04/18/2018, Additional history exists COVID-19 VACCINE (2 - 2024- season) 2025 10/08/2020 Adult Td,Tdap Booster 03/03/2027 03/03/2017 HEPATITIS A VACCINES Aged Out No long er eligible based on patient's age to complete this topic HIB VACCINES Aged Out No longer eligi ble based on patient's age to complete this topic MENINGOCOCCAL VACCINES (ACWY) Aged Out No longer eligible based on patient's age to complete this topic MENINGOCOCCAL VACCINES (B) Aged Out N o longer eligible based on patient's age to complete this topic Medical Devices Not on file Insurance MEDICARE PART A & B Member Subscriber Plan / Payer (Ef fective 2001-Present) Name:Tiny Balbuena Member ID:[id number] Relation to Subscriber:Self Name:Tiny Balbuena Subscriber ID:[id number] Payer ID:[id number] Group ID:Not on file Type:Medicare Address: [facility] [employer] [facility]. [address] [place] [id number] [facility] MEDEX SUPPLEMENT MEDICARE PART A & B Click Quote Save MEDEX SUPPLEMENT MEDICARE PART A & B Click Quote Save MEDEX SUPPLEMENT MEDICARE PART A & B Click Quote Save MEDEX SUPPLEMENT MEDICARE PART A & B Click Quote Save MEDEX SUPPLEMENT MEDICARE PART A & B Click Quote Save MEDEX SUPPLEMENT MEDICARE PART A & B Click Quote Save MEDEX SUPPLEMENT MEDICARE PART A & B Click Quote Save MEDEX SUPPLEMENT MEDICARE PART A & B Click Quote Save MEDEX SUPPLEMENT Care Teams Pit Shoveler Relationship Specialty Start Date End Date Phong Henry MD [address] [place] [phone] PCP - General Family Medicine 03/27/21 Additional Source Comments The information contained in this document represents components of the legal health record. It is not the complete legal health record.[facility]
--- OUTSIDE RECORDS SUMMARY | 2025-04-25 18:24 | XMS_ITS | Patient Health Record ---
Author Organization [facility] Address [address] [place] [address] Care Team Providers Care Balance Wheel Facer Name Role Phone Phong Henry Primary Care Provider Jori Cummings Unavailable [phone] Allergies Allergen (clinical drug ingredient) Drug/Non Drug Allergy documented on EMR Reaction Allergy Type Onset Date Status doxycycline Doxycycline Unknown Drug Allergy Act chuy linezolid Linezolid Unknown Drug Allergy Active cephalexin Cephalexin Unknown Drug Allergy Activ e Reason For Referral No Information Medications Medication [...] 1 tablet Orally Once a day Not-Taking Immunizations Vaccine Route Administration Date Status Comme nts Influenza Unknown 04/10/2015 Administered Problems Problem Type SNOMED Code ICD Code Onset Dates Problem Status W/U Status Risk Notes Problem 19083262 Rectal bleeding (K62.5) Active confirmed Problem 161467306 Irritable bowel syndrome with diarrhea (K58.0) Active confirmed Problem 42939736 Irritable bowel syndrome without diarrhea (K58.9) Active confirmed Problem 732476402 Generalized abdominal pain (R10.84) Active confirmed Problem 206684388 Gas (R14.3) Active confirmed Problem 030149941 Abdominal pain, left lower quadrant (R10.32) Active confirmed Plan Of Treatment Pending Test Test Name Order Date CBC w DIFF 07/10/2014 CT ABD & PELVIS WITH CONTRAST 04/26/2013 Future Test Test Name Order Date COLONOSCOPY 08/22/2014 Insurance Providers Payer Name Payer Address Payer Phone Subscriber Number Group Number Insured Name Patient Relationship to Insured Coverage Start Date Coverage End Date MEDICARE OF [place] [address] [place] [address] [phone] [id number] YONY HOLDER Self - patient is the insured [employer] ATT[employer] CLAIMS [address] [place] [address] [phone] [id number] GALLOYONY ANDERSON Self - patient is the insured Medical (General) History Medical History History ICD Code GERD-upper endoscopy in 2010 was negative for any significant esophagitis nor Serrano's esophagus Colon polyps--Colonoscopy in 2010-- a small tubular adenoma was removed --she has had numerous previous colonoscopies by myself, Dr. Durán, Dr. Locke, and by physicians down at [place], some of which have been normal and others of which have had polyps removed--she describes the surgical removal of a colon polyp at approximately age 31, but does not know what type of polyp that was. Atrial fibrillation Diverticulitis-s/p surgery w ith Dr. Shine in 1996 with a sigmoid resection as below Denies CT,DM,CVA,Lung disease,renal dise ase HTN Temporal arterititis Colonoscopy 12/2014--negative except for minimal internal hemorrhoids and minimal diverticulosis Negative labs for celiac disease in 2016 Needed transfusions after the below vasc ular surgery in 01/2022 Surgical History Surgery Date(Month/Year) Surgery with Dr Shine in 199 7 for diverticulitis with a sigmoid resection. LEX Surgical resection of a colo n polyp in 1968 at [facility] Appy Left hip replacement 2020 Cataract Laser eye surgery Vascular bypass right leg kumar lena Marshall 12/2021 with transfusions needed in 01/2022
--- OUTSIDE RECORDS SUMMARY | 2025-04-25 18:24 | XMS_ITS | Patient Health Record ---
Author [facility] Address [address] [place] [address] Care Team Providers Care Universal Branch Consultant Name Role Phone Phong Henry MD Primary Care Provider Ivon Mora Unavailable [phone] Allergies Allergen (clinical drug ingredient) Drug/Non Drug [...] day Active Spironolactone 25 MG 1 tablet Orally; Duration: 30 day(s) Active iron Active Doxycycline Hyclate 100 MG 1 capsule Ora lly Twice a day; Duration: 5 days 08/06/2021 Not-Taking Meclizine HCl 25 MG 1 tablet as needed Orally Once a day; Duration: 30 day(s) Active Doxycycline Hyclate 100 MG 1 capsule Ora lly Once a day; Duration: 10 day(s) Not-Taking Metoprolol Tartrate 50 MG 1 tablet with food Orally Twice a day Active Amoxicillin Not-Taki ng Multivitamin Women A ctive Furosemide Active prednisoLONE Acetate 1 % 1 drop into aff ected eye Ophthalmic Twice a day Not-Taking Gabapentin Active Rosuvastatin Calcium 10 MG 1 tablet Oral ly Once a day; Duration: 30 day(s) Not-Taking hydrALAZINE HCl 10 MG 1 tablet with food Orally Four times a day; Duration: 30 day(s) PRN Active Cephalexin 250 MG 1 capsule Orally lynne ry 6 hrs; Duration: 5 day(s) Not-Taking Imipramine HCl Activ e Cephalexin 500 MG 1 capsule Orally lynne ry 12 hrs; Duration: 5 day(s) Not-Taking Nitrofurantoin Not-T aking oxyBUTYnin Chloride 5 MG 1 tablet Orally Twice a day; Duration: 30 day(s) Not-Taking Mupirocin 2 % 1 application Externally Twice a day; Duration: 14 days 08/06/2021 Not-Takin g Clorazepate Dipotassium 3.75 MG 1 tablet Orally Twice a day Not-Taking Clopidogrel Bisulfate 75 MG 1 tablet Orally Once a day; Duration: 30 day(s) Not-Taking Fluticasone Propionate 50 MCG/ACT 1 spray in each nostril Nasally Once a day; Duration: 30 day(s) Not-Taking Meclizine HCl 12.5 MG 2 tablets as neede d Orally Once a day; Duration: 30 day(s) Not-Taking Zinc + Vitamin C Act chuy Cartia XT 120 MG 1 capsule Orally Onc e a day; Duration: 30 day(s) Not-Taking Nystatin-Triamcinolone 175403-1.1 UNIT/GM 1 application Externally Twice a day Not-Takin g Ciclopirox 8 % 1 application Externally Once a day Not-Taking amLODIPine Besylate 5 MG 1 tablet Orally Twice a day Active Calcium 600 + D Acti ve dilTIAZem HCl PRN Active Xarelto 20 MG 1 tablet with food Orally Once a day Active Immunizations Vaccine Route Administration Date Status Comme nts Influenza Unknown 05/27/2021 Administered COVID-19 Pfizer BioNTech Vaccine Unknown 07/05/2021 Administered 1st Dose: 09/17/2020 2nd Dose: 10/08/2020 Social History Tobacco Use: Social History Observation [...] Risk Notes Problem Mononeuropathy of lower limb (417735978) 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) Active confirmed Problem Localized, primary osteoarthritis of the ankle and/or foot (754289682) 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 Problem Bilateral atherosclerosis of arteries of lower limbs (disorder) (48245291395530505 ) Atherosclerosis of artery of both lower extremities (I70.203) Active confirmed Plan Of Treatment Pending Test Test Name Order Date X ray : Foot, right 3V 07/24/2021 X ray : Foot, right 3V 05/16/2022 Insurance Providers Payer Name Payer Address Payer Phone Subscriber Number Group Number Insured Name Patient Relationship to Insured Coverage Start Date Coverage End Date Medicare National Govt allyve [employer] [address] [place] [address] [id number] Tiny Balbuena Self - patient is the insured [employer] [address] [place] [address] [id number] Tiny Balbuena Self - patient is the insured Medical [...]
--- OUTSIDE RECORDS SUMMARY | 2025-04-25 18:24 | XMS_ITS | Encounter Summary ---
Author Organization [facility] Address [address] [place] [address] Care Team Providers Care Content Manager Name Role Phone Physician, No Pcp Primary Care Provider Unavaila ble Encounter Details Date Type Department Care Team (Late st Contact Info) Description 03/30/2025 Lab Requisition [facility] Lab [address] [facility] [place] [address] Tacos Sanders PA [address] [facility] [address] [place] [address] Encounter for other general examination Social History Tobacco Use Types Packs/Day Years Used Date Smoking Tobacco: Never Assessed Comments Unknown Sex and Gender Information Value Date Recorded Sex Assigned at Not on file Legal Sex Female 6:10 AM EST Gender Identity Not on file Sexual Orientation Not on file documented as of this encounter Plan of Treatment Not on file documented as of this encounter Procedures Procedure Name Priority Date/Time Associated Diagnosis Comments CBC WITH AUTO DIFFERENTIAL Routine 03/30/2025 6:16 AM EDT Encounter for other general examination CBC AND DIFFERENTIAL Routine 03/30/2025 6:16 AM EDT Encounter for other general examination MAGNESIUM Routine 03/30/2025 6:16 AM EDT Encounter for other general examination COMPREHENSIVE METABOLIC PANEL Routine 03/30/2025 6:16 AM EDT Encounter for other general examination documented in this encounter Results * (ABNORMAL) CBC auto differential (03/30/2025 6:16 AM EDT) WBC 7.8 4.8 - 10.8 K/[facility] LAB HEMETOLOGY METHOD 03/30/2025 10:46 AM [facility] LAB RBC 2.70(L) 3.80 - 4.80 M/mcL LAB HEMETOLOGY METHOD 03/30/2025 10:46 AM [facility] LAB Hemoglobin 8.5(L) 11.5 - 16.0 g/dL LAB HEMETOLOGY METHOD 03/30/2025 10:46 AM [facility] LAB Hematocrit 26.4(L) 35.0 - 47.0 % LAB HEMETOLOGY METHOD 03/30/2025 10:46 AM [facility] LAB MCV 96.4 79.0 - 98.0 FL LAB HEMETOLOGY METHOD 03/30/2025 10:46 AM [facility] LAB MCH 31.0 27.0 - 32.0 pcg LAB HEMETOLOGY METHOD 03/30/2025 10:46 AM [facility] LAB MCHC 32.2 32.0 - 37.0 g/dL LAB HEMETOLOGY METHOD 03/30/2025 10:46 AM [facility] LAB RDW 13.0 11.0 - 15.0 % LAB HEMETOLOGY METHOD 03/30/2025 10:46 AM [facility] LAB Platelets 179 130 - 400 K/mcL LAB HEMETOLOGY METHOD 03/30/2025 10:46 AM [facility] LAB MPV 11.3(H) 7.0 - 11.0 FL LAB HEMETOLOGY METHOD 03/30/2025 10:46 AM [facility] LAB NRBC 0.0 <1.0 % LAB HEMETOLOGY METHOD 03/30/2025 10:46 AM [facility] LAB NRBC Absolute 0.00 <0.10 K/mcL LAB HEMETOLOGY METHOD 03/30/2025 10:46 AM [facility] LAB Neutrophils Relative 66.0 % LAB HEMETOLOGY METHOD 03/30/2025 10:46 AM [facility] LAB Lymphocytes Relative 18.4 % LAB HEMETOLOGY METHOD 03/30/2025 10:46 AM [facility] LAB Monocytes Relative 13.2 % LAB HEMETOLOGY METHOD 03/30/2025 10:46 AM [facility] LAB Eosinophils Relative 1.7 % LAB HEMETOLOGY METHOD 03/30/2025 10:46 AM [facility] LAB Basophils Relative 0.3 % LAB HEMETOLOGY METHOD 03/30/2025 10:46 AM [facility] LAB Immature Granulocytes Relative 0.4 % LAB HEMETOLOGY METHOD 03/30/2025 10:46 AM [facility] LAB Neutrophils Absolute 5.18 1.50 - 7.00 K/mcL LAB HEMETOLOGY METHOD 03/30/2025 10:46 AM [facility] LAB Lymphocytes Absolute 1.44 1.00 - 5.00 K/mcL LAB HEMETOLOGY METHOD 03/30/2025 10:46 AM [facility] LAB Monocytes Absolute 1.03(H) 0.20 - 1.00 K/mcL LAB HEMETOLOGY METHOD 03/30/2025 10:46 AM [facility] LAB Eosinophils Absolute 0.13 0.00 - 0.50 K/mcL LAB HEMETOLOGY METHOD 03/30/2025 10:46 AM [facility] LAB Basophils Absolute 0.02 0.00 - 0.20 K/mcL LAB HEMETOLOGY METHOD 03/30/2025 10:46 AM [facility] LAB Immature Granulocytes Absolute 0.03 0.00 - 0.03 K/mcL LAB HEMETOLOGY METHOD 03/30/2025 10:46 AM [facility] LAB Blood Venous blood specimen / Unknown Venipuncture / Unknown 03/30/2025 6:16 AM EDT 03/30/2025 9:09 AM EDT Tacos COSTA LAB BLOOD ORDERABLES Final R esult [facility] LAB [address] [place] [address], [place] [phone] * Magnesium (03/30/2025 6:16 AM EDT) [facility] Magnesium 2.1 1.9 - 2.6 mg/dL LAB CHEMISTRY METHOD 03/30/2025 11:28 AM EDT [facility] LAB Blood Venous blood specimen / Unknown Venipuncture / Unknown 03/30/2025 6:16 AM EDT 03/30/2025 9:09 AM EDT Tacos COSTA LAB BLOOD ORDERABLES Final R esult [facility] LAB [address] [place] [address], [place] [phone] * (ABNORMAL) Comprehensive metabolic panel (03/30/2025 6:16 AM EDT) [facility] Sodium 137 133 - 145 mmol/L LAB CHEMISTRY METHOD 03/30/2025 11:39 AM EDT [facility] LAB Potassium 4.0 3.5 - 5.5 mmol/L LAB CHEMISTRY METHOD 03/30/2025 11:39 AM EDT [facility] LAB Chloride 104 96 - 110 mmol/L LAB CHEMISTRY METHOD 03/30/2025 11:39 AM EDT [facility] LAB CO2 27 21 - 32 mmol/L LAB CHEMISTRY METHOD 03/30/2025 11:39 AM EDT [facility] LAB Anion Gap 6 3 - 11 LAB CHEMISTRY METHOD 03/30/2025 11:39 AM EDT [facility] LAB Glucose 98 70 - 100 mg/dL LAB CHEMISTRY METHOD 03/30/2025 11:39 AM EDT [facility] LAB BUN 17 5 - 25 mg/dL LAB CHEMISTRY METHOD 03/30/2025 11:39 AM [facility] LAB Creatinine 0.96 0.50 - 1.10 mg/dL LAB CHEMISTRY METHOD 03/30/2025 11:39 AM [facility] LAB eGFR 57(L) >=60 mL/min/1. 73m2 LAB CHEMISTRY METHOD 03/30/2025 11:39 AM [facility] LAB Comment:Calculation based on the Chronic Kidney Disease Epidemiology Collaboration (CKD-EPI) equation refit without adjustment for race. BUN/Creatinine Ratio 17.7 LAB CHEMISTRY METHOD 03/30/2025 11:39 AM [facility] LAB Calcium 8.0(L) 8.5 - 10.5 mg/dL LAB CHEMISTRY METHOD 03/30/2025 11:39 AM [facility] LAB AST (SGOT) 31 10 - 42 unit/L LAB CHEMISTRY METHOD 03/30/2025 11:39 AM [facility] LAB ALT (SGPT) 11 10 - 60 unit/L LAB CHEMISTRY METHOD 03/30/2025 11:39 AM [facility] LAB Alkaline Phosphatase 72 42 - 121 unit/L LAB CHEMISTRY METHOD 03/30/2025 11:39 AM [facility] LAB Total Protein 5.4(L) 6.0 - 8.0 g/dL LAB CHEMISTRY METHOD 03/30/2025 11:39 AM [facility] LAB Albumin 2.5(L) 3.2 - 5.0 g/dL LAB CHEMISTRY METHOD 03/30/2025 11:39 AM [facility] LAB Total Bilirubin 0.3 0.0 - 1.4 mg/dL LAB CHEMISTRY METHOD 03/30/2025 11:39 AM [facility] LAB Blood Venous blood specimen / Unknown Venipuncture / Unknown 03/30/2025 6:16 AM EDT 03/30/2025 9:09 AM EDT us Tacos COSTA LAB BLOOD ORDERABLES Final R esult [facility] LAB [address] [place] [address], documented in this encounter Visit Diagnoses Diagnosis Encounter for other general examination documented in this encounter Care Teams Content Manager Relationship Specialty Start Date End Date Physician, No Pcp PCP - General 03/30/25 documented as of this encounter
--- OUTSIDE RECORDS SUMMARY | 2025-04-25 18:24 | XMS_ITS | Encounter Summary ---
Author Organization [facility] Address [address] [place] [address] Care Team Providers Care Dealership General Manager Name Role Phone Physician, No Pcp Primary Care Provider Unavaila ble Encounter Details Date Type Department Care Team (Late st Contact Info) Description 04/04/2025 Lab Requisition [facility] - Main Lab [address] [facility] [place] [place] [address] Gabrielle Edmondson PA [address] [place] [address] Encounter for other general examination Social History [...] Procedure Name Priority Date/Time Associated Diagnosis Comments COMPLETE BLOOD COUNT Routine 04/04/2025 5:45 AM EDT Encounter for other general examination COMPREHENSIVE METABOLIC PANEL Routine 04/04/2025 5:45 AM EDT Encounter for other general examination documented in this encounter Results * (ABNORMAL) Comprehensive metabolic panel (04/04/2025 5:45 AM EDT) Sodium 135 133 - 145 mmol/L LAB CHEMISTRY METHOD 04/04/2025 1:19 PM EDT [facility] LAB Potassium 4.1 3.5 - 5.5 mmol/L LAB CHEMISTRY METHOD 04/04/2025 1:19 PM EDT [facility] LAB Chloride 102 96 - 110 mmol/L LAB CHEMISTRY METHOD 04/04/2025 1:19 PM EDT [facility] LAB CO2 30 21 - 32 mmol/L LAB CHEMISTRY METHOD 04/04/2025 1:19 PM [facility] LAB Anion Gap 3 3 - 11 LAB CHEMISTRY METHOD 04/04/2025 1:19 PM [facility] LAB Glucose 88 70 - 100 mg/dL LAB CHEMISTRY METHOD 04/04/2025 1:19 PM [facility] LAB BUN 23 5 - 25 mg/dL LAB CHEMISTRY METHOD 04/04/2025 1:19 PM [facility] LAB Creatinine 0.77 0.50 - 1.10 mg/dL LAB CHEMISTRY METHOD 04/04/2025 1:19 PM [facility] LAB eGFR 74 >=60 mL/min/1. 73m2 LAB CHEMISTRY METHOD 04/04/2025 1:19 PM [facility] LAB Comment:Calculation based on the Chronic Kidney Disease Epidemiology Collaboration (CKD-EPI) equation refit without adjustment for race. BUN/Creatinine Ratio 29.9 LAB CHEMISTRY METHOD 04/04/2025 1:19 PM [facility] LAB Calcium 8.6 8.5 - 10.5 mg/dL LAB CHEMISTRY METHOD 04/04/2025 1:19 PM [facility] LAB AST (SGOT) 32 10 - 42 unit/L LAB CHEMISTRY METHOD 04/04/2025 1:19 PM [facility] LAB ALT (SGPT) 23 10 - 60 unit/L LAB CHEMISTRY METHOD 04/04/2025 1:19 PM [facility] LAB Alkaline Phosphatase 81 42 - 121 unit/L LAB CHEMISTRY METHOD 04/04/2025 1:19 PM [facility] LAB Total Protein 6.0 6.0 - 8.0 g/dL LAB CHEMISTRY METHOD 04/04/2025 1:19 PM [facility] LAB Albumin 2.5(L) 3.2 - 5.0 g/dL LAB CHEMISTRY METHOD 04/04/2025 1:19 PM [facility] LAB Total Bilirubin 0.3 0.0 - 1.4 mg/dL LAB CHEMISTRY METHOD 04/04/2025 1:19 PM EDT [facility] Blood Venous blood specimen / Unknown Venipuncture / Unknown 04/04/2025 5:45 AM EDT 04/04/2025 9:55 AM EDT us Gabrielle COSTA LAB BLOOD ORDERABLES Final Re sult [facility] [address] [place] [address], [place] [phone] * (ABNORMAL) Complete blood count (04/04/2025 5:45 AM EDT) WBC 5.4 4.8 - 10.8 K/mcL LAB HEMETOLOGY METHOD 04/04/2025 11:25 AM EDT [facility] LAB RBC 3.00(L) 3.80 - 4.80 M/mcL LAB HEMETOLOGY METHOD 04/04/2025 11:25 AM [facility] LAB Hemoglobin 9.0(L) 11.5 - 16.0 g/dL LAB HEMETOLOGY METHOD 04/04/2025 11:25 AM [facility] LAB Hematocrit 28.6(L) 35.0 - 47.0 % LAB HEMETOLOGY METHOD 04/04/2025 11:25 AM [facility] LAB MCV 96.9 79.0 - 98.0 FL LAB HEMETOLOGY METHOD 04/04/2025 11:25 AM [facility] LAB MCH 30.5 27.0 - 32.0 pcg LAB HEMETOLOGY METHOD 04/04/2025 11:25 AM [facility] LAB MCHC 31.5(L) 32.0 - 37.0 g/dL LAB HEMETOLOGY METHOD 04/04[facility]2025 [facility] RDW 12.3 11.0 - 15.0 % LAB HEMETOLOGY METHOD 04/04/2025 11:25 AM EDT [facility] LAB Platelets 255 130 - 400 K/mcL LAB HEMETOLOGY METHOD 04/04/2025 11:25 AM EDT [facility] LAB MPV 10.8 7.0 - 11.0 FL LAB HEMETOLOGY METHOD 04/04/2025 11:25 AM EDT [facility] LAB NRBC 0.0 <1.0 % LAB HEMETOLOGY METHOD 04/04/2025 11:25 AM EDT [facility] LAB NRBC Absolute 0.00 <0.10 K/mcL LAB HEMETOLOGY METHOD 04/04/2025 11:25 AM EDT [facility] LAB Blood Venous blood specimen / Unknown Venipuncture / Unknown 04/04/2025 5:45 AM EDT 04/04/2025 9:55 AM EDT us Gabrielle COSTA LAB BLOOD ORDERABLES Final Re sult [facility] [address] [place] [address], documented in this encounter Visit Diagnoses Diagnosis Encounter for other general examination documented in this encounter Care Teams Dealership General Manager Relationship Specialty Start Date End Date Physician, No Pcp PCP - General 03/30/25 documented as of this encounter
--- OUTSIDE RECORDS SUMMARY | 2025-04-25 18:24 | XMS_ITS | Clinical Summary ---
Author Organization [address] [facility] Address [address] [place] [address] Phone Care Team Providers Care Matrix Plater Name Role Phone Physician, No Pcp Primary Care Provider Unavaila ble Encounters Date Type Department Care Team Description 04/04/2025 Lab Requisition [facility] Lab [address] [place] [address] Gabrielle Edmondson PA Encounter for other general examination 03/30/2025 Lab Requisition [facility] Lab [address] [place] [address] Tacos Sanders PA Encounter for other general examination from Last 3 Months Social History Tobacco Use Types Packs/Day Years Used Date Smoking Tobacco: Never Assessed Comments Unknown Sex and Gender Information Value Date Recorded Sex Assigned at Not on file Legal Sex Female 6:10 AM EST Gender Identity Not on file Sexual Orientation Not on file Plan of Treatment Health Maintenance Due Date Last Done Comments Hepatitis B Vaccines (2 of 3 - 19+ 3-dose series) 03/26/2016 02/27/2016 Zoster Vaccines (2 of 2) 11/16/2017 09/21/2017 Depression Screening 08/10/2024 Cholesterol Screening (Lipid Panel) 03/30/2025 Falls Risk Assessment 03/30/2025 Medicare Annual Wellness Visit 03/30/2025 Osteoporosis Screening (Bone Density Screening) 03/30/2025 Social Influencers of Health Screening 03/30/2025 COVID-19 Vaccine ( season) 2025 04/20/2024, 08/14/2023, 12/11/2021, Additional history exists Influenza Vaccine (#1) 2025 , 05/11/2023, 05/02/2022, Additional history exists Hypertension/CHF/CAD Annual BMP Blood Test 04/04/2026 04/04/2025, 03/30/2025 DTaP,Tdap,and Td Vaccines (4 - Td or Tdap) 03/03/2027 03/03/2017, 11/18/2016, 10/03/2014 Pneumococcal Vaccine: 50+ Years Completed 06/14/2015, 12/01/2014 Meningococcal ACWY Vaccine Aged Out 11/08/2015 N o longer eligible based on patient's age to complete this topic Hepatitis A Vaccines Aged Out 02/27/2016 No long er eligible based on patient's age to complete this topic RSV Immunization Adult Patients Completed 08/21/2023 HIB Vaccines Aged Out No longer eligi ble based on patient's age to complete this topic HPV Vaccines Aged Out No longer eligi ble based on patient's age to complete this topic IPV Vaccines Aged Out No longer eligi ble based on patient's age to complete this topic MMR Vaccines Aged Out No longer eligi ble based on patient's age to complete this topic Meningococcal B Vaccine Aged Out No l onger eligible based on patient's age to complete this topic RSV Immunization Patients Under 20 months Aged Out No longer eligible based on patient's age to complete this topic Varicella Vaccines Aged Out No longer eligible based on patient's age to complete this topic Procedures Procedure Name Priority Date/Time Associated Diagnosis Comments COMPREHENSIVE METABOLIC PANEL Routine 04/04/2025 5:45 AM EDT Encounter for other general examination COMPLETE BLOOD COUNT Routine 04/04/2025 5:45 AM EDT Encounter for other general examination CBC WITH AUTO DIFFERENTIAL Routine 03/30/2025 6:16 AM EDT Encounter for other general examination MAGNESIUM Routine 03/30/2025 6:16 AM EDT Encounter for other general examination COMPREHENSIVE METABOLIC PANEL Routine 03/30/2025 6:16 AM EDT Encounter for other general examination CBC AND DIFFERENTIAL Routine 03/30/2025 6:16 AM EDT Encounter for other general examination from Last 3 Months Results * (ABNORMAL) Complete blood count (04/04/2025 5:45 AM EDT) [facility] WBC 5.4 4.8 - 10.8 K/mcL LAB HEMETOLOGY METHOD 04/04/2025 11:25 AM [facility] LAB RBC 3.00(L) 3.80 - 4.80 M/mcL LAB HEMETOLOGY METHOD 04/04/2025 11:25 AM [facility] LAB Hemoglobin 9.0(L) 11.5 - 16.0 g/dL LAB HEMETOLOGY METHOD 04/04/2025 11:25 AM [facility] LAB Hematocrit 28.6(L) 35.0 - 47.0 % LAB HEMETOLOGY METHOD 04/04/2025 11:25 AM [facility] LAB MCV 96.9 79.0 - 98.0 FL LAB HEMETOLOGY METHOD 04/04/2025 11:25 AM [facility] LAB MCH 30.5 27.0 - 32.0 pcg LAB HEMETOLOGY METHOD 04/04/2025 11:25 AM [facility] LAB MCHC 31.5(L) 32.0 - 37.0 g/dL LAB HEMETOLOGY METHOD 04/04/2025 11:25 AM [facility] LAB RDW 12.3 11.0 - 15.0 % LAB HEMETOLOGY METHOD 04/04/2025 11:25 AM [facility] LAB Platelets 255 130 - 400 K/mcL LAB HEMETOLOGY METHOD 04/04/2025 11:25 AM [facility] LAB MPV 10.8 7.0 - 11.0 FL LAB HEMETOLOGY METHOD 04/04/2025 11:25 AM [facility] LAB NRBC 0.0 <1.0 % LAB HEMETOLOGY METHOD 04/04/2025 11:25 AM [facility] LAB NRBC Absolute 0.00 <0.10 K/mcL LAB HEMETOLOGY METHOD 04/04/2025 11:25 AM EDT [facility] LAB Blood Venous blood specimen / Unknown Venipuncture / Unknown 04/04/2025 5:45 AM EDT 04/04/2025 9:55 AM EDT us Gabrielle COSTA LAB BLOOD ORDERABLES Final Re sult [facility] [address] [place] [address], [place] [phone] * (ABNORMAL) Comprehensive metabolic panel (04/04/2025 5:45 AM EDT) Only the most recent of2 resultswithin the time period is included. Sodium 135 133 - 145 mmol/L LAB CHEMISTRY METHOD 04/04/2025 1:19 PM [facility] LAB Potassium 4.1 3.5 - 5.5 mmol/L LAB CHEMISTRY METHOD 04/04/2025 1:19 PM [facility] LAB Chloride 102 96 - 110 mmol/L LAB CHEMISTRY METHOD 04/04/2025 1:19 PM [facility] LAB CO2 30 21 - 32 mmol/L LAB CHEMISTRY METHOD 04/04/2025 1:19 PM [facility] LAB Anion Gap 3 3 - 11 LAB CHEMISTRY METHOD 04/04/2025 1:19 PM [facility] LAB Glucose 88 70 - 100 mg/dL LAB CHEMISTRY METHOD 04/04/2025 1:19 PM [facility] BUN 23 5 - 25 mg/dL LAB CHEMISTRY METHOD 04/04/2025 1:19 PM [facility] LAB Creatinine 0.77 0.50 - 1.10 mg/dL LAB CHEMISTRY METHOD 04/04/2025 1:19 PM [facility] LAB eGFR 74 >=60 mL/min/1. 73m2 LAB CHEMISTRY METHOD 04/04/2025 1:19 PM T [facility] LAB Comment:Calculation based on the Chronic Kidney Disease Epidemiology Collaboration (CKD-EPI) equation refit without adjustment for race. BUN/Creatinine Ratio 29.9 LAB CHEMISTRY METHOD 04/04/2025 1:19 PM [facility] Calcium 8.6 8.5 - 10.5 mg/dL LAB CHEMISTRY METHOD 04/04/2025 1:19 PM [facility] LAB AST (SGOT) 32 10 - 42 unit/L LAB CHEMISTRY METHOD 04/04/2025 1:19 PM [facility] LAB ALT (SGPT) 23 10 - 60 unit/L LAB CHEMISTRY METHOD 04/04/2025 1:19 PM [facility] LAB Alkaline Phosphatase 81 42 - 121 unit/L LAB CHEMISTRY METHOD 04/04/2025 1:19 PM [facility] Total Protein 6.0 6.0 - 8.0 g/dL LAB CHEMISTRY METHOD 04/04/2025 1:19 PM [facility] Albumin 2.5(L) 3.2 - 5.0 g/dL LAB CHEMISTRY METHOD 04/04/2025 1:19 PM [facility] LAB Total Bilirubin 0.3 0.0 - 1.4 mg/dL LAB CHEMISTRY METHOD 04/04/2025 1:19 PM [facility] LAB Blood Venous blood specimen / Unknown Venipuncture / Unknown 04/04/2025 5:45 AM EDT 04/04/2025 9:55 AM EDT us Gabrielle COSTA LAB BLOOD ORDERABLES Final Re sult [facility] [address] [place] [address], * (ABNORMAL) CBC auto differential (03/30/2025 6:16 AM EDT) WBC 7.8 4.8 - 10.8 K/[facility] LAB HEMETOLOGY METHOD 03/30/2025 10:46 AM [facility] LAB RBC 2.70(L) 3.80 - 4.80 M/[facility] LAB HEMETOLOGY METHOD 03/30/2025 10:46 AM [facility] LAB Hemoglobin 8.5(L) 11.5 - 16.0 g/dL LAB HEMETOLOGY METHOD 03/30/2025 10:46 AM [facility] LAB Hematocrit 26.4(L) 35.0 - 47.0 % LAB HEMETOLOGY METHOD 03/30/2025 10:46 AM [facility] LAB MCV 96.4 79.0 - 98.0 FL LAB HEMETOLOGY METHOD 03/30/2025 10:46 AM [facility] LAB MCH 31.0 27.0 - 32.0 pcg LAB HEMETOLOGY METHOD 03/30/2025 10:46 AM [facility] LAB MCHC 32.2 32.0 - 37.0 g/dL LAB HEMETOLOGY METHOD 03/30/2025 10:46 AM [facility] LAB RDW 13.0 11.0 - 15.0 % LAB HEMETOLOGY METHOD 03/30/2025 10:46 AM [facility] LAB Platelets 179 130 - 400 K/[facility] LAB HEMETOLOGY METHOD 03/30/2025 10:46 AM [facility] LAB MPV 11.3(H) 7.0 - 11.0 FL LAB HEMETOLOGY METHOD 03/30/2025 10:46 AM [facility] LAB NRBC 0.0 <1.0 % LAB HEMETOLOGY METHOD 03/30/2025 10:46 AM [facility] LAB NRBC Absolute 0.00 <0.10 K/[facility] LAB HEMETOLOGY METHOD 03/30/2025 10:46 AM [facility] LAB Neutrophils Relative 66.0 % LAB HEMETOLOGY METHOD 03/30/2025 10:46 AM [facility] LAB Lymphocytes Relative 18.4 % LAB HEMETOLOGY METHOD 03/30/2025 10:46 AM [facility] Monocytes Relative 13.2 % LAB HEMETOLOGY METHOD 03/30/2025 10:46 AM [facility] Eosinophils Relative 1.7 % LAB HEMETOLOGY METHOD 03/30/2025 10:46 AM [facility] Basophils Relative 0.3 % LAB HEMETOLOGY METHOD 03/30/2025 10:46 AM [facility] Immature Granulocytes Relative 0.4 % LAB HEMETOLOGY METHOD 03/30/2025 10:46 AM [facility] LAB Neutrophils Absolute 5.18 1.50 - 7.00 K/mcL LAB HEMETOLOGY METHOD 03/30/2025 10:46 AM [facility] LAB Lymphocytes Absolute 1.44 1.00 - 5.00 K/mcL LAB HEMETOLOGY METHOD 03/30/2025 10:46 AM [facility] LAB Monocytes Absolute 1.03(H) 0.20 - 1.00 K/mcL LAB HEMETOLOGY METHOD 03/30/2025 10:46 AM [facility] LAB Eosinophils Absolute 0.13 0.00 - 0.50 K/mcL LAB HEMETOLOGY METHOD 03/30/2025 10:46 AM [facility] LAB Basophils Absolute 0.02 0.00 - 0.20 K/mcL LAB HEMETOLOGY METHOD 03/30/2025 10:46 AM [facility] LAB Immature Granulocytes Absolute 0.03 0.00 - 0.03 K/mcL LAB HEMETOLOGY METHOD 03/30/2025 10:46 AM [facility] LAB Blood Venous blood specimen / Unknown Venipuncture / Unknown 03/30/2025 6:16 AM EDT 03/30/2025 9:09 AM EDT Tacos COSTA LAB BLOOD ORDERABLES Final R esult [facility] [address] [place] [address], [place] [phone] * Magnesium (03/30/2025 6:16 AM EDT) [facility] Magnesium 2.1 1.9 - 2.6 mg/dL LAB CHEMISTRY METHOD 03/30/2025 11:28 AM EDT [facility] Blood Venous blood specimen / Unknown Venipuncture / Unknown 03/30/2025 6:16 AM EDT 03/30/2025 9:09 AM EDT Tacos COSTA LAB BLOOD ORDERABLES Final R esult Performing Organization Address City/[facility]/ZIP Co de Phone Number [facility] [address] [place] [address], [place] [phone] from Last 3 Months Insurance MEDICAID - [place] MEDICARE [facility] Care Teams Matrix Plater Relationship Specialty Start Date End Date Physician, No Pcp PCP - General 03/30/25
== END 2025-04-25 15:27 | disposition home or self-care (01) ==
LOC: HO.HCS 14:45
PROVIDERS: PCP Family Medicine; Visit Provider Internal Medicine Cardiovascular Disease
DX: I10 Essential (primary) hypertension (principal); I48.0 Paroxysmal atrial fibrillation; R79.89 Other specified abnormal findings of blood chemistry
CPT/HCPCS: 99214; G2211

== ENCOUNTER → 2025-04-25 14:45 | Outpatient (BNVA) | payer MEDICARE, SELFPAY | PROVIDERS: PCP Family Medicine; Visit Provider Internal Medicine Cardiovascular Disease | DX: I10 Essential (primary) hypertension (principal); I48.0 Paroxysmal atrial fibrillation; R79.89 Other specified abnormal findings of blood chemistry | CPT/HCPCS: 99212 ==

== ENCOUNTER → 2025-06-01 09:49 | Outpatient (REF) | payer MEDICARE, SELFPAY ==
--- NOTE | 2025-06-01 09:53 | CA_ITS ---
Transthoracic Echocardiogram Patient (Last, First, Middle): Tiny Balbuena, Gender: F Date of : 1935 Age: 89 Procedure Date: 06/01/2025 Procedure Type: Transthoracic Echocardiogram Location: OP Height: 165.1 cm Weight: 67.59 kg BSA: 1.75 m2 Heart Rate: 59 bpm BP: 145 / 60 mmHg [employer] Project Manager: SB/RC Referring MD: Ministerio Monroy MD Skin Washer: Ministerio Monroy MD Symptoms: I48.0 - Paroxysmal atrial fibrillation Study Quality: Adequate/pt term apical images due to discomfort ECG Rhythm: Bradycardia Conclusions: - 1. Normal LV ejection fraction 55-60% with impaired relaxation filling pattern 2. Mild aortic and mitral regurgitation 3. Normal RV systolic pressure 4. No gross pericardial effusion Findings Left Ventricle Normal left ventricular size, thickness, and systolic function. The visually estimated ejection fraction is between 55-60%. Spectral Doppler is indicative of an impaired relaxation filling pattern. Elevated left ventricular end diastolic pressure. Right Ventricle Normal right ventricular cavity size and systolic function. Atria The left atrium is likely dilated. There is no evidence of interatrial shunt. The right atrium is normal in size. Aortic Valve There is mild thickening of the aortic valve. There is no aortic valve stenosis. There is mild aortic valve regurgitation. Mitral Valve There is mild anterior and posterior mitral leaflet thickening. There is mild mitral annular calcification. There is mild mitral valve regurgitation. There is no mitral valve stenosis. Pulmonic Valve The pulmonic valve was not well visualized. Tricuspid Valve Likely normal tricuspid valve structure and function. There is trace tricuspid valve regurgitation. The right ventricular systolic pressure is normal. The right ventricular systolic pressure is 18 mmHg. Normal right atrial pressure. There is no evidence of pulmonary hypertension. Great Vessels All visible segments of the aorta are normal in size. The pulmonary artery was not well visualized. There is no dilatation of the ascending aorta measuring 3.01 cm. Venous The inferior vena cava is normal in size and collapses greater than 50% with inspiration. Pericardium/Pleural There is no evidence of pericardial effusion. Prior Study Comparison No significant change compared to prior study dated: 01/14/2023. Measurements 2D Linear Measurements IVSd: 1.09 0.6-0.9/0.6-1.0 cm LVIDd: 4.33 3.9-5.3/4.2-5.9 cm LVIDd Index: 2.47 2.4-3.2/2.2-3.1 cm/m2 LVIDs: 2.62 2.0-3.6 cm LVPWd: 1.09 0.7-1.1 cm LA Diam: 3.80 2.7-3.8/3.0-4.0 cm LAIDs Index: 2.17 1.5-2.3 cm/m2 LV Mass: 202.50 67-162/88-224 g LV Mass Index: 115.71 43-95/49-115 g/m2 LVOT Diam: 2.00 3.0+(-)1.3 cm 2D Systolic Function EF 4C: 65.70 >55% EF 2C: 55.50 >55% EF BiP: 58.40 >55% Mitral Valve MV Pk E: 1.04 MV PK A: 1.20 MV Decel Time: 168.00 E/A: 0.90 E'Lateral: 4.86 E'Medial: 5.15 E/E' Med: 20.20 E/E' Lat: 21.40 PHT: 57.00 MVA PHT: 3.86 Decel [place]: 6.04 Aortic Valve AoV Pk Michael: 1.56 AoV Mn Michael: 1.09 AoV VTI: 0.40 AoV Pk Grad: 10.00 Aov Mn Grad: 5.00 REJI Cont.VTI: 2.03 LVOT LVOT Pk Michael: 1.02 LVOT Mn Michael: 0.69 LVOT VTI: 0.26 LVOT Pk Grad: 4.00 LVOT Mn Grad: 2.00 LVOT Diam: 2.00 LVOT Area: 3.14 Diastolic Function MV Pk E: 1.04 MV Pk A: 1.20 E/A: 0.90 E'Medial: 5.15 E/E' Med: 20.20 E' Laterial: 4.86 E/E' Lat: 21.40 Right Ventricle TAPSE (mm): 25.20 TVS' Michael: 9.79 Tricuspid Valve TR Pk Michael: 1.94 TR Pk Grad: 15.00 RA Press: 3.00 RVSP: 18.00 Great Vessels Aorta Sinus of Valsalva: 3.00 2.0-3.5 cm Ao Asc: 3.01 2.1-3.4 cm Pulmonary Veins Pulm Vein S/D 0.90 Pulmonary Valve PV Pk Michael: 0.86 Peak PV Grad: 3.00 Updated in Other Vendor System with Status of Final Ministerio Monroy MD electronically signed on 06/02/2025 1:05:53 PM with status of Final
--- OUTSIDE RECORDS SUMMARY | 2025-06-01 11:16 | XMS_ITS | Clinical Summary ---
Author Organization [facility] Address [address] [place] [address] Phone Care Team Providers Care Chronometer Repairer Name Role Phone Phong Henry MD Primary [...] file Insurance MEDICARE PART A & B [facility] MEDEX SUPPLEMENT MEDICARE PART A & B [employer] MEDEX SUPPLEMENT MEDICARE PART A & B [employer] MEDEX SUPPLEMENT MEDICARE PART A & B Member Subscriber Plan / Payer ( fective 2001-Present) Name:Tiny Balbuena Member ID:[id number] Relation to Subscriber:Self Name:Tiny Balbuena Subscriber ID:[id number] Payer ID:[id number] Group ID:Not on file Type:Medicare Address: [facility] [employer] [facility] [address] [place] [phone] [employer] MEDEX SUPPLEMENT MEDICARE PART A & B [employer] MEDEX SUPPLEMENT MEDICARE PART A & B [employer] MEDEX SUPPLEMENT MEDICARE PART A & B [employer] MEDEX SUPPLEMENT MEDICARE PART A & B [employer] MEDEX SUPPLEMENT MEDICARE PART A & B [employer] MEDEX SUPPLEMENT Care Teams Chronometer Repairer Relationship Specialty Start Date End Date Phong Henry MD [address] [place] [id number] PCP - General Family Medicine 03/27/21 Additional Source Comments The information contained in this document represents components of the legal health record. It is not the complete legal health record.[facility]
--- OUTSIDE RECORDS SUMMARY | 2025-06-01 11:16 | XMS_ITS | Encounter Summary ---
Author Organization [facility] Address [address] [place] [address] Care Team Providers Care Pedicab Driver Name Role Phone Physician, No Pcp Primary Care Provider Unavaila ble Encounter Details Date Type Department Care Team (Late st Contact Info) Description 03/30/[address] [facility] - Main Lab [address] [facility] [employer] [place] [address] Tacos Sanders PA [address] [facility] [address] [place] [address] Encounter for other general examination [...] AM EDT) WBC 7.8 4.8 - 10.8 K/[facility] LAB HEMETOLOGY METHOD 03/30/2025 10:46 AM [facility] LAB RBC 2.70(L) 3.80 - 4.80 M/mcL LAB HEMETOLOGY METHOD 03/30/2025 10:46 AM [facility] LAB Hemoglobin 8.5(L) 11.5 - 16.0 g/dL LAB HEMETOLOGY METHOD 03/30/2025 10:46 AM [facility] LAB Hematocrit 26.4(L) 35.0 - 47.0 % LAB HEMETOLOGY METHOD 03/30/2025 10:46 AM [facility] LAB MCV 96.4 79.0 - 98.0 FL LAB HEMETOLOGY METHOD 03/30/2025 10:46 AM [facility] LAB MCH 31.0 27.0 - 32.0 pcg LAB HEMETOLOGY METHOD 03/30/2025 10:46 AM [facility] LAB MCHC 32.2 32.0 - 37.0 g/dL LAB HEMETOLOGY METHOD 03/30/2025 10:46 AM [facility] LAB RDW 13.0 11.0 - 15.0 % LAB HEMETOLOGY METHOD 03/30/2025 10:46 AM [facility] LAB Platelets 179 130 - 400 K/mcL LAB HEMETOLOGY METHOD 03/30/2025 10:46 AM [facility] LAB MPV 11.3(H) 7.0 - 11.0 FL LAB HEMETOLOGY METHOD 03/30/2025 10:46 AM [facility] LAB NRBC 0.0 <1.0 % LAB HEMETOLOGY METHOD 03/30/2025 10:46 AM [facility] LAB NRBC Absolute 0.00 <0.10 K/mcL LAB HEMETOLOGY METHOD 03/30/2025 10:46 AM [facility] LAB Neutrophils Relative 66.0 % LAB HEMETOLOGY METHOD 03/30/2025 10:46 AM [facility] LAB Lymphocytes Relative 18.4 % LAB HEMETOLOGY METHOD 03/30/2025 10:46 AM [facility] LAB Monocytes Relative 13.2 % LAB HEMETOLOGY METHOD 03/30/2025 10:46 AM [facility] LAB Eosinophils Relative 1.7 % LAB HEMETOLOGY METHOD 03/30/2025 10:46 AM [facility] LAB Basophils Relative 0.3 % LAB HEMETOLOGY METHOD 03/30/2025 10:46 AM [facility] LAB Immature Granulocytes Relative 0.4 % LAB HEMETOLOGY METHOD 03/30/2025 10:46 AM [facility] LAB Neutrophils Absolute 5.18 1.50 - 7.00 K/mcL LAB HEMETOLOGY METHOD 03/30/2025 10:46 AM [facility] LAB Lymphocytes Absolute 1.44 1.00 - 5.00 K/mcL LAB HEMETOLOGY METHOD 03/30/2025 10:46 AM [facility] LAB Monocytes Absolute 1.03(H) 0.20 - 1.00 K/mcL LAB HEMETOLOGY METHOD 03/30/2025 10:46 AM [facility] LAB Eosinophils Absolute 0.13 0.00 - 0.50 K/mcL LAB HEMETOLOGY METHOD 03/30/2025 10:46 AM [facility] LAB Basophils Absolute 0.02 0.00 - 0.20 K/mcL LAB HEMETOLOGY METHOD 03/30/2025 10:46 AM [facility] LAB Immature Granulocytes Absolute 0.03 0.00 - 0.03 K/mcL LAB HEMETOLOGY METHOD 03/30/2025 10:46 AM [facility] LAB Blood Venous blood specimen / Unknown Venipuncture / Unknown 03/30/2025 6:16 AM EDT 03/30/2025 9:09 AM EDT [facility] COSTA LAB BLOOD ORDERABLES Final R esult [facility] LAB [address] [place] [address], [place] [phone] * Magnesium (03/30/2025 6:16 AM EDT) [facility] Magnesium 2.1 1.9 - 2.6 mg/dL LAB CHEMISTRY METHOD 03/30/2025 11:28 AM EDT [facility] LAB Blood Venous blood specimen / Unknown Venipuncture / Unknown 03/30/2025 6:16 AM EDT 03/30/2025 9:09 AM EDT [facility] LAB BLOOD ORDERABLES Final R esult [facility] [address] [place] [address], [place] [phone] * (ABNORMAL) Comprehensive metabolic panel (03/30/2025 6:16 AM EDT) [facility] Sodium 137 133 - 145 mmol/L LAB CHEMISTRY METHOD 03/30/2025 11:39 AM EDT [facility] LAB Potassium 4.0 3.5 - 5.5 mmol/L LAB CHEMISTRY METHOD 03/30/2025 11:39 AM EDT [facility] LAB Chloride 104 96 - 110 mmol/L LAB CHEMISTRY METHOD 03/30/2025 11:39 AM EDT [facility] LAB CO2 27 21 - 32 mmol/L LAB CHEMISTRY METHOD 03/30/2025 11:39 AM EDT [facility] LAB Anion Gap 6 3 - 11 LAB CHEMISTRY METHOD 03/30/2025 11:39 AM EDT [facility] LAB Glucose 98 70 - 100 mg/dL LAB CHEMISTRY METHOD 03/30/2025 11:39 AM EDT [facility] LAB BUN 17 5 - 25 mg/dL LAB CHEMISTRY METHOD 03/30/2025 11:39 AM [facility] LAB Creatinine 0.96 0.50 - 1.10 mg/dL LAB CHEMISTRY METHOD 03/30/2025 11:39 AM [facility] LAB eGFR 57(L) >=60 mL/min/1. 73m2 LAB CHEMISTRY METHOD 03/30/2025 11:39 AM [facility] LAB Comment:Calculation based on the Chronic Kidney Disease Epidemiology Collaboration (CKD-EPI) equation refit without adjustment for race. BUN/Creatinine Ratio 17.7 LAB CHEMISTRY METHOD 03/30/2025 11:39 AM [facility] LAB Calcium 8.0(L) 8.5 - 10.5 mg/dL LAB CHEMISTRY METHOD 03/30/2025 11:39 AM [facility] LAB AST (SGOT) 31 10 - 42 unit/L LAB CHEMISTRY METHOD 03/30/2025 11:39 AM [facility] LAB ALT (SGPT) 11 10 - 60 unit/L LAB CHEMISTRY METHOD 03/30/2025 11:39 AM [facility] LAB Alkaline Phosphatase 72 42 - 121 unit/L LAB CHEMISTRY METHOD 03/30/2025 11:39 AM [facility] LAB Total Protein 5.4(L) 6.0 - 8.0 g/dL LAB CHEMISTRY METHOD 03/30/2025 11:39 AM [facility] LAB Albumin 2.5(L) 3.2 - 5.0 g/dL LAB CHEMISTRY METHOD 03/30/2025 11:39 AM [facility] LAB Total Bilirubin 0.3 0.0 - 1.4 mg/dL LAB CHEMISTRY METHOD 03/30/2025 11:39 AM [facility] LAB Blood Venous blood specimen / Unknown Venipuncture / Unknown 03/30/2025 6:16 AM EDT 03/30/2025 9:09 AM EDT us [facility] COSTA LAB BLOOD ORDERABLES Final R esult [facility] LAB [address] [place] [address], documented in this encounter Visit Diagnoses Diagnosis Encounter for other general examination documented in this encounter Care Teams Pedicab Driver Relationship Specialty Start Date End Date Physician, No Pcp PCP - General 03/30/25 documented as of this encounter
--- OUTSIDE RECORDS SUMMARY | 2025-06-01 11:16 | XMS_ITS | Encounter Summary ---
Author Organization [facility] Address [address] [place] [address] Care Team Providers Care Head Of Visual Merchandising Name Role Phone Physician, No Pcp Primary Care Provider Unavaila ble Encounter Details Date Type Department Care Team (Late st Contact Info) Description 04/04/2025 Lab Requisition [facility] - Main Lab [address] [facility] [email or web address] [address] Gabrielle Edmondson PA [address] [place] [address] Encounter for other general examination [...] LAB CHEMISTRY METHOD 04/04/2025 1:19 PM EDT [facility] LAB Potassium 4.1 3.5 - 5.5 mmol/L LAB CHEMISTRY METHOD 04/04/2025 1:19 PM EDT [facility] LAB Chloride 102 96 - 110 mmol/L LAB CHEMISTRY METHOD 04/04/2025 1:19 PM EDT [facility] LAB CO2 30 21 - 32 mmol/L LAB CHEMISTRY METHOD 04/04/2025 1:19 PM [facility] LAB Anion Gap 3 3 - 11 LAB CHEMISTRY METHOD 04/04/2025 1:19 PM [facility] LAB Glucose 88 70 - 100 mg/dL LAB CHEMISTRY METHOD 04/04/2025 1:19 PM [facility] LAB BUN 23 5 - 25 mg/dL LAB CHEMISTRY METHOD 04/04/2025 1:19 PM [facility] LAB Creatinine 0.77 0.50 - 1.10 mg/dL LAB CHEMISTRY METHOD 04/04/2025 1:19 PM [facility] LAB eGFR 74 >=60 mL/min/1. 73m2 LAB CHEMISTRY METHOD 04/04/2025 1:19 PM [facility] LAB Comment:Calculation based on the Chronic Kidney Disease Epidemiology Collaboration (CKD-EPI) equation refit without adjustment for race. BUN/Creatinine Ratio 29.9 LAB CHEMISTRY METHOD 04/04/2025 1:19 PM [facility] LAB Calcium 8.6 8.5 - 10.5 mg/dL LAB CHEMISTRY METHOD 04/04/2025 1:19 PM [facility] LAB AST (SGOT) 32 10 - 42 unit/L LAB CHEMISTRY METHOD 04/04/2025 1:19 PM [facility] LAB ALT (SGPT) 23 10 - 60 unit/L LAB CHEMISTRY METHOD 04/04/2025 1:19 PM [facility] LAB Alkaline Phosphatase 81 42 - 121 unit/L LAB CHEMISTRY METHOD 04/04/2025 1:19 PM [facility] LAB Total Protein 6.0 6.0 - 8.0 g/dL LAB CHEMISTRY METHOD 04/04/2025 1:19 PM [facility] LAB Albumin 2.5(L) 3.2 - 5.0 g/dL LAB CHEMISTRY METHOD 04/04/2025 1:19 PM [facility] LAB Total Bilirubin 0.3 0.0 - 1.4 mg/dL LAB CHEMISTRY METHOD 04/04/2025 1:19 PM EDT [facility] LAB Blood Venous blood specimen / Unknown Venipuncture / Unknown 04/04/2025 5:45 AM EDT 04/04/2025 9:55 AM EDT us Gabrielle COSTA LAB BLOOD ORDERABLES Final Re sult [facility] [address] [place] [address], [place] [phone] * (ABNORMAL) Complete blood count (04/04/2025 5:45 AM EDT) WBC 5.4 4.8 - 10.8 K/mcL LAB HEMETOLOGY METHOD 04/04/2025 11:25 AM EDT [facility] LAB RBC 3.00(L) 3.80 - 4.80 M/mcL LAB HEMETOLOGY METHOD 04/04/2025 11:25 AM [facility] Hemoglobin 9.0(L) 11.5 - 16.0 g/dL LAB HEMETOLOGY METHOD 04/04/2025 11:25 AM [facility] LAB Hematocrit 28.6(L) 35.0 - 47.0 % LAB HEMETOLOGY METHOD 04/04/2025 11:25 AM [facility] LAB MCV 96.9 79.0 - 98.0 FL LAB HEMETOLOGY METHOD 04/04/2025 11:25 AM [facility] LAB MCH 30.5 27.0 - 32.0 pcg LAB HEMETOLOGY METHOD 04/04/2025 11:25 AM [facility] LAB MCHC 31.5(L) 32.0 - 37.0 g/dL LAB HEMETOLOGY METHOD [facility] RDW 12.3 11.0 - 15.0 % LAB HEMETOLOGY METHOD 04/04/2025 11:25 AM EDT [facility] LAB Platelets 255 130 - 400 K/mcL LAB HEMETOLOGY METHOD 04/04/2025 11:25 AM EDT [facility] LAB MPV 10.8 7.0 - 11.0 FL LAB HEMETOLOGY METHOD 04/04/2025 11:25 AM EDT [facility] LAB NRBC 0.0 <1.0 % LAB HEMETOLOGY METHOD 04/04/2025 11:25 AM EDT [facility] LAB NRBC Absolute 0.00 <0.10 K/mcL LAB HEMETOLOGY METHOD 04/04/2025 11:25 AM EDT [facility] Blood Venous blood specimen / Unknown Venipuncture / Unknown 04/04/2025 5:45 AM EDT 04/04/2025 9:55 AM EDT us Gabrielle COSTA LAB BLOOD ORDERABLES Final Re sult [facility] [address] [place] [address], documented in this encounter Visit Diagnoses Diagnosis Encounter for other general examination documented in this encounter Care Teams Head Of Visual Merchandising Relationship Specialty Start Date End Date Physician, No Pcp PCP - General 03/30/25 documented as of this encounter
--- OUTSIDE RECORDS SUMMARY | 2025-06-01 11:16 | XMS_ITS | Clinical Summary ---
Author Organization [address] [facility] Address [address] [place] [address] Phone Care Team Providers Care Supervisor [employer] Name Role Phone Physician, No Pcp Primary Care Provider Unavaila ble Encounters Date Type Department Care Team Description 04/04/2025 Lab Requisition [facility] Lab [address] [place] [address] Gabrielle Edmondson PA Encounter for other general examination 03/30/2025 Lab Requisition [facility] Lab [address] [place] [address] Tacos Sanders PA Encounter for [...] Complete blood count (04/04/2025 5:45 AM EDT) [facility] WBC 5.4 4.8 - 10.8 K/mcL LAB HEMETOLOGY METHOD 04/04/2025 11:[address] [facility] RBC 3.00(L) 3.80 - 4.80 M/mcL LAB HEMETOLOGY METHOD 04/04/2025 11:[address] [facility] Hemoglobin 9.0(L) 11.5 - 16.0 g/dL LAB HEMETOLOGY METHOD 04/04/2025 11:[address] [facility] Hematocrit 28.6(L) 35.0 - 47.0 % LAB HEMETOLOGY METHOD 04/04/2025 11:[address] [facility] LAB MCV 96.9 79.0 - 98.0 FL LAB HEMETOLOGY METHOD 04/04/2025 11:[address] [facility] MCH 30.5 27.0 - 32.0 pcg LAB HEMETOLOGY METHOD 04/04/2025 11:[address] [facility] MCHC 31.5(L) 32.0 - 37.0 g/dL LAB HEMETOLOGY METHOD 04/04/2025 11:[address] [facility] RDW 12.3 11.0 - 15.0 % LAB HEMETOLOGY METHOD 04/04/2025 11:[address] [facility] Platelets 255 130 - 400 K/mcL LAB HEMETOLOGY METHOD 04/04/2025 11:[address] [facility] MPV 10.8 7.0 - 11.0 FL LAB HEMETOLOGY METHOD 04/04/2025 11:[address] [facility] NRBC 0.0 <1.0 % LAB HEMETOLOGY METHOD 04/04/2025 11:[address] [facility] NRBC Absolute 0.00 <0.10 K/mcL LAB HEMETOLOGY METHOD 04/04/2025 11:25 AM EDT [facility] Blood Venous blood specimen / Unknown Venipuncture / Unknown 04/04/2025 5:45 AM EDT 04/04/2025 9:55 AM EDT us Gabrielle COSTA LAB BLOOD ORDERABLES Final Re sult [facility] LAB [address] [place] [address], [place] [phone] * (ABNORMAL) Comprehensive metabolic panel (04/04/2025 5:45 AM EDT) Only the most recent of2 resultswithin the time period is included. Sodium 135 133 - 145 mmol/L LAB CHEMISTRY METHOD 04/04/2025 1:[address] [facility] Potassium 4.1 3.5 - 5.5 mmol/L LAB CHEMISTRY METHOD 04/04/2025 1:[address] [facility] Chloride 102 96 - 110 mmol/L LAB CHEMISTRY METHOD 04/04/2025 1:[address] [facility] CO2 30 21 - 32 mmol/L LAB CHEMISTRY METHOD 04/04/2025 1:[address] [facility] Anion Gap 3 3 - 11 LAB CHEMISTRY METHOD 04/04/2025 1:[address] [facility] Glucose 88 70 - 100 mg/dL LAB CHEMISTRY METHOD 04/04/2025 1:[address] [facility] BUN 23 5 - 25 mg/dL LAB CHEMISTRY METHOD 04/04/2025 1:[address] [facility] Creatinine 0.77 0.50 - 1.10 mg/dL LAB CHEMISTRY METHOD 04/04/2025 1:[address] [facility] eGFR 74 >=60 mL/min/1. 73m2 LAB CHEMISTRY METHOD 04/04/2025 1:19 PM T [facility] Comment:Calculation based on the Chronic Kidney Disease Epidemiology Collaboration (CKD-EPI) equation refit without adjustment for race. BUN/Creatinine Ratio 29.9 LAB CHEMISTRY METHOD 04/04/2025 1:[address] [facility] Calcium 8.6 8.5 - 10.5 mg/dL LAB CHEMISTRY METHOD 04/04/2025 1:[address] [facility] AST (SGOT) 32 10 - 42 unit/L LAB CHEMISTRY METHOD 04/04/2025 1:[address] [facility] ALT (SGPT) 23 10 - 60 unit/L LAB CHEMISTRY METHOD 04/04/2025 1:[address] [facility] Alkaline Phosphatase 81 42 - 121 unit/L LAB CHEMISTRY METHOD 04/04/2025 1:[address] [facility] Total Protein 6.0 6.0 - 8.0 g/dL LAB CHEMISTRY METHOD 04/04/2025 1:[address] [facility] Albumin 2.5(L) 3.2 - 5.0 g/dL LAB CHEMISTRY METHOD 04/04/2025 1:[address] [facility] Total Bilirubin 0.3 0.0 - 1.4 mg/dL LAB CHEMISTRY METHOD 04/04/2025 1:[address] [facility] Blood Venous blood specimen / Unknown Venipuncture / Unknown 04/04/2025 5:45 AM EDT 04/04/2025 9:55 AM EDT us Gabrielle COSTA LAB BLOOD ORDERABLES Final Re sult [facility] [address] [place] [address], * (ABNORMAL) CBC auto differential (03/30/2025 6:16 AM EDT) WBC 7.8 4.8 - 10.8 K/[facility] LAB HEMETOLOGY METHOD 03/30/2025 10:[address] [facility] RBC 2.70(L) 3.80 - 4.80 M/[facility] LAB HEMETOLOGY METHOD 03/30/2025 10:[address] [facility] Hemoglobin 8.5(L) 11.5 - 16.0 g/dL LAB HEMETOLOGY METHOD 03/30/2025 10:[address] [facility] Hematocrit 26.4(L) 35.0 - 47.0 % LAB HEMETOLOGY METHOD 03/30/2025 10:[address] [facility] MCV 96.4 79.0 - 98.0 FL LAB HEMETOLOGY METHOD 03/30/2025 10:[address] [facility] MCH 31.0 27.0 - 32.0 pcg LAB HEMETOLOGY METHOD 03/30/2025 10:[address] [facility] MCHC 32.2 32.0 - 37.0 g/dL LAB HEMETOLOGY METHOD 03/30/2025 10:[address] [facility] RDW 13.0 11.0 - 15.0 % LAB HEMETOLOGY METHOD 03/30/2025 10:[address] [facility] Platelets 179 130 - 400 K/[facility] LAB HEMETOLOGY METHOD 03/30/2025 10:[address] [facility] MPV 11.3(H) 7.0 - 11.0 FL LAB HEMETOLOGY METHOD 03/30/2025 10:[address] [facility] NRBC 0.0 <1.0 % LAB HEMETOLOGY METHOD 03/30/2025 10:[address] [facility] NRBC Absolute 0.00 <0.10 K/[facility] LAB HEMETOLOGY METHOD 03/30/2025 10:[address] [facility] Neutrophils Relative 66.0 % LAB HEMETOLOGY METHOD 03/30/2025 10:[address] [facility] Lymphocytes Relative 18.4 % LAB HEMETOLOGY METHOD 03/30/2025 10:[address] [facility] Monocytes Relative 13.2 % LAB HEMETOLOGY METHOD 03/30/2025 10:[address] [facility] Eosinophils Relative 1.7 % LAB HEMETOLOGY METHOD 03/30/2025 10:[address] [facility] Basophils Relative 0.3 % LAB HEMETOLOGY METHOD 03/30/2025 10:[address] [facility] Immature Granulocytes Relative 0.4 % LAB HEMETOLOGY METHOD 03/30/2025 10:[address] [facility] Neutrophils Absolute 5.18 1.50 - 7.00 K/mcL LAB HEMETOLOGY METHOD 03/30/2025 10:[address] [facility] Lymphocytes Absolute 1.44 1.00 - 5.00 K/mcL LAB HEMETOLOGY METHOD 03/30/2025 10:[address] [facility] Monocytes Absolute 1.03(H) 0.20 - 1.00 K/mcL LAB HEMETOLOGY METHOD 03/30/2025 10:[address] [facility] Eosinophils Absolute 0.13 0.00 - 0.50 K/mcL LAB HEMETOLOGY METHOD 03/30/2025 10:[address] [facility] Basophils Absolute 0.02 0.00 - 0.20 K/mcL LAB HEMETOLOGY METHOD 03/30/2025 10:[address] [facility] Immature Granulocytes Absolute 0.03 0.00 - 0.03 K/mcL LAB HEMETOLOGY METHOD 03/30/2025 10:[address] [facility] Blood Venous blood specimen / Unknown Venipuncture / Unknown 03/30/2025 6:16 AM EDT 03/30/2025 9:09 AM EDT [facility] BLOOD ORDERABLES Final R esult [facility] [address] [place] [address], [place] [phone] * Magnesium (03/30/2025 6:16 AM EDT) [facility] Magnesium 2.1 1.9 - 2.6 mg/dL LAB CHEMISTRY METHOD 03/30/2025 11:28 AM EDT [facility] Blood Venous blood specimen / Unknown Venipuncture / Unknown 03/30/2025 6:16 AM EDT 03/30/2025 9:09 AM EDT [facility] BLOOD ORDERABLES Final R esult Performing Organization Address City/[facility]/ZIP Co de Phone Number [facility] [address] [place] [address], [place] [phone] from Last 3 Months Insurance MEDICAID - [place] MEDICARE [facility] Care Teams Supervisor [employer] Relationship Specialty Start Date End Date Physician, No Pcp PCP - General 03/30/25
== END ==
LOC: HO.CARD 09:49
PROVIDERS: PCP Family Medicine; Visit Provider Internal Medicine Cardiovascular Disease
DX: I48.0 Paroxysmal atrial fibrillation (principal)
CPT/HCPCS: 93306

== ENCOUNTER → 2025-06-01 09:53 | Outpatient (BNV) | payer MEDICARE, SELFPAY | PROVIDERS: PCP Family Medicine; Visit Provider Internal Medicine Cardiovascular Disease | DX: I35.1 Nonrheumatic aortic (valve) insufficiency (principal); I34.0 Nonrheumatic mitral (valve) insufficiency | CPT/HCPCS: 93306 ==

== ENCOUNTER 2025-06-07 14:28 | Outpatient (AMB) | payer MEDICARE, SELFPAY ==
--- NOTE | 2025-06-07 14:29 | MHC.OFFVIS ---
Vital Signs 06/07/25 14:47 Height 5 ft 5 in Weight 149 lb BMI 24.8 BP 130/59 L Blood Pressure Location Lt brachial Position Sitting Pulse 68 Pulse Source Pulse Oximeter Intake Visit Reasons: rectal bleeding, hemorrhoids Intake Note: This patient presents for an assessment for rectal bleeding, hemorrhoids. Pt c/o; reports no rectal bleeding for the last 5 days, reports she has an episode of rectal bleeding for about 2 months, onset 04/2025, reports Hx of constipation, reports she was taking Oxycodone for a hip replacement she had and was in rehab for 12 days, she was not given any stool softener while taking Oxycodone and felt like she got constipated. Forensic Accountant Required: No Accompanied by: Self / Same As Patient Allergies hydrochlorothiazide (HYDROCHLOROTHIAZIDE) Allergy (Mild, Verified 06/07/25 14:52) ITCHING latex (LATEX) Allergy (Mild, Verified 06/07/25 14:52) ITCHING levofloxacin (From LEVAQUIN) Allergy (Unknown, Verified 06/07/25 14:52) UNK lisinopril (LISINOPRIL) Allergy (Unknown, Verified 06/07/25 14:52) UNKNOWN lorazepam (LORAZEPAM) Allergy (Unknown, Verified 06/07/25 14:52) UNK Pork/Porcine Containing Products (Pork/Porcine Product Derivatives) Allergy (Unknown, Verified 06/07/25 14:52) UNKNOWN prednisone (PREDNISONE) Allergy (Unknown, Verified 06/07/25 14:52) UNCLEAR propafenone (PROPAFENONE) Allergy (Unknown, Verified 06/07/25 14:52) UNK spironolactone (SPIRONOLACTONE) Allergy (Unknown, Verified 06/07/25 14:52) UNKNOWN Sulfa (Sulfonamide Antibiotics) Allergy (Unknown, Verified 06/07/25 14:52) unknown cephalexin Allergy (Verified 06/07/25 14:52) Itching doxycycline Allergy (Verified 06/07/25 14:52) Itching linezolid Allergy (Verified 06/07/25 14:52) Itching codeine Allergy (Unknown, Uncoded 06/07/25 14:52) unknown Crustaceans Allergy (Unknown, Uncoded 06/07/25 14:52) UNKNOWN Flu shot Adverse Reaction (Severe, Uncoded 06/07/25 14:52) Itching, High blood pressure augmentin Adverse Reaction (Unknown, Uncoded 06/07/25 14:52) nausea & diarrhea HPI HPI rectal bleeding, hemorrhoids: Details: 89-year-old female referred for bleeding hemorrhoids. She is known to me. I had seen her 2 years ago because of bleeding hemorrhoids She says that these hemorrhoids have not given her significant problems past 2 years. However, in March 2025, she underwent hip replacement and had to be placed on narcotics. This caused her to be severely constipated. She therefore had notice passage of bright blood per rectum since then. He says that this has been occasionally heavy. However, the past 5 days, she says that she has not noticed this at all anymore. She does state that her bowel movements have improved significantly. She denies any significant complaints. She denies any pain. She ambulates with a walker. [facility] Medical History Uncontrolled hypertension Bleeding hemorrhoids PVD (peripheral vascular disease) Atrial fibrillation H/O urinary frequency Nocturia Urinary urgency HTN (hypertension) PAF (paroxysmal atrial fibrillation) Surgical History Hx of hysterectomy Hx of colonoscopy Hx of excision of epidermal inclusion cyst Hx of hemorrhoidectomy Family History Father CVD (cardiovascular disease) Diabetes Mother CVD (cardiovascular disease) Diabetes Brother No problems noted. Social History Household Members: None Housing: Apartment Do you presently have visiting nurse or other home services: No Alcohol intake: never Patient Tobacco Use Status: Never used Tobacco Second Hand Smoke Exposure: No Review of Systems Const Denies chills and Denies fever(s) Card Denies chest pain, Denies dyspnea and Denies dyspnea on exertion Resp Denies cough, Denies dyspnea and Denies dyspnea on exertion GI Reports hematochezia and Denies change in bowel habits Denies hematuria Musc Denies back pain and Denies limited range of motion Neuro Denies focal weakness and Denies convulsions Psych Denies depression and Denies mood swings Physical Exam Vital Signs: Last Vital Signs Pulse 68 06/07/25 14:47 BP 130/59 L 06/07/25 14:47 BMI result Body Mass Index 24.8 Const Other: Ambulates with a walker General: comfortable and no acute distress Orientation/consciousness: patient oriented x3 Neck Neck: Yes no lymphadenopathy Resp Auscultation: clear to auscultation bilaterally Cardio Rhythm: regular rhythm GI Other: Small external hemorrhoids Palpation (GI): Soft to palpation, nontender and no guarding Neuro General: patient oriented x3 Office Procedures Anoscopy She was in kneeling christian-knife position. The anoscope was gently inserted. A full examination of the anal canal was done. This does reveal hemorrhoidal columns, internal external both the left and right sides, moderate-sized. There were no lesions. There was no ulceration or fissure. There was no induration on digital exam. There was no bleeding. 11168-[id number] Assessment & Plan Assessment & Plan (1) Bleeding hemorrhoids: Code(s): K64.9 - Unspecified hemorrhoids Category: Medical Plan: Anoscopy does reveal internal and external hemorrhoidal columns. These are the likely source of her outlet bleeding She has had no bleeding for the past 5 days. I explained to her that constipation especially from her narcotic use likely related to hemorrhoids causing the bleeding. I advised her on avoiding straining and constipation. She is also on rivaroxaban She can follow up on a p.r.n. basis. Coding Level of Care Code New Pt Level 3 (03368) Diagnoses Bleeding hemorrhoids K64.9 CPT Codes Details - CPT: 72069-Jltrysmc ([id number])
[2025-06-07 14:47] VITALS: BP 130/59; PULSE 68; BMI 24.8
--- OUTSIDE RECORDS SUMMARY | 2025-06-07 18:49 | XMS_ITS | Encounter Summary ---
Author Organization [facility] Address [address] [place] [address] Care Team Providers Care Power Equipment Technology Instructor Name Role Phone Physician, No Pcp Primary Care Provider Unavaila ble Encounter Details Date Type Department Care Team (Late st Contact Info) Description 04/04/[address] [facility] - Main Lab [address] [facility] [place] [address] Gabrielle Edmondson PA [address] [place] [address] Encounter for other general examination [...] LAB CHEMISTRY METHOD 04/04/2025 1:19 PM EDT [facility] Potassium 4.1 3.5 - 5.5 mmol/L LAB CHEMISTRY METHOD 04/04/2025 1:19 PM EDT [facility] Chloride 102 96 - 110 mmol/L LAB CHEMISTRY METHOD 04/04/2025 1:19 PM EDT [facility] CO2 30 21 - 32 mmol/L LAB CHEMISTRY METHOD 04/04/2025 1:19 PM [facility] Anion Gap 3 3 - 11 LAB CHEMISTRY METHOD 04/04/2025 1:19 PM [facility] Glucose 88 70 - 100 mg/dL LAB CHEMISTRY METHOD 04/04/2025 1:19 PM [facility] BUN 23 5 - 25 mg/dL LAB CHEMISTRY METHOD 04/04/2025 1:19 PM [facility] Creatinine 0.77 0.50 - 1.10 mg/dL LAB CHEMISTRY METHOD 04/04/2025 1:19 PM [facility] eGFR 74 >=60 mL/min/1. 73m2 LAB CHEMISTRY METHOD 04/04/2025 1:19 PM [facility] Comment:Calculation based on the Chronic Kidney Disease Epidemiology Collaboration (CKD-EPI) equation refit without adjustment for race. BUN/Creatinine Ratio 29.9 LAB CHEMISTRY METHOD 04/04/2025 1:19 PM [facility] Calcium 8.6 8.5 - 10.5 mg/dL LAB CHEMISTRY METHOD 04/04/2025 1:19 PM [facility] AST (SGOT) 32 10 - 42 unit/L LAB CHEMISTRY METHOD 04/04/2025 1:19 PM [facility] ALT (SGPT) 23 10 - 60 unit/L LAB CHEMISTRY METHOD 04/04/2025 1:19 PM [facility] Alkaline Phosphatase 81 42 - 121 unit/L LAB CHEMISTRY METHOD 04/04/2025 1:19 PM [facility] Total Protein 6.0 6.0 - 8.0 g/dL LAB CHEMISTRY METHOD 04/04/2025 1:19 PM [facility] Albumin 2.5(L) 3.2 - 5.0 g/dL LAB CHEMISTRY METHOD 04/04/2025 1:19 PM [facility] Total Bilirubin 0.3 0.0 - 1.4 mg/dL LAB CHEMISTRY METHOD 04/04/2025 1:19 PM EDT [facility] Blood Venous blood specimen / Unknown Venipuncture / Unknown 04/04/2025 5:45 AM EDT 04/04/2025 9:55 AM EDT us Gabrielle COSTA LAB BLOOD ORDERABLES Final Re sult [facility] [address] [place] [address], [place] [phone] * (ABNORMAL) Complete blood count (04/04/2025 5:45 AM EDT) WBC 5.4 4.8 - 10.8 K/mcL LAB HEMETOLOGY METHOD 04/04/2025 11:25 AM EDT [facility] RBC 3.00(L) 3.80 - 4.80 M/mcL LAB HEMETOLOGY METHOD 04/04/2025 11:25 AM [facility] Hemoglobin 9.0(L) 11.5 - 16.0 g/dL LAB HEMETOLOGY METHOD 04/04/2025 11:25 AM [facility] Hematocrit 28.6(L) 35.0 - 47.0 % LAB HEMETOLOGY METHOD 04/04/2025 11:25 AM [facility] MCV 96.9 79.0 - 98.0 FL LAB HEMETOLOGY METHOD 04/04/2025 11:25 AM [facility] MCH 30.5 27.0 - 32.0 pcg LAB HEMETOLOGY METHOD 04/04/2025 11:25 AM [facility] MCHC 31.5(L) 32.0 - 37.0 g/dL LAB HEMETOLOGY METHOD [facility] RDW 12.3 11.0 - 15.0 % LAB HEMETOLOGY METHOD 04/04/2025 11:25 AM EDT [facility] Platelets 255 130 - 400 K/mcL LAB HEMETOLOGY METHOD 04/04/2025 11:25 AM EDT [facility] MPV 10.8 7.0 - 11.0 FL LAB HEMETOLOGY METHOD 04/04/2025 11:25 AM EDT [facility] NRBC 0.0 <1.0 % LAB HEMETOLOGY METHOD 04/04/2025 11:25 AM EDT [facility] NRBC Absolute 0.00 <0.10 K/mcL LAB HEMETOLOGY METHOD 04/04/2025 11:25 AM EDT [facility] Blood Venous blood specimen / Unknown Venipuncture / Unknown 04/04/2025 5:45 AM EDT 04/04/2025 9:55 AM EDT us Gabrielle COSTA LAB BLOOD ORDERABLES Final Re sult [facility] [address] [place] [address], documented in this encounter Visit Diagnoses Diagnosis Encounter for other general examination documented in this encounter Care Teams Power Equipment Technology Instructor Relationship Specialty Start Date End Date Physician, No Pcp PCP - General 03/30/25 documented as of this encounter
--- OUTSIDE RECORDS SUMMARY | 2025-06-07 18:49 | XMS_ITS | Clinical Summary ---
Author Organization [address] [facility] Address [address] [place] [address] Phone Care Team Providers Care Manufacturing Plant Controller Name Role Phone Physician, No Pcp Primary Care Provider Unavaila ble Encounters Date Type Department Care Team Description 04/04/2025 Lab Requisition [facility] [address] [place] [address] Gabrielle Edmondson PA Encounter for other general examination 03/30/2025 Lab Requisition [facility] [address] [place] [address] Tacos Sanders PA Encounter for [...] Complete blood count (04/04/2025 5:45 AM EDT) [facility] WBC 5.4 4.8 - 10.8 K/mcL LAB HEMETOLOGY METHOD 04/04/2025 11:25 AM [facility] RBC 3.00(L) 3.80 - 4.80 M/mcL LAB HEMETOLOGY METHOD 04/04/2025 11:25 AM [facility] Hemoglobin 9.0(L) 11.5 - 16.0 g/dL LAB HEMETOLOGY METHOD 04/04/2025 11:25 AM [facility] Hematocrit 28.6(L) 35.0 - 47.0 % LAB HEMETOLOGY METHOD 04/04/2025 11:25 AM [facility] MCV 96.9 79.0 - 98.0 FL LAB HEMETOLOGY METHOD 04/04/2025 11:25 AM [facility] MCH 30.5 27.0 - 32.0 pcg LAB HEMETOLOGY METHOD 04/04/2025 11:25 AM [facility] MCHC 31.5(L) 32.0 - 37.0 g/dL LAB HEMETOLOGY METHOD 04/04/2025 11:25 AM [facility] RDW 12.3 11.0 - 15.0 % LAB HEMETOLOGY METHOD 04/04/2025 11:25 AM [facility] Platelets 255 130 - 400 K/mcL LAB HEMETOLOGY METHOD 04/04/2025 11:25 AM [facility] MPV 10.8 7.0 - 11.0 FL LAB HEMETOLOGY METHOD 04/04/2025 11:25 AM [facility] NRBC 0.0 <1.0 % LAB HEMETOLOGY METHOD 04/04/2025 11:25 AM [facility] NRBC Absolute 0.00 <0.10 K/mcL LAB HEMETOLOGY METHOD 04/04/2025 11:25 AM EDT [facility] Blood Venous blood specimen / Unknown Venipuncture / Unknown 04/04/2025 5:45 AM EDT 04/04/2025 9:55 AM EDT us Gabrielle COSTA LAB BLOOD ORDERABLES Final Re sult [facility] [address] [place] [address], [place] [phone] * (ABNORMAL) Comprehensive metabolic panel (04/04/2025 5:45 AM EDT) Only the most recent of2 resultswithin the time period is included. Sodium 135 133 - 145 mmol/L LAB CHEMISTRY METHOD 04/04/2025 1:19 PM [facility] Potassium 4.1 3.5 - 5.5 mmol/L LAB CHEMISTRY METHOD 04/04/2025 1:19 PM [facility] Chloride 102 96 - 110 mmol/L LAB CHEMISTRY METHOD 04/04/2025 1:19 PM [facility] CO2 30 21 - 32 mmol/L LAB CHEMISTRY METHOD 04/04/2025 1:19 PM [facility] Anion Gap 3 3 - 11 LAB CHEMISTRY METHOD 04/04/2025 1:19 PM [facility] Glucose 88 70 - 100 mg/dL LAB CHEMISTRY METHOD 04/04/2025 1:19 PM [facility] BUN 23 5 - 25 mg/dL LAB CHEMISTRY METHOD 04/04/2025 1:19 PM [facility] Creatinine 0.77 0.50 - 1.10 mg/dL LAB CHEMISTRY METHOD 04/04/2025 1:19 PM [facility] eGFR 74 >=60 mL/min/1. 73m2 LAB CHEMISTRY METHOD 04/04/2025 1:19 PM T [facility] Comment:Calculation based on the Chronic Kidney Disease Epidemiology Collaboration (CKD-EPI) equation refit without adjustment for race. BUN/Creatinine Ratio 29.9 LAB CHEMISTRY METHOD 04/04/2025 1:19 PM [facility] Calcium 8.6 8.5 - 10.5 mg/dL LAB CHEMISTRY METHOD 04/04/2025 1:19 PM [facility] AST (SGOT) 32 10 - 42 unit/L LAB CHEMISTRY METHOD 04/04/2025 1:19 PM [facility] ALT (SGPT) 23 10 - 60 unit/L LAB CHEMISTRY METHOD 04/04/2025 1:19 PM [facility] Alkaline Phosphatase 81 42 - 121 unit/L LAB CHEMISTRY METHOD 04/04/2025 1:19 PM [facility] Total Protein 6.0 6.0 - 8.0 g/dL LAB CHEMISTRY METHOD 04/04/2025 1:19 PM [facility] Albumin 2.5(L) 3.2 - 5.0 g/dL LAB CHEMISTRY METHOD 04/04/2025 1:19 PM [facility] Total Bilirubin 0.3 0.0 - 1.4 mg/dL LAB CHEMISTRY METHOD 04/04/2025 1:19 PM [facility] Blood Venous blood specimen / Unknown Venipuncture / Unknown 04/04/2025 5:45 AM EDT 04/04/2025 9:55 AM EDT us Gabrielle COSTA LAB BLOOD ORDERABLES Final Re sult [facility] [address] [place] [address], * (ABNORMAL) CBC auto differential (03/30/2025 6:16 AM EDT) WBC 7.8 4.8 - 10.8 K/[facility] LAB HEMETOLOGY METHOD 03/30/2025 10:46 AM [facility] RBC 2.70(L) 3.80 - 4.80 M/[facility] LAB HEMETOLOGY METHOD 03/30/2025 10:46 AM [facility] Hemoglobin 8.5(L) 11.5 - 16.0 g/dL LAB HEMETOLOGY METHOD 03/30/2025 10:46 AM [facility] Hematocrit 26.4(L) 35.0 - 47.0 % LAB HEMETOLOGY METHOD 03/30/2025 10:46 AM [facility] MCV 96.4 79.0 - 98.0 FL LAB HEMETOLOGY METHOD 03/30/2025 10:46 AM [facility] MCH 31.0 27.0 - 32.0 pcg LAB HEMETOLOGY METHOD 03/30/2025 10:46 AM [facility] MCHC 32.2 32.0 - 37.0 g/dL LAB HEMETOLOGY METHOD 03/30/2025 10:46 AM [facility] RDW 13.0 11.0 - 15.0 % LAB HEMETOLOGY METHOD 03/30/2025 10:46 AM [facility] Platelets 179 130 - 400 K/[facility] LAB HEMETOLOGY METHOD 03/30/2025 10:46 AM [facility] MPV 11.3(H) 7.0 - 11.0 FL LAB HEMETOLOGY METHOD 03/30/2025 10:46 AM [facility] NRBC 0.0 <1.0 % LAB HEMETOLOGY METHOD 03/30/2025 10:46 AM [facility] NRBC Absolute 0.00 <0.10 K/[facility] LAB HEMETOLOGY METHOD 03/30/2025 10:46 AM [facility] Neutrophils Relative 66.0 % LAB HEMETOLOGY METHOD 03/30/2025 10:46 AM [facility] Lymphocytes Relative 18.4 % LAB HEMETOLOGY METHOD 03/30/2025 10:46 AM [facility] Monocytes Relative 13.2 % LAB HEMETOLOGY METHOD 03/30/2025 10:46 AM [facility] Eosinophils Relative 1.7 % LAB HEMETOLOGY METHOD 03/30/2025 10:46 AM [facility] Basophils Relative 0.3 % LAB HEMETOLOGY METHOD 03/30/2025 10:46 AM [facility] Immature Granulocytes Relative 0.4 % LAB HEMETOLOGY METHOD 03/30/2025 10:46 AM [facility] Neutrophils Absolute 5.18 1.50 - 7.00 K/mcL LAB HEMETOLOGY METHOD 03/30/2025 10:46 AM [facility] Lymphocytes Absolute 1.44 1.00 - 5.00 K/mcL LAB HEMETOLOGY METHOD 03/30/2025 10:46 AM [facility] Monocytes Absolute 1.03(H) 0.20 - 1.00 K/mcL LAB HEMETOLOGY METHOD 03/30/2025 10:46 AM [facility] Eosinophils Absolute 0.13 0.00 - 0.50 K/mcL LAB HEMETOLOGY METHOD 03/30/2025 10:46 AM [facility] Basophils Absolute 0.02 0.00 - 0.20 K/mcL LAB HEMETOLOGY METHOD 03/30/2025 10:46 AM [facility] Immature Granulocytes Absolute 0.03 0.00 - 0.03 K/mcL LAB HEMETOLOGY METHOD 03/30/2025 10:46 AM [facility] Blood Venous blood specimen / Unknown Venipuncture / Unknown 03/30/2025 6:16 AM EDT 03/30/2025 9:09 AM EDT Tacos COSTA LAB BLOOD ORDERABLES Final R esult [facility] [address] [place] [address], [place] [phone] * Magnesium (03/30/2025 6:16 AM EDT) [facility] Magnesium 2.1 1.9 - 2.6 mg/dL LAB CHEMISTRY METHOD 03/30/2025 11:28 AM EDT [facility] Blood Venous blood specimen / Unknown Venipuncture / Unknown 03/30/2025 6:16 AM EDT 03/30/2025 9:09 AM EDT Tacos COSTA LAB BLOOD ORDERABLES Final R esult Performing Organization Address City/[facility]/ZIP Co de Phone Number [facility] [address] [place] [address], [place] [phone] from Last 3 Months Insurance MEDICAID - [place] MEDICARE [facility] Care Teams Manufacturing Plant Controller Relationship Specialty Start Date End Date Physician, No Pcp PCP - General 03/30/25
--- OUTSIDE RECORDS SUMMARY | 2025-06-07 18:49 | XMS_ITS | Patient Health Record ---
Author Organization [facility] Address [address] [place] [address] Care Team Providers Care Iron Bender Name Role Phone Phong Henry Primary Care Provider Jori Cummings Unavailable [phone] Allergies Allergen (clinical drug ingredient) Drug/Non Drug [...] dilTIAZem HCl ER Coated Beads 120 MG Oral; Duration: 14 Active Vitamin C-Vitamin D-Zinc Active Benicar 20 MG Orally Not-Ta avila Nortriptyline HCl 10 MG Oral; Duration: 90 Active hydrALAZINE HCl 10 MG Oral; Duration: 20 Active Furosemide 20 MG Oral; Duration: 90 Active Imipramine HCl 25 MG Oral; Duration: 90 Active Multi Vitamin/Minerals Orally Active Xarelto 20 MG Oral; Duration: 90 Active amLODIPine Besylate 10 MG 1 tablet Orall y twice a day Active Bentyl 10 MG 1-2 capsules Orally Four times a day prn abdominal discomfort/gas/bloatin g; Duration: 30 day(s) 10/10/2015 Not-Takin g Calcium + D 600 mg 1 tablet Orally Twic e a day Active Dicyclomine HCl 10 MG 1-2 capsules Orall y Four times a day prn abdominal discomfort/bloating/cr amps; Duration: 30 day(s) 08/01/2014 Not-Taking Aspir-81 81 MG 1 tablet Orally Once a day Not-Taking Immunizations Vaccine Route Administration Date Status Comme nts Influenza Unknown 04/10/2015 Administered Problems Problem Type SNOMED Code ICD Code Onset Dates Problem Status W/U Status Risk Notes Problem Rectal bleeding (25691430) Rectal bleeding (K62.5) Active confirmed Problem Irritable bowel syndrome with diarrhea (694260038) Irritable bowel syndrome with diarrhea (K58.0) Active confirmed Problem Irritable bowel syndrome (27720340) Irritable bowel syndrome without diarrhea (K58.9) Active confirmed Problem Generalized abdominal pain (537438559) Generalized abdominal pain (R10.84) Active confirmed Problem Gas (03740324) Gas (R14.3) Active confirmed Problem Left lower quadrant pain (476584985) Abdominal pain, left lower quadrant (R10.32) Active [...] Date MEDICARE OF [place] [address] [place] [address] [id number] YONY HOLDER Self - patient is the insured [employer] ATT[employer] CLAIMS [address] [place] [address] [id number] GALLOYONY ANDERSON Self - patient is the insured Medical (General) History Medical History History ICD Code GERD-upper endoscopy in 2010 was negative for any significant esophagitis nor Serrano's esophagus Colon polyps--Colonoscopy in 2010-- a small tubular adenoma was removed --she has had numerous previous colonoscopies by myself, Dr. Durán, Dr. Locke, and by physicians down at [place], some of which have been normal and others of which have had polyps removed--she describes the surgical removal of a colon polyp at approximately age 31, but does not know what type of polyp that was. Atrial fibrillation Diverticulitis-s/p surgery w ith Dr. Shine in 1996 with a sigmoid resection as below Denies FL,DM,CVA,Lung disease,renal dise ase HTN Temporal arterititis Colonoscopy 12/2014--negative except for minimal internal hemorrhoids and minimal diverticulosis Negative labs for celiac disease in 2016 Needed transfusions after the below vasc ular surgery in 01/2022 Surgical History Surgery Date(Month/Year) Surgery with Dr Shine in 199 7 for diverticulitis with a sigmoid resection. LEX Surgical resection of a colo n polyp in 1968 at [facility] Left hip replacement 2020 Cataract Laser eye surgery Vascular bypass right leg kumar lena Marshall 12/2021 with transfusions needed in 01/2022
--- OUTSIDE RECORDS SUMMARY | 2025-06-07 18:50 | XMS_ITS | Data Portability ---
Author Organization [place] [facility], [facility] Address [address] [place] [id number] Care Team Providers Care Shrimp Pond Laborer Name Role Phone NATE SANTOS Primary Care [...] - Cynthia Villa and report called to [facility]. Not available 05/05/2021 17:11:49 07/22/2021 07/22/2021 Overview/History [...] pertinent in my medical decision making today. [email or web address] Not available 07/22/2021 21:09:22 Plan of Treatment Reminders Order Date Submit Date Provider Last Modified By Organization Details Last Modified Time Details Appointments None recorded. Lab None recorded. Referral tong setter referral - pt has an ingrown right great toenail and cellulitis of the right great toe without paronychia . Pt will be placed on cephalexin 500mg TID x 5 days [facility] Ivon Young DPM, [address] [place], [address], 21:30:16 Procedures None recorded. Surgeries None recorded. Imaging None recorded. Medication Orders cephalexin 500 mg capsule [facility], [address] [place], [address], 20:45:10 Patient TargetsNo targets recorded. Patient Instructions Encounter Date Encounter Id Patient Instructions Last Modified By Organization Details Last Modified Time 07/22/2021 [id number] ingrown toenail: care instructions [email or web address] Not available 07/22/2021 21:10:14 You should be contacted in a couple days for the referral to a tong setter. Take the antibiotics and soak your foot [...] expected. Care instructions adapted under license by [facility]. This care instruction is for use with your licensed healthcare professional. If you have questions about a medical condition or this instruction, always ask your healthcare professional. [employer] disclaims any warranty or liability for your use of this information. [email or web address] Not available 07/22/2021 20:53:09 Reason for Referral Early Childhood Education Worker Referral for Ingr owing nail of toe [...] in Arterial blood by Pulse oximetry Systolic And Diastolic Provider Name and Address Organization Details Last Updated DateTime 1 65 /min 18 /min 97.8 [degF] 99 % 99 % 122/60 mm[Hg] Not Available [facility] 14:25:48 Date Recorded Oxygen saturation Oxygen saturation in Arterial blood by Pulse oximetry Body temperature Heart rate Respiratory rate Systolic And Diastolic Provider Name and Address Organization Details Last Updated DateTime 1 98 % 98 % 97.5 [degF] 67 /min 18 /min 142/50 mm[Hg] Not Available [facility] 20:02:33 Social History None recorded. Functional Status None recorded. Mental Status None recorded. Family History Nothing Reported. Medical History Condition Response Coronary Artery Disease N COPD N Depression Y Diabetes N Cancer N Stroke N Asthma N High Cholesterol N Pulmonary Embolism N Hypertension Y Kidney Disease N Gynecological HistoryNo gynecological history recorded. Obstetrics History GPAL:G 0 P 0 0 0 0 Past Encounters Encounter ID Performer Location Encounter Start Date Encounter Closed Date Diagnosis/Indication Diagnosis SNOMED-CT Code Diagnosis ICD10 Code Diagnosis IMO Codes Diagnosis Note [id number] CHARISSA SANCHEZ NP [facility] [address] [place] [address] 05/05/2021 14:20:02 05/10/2021 17:38:08 Dizziness 228578780 R42 Nystagmus 627948 H55.00 [id number] Agustin Proctor NP [facility] [address] [place] [address] 07/22/2021 19:56:29 07/26/2021 11:06:42 Cellulitis of toe of right foot 8186582249 7486891 L03.031 Ingrowing nail of toe of right foot 5136751023 5386948 L60.0 Health Concerns Section Related Observation LastModified by Organization Detai ls LastModified Time None Recorded Concern Status LastModified by Organization Details LastModified Time None Recorded Advance Directives Directive None Recorded Payers Insurance Date Sequence Insurance Name Policy Number Policy Torres Covered Member ID Torres Member ID Guarantor Name 06/11/2019 1 *SELF PAY* Tiny Esha [id number] Tiny Esha 05/05/2021 1 [place] [employer] Tiny Esha [id number] Tiny Esha 07/22/2021 1 [place] Tiny Esha [id number] Tiny Esha 05/05/2021 1 [place] Tiny Esha [id number] Tiny Esha 09/25/2021 2 [place] [id number] Tiny Esha [id number] Tiny Esha 07/22/2021 1 [place] [employer] Tiny Esha [id number] Tiny Esha 09/25/2021 1 [place] [place] Tiny Esha [id number] Tiny Esha Notes Date Note Type Note Provider Name [...] responding to the antibiotics. She went to [facility] on 04/29. She was given IV [...] have been no trauma, CHARISSA SANCHEZ, DARIN [address], [place], [address], [place] [facility] 05/05/2021 17:12:04 07/22/2021 text/html Pt states she began haivng swelling reness and tenderness to the right great toe 3 days ago. She denies any recent injury to the toe. Denies any swelling or pain to the right foot. States she has put some triple antibiotic ointment on it and taken ibuprofen but it keeps getting worse. Agustin Proctor NP [address], [place], [address], [place] [facility] 07/22/2021 21:10:24 OBGyn Episode No OBEpisode recorded.
--- OUTSIDE RECORDS SUMMARY | 2025-06-07 18:50 | XMS_ITS | Clinical Summary ---
Author Organization [facility] Address [address] [facility] [address] [place] [address] Phone Care Team Providers Care Chocolate Finisher Operator Name Role Phone Phong Henry MD Primary [...] Payer (Ef fective 2001-Present) Name:Tiny Balbuena Member ID:[id number] Relation to Subscriber:Self Name:Tiny Balbuena Subscriber ID:[id number] Payer ID:[id number] Group ID:Not on file Type:Medicare Address: [facility] [employer] [facility] [employer]. [address] [place] [phone] [facility] MEDEX SUPPLEMENT MEDICARE PART A & B [employer] MEDEX SUPPLEMENT MEDICARE PART A & B [employer] MEDEX SUPPLEMENT Member Subscriber Plan / Payer ( fective 2001-Present) Name:Tiny Balbuena Relation to Subscriber:Self Name:EshaTiny Payer ID:[id number] (NAIC) Type:Indemnity Address: [facility] [id number] [place] [address] MEDICARE PART A & B [employer] MEDEX SUPPLEMENT MEDICARE PART A & B [employer] MEDEX SUPPLEMENT MEDICARE PART A & B [employer] MEDEX SUPPLEMENT Member Subscriber Plan / Payer ( fective 2001-) Name:Tiny Balbuena Relation to Subscriber:Self Name:Tiny Balbuena Payer ID:[id number] ([facility]) Type:Indemnity Address: [facility] [id number] [place] [phone] MEDICARE PART A & B [employer] MEDEX SUPPLEMENT MEDICARE PART A & B [employer] MEDEX SUPPLEMENT MEDICARE PART A & B [employer] MEDEX SUPPLEMENT Care Teams Chocolate Finisher Operator Relationship Specialty Start Date End Date Phong Henry MD [address] [place] [id number] PCP - General Family Medicine 03/27/21 Additional Source Comments The information contained in this document represents components of the legal health record. It is not the complete legal health record.[facility]
--- OUTSIDE RECORDS SUMMARY | 2025-06-07 18:50 | XMS_ITS | Patient Health Record ---
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) Active confirmed Problem Localized, primary osteoarthritis of the ankle and/or foot (617556263) 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 Problem Bilateral atherosclerosis of arteries of lower limbs (disorder) (05788699896761533 ) Atherosclerosis of artery of both lower extremities (I70.203) Active confirmed Plan Of Treatment Pending Test Test Name Order Date X ray : Foot, right 3V 07/24/2021 X ray : Foot, right 3V 05/16/2022 Insurance Providers Payer Name Payer Address Payer Phone Subscriber Number Group Number Insured Name Patient Relationship to Insured Coverage Start Date Coverage End Date Medicare National Govt [employer] [address] [place] [address] [id number] Tiyn Balbuena Self - patient is the insured [employer] Blue Shield [address] [place] [address] [id number] Tiny Balbuena Self - patient is the [...]
--- OUTSIDE RECORDS SUMMARY | 2025-06-07 18:50 | XMS_ITS | Encounter Summary ---
Author Organization [facility] Address [address] [place] [address] Care Team Providers Care Contract Law Specialist Name Role Phone Physician, No Pcp Primary Care Provider Unavaila ble Encounter Details Date Type Department Care Team (Late st Contact Info) Description 03/30/2025 Lab Requisition [facility] [address] [facility] [place] [address] Tacos Sanders PA [address] [facility] [address] [place] [address] Encounter for other general examination [...] AM EDT) WBC 7.8 4.8 - 10.8 K/[facility] LAB HEMETOLOGY METHOD 03/30/2025 10:46 AM [facility] RBC 2.70(L) 3.80 - 4.80 M/mcL LAB HEMETOLOGY METHOD 03/30/2025 10:46 AM [facility] Hemoglobin 8.5(L) 11.5 - 16.0 g/dL LAB HEMETOLOGY METHOD 03/30/2025 10:46 AM [facility] Hematocrit 26.4(L) 35.0 - 47.0 % LAB HEMETOLOGY METHOD 03/30/2025 10:46 AM [facility] MCV 96.4 79.0 - 98.0 FL LAB HEMETOLOGY METHOD 03/30/2025 10:46 AM [facility] MCH 31.0 27.0 - 32.0 pcg LAB HEMETOLOGY METHOD 03/30/2025 10:46 AM [facility] MCHC 32.2 32.0 - 37.0 g/dL LAB HEMETOLOGY METHOD 03/30/2025 10:46 AM [facility] RDW 13.0 11.0 - 15.0 % LAB HEMETOLOGY METHOD 03/30/2025 10:46 AM [facility] Platelets 179 130 - 400 K/mcL LAB HEMETOLOGY METHOD 03/30/2025 10:46 AM [facility] MPV 11.3(H) 7.0 - 11.0 FL LAB HEMETOLOGY METHOD 03/30/2025 10:46 AM [facility] NRBC 0.0 <1.0 % LAB HEMETOLOGY METHOD 03/30/2025 10:46 AM [facility] NRBC Absolute 0.00 <0.10 K/mcL LAB HEMETOLOGY METHOD 03/30/2025 10:46 AM [facility] Neutrophils Relative 66.0 % LAB HEMETOLOGY METHOD 03/30/2025 10:46 AM [facility] Lymphocytes Relative 18.4 % LAB HEMETOLOGY METHOD 03/30/2025 10:46 AM [facility] Monocytes Relative 13.2 % LAB HEMETOLOGY METHOD 03/30/2025 10:46 AM [facility] Eosinophils Relative 1.7 % LAB HEMETOLOGY METHOD 03/30/2025 10:46 AM [facility] Basophils Relative 0.3 % LAB HEMETOLOGY METHOD 03/30/2025 10:46 AM [facility] Immature Granulocytes Relative 0.4 % LAB HEMETOLOGY METHOD 03/30/2025 10:46 AM [facility] Neutrophils Absolute 5.18 1.50 - 7.00 K/mcL LAB HEMETOLOGY METHOD 03/30/2025 10:46 AM [facility] Lymphocytes Absolute 1.44 1.00 - 5.00 K/mcL LAB HEMETOLOGY METHOD 03/30/2025 10:46 AM [facility] Monocytes Absolute 1.03(H) 0.20 - 1.00 K/mcL LAB HEMETOLOGY METHOD 03/30/2025 10:46 AM [facility] Eosinophils Absolute 0.13 0.00 - 0.50 K/mcL LAB HEMETOLOGY METHOD 03/30/2025 10:46 AM [facility] Basophils Absolute 0.02 0.00 - 0.20 K/mcL LAB HEMETOLOGY METHOD 03/30/2025 10:46 AM [facility] Immature Granulocytes Absolute 0.03 0.00 - 0.03 K/mcL LAB HEMETOLOGY METHOD 03/30/2025 10:46 AM [facility] Blood Venous blood specimen / Unknown Venipuncture / Unknown 03/30/2025 6:16 AM EDT 03/30/2025 9:09 AM EDT [facility] LAB BLOOD ORDERABLES Final R esult [facility] [address] [place] [address], [place] [phone] * Magnesium (03/30/2025 6:16 AM EDT) [facility] Magnesium 2.1 1.9 - 2.6 mg/dL LAB CHEMISTRY METHOD 03/30/2025 11:28 AM EDT [facility] Blood Venous blood specimen / Unknown Venipuncture / Unknown 03/30/2025 6:16 AM EDT 03/30/2025 9:09 AM EDT [facility] LAB BLOOD ORDERABLES Final R esult [facility] [address] [place] [address], [place] [phone] * (ABNORMAL) Comprehensive metabolic panel (03/30/2025 6:16 AM EDT) [facility] Sodium 137 133 - 145 mmol/L LAB CHEMISTRY METHOD 03/30/2025 11:39 AM EDT [facility] Potassium 4.0 3.5 - 5.5 mmol/L LAB CHEMISTRY METHOD 03/30/2025 11:39 AM EDT [facility] Chloride 104 96 - 110 mmol/L LAB CHEMISTRY METHOD 03/30/2025 11:39 AM EDT [facility] CO2 27 21 - 32 mmol/L LAB CHEMISTRY METHOD 03/30/2025 11:39 AM EDT [facility] Anion Gap 6 3 - 11 LAB CHEMISTRY METHOD 03/30/2025 11:39 AM EDT [facility] Glucose 98 70 - 100 mg/dL LAB CHEMISTRY METHOD 03/30/2025 11:39 AM EDT [facility] BUN 17 5 - 25 mg/dL LAB CHEMISTRY METHOD 03/30/2025 11:39 AM [facility] Creatinine 0.96 0.50 - 1.10 mg/dL LAB CHEMISTRY METHOD 03/30/2025 11:39 AM [facility] eGFR 57(L) >=60 mL/min/1. 73m2 LAB CHEMISTRY METHOD 03/30/2025 11:39 AM [facility] Comment:Calculation based on the Chronic Kidney Disease Epidemiology Collaboration (CKD-EPI) equation refit without adjustment for race. BUN/Creatinine Ratio 17.7 LAB CHEMISTRY METHOD 03/30/2025 11:39 AM [facility] Calcium 8.0(L) 8.5 - 10.5 mg/dL LAB CHEMISTRY METHOD 03/30/2025 11:39 AM [facility] AST (SGOT) 31 10 - 42 unit/L LAB CHEMISTRY METHOD 03/30/2025 11:39 AM [facility] ALT (SGPT) 11 10 - 60 unit/L LAB CHEMISTRY METHOD 03/30/2025 11:39 AM [facility] Alkaline Phosphatase 72 42 - 121 unit/L LAB CHEMISTRY METHOD 03/30/2025 11:39 AM [facility] Total Protein 5.4(L) 6.0 - 8.0 g/dL LAB CHEMISTRY METHOD 03/30/2025 11:39 AM [facility] Albumin 2.5(L) 3.2 - 5.0 g/dL LAB CHEMISTRY METHOD 03/30/2025 11:39 AM [facility] Total Bilirubin 0.3 0.0 - 1.4 mg/dL LAB CHEMISTRY METHOD 03/30/2025 11:39 AM [facility] Blood Venous blood specimen / Unknown Venipuncture / Unknown 03/30/2025 6:16 AM EDT 03/30/2025 9:09 AM EDT us [facility] LAB BLOOD ORDERABLES Final R esult [facility] [address] [place] [address], documented in this encounter Visit Diagnoses Diagnosis Encounter for other general examination documented in this encounter Care Teams Contract Law Specialist Relationship Specialty Start Date End Date Physician, No Pcp PCP - General 03/30/25 documented as of this encounter
--- OUTSIDE RECORDS SUMMARY | 2025-06-07 18:50 | XMS_ITS | Data Portability ---
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 Cerumen impaction removed from left ear, which patient tolerated well. Otologic exam demonstrated EACs without erythema, discharge, or obvious dermatitis. TMs are intact with well-aerated middle ear spaces. Recommend continued amplification and following up with [facility] for hearing aid adjustment. Recommend vinegar 3-5 drops weekly as needed and Q-tip avoidance for occasional right ear pruritus. She will return in 6-months for cerumen removal, sooner with issues. [email or web address] Not available 05/30/2024 14:02:45 02/27/2025 02/27/2025 89-year-old female presents for cerumen removal. Cerumen impaction removed bilaterally. Bilateral TMs are intact with well aerated middle ear spaces. She will follow-up as scheduled in June for routine ear cleaning. Patient with allergic rhinitis. RAST positive to silver birch, oak, and hazelnut tree. Symptoms are well-controlled with Goldie. Follow up if symptoms persist or worsen. [email or web address] Not available 02/27/2025 11:34:03 Plan of Treatment Reminders Order Date Submit Date Provider Last Modified By Organization Details Last Modified Time Details Appointments Establish ed 30 2024 11:00A M SAIDA Arroyo MD Not available Not available Not available Lab None recorded. Referral None recorded. Procedures None recorded. Surgeries None recorded. Imaging None recorded. Medication Orders None recorded. Patient TargetsNo targets recorded. Patient InstructionsNo instructions recorded. Reason for Referral None Reported. Results Created Date Observation Date Name Description Value Unit Range Abnormal Flag Note LastModifiedBy Organization Detail LastModifiedTime 02/04/2002/03/2025 ALLER GENS, ZONE 1 class description Commen t Level s of Speci fic IgE Class Descr iptio n of Class ----- ----- ----- ----- ----- -- ----- ----- ----- ----- ----- < 0.10 0 Negat chuy 0.10 - 0.31 0/I Equiv ocal/ Low 0.32 - 0.55 I Low 0.56 - 1.40 II Moder ate 1.41 - 3.90 III High 3.91 - 19.00 IV Very High 19.01 - 100.0 0 V Very High >100. 00 Very High Not Available [facility] ([facility]) [address] [place], [address], 02/05/2025 08:27:55 02/04/2002/05/2025 ALLER GENS, ZONE 1 L145-ZaU D pteronyssinu s <0.10 kU/L class 0 Not Available [facility] ([place] [facility]) [address] [place], [address], 02/05/2025 08:27:55 02/04/2002/05/2025 ALLER GENS, ZONE 1 R954-OaG D farinae <0.10 kU/L class 0 Not Available [facility] ([place] [facility]) [address] [place], [address], 02/05/2025 08:27:55 02/04/2002/05/2025 ALLER GENS, ZONE 1 N701-TiY CAT dander <0.10 kU/L class 0 Not Available [facility] ([place] [facility]) [address] [place], [address], 02/05/2025 08:27:55 02/04/20 25 02/05/2025 ALLER GENS, ZONE 1 Y942-OdD dog dander <0.10 kU/L class 0 Not Available [facility] ([facility]) [address] [place], [address], 02/05/2025 08:27:55 02/04/20 25 02/05/2025 ALLER GENS, ZONE 1 i403-KyM bermuda grass <0.10 kU/L class 0 Not Available [facility] ([facility]) [address] [facility], [place], [address], 02/05/2025 08:27:55 02/04/2002/05/2025 ALLER GENS, ZONE 1 d644-CbM bluegrass, gersony <0.10 kU/L class 0 Not Available [facility] ([facility]) [address] [place], [address], 02/05/2025 08:27:55 02/04/20 25 02/05/2025 ALLER GENS, ZONE 1 h069-ZfY bahia grass <0.10 kU/L class 0 Not Available [facility] ([facility]) [address] [place], [address], 02/05/2025 08:27:55 02/04/2002/05/2025 ALLER GENS, ZONE 1 W328-SnG cockroach, zimbabwean <0.10 kU/L class 0 Not Available [facility] ([facility]) [address] [place], [address], 02/05/2025 08:27:55 02/04/2002/05/2025 ALLER GENS, ZONE 1 D019-SqK penicillium chrysogen <0.10 kU/L class 0 Not Available [facility] ([facility]) [address] [place], [address], 02/05/2025 08:27:55 02/04/20 25 02/05/2025 ALLER GENS, ZONE 1 J930-CcA cladosporium herbarum <0.10 kU/L class 0 Not Available [facility] ([facility]) [address] [place], [address], 02/05/2025 08:27:55 02/04/20 25 02/05/2025 ALLER GENS, ZONE 1 V987-EyW aspergillus fumigatus <0.10 kU/L class 0 Not Available [facility] ([facility]) [address] [place], [address], 02/05/2025 08:27:55 02/04/2002/05/2025 ALLER GENS, ZONE 1 I991-XbK mucor racemosus <0.10 kU/L class 0 Not Available [facility] ([facility]) [address] [place], [address], 02/05/2025 08:27:55 02/04/2002/05/2025 ALLER GENS, ZONE 1 Z194-GuZ alternaria alternata <0.10 kU/L class 0 Not Available [facility] ([facility]) [address] [place], [address], 02/05/2025 08:27:55 02/04/20 25 02/05/2025 ALLER GENS, ZONE 1 D377-WeQ stemphylium herbarum <0.10 kU/L class 0 Not Available [facility] ([facility]) [address] [place], [address], 02/05/2025 08:27:55 02/04/2002/05/2025 ALLER GENS, ZONE 1 T078-NuP common silver birch 12.40 kU/L class IV abnormal Not Available [facility] ([facility]) [address] [place], [address], 02/05/2025 08:27:55 02/04/20 25 02/05/2025 ALLER GENS, ZONE 1 I600-MyB oak, white 1.17 kU/L class II abnormal Not Available [facility] ([facility]) [address] [facility], [place], [address], 02/05/2025 08:27:55 02/04/20 25 02/05/2025 ALLER GENS, ZONE 1 T940-GcT elm, zimbabwean <0.10 kU/L class 0 Not Available [facility] ([place] [facility]) [address] [facility], [place], [address], 02/05/2025 08:27:55 02/04/20 25 02/05/2025 ALLER GENS, ZONE 1 X159-AcV kristen, white <0.10 kU/L class 0 Not Available [facility] ([facility]) [address] [facility], [place], [address], 02/05/2025 08:27:55 02/04/2002/05/2025 ALLER GENS, ZONE 1 B031-NrC maple/box elder <0.10 kU/L class 0 Not Available [facility] ([place] [facility]) [address] [facility], [place], [address], 02/05/2025 08:27:55 02/04/2002/05/2025 ALLER GENS, ZONE 1 V196-YmH hazelnut tree 3.39 kU/L class III abnormal Not Available [facility] ([place] [facility]) [address] [facility], [place], [address], 02/05/2025 08:27:55 02/04/20 25 02/05/2025 ALLER GENS, ZONE 1 T925-RyU hickory, white <0.10 kU/L class 0 Not Available [facility] ([facility]) [address] [facility], [place], [address], 02/05/2025 08:27:55 02/04/20 25 02/05/2025 ALLER GENS, ZONE 1 Z244-CzF white mulberry <0.10 kU/L class 0 Not Available [facility] ([place] [facility]) [address], [place], [address], 02/05/2025 08:27:55 02/04/2002/05/2025 ALLER GENS, ZONE 1 A518-CbM cedar, mountain <0.10 kU/L class 0 Not Available [facility] ([place] [facility]) [address] [facility], [place], [address], 02/05/2025 08:27:55 02/04/2002/05/2025 ALLER GENS, ZONE 1 B636-KwP ragweed, short <0.10 kU/L class 0 Not Available [facility] ([place] [facility]) [address] [facility], [place], [address], 02/05/2025 08:27:55 02/04/20 25 02/05/2025 ALLER GENS, ZONE 1 E837-XwU mugwort <0.10 kU/L class 0 Not Available [facility] ([place] [facility]) [address] [place], [address], 02/05/2025 08:27:55 02/04/2002/05/2025 ALLER GENS, ZONE 1 Q287-CoW plantain, pashto <0.10 kU/L class 0 Not Available [facility] ([place] [facility]) [address] [facility] [place], [address], 02/05/2025 08:27:55 02/04/2002/05/2025 ALLER GENS, ZONE 1 P657-SdF pigweed, common <0.10 kU/L class 0 Not Available [facility] ([place] [facility]) [address] [facility] [place], [address], 02/05/2025 08:27:55 02/04/20 25 02/05/2025 ALLER GENS, ZONE 1 X908-InA sheep sorrel <0.10 kU/L class 0 Not Available [facility] ([place] [facility]) [address] [facility], [place], [address], 02/05/2025 08:27:55 02/04/2002/05/2025 ALLER GENS, ZONE 1 I169-KcG nettle <0.10 kU/L class 0 Not Available [facility] ([facility]) [address] [facility], [place], [address], 02/05/2025 08:27:55 02/04/2002/05/2025 IMMUN OGLOB ULIN E, TOTAL immunoglobul in E, total 378 IU/mL 6-495 Not Available [facility] ([facility]) [address] [facility], [place], [address], 02/05/2025 08:27:56 Result Notes None recorded. Problems Name Problem SNOMED Code Status Onset Date Resolution Date Notes Provider Name and Address Organization Details Recorded Time Impacted cerumen in left ear 72671330741 90540 Active 2017 Impacted cerumen, left ear; Note: Date Diagnose d: 03/15/2018 11:11 AM (H61.22) Not Available [facility] 4 02:40:56 Sensorin eural hearing loss of bilatera l ears 867206319 Active 2017 Sensorin eural hearing loss, bilatera l; Note: Date Diagnose d: 03/15/2018 11:39 AM (H90.3) Not Available [facility] 4 02:40:49 Dizzines s and giddines s 600474107 Active 2017 Dizzines s and giddines s; Note: Date Diagnose d: 03/15/2018 11:09 AM (R42) Not Available [facility] 4 02:40:53 Benign paroxysm al position al vertigo 243371775 Completed 201703/11/2024 Benign paroxysm al vertigo, left ear; Note: Date Diagnose d: 03/15/2018 11:14 AM (H81.12) Not Available [facility] 4 02:40:50 Impacted cerumen in right ear 62149733444 04194 Active 2017 Impacted cerumen, right ear; Note: Date Diagnose d: 07/19/20 18 1:25 PM (H61.21) Not Available [facility] 4 02:40:49 Abnormal auditory percepti on 51092796 Active 2018 Other abnormal auditory percepti ons, right ear; Note: Date Diagnose d: 9 9:00 AM (H93.291 ) Not Available [facility] 4 02:40:49 Migraine 16452218 Active 2019 Other migraine , not intracta ble, without status migraino zuleyma; Note: Date Diagnose d: 0 11:40 AM (G43.809 ) Not Available [facility] 4 02:40:49 M ni re's disease 48953119 Active 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, right ear; Note: Date Diagnose d: 0 5:03 PM (H81.01) Not Available [facility] 4 02:40:47 Vertigo of central origin 58911479 Active 2019 Vertigo of central origin; Note: Date Diagnose d: 0 12:54 PM (H81.4) Not Available [facility] 4 02:40:53 Bleeding from nose 254521158 Active 2019 Epistaxi s; Note: Date Diagnose d: 0 5:55 PM (R04.0) Not Available [facility] 4 02:40:54 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 451499881 Active 2019 Coagulat ion defects: Other hemorrha gic disorder due to intrinsi c circulat ing anticoag ulants, antibodi es, or inhibito rs; Note: Date Diagnose d: 5 8:41 AM () Not Available [facility] 4 02:40:54 Long-ter m current use of anticoag ulant 425590941 Active 2019 care home (current ) use of anticoag ulants; Note: Date Diagnose d: 5 8:40 AM (Z79.01) Not Available [facility] 4 02:40:54 Epistaxi s Active 2019 Epistaxi s; Note: Date Diagnose d: 5 8:41 AM () Not Available [facility] 4 02:40:56 Posterio r rhinorrh ea 04989200 Active 2020 Postnasa l drip; Note: Date Diagnose d: 04/10/2021 1:37 PM (R09.82) Not Available [facility] 4 02:40:50 Impacted cerumen of bilatera l ears 93407578537 30014 Active 2022 Impacted cerumen, bilatera l; Note: Date Diagnose d: 12/08/2022 12:35 PM (H61.23) Not Available [facility] 4 02:40:45 Allergic disposit ion 981861080 Active 2022 Other allergy, initial encounte r; Note: Date Diagnose d: 3 12:43 PM (T78.49X A) Tamara villalobos [place] - [facility] 5 11:56:49 Otalgia of right ear 1989135606 Active 2023 Otalgia, right ear; Note: Date Diagnose d: 4 4:38 PM (H92.01) Not Available [facility] 4 02:40:45 Seborrhe ic dermatit is 27324273 Active 2023 Seborrhe ic dermatit is, unspecif ied; Note: Date Diagnose d: 4 4:37 PM (L21.9) Not Available [facility] 4 02:40:46 Itching of skin 361598655 Active 2023 Other pruritus ; Note: Date Diagnose d: 4 4:38 PM (L29.8) Not Available [facility] 4 02:40:52 Itching of ear 816194833 Active 2023 JACINDA BERMEO PA-C [address] [place] [address],[place] [address], [place], [phone] , [facility] - [facility] 4 13:47:18 Non-dawood rgic rhinitis 50034691319 1 Active 2024 JACINDA BERMEO PA-C [address] [place] [address],[place] [address], [place], [address] , [facility] - [facility] 5 12:15:31 Allergic rhinitis 87510557 Active 2024 JACINDA BERMEO PA-C [address] [place] [address],[place] [address], [place], [address] , [facility] - [facility] 5 12:15:31 Seasonal allergic rhinitis 707611340 Active 2024 JACINDA BERMEO PA-C [address] [place] [address],[place] [address], [place], [address] , [facility] - [facility] 5 12:15:31 Problem Notes None recorded. Procedures Surgical History Date Name Laterality Status Provider Name and Address Organization Details Recorded Time 5 Cerumen removal without microscope bilat completed CARLEEN MOREL PA-C [address] [place] [address],[place] [address], [place], [address], [facility] - [facility] 02/27/2025 11:30:51 4 Cerumen removal without microscope left completed JACINDA BERMEO PA-C [address] [place] [address],[place] [address], [place], [address], [facility] - [facility] 05/30/2024 13:46:48 Imaging Results None recorded. Procedure Notes None recorded. Medical Equipment None Reported. Allergies Allergen ID Allergen Name Allergen Category Reaction Reaction Severity Criticality Documentation Date Start Date Code Code System Note Provider Name and Address Organization Details Recorded Time 953824 latex environme nt,medica tion Not available Not available Not available 05/30/2024 55249 91 RxNorm Tamara villalobos [place] - [facility] 4 13:05:10 65398 hydrochlo rothiazid e medicatio n other Not available Not available 12/22/2023 5487 RxNorm React ion: unkno wn, unspe cifie d;; Not Available [facility] 4 00:59:06 56053 lorazepam medicatio n other Not available Not available 12/22/2023 6470 RxNorm React ion: unkno wn, unspe cifie d;; Not Available [facility] 4 00:59:07 09766 spironola ctone medicatio n other Not available Not available 12/22/2023 9997 RxNorm React ion: unkno wn, unspe cifie d;; Not Available [facility] 4 00:59:11 03593 lisinopri l medicatio n other Not available Not available 12/22/2023 59700 RxNorm React ion: unkno wn, unspe cifie d;; Not Available [facility] 4 00:59:12 34778 propaceta mol Not available other Not available Not available 12/22/2023 React ion: unkno wn, unspe cifie d;; Not Available [facility] 4 00:59:13 05023 levofloxa umair medicatio n other Not available Not available 12/22/2023 65950 RxNorm React ion: unkno wn, unspe cifie d;; Not Available [facility] 4 00:59:15 Medications Name Sig Start Date Stop Date Status Note LastModified by Organization Details LastModified Time Prescript ion - New 05/30 completed Rx^Rx_20 926298 Not Available Not Available Not Available Prescript ion - Prior Authoriza tion Request active Script Copy/Kristin or Auth^Scr ipt Copy/Kristin or Auth_ Not Available Not Available Not Available amoxicill in 500 mg capsule TAKE 4 CAPSULES BY MOUTH 1 HOUR BEFORE DENTAL APPOINTM ENT active Not Available Not Available No t Available hydralazi ne 10 mg tablet TAKE ONE TABLET BY MOUTH TWICE A DAY FOR HYPERTEN SANDRA. MAY TAKE 1 ADDITION AL TABLET DAILY IF BLOOD PRESSURE IS ABOVE SYSTOLIC 180 active Not Available Not Available No t Available prednison e 10 mg tablet 05/30 completed Medicati on ID: [id number] D uration Value: 14 Brand Name: predniso ne Send Method: E-Prescr ibed Sub s Allowed: subs OK Medic ationGen ericName : predniso ne Not Available Not Available Not Available doxycycli ne hyclate 100 mg capsule 02/04 completed Medicati on ID: [id number] D uration Value: 30 Reason: () Brand [...] Not Available Not Available No t Available clindamyc in HCl 300 mg capsule TAKE 2 CAPSULES BY MOUTH ONE HOUR BEFORE APPOINTM ENT active Not Available Not Available No t Available clorazepa te dipotassi um 3.75 mg tablet 02/04 completed Medicati on ID: [id number] D uration Value: 30 Reason: () Brand [...] mg tablet 2017 active Medicati on ID: [id number] D uration Value: 90 Brand Name: simvasta tin Send Method: E-Prescr ibed Sub s Allowed: subs OK Medic ationGen ericName : simvasta tin Not Available Not Available Not Available cromolyn 4 % eye drops INSTILL 1 DROP INTO EACH EYE FOUR TIMES A DAY FOR 14 DAYS active Not Available Not Available No t Available meclizine 12.5 mg tablet 1 tablet by mouth 03/14 completed Medicati on ID: [id number] D uration Value: 30 Prescri bed By [...] topical cream 2018 active Medicati on ID: [id number] D uration Value: 10 Brand Name: triamcin olone acetonid e Send Method: E-Prescr ibed Sub s Allowed: subs OK Medic ationGen ericName : triamcin olone acetonid e Not Available Not Available Not Available spironola ctone 25 mg tablet 2018 active Medicati on ID: [id number] D uration Value: 30 Brand Name: spironol actone S end Method: E-Prescr ibed Sub s Allowed: subs OK Medic ationGen ericName : spironol actone Not Available Not Available Not Available amoxicill in 500 mg tablet TAKE 4 TABLETS ONE HOUR BEFORE DENTAL APPOINTM ENT 02/19 completed Not Available Not Available Not Available nortripty line 25 mg capsule 2 capsule by mouth 05/30 completed Medicati on ID: [id number] D uration Value: 30 Prescri bed By [...] mg tablet 02/04 completed Medicati on ID: [id number] D uration Value: 10 Reason: () Brand Name: lorazepa m Send Method: E-Prescr ibed Sub s Allowed: subs OK Medic ationGen ericName : lorazepa m Not Available Not Available Not Available Valium 2 mg tablet 1 tablet by mouth 2019 active Medicati on ID: [id number] D uration Value: 1 Prescri bed By [...] mg tablet 05/30 completed Medicati on ID: [id number] D uration Value: 30 Brand Name: amlodipi ne Send Method: E-Prescr ibed Sub s Allowed: subs OK Medic ationGen ericName : amlodipi ne Not Available Not Available Not Available [...] topical cream 02/04 completed Medicati on ID: [id number] D uration Value: 20 Reason: () Brand Name: nystatin -triamci nolone S end Method: E-Prescr ibed Sub s Allowed: subs OK Medic ationGen ericName : nystatin -triamci nolone Not Available Not Available Not Available betametha sone dipropion ate 0.05 % topical cream 05/30 completed Medicati on ID: [id number] D uration Value: 10 Brand Name: betameth asone dipropio adina Sen d Method: E-Prescr ibed Sub s Allowed: subs OK Medic ationGen ericName : betameth asone dipropio adina Not Available Not Available Not Available diltiazem CD 120 mg capsule,e xtended release 24 hr TAKE ONE CAPSULE BY MOUTH ONCE DAILY NEEDED FOR AFIB active Not Available Not Available No t Available hydrochlo rothiazid e 25 mg tablet 02/04 completed Medicati on ID: [id number] D uration Value: 90 Reason: () Brand [...] mg tablet 2018 active Medicati on ID: [id number] D uration Value: 30 Brand Name: oxybutyn in chloride Send Method: E-Prescr ibed Sub s Allowed: subs OK Medic ationGen ericName : oxybutyn in chloride Not Available Not Available Not Available clobetaso l 0.05 % scalp solution MASSAGE IN 5 TO 10 DROPS ONTO SCALP ITCH ONE OR TWO TIMES A DAY NEEDED active Not Available Not Available No t Available fluticaso ne propionat e 50 mcg/actua tion nasal spray,zuleyma pension SPRAY ONE SPRAY IN EACH NOSTRIL EVERY MORNING FOR ENVIRONM ENTAL ALLERGIE S active Not Available Not Available No t Available imipramin e 25 mg tablet TAKE 1 TABLET AT BEDTIME *PAR/STR IDES MFR active Not Available Not Available No t Available tobramyci n 0.3 %-dexamet hasone 0.1 % eye drops,zuleyma pension 02/04 completed Medicati on ID: [id number] D uration Value: 25 Reason: () Brand [...] eye drops 02/04 completed Medicati on ID: [id number] D uration Value: 15 Reason: () Brand Name: moxiflox acin Sen d Method: E-Prescr ibed Sub s Allowed: subs OK Medic atJanet ericName : moxiflox acin Not Available Not Available Not Available DILT-XR 120 mg capsule, extended release 25 capsule by mouth 05/30 completed Medicati on ID: [id number] D uration Value: 30 Brand Name: DILT-XR Send Method: E-Prescr ibed Sub s Allowed: subs OK Speci al Instruct ion: take if you experien ce severe vertigo Medicati onGeneri cName: DILT-XR Not Available Not Available Not Available levocetir izine 5 mg tablet TAKE ONE TABLET BY MOUTH DAILY AT BEDTIME FOR ENVIRONM ENTAL ALLERGIE S active Not Available Not Available No t Available Xarelto 20 mg tablet active Not Available Not Available Not Available Eliquis 5 mg tablet 02/04 completed Medicati on ID: [id number] D uration Value: 90 Reason: () Brand Name: Eliquis Send Method: E-Prescr ibed Sub s Allowed: subs OK Medic ation ericName : Eliquis Not Available Not Available Not Available Vitals Date Recorded Body height Body mass index (BMI) Body weight Provider Name and Address Organization Details Last Updated DateTime 02/27/2025 165.1 cm 25.8 kg/m2 92062.82 g Erendira Enamorado [place] - [facility] 02/27/2025 11:13:28 Social History None recorded. Functional Status None recorded. Mental Status None recorded. Family History Nothing Reported. Medical History Condition Response Hypertension Y High Cholesterol Y Gynecological HistoryNo gynecological history recorded. Obstetrics History GPAL:G 0 P 0 0 0 0 Past Encounters Encounter ID Performer Location Encounter Start Date Encounter Closed Date Diagnosis/Indication Diagnosis SNOMED-CT Code Diagnosis ICD10 Code Diagnosis IMO Codes Diagnosis Note [id number] JACINDA BERMEO PA-C [facility] [address] [address] 05/30/2024 12:59:06 05/30/2024 13:38:36 Impacted cerumen in left ear 6338616336 660014 H61.22 Itching of ear 549605804 L29.89 right ear [id number] CARLEEN MOREL PA-C [facility] [address] [address] 02/27/2025 11:04:08 02/27/2025 11:32:09 Impacted cerumen of bilateral ears 6427022892 932268 H61.23 Allergic rhinitis 655292 04 J30.89 Health Concerns Section Related Observation LastModified by Organization Detai ls LastModified Time None Recorded Concern Status LastModified by Organization Details LastModified Time None Recorded Advance Directives Directive None Recorded Payers Insurance Date Sequence Insurance Name Policy Number Policy Torres Covered Member ID Torres Member ID Guarantor Name 02/24/2025 2 [employer] BLUE SHIELD ([place]) [id number] Tiny Balbuena [id number] Tiny Balbuena 02/24/2025 1 MEDICARE [place]: [employer] Tiny Balbuena [id number] Tiny Balbuena Notes Date Note Type Note Provider Name and Address Organization Details Recorded Time 05/30/2024 text/html ROS as noted in the HPI 88-year-old female with bilateral SNHL presents for evaluation of the ears. She wears left amplification from [employer] that is about 4 years old. She reports she is due for a hearing aid adjustment. She endorses occasional right ear pruritus. She was prescribed Lotrisone 6 months ago for this, but only used it a couple times. Denies hearing changes, otalgia, otorrhea, or change in tinnitus. Occasional Qtip use. SAIDA EUBANKS MD [address] [place] [address], [phone], [facility] - [facility] 05/30/2024 17:00:05 02/27/2025 text/html ROS as noted in the [facility] 89-year-old female presents for cerumen removal. She was seen by her yoke presser who noted cerumen impaction and recommended an ear cleaning. Denies otologic concerns today. Patient recently had RAST as she is on a beta-geetha and cannot proceed with skin testing. RAST demonstrated reaction to silver birch, oak, and hazelnut tree. She has tried Xyzal and Flonase without any improvement. She takes Goldie with good improvement in symptoms. JONI VALERIO MD [address] [place] [address], [place], [address], [facility] - [facility] 02/27/2025 12:23:09 OBGyn Episode No OBEpisode recorded.
== END 2025-06-07 15:13 | disposition home or self-care (01) ==
LOC: HO.HGS 14:28
PROVIDERS: PCP Family Medicine; Visit Provider Surgery
DX: K64.9 Unspecified hemorrhoids (principal)
CPT/HCPCS: 46600; 99213

== ENCOUNTER → 2025-06-07 14:28 | Outpatient (BNVA) | payer MEDICARE, SELFPAY | PROVIDERS: PCP Family Medicine; Visit Provider Surgery | DX: K64.4 Residual hemorrhoidal skin tags (principal); K64.8 Other hemorrhoids | CPT/HCPCS: 46600; 99212 ==

== ENCOUNTER 2025-06-15 08:26 | Outpatient (REF) | payer MEDICARE, SELFPAY ==
--- NOTE | ~2025-06-15 | US_ITS ---
CLINICAL HISTORY: I10 - Essential (primary) hypertension US Renal with Doppler Comparison: None provided Findings: Right renal artery (cm/sec) Proximal: 176 Mid: 153 Distal: 198 RAR: Not available Upper pole: 0.84 Mid: 0.88 LP: 0.81 The renal vein is patent. Abnormal less than 60% stenosis of the right renal artery (PSV greater than or equal to 180 cm/sec, RAR less than 3.5). Left renal artery (cm/sec) Proximal: 175 Mid: 67.8 Distal: 94.9 RAR: Not available Upper pole: 0.86 Mid: 0.82 LP: 0.85 The renal vein is patent. Abnormal resistive index greater than or equal to 0.80 in the left and right kidney. Right kidney normal size and echotexture, 11 x 3.7 x 5.1 cm length. No hydronephrosis. Left kidney normal size and echotexture, 10.5 x 4.7 x 5.1 cm length. No hydronephrosis. Left renal interpolar region 1.7 x 1.5 x 1.1 cm, upper pole 1.6 x 1.4 0.7 cm anechoic focus with posterior acoustic enhancement; renal cysts. (Suboptimal evaluation; patient could not hold breath at time of imaging ). IMPRESSION: 1. Distal right renal artery elevated peak systolic velocity suggestive of significant stenosis. 2. High resistive indices (>0.8) in [place] kidneys are associated with renal dysfunction and adverse cardiovascular events This document has been electronically signed by: Mina Portillo MD on 06/15/2025 18:44:11
--- OUTSIDE RECORDS SUMMARY | 2025-06-15 08:51 | XMS_ITS | Data Portability ---
Author Organization [place] - 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 Cerumen impaction removed from left ear, which patient tolerated well. Otologic exam demonstrated EACs without erythema, discharge, or obvious dermatitis. TMs are intact with well-aerated middle ear spaces. Recommend continued amplification and following up with [facility] for hearing aid adjustment. Recommend vinegar 3-5 [...] Follow up if symptoms persist or worsen. [email or web address] Not available 02/27/2025 11:34:03 Plan of Treatment [...] >100. 00 Very High Not Available [facility] ([facility]) [address] [place], [address], 02/05/2025 08:27:55 02/04/2002/05/2025 ALLER GENS, ZONE 1 M909-YzW D pteronyssinu s <0.10 kU/L class 0 Not Available [facility] ([facility]) [address] [place], [address], 02/05/2025 08:27:55 02/04/2002/05/2025 ALLER GENS, ZONE 1 R981-RvB D farinae <0.10 kU/L class 0 Not Available [facility] ([facility]) [address] [place], [address], 02/05/2025 08:27:55 02/04/2002/05/2025 ALLER GENS, ZONE 1 U671-DuV CAT dander <0.10 kU/L class 0 Not Available [facility] ([facility]) [address] [place], [address], 02/05/2025 08:27:55 02/04/20 25 02/05/2025 ALLER GENS, ZONE 1 P665-CkM dog dander <0.10 kU/L class 0 Not Available [facility] ([facility]) [address] [place], [address], 02/05/2025 08:27:55 02/04/20 25 02/05/2025 ALLER GENS, ZONE 1 p358-CtC bermuda grass <0.10 kU/L class 0 Not Available [facility] ([facility]) [address] [facility], [place], [address], 02/05/2025 08:27:55 02/04/2002/05/2025 ALLER GENS, ZONE 1 z095-ZjO bluegrass, gersony <0.10 kU/L class 0 Not Available [facility] ([facility]) [address] [place], [address], 02/05/2025 08:27:55 02/04/20 25 02/05/2025 ALLER GENS, ZONE 1 a069-RyC bahia grass <0.10 kU/L class 0 Not Available [facility] ([facility]) [address] [place], [address], 02/05/2025 08:27:55 02/04/2002/05/2025 ALLER GENS, ZONE 1 R350-TsE cockroach, nigerian <0.10 kU/L class 0 Not Available [facility] ([facility]) [address] [place], [address], 02/05/2025 08:27:55 02/04/2002/05/2025 ALLER GENS, ZONE 1 B014-VpE penicillium chrysogen <0.10 kU/L class 0 Not Available [facility] ([facility]) [address] [place], [address], 02/05/2025 08:27:55 02/04/20 25 02/05/2025 ALLER GENS, ZONE 1 G503-MbE cladosporium herbarum <0.10 kU/L class 0 Not Available [facility] ([facility]) [address] [place], [address], 02/05/2025 08:27:55 02/04/20 25 02/05/2025 ALLER GENS, ZONE 1 B763-TrY aspergillus fumigatus <0.10 kU/L class 0 Not Available [facility] ([facility]) [address] [place], [address], 02/05/2025 08:27:55 02/04/2002/05/2025 ALLER GENS, ZONE 1 H990-UuE mucor racemosus <0.10 kU/L class 0 Not Available [facility] ([facility]) [address] [place], [address], 02/05/2025 08:27:55 02/04/2002/05/2025 ALLER GENS, ZONE 1 I956-YtN alternaria alternata <0.10 kU/L class 0 Not Available [facility] ([facility]) [address] [place], [address], 02/05/2025 08:27:55 02/04/20 25 02/05/2025 ALLER GENS, ZONE 1 W776-ZlN stemphylium herbarum <0.10 kU/L class 0 Not Available [facility] ([facility]) [address] [place], [address], 02/05/2025 08:27:55 02/04/2002/05/2025 ALLER GENS, ZONE 1 I451-AyO common silver birch 12.40 kU/L class IV abnormal Not Available [facility] ([facility]) [address] [place], [address], 02/05/2025 08:27:55 02/04/20 25 02/05/2025 ALLER GENS, ZONE 1 F869-YzS oak, white 1.17 kU/L class II abnormal Not Available [facility] ([facility]) [address] [facility], [place], [address], 02/05/2025 08:27:55 02/04/20 25 02/05/2025 ALLER GENS, ZONE 1 A375-QbU elm, nigerian <0.10 kU/L class 0 Not Available [facility] ([facility] [place] [facility]) [address] [facility], [place], [address], 02/05/2025 08:27:55 02/04/20 25 02/05/2025 ALLER GENS, ZONE 1 E494-WeB kristen, white <0.10 kU/L class 0 Not Available [facility] ([facility]) [address] [facility], [place], [address], 02/05/2025 08:27:55 02/04/2002/05/2025 ALLER GENS, ZONE 1 R871-WpH maple/box elder <0.10 kU/L class 0 Not Available [facility] ([facility]) [address] [facility], [place], [address], 02/05/2025 08:27:55 02/04/2002/05/2025 ALLER GENS, ZONE 1 B955-YpL hazelnut tree 3.39 kU/L class III abnormal Not Available [facility] ([facility]) [address] [facility], [place], [address], 02/05/2025 08:27:55 02/04/20 25 02/05/2025 ALLER GENS, ZONE 1 W507-GgC hickory, white <0.10 kU/L class 0 Not Available [facility] ([facility]) [address] [facility], [place], [address], 02/05/2025 08:27:55 02/04/20 25 02/05/2025 ALLER GENS, ZONE 1 L594-KzQ white mulberry <0.10 kU/L class 0 Not Available [facility] ([facility]) [address], [place], [address], 02/05/2025 08:27:55 02/04/2002/05/2025 ALLER GENS, ZONE 1 H256-ExN cedar, mountain <0.10 kU/L class 0 Not Available [facility] ([facility]) [address] [facility], [place], [address], 02/05/2025 08:27:55 02/04/2002/05/2025 ALLER GENS, ZONE 1 W135-RvY ragweed, short <0.10 kU/L class 0 Not Available [facility] ([facility]) [address] [facility], [place], [address], 02/05/2025 08:27:55 02/04/20 25 02/05/2025 ALLER GENS, ZONE 1 A948-PxQ mugwort <0.10 kU/L class 0 Not Available [facility] ([facility]) [address] [place], [address], 02/05/2025 08:27:55 02/04/2002/05/2025 ALLER GENS, ZONE 1 K799-UtE plantain, belarusian <0.10 kU/L class 0 Not Available [facility] ([place] [facility] [address] [facility] [place] [address], 02/05/2025 08:27:55 02/04/2002/05/2025 ALLER GENS, ZONE 1 H761-FlO pigweed, common <0.10 kU/L class 0 Not Available [facility] ([place] [facility]) [address] [facility] [place], [address], 02/05/2025 08:27:55 02/04/20 25 02/05/2025 ALLER GENS, ZONE 1 V813-VcF sheep sorrel <0.10 kU/L class 0 Not Available [facility] ([place] [facility]) [address] [facility], [place], [address], 02/05/2025 08:27:55 02/04/2002/05/2025 ALLER GENS, ZONE 1 C200-SeY nettle <0.10 kU/L class 0 Not Available [facility] ([facility]) [address] [facility], [place], [address], 02/05/2025 08:27:55 02/04/2002/05/2025 IMMUN OGLOB ULIN E, TOTAL immunoglobul in E, total 378 IU/mL 6-495 Not Available [facility] ([facility]) [address] [facility], [place], [address], 02/05/2025 08:27:56 Result Notes None recorded. 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 Active 2017 Dizzines s and giddines s; Note: Date Diagnose d: 03/15/2018 11:09 AM (R42) Not Available [facility] 4 02:40:53 Benign paroxysm al position al vertigo 627740250 Completed 201703/11/2024 Benign paroxysm al vertigo, left ear; Note: Date Diagnose d: 03/15/2018 11:14 AM (H81.12) Not Available [facility] 4 02:40:50 Impacted cerumen in right ear 82295060989 56965 Active 2017 Impacted cerumen, right ear; Note: Date Diagnose d: 07/19/20 18 1:25 PM (H61.21) Not Available [facility] 4 02:40:49 Abnormal auditory percepti on 47368664 Active 2018 Other abnormal auditory percepti ons, right ear; Note: Date Diagnose d: 9 9:00 AM (H93.291 ) Not Available [facility] 4 02:40:49 Migraine 38678667 Active 2019 Other migraine , not intracta ble, without status migraino zuleyma; Note: Date Diagnose d: 0 11:40 AM (G43.809 ) Not Available [facility] 4 02:40:49 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, right ear; Note: Date Diagnose d: 0 5:03 PM (H81.01) Not Available [facility] 4 02:40:47 Vertigo of central origin 17199251 Active 2019 Vertigo of central origin; Note: Date Diagnose d: 0 12:54 PM (H81.4) Not Available [facility] 4 02:40:53 Bleeding from nose 142532336 Active 2019 Epistaxi s; Note: Date Diagnose d: 0 5:55 PM (R04.0) Not Available [facility] 4 02:40:54 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 Coagulat ion defects: Other hemorrha gic disorder due to intrinsi c circulat ing anticoag ulants, antibodi es, or inhibito rs; Note: Date Diagnose d: 5 8:41 AM () Not Available [facility] 4 02:40:54 Long-ter m current use of anticoag ulant 333313480 Active 2019 group home (current ) use of anticoag ulants; Note: Date Diagnose d: 5 8:40 AM (Z79.01) Not Available [facility] 4 02:40:54 Epistaxi s Active 2019 Epistaxi s; Note: Date Diagnose d: 5 8:41 AM () Not Available [facility] 4 02:40:56 Posterio r rhinorrh ea 51091152 Active 2020 Postnasa l drip; Note: Date Diagnose d: 04/10/2021 1:37 PM (R09.82) Not Available [facility] 4 02:40:50 Impacted cerumen of bilatera l ears 95526966855 31627 Active 2022 Impacted cerumen, bilatera l; Note: Date Diagnose d: 12/08/2022 12:35 PM (H61.23) Not Available [facility] 4 02:40:45 Allergic disposit ion 882505898 Active 2022 Other allergy, initial encounte r; Note: Date Diagnose d: 3 12:43 PM (T78.49X A) Tamara villalobos [place] - [facility] 5 11:56:49 Otalgia of right ear 3035063822 Active 2023 Otalgia, right ear; Note: Date Diagnose d: 4 4:38 PM (H92.01) Not Available [facility] 4 02:40:45 Seborrhe ic dermatit is 65724153 Active 2023 Seborrhe ic dermatit is, unspecif ied; Note: Date Diagnose d: 4 4:37 PM (L21.9) Not Available [facility] 4 02:40:46 Itching of skin 721068794 Active 2023 Other pruritus ; Note: Date Diagnose d: 4 4:38 PM (L29.8) Not Available [facility] 4 02:40:52 Itching of ear 901894030 Active 2023 JACINDA BERMEO PA-C [address] [place] [address],[place] [address], [place], [address] , [facility] - [facility] 4 13:47:18 Non-dawood rgic rhinitis 08945599463 1 Active 2024 JACINDA BERMEO PA-C [address] [place] [address],[place] [address], [place], [address] , [facility] - [facility] 5 12:15:31 Allergic rhinitis 61335414 Active 2024 JACINDA BERMEO PA-C [address] [place] [address],[place] [address], [place], [address] , [facility] - [facility] 5 12:15:31 Seasonal allergic rhinitis 773441053 Active 2024 JACINDA BERMEO PA-C [address] [place] [address],[place] [address], [place], [address] , [facility] - [facility] 5 12:15:31 Problem Notes None recorded. Procedures Surgical History Date Name Laterality Status Provider Name and Address Organization Details Recorded Time 5 Cerumen removal without microscope bilat completed CARLEEN MOREL PA-C [address] [place] [address],[place] [address], [place], [address], [facility] - [facility] 02/27/2025 11:30:51 4 Cerumen removal without microscope left completed JACINDA BERMEO PA-C [address] [place] [address],[place] [address], [place], [address], [facility] - [facility] 05/30/2024 13:46:48 Imaging Results None recorded. Procedure Notes None recorded. Medical Equipment None Reported. Allergies Allergen ID Allergen Name Allergen Category Reaction Reaction Severity Criticality Documentation Date Start Date Code Code System Note Provider Name and Address Organization Details Recorded Time 368166 latex environme nt,medica tion Not available Not available Not available 05/30/2024 07308 91 RxNorm Tamara villalobos MD - [facility] 4 13:05:10 42339 hydrochlo rothiazid e medicatio n other Not available Not available 12/22/2023 5487 RxNorm React ion: unkno wn, unspe cifie d;; Not Available [facility] 4 00:59:06 46142 lorazepam medicatio n other Not available Not available 12/22/2023 6470 RxNorm React ion: unkno wn, unspe cifie d;; Not Available [facility] 4 00:59:07 96616 spironola ctone medicatio n other Not available Not available 12/22/2023 9997 RxNorm React ion: unkno wn, unspe cifie d;; Not Available [facility] 4 00:59:11 43204 lisinopri l medicatio n other Not available Not available 12/22/2023 85521 RxNorm React ion: unkno wn, unspe cifie d;; Not Available [facility] 4 00:59:12 43527 propaceta mol Not available other Not available Not available 12/22/2023 React ion: unkno wn, unspe cifie d;; Not Available [facility] 4 00:59:13 99860 levofloxa umair medicatio n other Not available Not available 12/22/2023 20195 RxNorm React ion: unkno wn, unspe cifie d;; Not Available [facility] 4 00:59:15 Medications Name Sig Start Date Stop Date Status Note LastModified by Organization Details LastModified Time Prescript ion - New 05/30 completed Rx^Rx_20 582367 Not Available Not Available Not Available Prescript [...] mg tablet 05/30 completed Medicati on ID: 157790 D uration Value: 14 Brand Name: predniso ne Send Method: E-Prescr ibed Sub s Allowed: subs OK Medic ationGen ericName : predniso ne Not Available Not Available Not Available doxycycli ne hyclate 100 mg capsule 02/04 completed Medicati on ID: 372602 D uration Value: 30 Reason: () Brand [...] mg tablet 02/04 completed Medicati on ID: 174885 D uration Value: 30 Reason: () Brand [...] mg tablet 2017 active Medicati on ID: 893651 D uration Value: 90 Brand Name: simvasta [...] by mouth 03/14 completed Medicati on ID: 592916 D uration Value: 30 Prescri bed By [...] topical cream 2018 active Medicati on ID: 898542 D uration Value: 10 Brand Name: triamcin olone acetonid e Send Method: E-Prescr ibed Sub s Allowed: subs OK Medic ationGen ericName : triamcin olone acetonid e Not Available Not Available Not Available spironola ctone 25 mg tablet 2018 active Medicati on ID: 780291 D uration Value: 30 Brand Name: spironol [...] by mouth 05/30 completed Medicati on ID: 496045 D uration Value: 30 Prescri bed By [...] mg tablet 02/04 completed Medicati on ID: 242233 D uration Value: 10 Reason: () Brand Name: lorazepa m Send Method: E-Prescr ibed Sub s Allowed: subs OK Medic ationGen ericName : lorazepa m Not Available Not Available Not Available Valium 2 mg tablet 1 tablet by mouth 2019 active Medicati on ID: 805235 D uration Value: 1 Prescri bed By [...] mg tablet 05/30 completed Medicati on ID: 563811 D uration Value: 30 Brand Name: amlodipi [...] topical cream 02/04 completed Medicati on ID: 187451 D uration Value: 20 Reason: () Brand Name: nystatin -triamci nolone S end Method: E-Prescr ibed Sub s Allowed: subs OK Medic ationGen ericName : nystatin -triamci nolone Not Available Not Available Not Available betametha sone dipropion ate 0.05 % topical cream 05/30 completed Medicati on ID: 136977 D uration Value: 10 Brand Name: betameth [...] mg tablet 02/04 completed Medicati on ID: 950351 D uration Value: 90 Reason: () Brand [...] mg tablet 2018 active Medicati on ID: 613108 D uration Value: 30 Brand Name: oxybutyn [...] drops,zuleyma pension 02/04 completed Medicati on ID: 454353 D uration Value: 25 Reason: () Brand [...] eye drops 02/04 completed Medicati on ID: [id number] D uration Value: 15 Reason: () Brand Name: moxiflox acin Sen d Method: E-Prescr ibed Sub s Allowed: subs OK Medic atJanet ericName : moxiflox acin Not Available Not Available Not Available DILT-XR 120 mg capsule, extended release 25 capsule by mouth 05/30 completed Medicati on ID: [id number] D uration Value: 30 Brand Name: DILT-XR [...] mg tablet 02/04 completed Medicati on ID: 179603 D uration Value: 90 Reason: () Brand Name: Eliquis Send Method: E-Prescr ibed Sub s Allowed: subs OK Medic ation ericName : Eliquis Not Available Not Available Not Available Vitals Date Recorded Body height Body mass index (BMI) Body weight Provider Name and Address Organization Details Last Updated DateTime 02/27/2025 165.1 cm 25.8 kg/m2 82254.82 g Erendira Enamorado [place] - [facility] 02/27/2025 11:13:28 Social History None recorded. Functional [...] ICD10 Code Diagnosis IMO Codes Diagnosis Note [id number] JACINDA BERMEO PA-C [facility] [address] [address] 05/30/2024 12:59:06 05/30/2024 13:38:36 Impacted cerumen in left ear [id number] 256352 H61.22 Itching of ear 504080009 L29.89 right ear [id number] CARLEEN MOREL PA-C [facility] [address] [address] 02/27/2025 11:04:08 02/27/2025 11:32:09 Impacted cerumen of bilateral ears 1543292428 922061 H61.23 Allergic rhinitis 404927 04 J30.89 Health Concerns Section Related Observation LastModified by Organization Detai ls LastModified Time None Recorded Concern Status LastModified by Organization Details LastModified Time None Recorded Advance Directives Directive None Recorded Payers Insurance Date Sequence Insurance Name Policy Number Policy Torres Covered Member ID Torres Member ID Guarantor Name 02/24/2025 2 [employer] BLUE [employer] (PPO) [id number] Tiny Balbuena [id number] Tiny Balbuena 02/24/2025 1 MEDICARE B-MD: [place] city [place] [employer] Tiny Balbuena [id number] Tiny Balbuena Notes Date Note Type Note Provider Name and Address Organization Details Recorded Time 05/30/2024 text/html ROS as noted in the HPI 88-year-old female with bilateral SNHL presents for evaluation of the ears. She wears left amplification from [employer] that is about 4 years old. She reports she is due for a hearing aid adjustment. She endorses occasional right ear pruritus. She was prescribed Lotrisone 6 months ago for this, but only used it a couple times. Denies hearing changes, otalgia, otorrhea, or change in tinnitus. Occasional Qtip use. SAIDA EUBANKS MD [address] [place] [address], [address], [facility] - [facility] 05/30/2024 17:00:05 02/27/2025 text/html ROS as noted in the [facility] 89-year-old female presents for cerumen removal. 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 Denies otologic concerns today. Patient recently had RAST as she is on a beta-geetha and cannot proceed with skin testing. RAST demonstrated reaction to silver birch, oak, and hazelnut tree. She has tried Xyzal and Flonase without any improvement. She takes Goldie with good improvement in symptoms. JONI VALERIO MD [address] [place] [address], [place], [address], [facility] - [facility] 02/27/2025 12:23:09 OBGyn Episode No OBEpisode recorded.
--- OUTSIDE RECORDS SUMMARY | 2025-06-15 08:51 | XMS_ITS | Encounter Summary ---
Author Organization Irland[facility] Address [address] [place] [address] Care Team Providers Care Tape Editor Name Role Phone Physician, No Pcp Primary Care Provider Unavaila ble Encounter Details Date Type Department Care Team (Late st Contact Info) Description 03/30/[address] [facility] - Main Lab [address] [facility] [place] [address] Tacos Sanders PA [address] [facility] [address] [place] [address] Encounter for other general examination [...] AM EDT) WBC 7.8 4.8 - 10.8 K/[facility] LAB HEMETOLOGY METHOD 03/30/2025 10:46 AM [facility] LAB RBC 2.70(L) 3.80 - 4.80 M/mcL LAB HEMETOLOGY METHOD 03/30/2025 10:46 AM [facility] LAB Hemoglobin 8.5(L) 11.5 - 16.0 g/dL LAB HEMETOLOGY METHOD 03/30/2025 10:46 AM [facility] LAB Hematocrit 26.4(L) 35.0 - 47.0 % LAB HEMETOLOGY METHOD 03/30/2025 10:46 AM [facility] LAB MCV 96.4 79.0 - 98.0 FL LAB HEMETOLOGY METHOD 03/30/2025 10:46 AM [facility] LAB MCH 31.0 27.0 - 32.0 pcg LAB HEMETOLOGY METHOD 03/30/2025 10:46 AM [facility] LAB MCHC 32.2 32.0 - 37.0 g/dL LAB HEMETOLOGY METHOD 03/30/2025 10:46 AM [facility] LAB RDW 13.0 11.0 - 15.0 % LAB HEMETOLOGY METHOD 03/30/2025 10:46 AM [facility] LAB Platelets 179 130 - 400 K/mcL LAB HEMETOLOGY METHOD 03/30/2025 10:46 AM [facility] LAB MPV 11.3(H) 7.0 - 11.0 FL LAB HEMETOLOGY METHOD 03/30/2025 10:46 AM [facility] LAB NRBC 0.0 <1.0 % LAB HEMETOLOGY METHOD 03/30/2025 10:46 AM [facility] LAB NRBC Absolute 0.00 <0.10 K/mcL LAB HEMETOLOGY METHOD 03/30/2025 10:46 AM [facility] Neutrophils Relative 66.0 % LAB HEMETOLOGY METHOD 03/30/2025 10:46 AM [facility] Lymphocytes Relative 18.4 % LAB HEMETOLOGY METHOD 03/30/2025 10:46 AM [facility] Monocytes Relative 13.2 % LAB HEMETOLOGY METHOD 03/30/2025 10:46 AM [facility] Eosinophils Relative 1.7 % LAB HEMETOLOGY METHOD 03/30/2025 10:46 AM [facility] Basophils Relative 0.3 % LAB HEMETOLOGY METHOD 03/30/2025 10:46 AM [facility] Immature Granulocytes Relative 0.4 % LAB HEMETOLOGY METHOD 03/30/2025 10:46 AM [facility] Neutrophils Absolute 5.18 1.50 - 7.00 K/mcL LAB HEMETOLOGY METHOD 03/30/2025 10:46 AM [facility] Lymphocytes Absolute 1.44 1.00 - 5.00 K/mcL LAB HEMETOLOGY METHOD 03/30/2025 10:46 AM [facility] Monocytes Absolute 1.03(H) 0.20 - 1.00 K/mcL LAB HEMETOLOGY METHOD 03/30/2025 10:46 AM [facility] Eosinophils Absolute 0.13 0.00 - 0.50 K/mcL LAB HEMETOLOGY METHOD 03/30/2025 10:46 AM [facility] Basophils Absolute 0.02 0.00 - 0.20 K/mcL LAB HEMETOLOGY METHOD 03/30/2025 10:46 AM [facility] Immature Granulocytes Absolute 0.03 0.00 - 0.03 K/mcL LAB HEMETOLOGY METHOD 03/30/2025 10:46 AM [facility] Blood Venous blood specimen / Unknown Venipuncture / Unknown 03/30/2025 6:16 AM EDT 03/30/2025 9:09 AM EDT [facility]os COSTA LAB BLOOD ORDERABLES Final R esult [facility] [address] [place] [address], [place] [phone] * Magnesium (03/30/2025 6:16 AM EDT) [facility] Magnesium 2.1 1.9 - 2.6 mg/dL LAB CHEMISTRY METHOD 03/30/2025 11:[address] [facility] Blood Venous blood specimen / Unknown Venipuncture / Unknown 03/30/2025 6:16 AM EDT 03/30/2025 9:09 AM EDT [facility] LAB BLOOD ORDERABLES Final R esult [facility] [address] [place] [address], [place] [phone] * (ABNORMAL) Comprehensive metabolic panel (03/30/2025 6:16 AM EDT) [facility] Sodium 137 133 - 145 mmol/L LAB CHEMISTRY METHOD 03/30/2025 11:[address] [facility] Potassium 4.0 3.5 - 5.5 mmol/L LAB CHEMISTRY METHOD 03/30/2025 11:[address] [facility] Chloride 104 96 - 110 mmol/L LAB CHEMISTRY METHOD 03/30/2025 11:[address] [facility] CO2 27 21 - 32 mmol/L LAB CHEMISTRY METHOD 03/30/2025 11:[address] [facility] Anion Gap 6 3 - 11 LAB CHEMISTRY METHOD 03/30/2025 11:[address] [facility] Glucose 98 70 - 100 mg/dL LAB CHEMISTRY METHOD 03/30/2025 11:[address] [facility] BUN 17 5 - 25 mg/dL LAB CHEMISTRY METHOD 03/30/2025 11:39 AM [facility] Creatinine 0.96 0.50 - 1.10 mg/dL LAB CHEMISTRY METHOD 03/30/2025 11:39 AM [facility] eGFR 57(L) >=60 mL/min/1. 73m2 LAB CHEMISTRY METHOD 03/30/2025 11:39 AM [facility] Comment:Calculation based on the Chronic Kidney Disease Epidemiology Collaboration (CKD-EPI) equation refit without adjustment for race. BUN/Creatinine Ratio 17.7 LAB CHEMISTRY METHOD 03/30/2025 11:39 AM [facility] Calcium 8.0(L) 8.5 - 10.5 mg/dL LAB CHEMISTRY METHOD 03/30/2025 11:39 AM [facility] AST (SGOT) 31 10 - 42 unit/L LAB CHEMISTRY METHOD 03/30/2025 11:39 AM [facility] ALT (SGPT) 11 10 - 60 unit/L LAB CHEMISTRY METHOD 03/30/2025 11:39 AM [facility] Alkaline Phosphatase 72 42 - 121 unit/L LAB CHEMISTRY METHOD 03/30/2025 11:39 AM [facility] Total Protein 5.4(L) 6.0 - 8.0 g/dL LAB CHEMISTRY METHOD 03/30/2025 11:39 AM [facility] Albumin 2.5(L) 3.2 - 5.0 g/dL LAB CHEMISTRY METHOD 03/30/2025 11:39 AM [facility] Total Bilirubin 0.3 0.0 - 1.4 mg/dL LAB CHEMISTRY METHOD 03/30/2025 11:39 AM [facility] Blood Venous blood specimen / Unknown Venipuncture / Unknown 03/30/2025 6:16 AM EDT 03/30/2025 9:09 AM EDT us Tacos COSTA LAB BLOOD ORDERABLES Final R esult [facility] [address] [place] [address], documented in this encounter Visit Diagnoses Diagnosis Encounter for other general examination documented in this encounter Care Teams Tape Editor Relationship Specialty Start Date End Date Physician, No Pcp PCP - General 03/30/25 documented as of this encounter
--- OUTSIDE RECORDS SUMMARY | 2025-06-15 08:51 | XMS_ITS | Patient Health Record ---
Author Organization [facility] Address [address] [place] [address] Care Team Providers Care Metal Sander And Finisher Name Role Phone Phong Henry Primary Care Provider Jori Cummings Unavailable [phone] Allergies Allergen (clinical drug ingredient) Drug/Non Drug [...] W/U Status Risk Notes Problem Rectal bleeding (50420819) Rectal bleeding (K62.5) Active confirmed Problem Irritable bowel syndrome with diarrhea (100293332) Irritable bowel syndrome with diarrhea (K58.0) Active confirmed Problem Irritable bowel syndrome (59436339) Irritable bowel syndrome without diarrhea (K58.9) Active confirmed Problem Generalized abdominal pain (708449599) Generalized abdominal pain (R10.84) Active confirmed Problem Gas (58824634) Gas (R14.3) Active confirmed Problem Left lower quadrant pain (907676669) Abdominal pain, left lower quadrant (R10.32) Active [...] MEDICARE OF [place] [address] [place] [address] [id number] YONY HOLDER Self - patient is the insured [employer] CLAIMS [address] [place] [address] [id number] GALLOYONY ANDERSON Self - patient is the insured Medical (General) History Medical History History ICD Code GERD-upper endoscopy in 2010 was negative for any significant esophagitis nor Serrano's esophagus Colon polyps--Colonoscopy in 2010-- a small tubular adenoma was removed --she has had numerous previous colonoscopies by myself, Dr. Durán, Dr. Locke, and by physicians down at [place], some of which have been normal and others of which have had polyps removed--she describes the surgical removal of a colon polyp at approximately age 31, but does not know what type of polyp that was. Atrial fibrillation Diverticulitis-s/p surgery w ith Dr. Shine in 1996 with a sigmoid resection as below Denies ND,DM,CVA,Lung disease,renal dise ase HTN Temporal arterititis Colonoscopy 12/2014--negative except for minimal internal hemorrhoids and minimal diverticulosis Negative labs for celiac disease in 2016 Needed transfusions after the below vasc ular surgery in 01/2022 Surgical History Surgery Date(Month/Year) Surgery with Dr Shine in 199 7 for diverticulitis with a sigmoid resection. LEX Surgical resection of a colo n polyp in 1968 at [facility] Appy Left hip replacement 2020 Cataract Laser eye surgery Vascular bypass right leg kumar lena Marshall 12/2021 with transfusions needed in 01/2022
--- OUTSIDE RECORDS SUMMARY | 2025-06-15 08:51 | XMS_ITS | Clinical Summary ---
Author Organization [address] [facility] Address [address] [place] [address] Phone Care Team Providers Care Encoding Machine Operator Name Role Phone Physician, No Pcp Primary Care Provider Unavaila ble Encounters Date Type Department Care Team Description 04/04/2025 Lab Requisition [facility] Lab [address] [place] [address] Gabrielle Edmondson PA Encounter for other general examination 03/30/2025 Lab Requisition [facility] Lab [address] [place] [address] Tacos Sanders PA Encounter for [...] Complete blood count (04/04/2025 5:45 AM EDT) [facility] WBC 5.4 4.8 - 10.8 K/mcL LAB [...] LAB HEMETOLOGY METHOD 04/04/2025 11:[address] [facility] Blood Venous blood specimen / Unknown Venipuncture / Unknown 04/04/2025 5:45 AM EDT 04/04/2025 9:55 AM EDT us Gabrielle COSTA LAB BLOOD ORDERABLES Final Re sult [facility] [address] [place] [address], [place] [phone] * (ABNORMAL) Comprehensive metabolic panel (04/04/2025 5:45 [...] LAB CHEMISTRY METHOD 04/04/2025 1:[address] [facility] Comment:Calculation based on the Chronic [...] COSTA LAB BLOOD ORDERABLES Final Re sult [facility] [address] [place] [address], * (ABNORMAL) CBC auto differential (03/30/2025 6:16 AM EDT) WBC 7.8 4.8 - 10.8 K/[facility] LAB HEMETOLOGY METHOD 03/30/2025 10:[address] [facility] RBC 2.70(L) 3.80 - 4.80 M/[facility] LAB HEMETOLOGY METHOD 03/30/2025 10:46 AM [...] HOSPITAL LAB Platelets 179 130 - 400 K/[facility] LAB HEMETOLOGY METHOD 03/30/2025 10:[address] [facility] MPV 11.3(H) 7.0 - 11.0 FL LAB HEMETOLOGY METHOD 03/30/2025 10:[address] [facility] NRBC 0.0 <1.0 % LAB HEMETOLOGY METHOD 03/30/2025 10:[address] [facility] NRBC Absolute 0.00 <0.10 K/[facility] LAB HEMETOLOGY METHOD 03/30/2025 10:46 AM [...] COSTA LAB BLOOD ORDERABLES Final R esult [facility] [address] [place] [address], [place] [phone] * Magnesium (03/30/2025 6:16 AM EDT) [facility] Magnesium 2.1 1.9 - 2.6 mg/dL LAB CHEMISTRY METHOD 03/30/2025 11:[address] [facility] Blood Venous blood specimen / Unknown Venipuncture / Unknown 03/30/2025 6:16 AM EDT 03/30/2025 9:09 AM EDT [facility] LAB BLOOD ORDERABLES Final R esult Performing Organization Address City/[facility]/ZIP Co de Phone Number [facility] [address] [place] [address], [place] [phone] from Last 3 Months Insurance [place] - [place] MEDICARE [facility] Care Teams Encoding Machine Operator Relationship Specialty Start Date End Date Physician, No Pcp PCP - General 03/30/25
--- OUTSIDE RECORDS SUMMARY | 2025-06-15 08:51 | XMS_ITS | Data Portability ---
Author Organization [place] [facility] Address [address] [place] [address] Care Team Providers Care International Specialist Name Role Phone NATE SANTOS Primary Care Provider [phone] Assessment Encounter Date Assessment Date Assessment LastModified [...] - Cynthia Villa and report called to [facility]. Not available 05/05/2021 17:11:49 07/22/2021 [...] pertinent in my medical decision making today. [email or web address] Not available 07/22/2021 21:09:22 Plan of Treatment Reminders Order Date Submit Date Provider Last Modified By Organization Details Last Modified Time Details Appointments None recorded. Lab None recorded. Referral residential real estate appraiser referral - pt has an ingrown right great toenail and cellulitis of the right great toe without paronychia . Pt will be placed on cephalexin 500mg TID x 5 days 2020 [employer] Ivon Young DPM, [address] [place], [address], 21:30:16 Procedures None recorded. Surgeries None recorded. Imaging None recorded. Medication Orders cephalexin 500 mg capsule 2020 [employer] [id number], [address] [place], [address], 20:45:10 Patient TargetsNo targets recorded. Patient Instructions Encounter Date Encounter Id Patient Instructions Last Modified By Organization Details Last Modified Time 07/22/2021 [id number] ingrown toenail: care instructions [email or web address] Not available 07/22/2021 21:10:14 You should be contacted in a couple days for the referral to a residential real estate appraiser. Take the antibiotics and soak your foot [...] expected. Care instructions adapted under license by [facility]. This care instruction is for use with your licensed healthcare professional. If you have questions about a medical condition or this instruction, always ask your healthcare professional. [employer] disclaims any warranty or liability for your use of this information. [email or web address] Not available 07/22/2021 20:53:09 Reason for Referral Animal Science Professor Referral for Ingr owing nail of toe [...] % 99 % 122/60 mm[Hg] Not Available [facility] 14:25:48 Date Recorded Oxygen saturation Oxygen saturation in Arterial blood by Pulse oximetry Body temperature Heart rate Respiratory rate Systolic And Diastolic Provider Name and Address Organization Details Last Updated DateTime 98 % 98 % 97.5 [degF] 67 /min 18 /min 142/50 mm[Hg] Not Available [facility] 20:02:33 Social History None recorded. Functional Status [...] ICD10 Code Diagnosis IMO Codes Diagnosis Note [id number] CHARISSA SANCHEZ NP [facility] [address] [place] [address] 05/05/2021 14:20:02 05/10/2021 17:38:08 Dizziness 260061342 R42 Nystagmus 859852 H55.[id number] [facility] [address] [place] [address] 07/22/2021 19:56:29 07/26/2021 11:06:42 Cellulitis of toe of right foot [id number] 4720715 L03.031 Ingrowing nail of toe of right foot [id number] 8846825 L60.0 Health Concerns Section Related Observation LastModified by Organization Detai ls LastModified Time None Recorded Concern Status LastModified by Organization Details LastModified Time None Recorded Advance Directives Directive None Recorded Payers Insurance Date Sequence Insurance Name Policy Number Policy Torres Covered Member ID Torres Member ID Guarantor Name 06/11/2019 1 *SELF PAY* Tiny Esha [id number] Tiny Esha 05/05/2021 1 [place] [employer] Tiny Esha [id number] Tiny Esha 07/22/2021 1 [place] Tiny Esha [id number] Tiny Esha 05/05/2021 1 [place] Tiny Esha [id number] Tiny Esha 09/25/2021 2 [place] [id number] Tiny Esha [id number] Tiny Esha 07/22/2021 1 [place] Tiny Esha [id number] Tiny Esha 09/25/2021 1 [place] Tiny Esha [id number] Tiny Esha Notes Date Note Type [...] responding to the antibiotics. She went to [facility] on 04/29. She was given IV [...] There have been no trauma, CHARISSA SANCHEZ, ADRIN [address], [place], [address], [place] [facility] 05/05/2021 17:12:04 07/22/2021 text/html [...] worse. Agustin Proctor NP [address], [place], [address], [place] [facility] 07/22/2021 21:10:24 OBGyn Episode No OBEpisode recorded.
--- OUTSIDE RECORDS SUMMARY | 2025-06-15 08:51 | XMS_ITS | Encounter Summary ---
Author Organization [facility] Address [address] [place] [address] Care Team Providers Care Rat Poisoner Name Role Phone Physician, No Pcp Primary Care Provider Unavaila ble Encounter Details Date Type Department Care Team (Late st Contact Info) Description 04/04/2025 Lab Requisition [facility] - Main Lab [address] [facility] [place] [address] Gabrielle Edmondson PA [address] [place] [address] Encounter for other general examination [...] LAB CHEMISTRY METHOD 04/04/2025 1:19 PM EDT [facility] Potassium 4.1 3.5 - 5.5 mmol/L LAB CHEMISTRY METHOD 04/04/2025 1:19 PM EDT [facility] Chloride 102 96 - 110 mmol/L LAB CHEMISTRY METHOD 04/04/2025 1:19 PM EDT [facility] CO2 30 21 - 32 [...] 73m2 LAB CHEMISTRY METHOD 04/04/2025 1:19 PM [facility] Comment:Calculation based on the Chronic [...] LAB CHEMISTRY METHOD 04/04/2025 1:19 PM EDT [facility] Blood Venous blood specimen / Unknown Venipuncture / Unknown 04/04/2025 5:45 AM EDT 04/04/2025 9:55 AM EDT us Gabrielle COSTA LAB BLOOD ORDERABLES Final Re sult [facility] [address] [place] [address], [place] [phone] * (ABNORMAL) Complete blood count (04/04/2025 5:45 AM EDT) WBC 5.4 4.8 - 10.8 K/mcL LAB HEMETOLOGY METHOD 04/04/2025 11:25 AM EDT [facility] RBC 3.00(L) 3.80 - 4.80 [...] g/dL LAB HEMETOLOGY [facility] RDW 12.3 11.0 - 15.0 % LAB HEMETOLOGY METHOD 04/04/2025 11:25 AM EDT [facility] Platelets 255 130 - 400 K/mcL LAB HEMETOLOGY METHOD 04/04/2025 11:25 AM EDT [facility] MPV 10.8 7.0 - 11.0 FL LAB HEMETOLOGY METHOD 04/04/2025 11:25 AM EDT [facility] NRBC 0.0 <1.0 % LAB HEMETOLOGY METHOD 04/04/2025 11:25 AM EDT [facility] NRBC Absolute 0.00 <0.10 K/mcL LAB HEMETOLOGY METHOD 04/04/2025 11:25 AM EDT [facility] Blood Venous blood specimen / Unknown Venipuncture / Unknown 04/04/2025 5:45 AM EDT 04/04/2025 9:55 AM EDT us Gabrielle COSTA LAB BLOOD ORDERABLES Final Re sult [facility] [address] [place] [address], documented in this encounter Visit Diagnoses Diagnosis Encounter for other general examination documented in this encounter Care Teams Rat Poisoner Relationship Specialty Start Date End Date Physician, No Pcp PCP - General 03/30/25 documented as of this encounter
--- OUTSIDE RECORDS SUMMARY | 2025-06-15 08:52 | XMS_ITS | Clinical Summary ---
Author Organization [facility] Address [address] [facility] [address] [place] [address] Phone Care Team Providers Care Assembly Adjuster Name Role Phone Phong Henry MD Primary [...] Additional history exists COVID-19 VACCINE (2 - season) 2025 10/08/2020 Adult Td,Tdap Booster 03/03/2027 [...] file Insurance MEDICARE PART A & B [facility] MEDEX SUPPLEMENT MEDICARE PART A & B [employer] MED[employer] SUPPLEMENT MEDICARE PART A & B [employer] MED[employer] SUPPLEMENT MEDICARE PART A & B [employer] MEDEX SUPPLEMENT MEDICARE PART A & B [employer] MEDEX SUPPLEMENT MEDICARE PART A & B [employer] MEDEX SUPPLEMENT MEDICARE PART A & B [employer] MEDEX SUPPLEMENT MEDICARE PART A & B [employer] MEDEX SUPPLEMENT MEDICARE PART A & B [employer] MEDEX SUPPLEMENT Care Teams Assembly Adjuster Relationship Specialty Start Date End Date Phong Henry MD [address] [place] [address] PCP - General Family Medicine 03/27/21 Additional Source Comments The information contained in this document represents components of the legal health record. It is not the complete legal health record.[facility]
--- OUTSIDE RECORDS SUMMARY | 2025-06-15 08:52 | XMS_ITS | Patient Health Record ---
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) Active confirmed Problem Localized, primary osteoarthritis of the ankle and/or foot (526789138) 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 Problem Bilateral atherosclerosis of arteries of lower limbs (disorder) (61461086438233331 ) Atherosclerosis of artery of both lower extremities (I70.203) Active confirmed Plan Of Treatment Pending Test Test Name Order Date X ray : Foot, right 3V 07/24/2021 X ray : Foot, right 3V 05/16/2022 Insurance Providers Payer Name Payer Address Payer Phone Subscriber Number Group Number Insured Name Patient Relationship to Insured Coverage Start Date Coverage End Date Medicare National Govt [employer] [address] [place] [address] [id number] Tiny Balbuena Self - patient is the insured [employer] Blue Shield [address] [place] [address] [id number] Tiny Balbuena Self - patient is the [...]
== END 2025-06-15 08:27 | disposition home or self-care (01) ==
LOC: HO.HMGCX 08:26
PROVIDERS: PCP Family Medicine; Visit Provider Internal Medicine Cardiovascular Disease
DX: I10 Essential (primary) hypertension (principal)
CPT/HCPCS: 93975

== ENCOUNTER → 2025-06-15 08:28 | Outpatient (BNV) | payer MEDICARE, SELFPAY | PROVIDERS: PCP Family Medicine; Visit Provider Radiology Diagnostic Radiology | DX: I10 Essential (primary) hypertension (principal) | CPT/HCPCS: 93975 ==